=== PATIENT | female | born 1940 | race Caucasian/White ===

== ENCOUNTER 2019-04-19 08:30 | Inpatient (IN) | payer MEDICARE, SELFPAY ==
[2019-04-19] VITALS (21 sets, daily range): BP systolic 89–167; BP diastolic 48–92; PULSE 97–132; RESP 15–23; TEMP 36.2–37.8; O2SAT 91–95; BMI 31.6
--- NOTE | ~2019-04-19 | XR_ITS ---
XR chest 1V portable 04/22/2019 21:54 Indication: Fever and shortness of breath Procedure: 2 view chest Comparison: 04/20/2019 Findings: Developing patchy bilateral airspace disease, compatible with pneumonia. Heart size normal. No pleural effusion, edema or pneumothorax. No acute osseous abnormality. Impression: 1: Developing patchy bilateral airspace disease, compatible with pneumonia. Reviewed, dictated and finalized at location A. RAL RESOURCES PROFESSOR Impression: 1: Developing patchy bilateral airspace disease, compatible with pneumonia.
--- NOTE | ~2019-04-19 | US_ITS ---
EXAMINATION: US venous doppler [facility] DATE: 04/19/2019 12:34 INDICATION: Pulmonary embolism with shortness of breath TECHNIQUE: Grayscale ultrasound images without and with compression and Doppler ultrasound images of the bilateral lower extremity veins were obtained. COMPARISON: None. FINDINGS: The visualized portions of right common femoral vein, profunda (deep) femoral vein, femoral vein, pop liteal vein, posterior tibial veins, peroneal veins, gastrocnemius vein and greater saphenous vein ou tflow are patent. The visualized portions of left common femoral vein, profunda femoral vein, femoral vein, popliteal v ein, posterior tibial veins, peroneal veins, gastrocnemius vein and greater saphenous vein outflow ar e patent. IMPRESSION: 1. No deep venous thrombosis in either lower limb. Reviewed, dictated and finalized at location A. T BLANKER
--- NOTE | ~2019-04-19 | CT_ITS ---
EXAMINATION: CTA chest PE protocol DATE: 04/19/2019 11:06 INDICATION: Shortness of breath TECHNIQUE: Computed tomography (CT) pulmonary angiogram of the chest was performed with 100 mL Omnipa que-350 intravenous contrast. Additional 3D reconstructions utilizing coronal maximum intensity proje ction (MIP) were performed. Automated exposure control and iterative reconstruction technique were em ployed. The dose-length product was 290.19 mGy-cm. COMPARISON: None FINDINGS: Good contrast opacification of the pulmonary arteries. There is mild streak artifact from dense contr ast in the superior vena cava and right atrium. Mild scattered respiratory motion artifact which does not significantly limit evaluation. There are multiple bilateral pulmonary arterial filling defects including at the right upper lobar and segmental pulmonary arteries, the lateral segmental pulmonary artery of the right middle lobe, right lower lobar pulmonary artery extending into the superior segme ntal, posterior, lateral and anterior basilar segments, anteroapical segmental pulmonary artery of th e left upper lobe, the lingular and superior and inferior segmental pulmonary arteries as well as at the left lower lobar and segmental pulmonary arteries. No airspace opacities to suggest pulmonary inf arct or pneumonia. No pulmonary edema or pleural effusion. Heart size is normal. No leftward bowing o f the ventricular septum to suggest right heart strain. No pericardial effusion. No pathologically en larged thoracic lymphadenopathy. Large sliding-type hiatal hernia. Multiple parapelvic cysts at the m id to lower left kidney. Mild to moderate thoracic spondylosis. IMPRESSION: 1. Extensive bilateral pulmonary emboli with high clot burden but without evident right heart strain. Dr. Monreal discussed these findings with GREY Hankins at 11:30 AM. 2. Moderate to large hiatal hernia. Reviewed, dictated and finalized at location A. TY JAILER IMPRESSION: 1. Extensive bilateral pulmonary emboli with high clot burden but without evide nt right heart strain. Dr. Monreal discussed these findings with GREY hunt at 11:30 AM. 2. Moderate to large hiatal hernia.
--- NOTE | ~2019-04-19 | CT_ITS ---
EXAMINATION: CT abdomen pelvis wo con DATE: 04/20/2019 14:18 INDICATION: Dropping hemoglobin TECHNIQUE: Computed tomography (CT) of the abdomen and pelvis was performed without intravenous contr ast. The dose-length product (DLP) was 802.15 mGy-cm. Automated exposure control and iterative recons truction technique were employed. COMPARISON: None FINDINGS: Minimal dependent atelectasis is present in the lung bases. The heart size is normal. There is a large sliding hiatal hernia. The gallbladder is surgically absent. The liver, spleen, pancreas, and adrenal glands are normal. There are peripelvic cysts of the left kidney. The right kidney is un remarkable. There is calcified atherosclerosis of the aorta and many of the other arteries. There is mild lumbar spondylosis. No pathologically enlarged abdominal or pelvic lymph nodes are identified. T here is no free intraperitoneal gas or evidence of bowel obstruction. IMPRESSION: 1. No CT correlate for the patient's symptoms. Reviewed, dictated and finalized at location A. ATION RESEARCH ANALYST
--- NOTE | ~2019-04-19 | XR_ITS ---
EXAMINATION: XR chest 2V DATE: 04/20/2019 14:07 INDICATION: Cough, pulmonary embolism TECHNIQUE: Frontal and lateral views of the chest are obtained COMPARISON: CT, 04/19/2019 FINDINGS: The lungs are free of acute opacities. There are small pleural effusions. The cardiomediast inal silhouette is normal. There is moderate thoracic spondylosis. A cardiac loop recorder is implant ed in the anterior soft tissues of the left chest wall. IMPRESSION: 1. Small pleural effusions. Reviewed, dictated and finalized at location A. OR ATTORNEY IMPRESSION: 1. Small pleural effusions.
[2019-04-19 09:13] LABS: Basophils Percent Auto 0.2 % (0.2-1.2); Eosinophils Absolute Auto 0.2 K/mm3 (0-0.3); Eosinophils Percent Auto 2.1 % (0-4.4); Hematocrit 36.1 % (37.0-47.0); Hemoglobin 11.7 g/dL (12.0-15.0); Immature Granulocyte Absolute 0.03 K/mm3 (0.00-0.031); Immature Granulocyte Percent A 0.3 % (0-0.5); Lymphocytes Percent Auto 6.7 % (18.3-44.2); Mean Corpuscular HGB Conc 32.4 g/dl (32-36); Mean Corpuscular Hemoglobin 29.8 pg (26-34); Mean Corpuscular Volume 92.1 fl (80-100); Mean Platelet Volume 10.9 fl (7.4-10.4); Monocytes Absolute Auto 0.8 K/mm3 (0.1-0.6); Monocytes Percent Auto 9.2 % (2.6-8.5); Neutrophils Absolute Auto 7.3 K/mm3 (1.3-6.7); Neutrophils Percent Auto 81.5 % (45.5-73.1); Platelet Count Result 275 k/mm3 (150-375); Red Blood Count 3.92 M/mm3 (4.2-5.4); Red Cell Distribution Width 13.5 % (11.5-14.5)
--- NOTE | 2019-04-19 09:18 | ECG_ITS ---
Measurements Intervals [place] Rate: 100 P: 14 MS: 136 QRS: 18 QRSD: 92 T: 76 QT: 361 QTc: 466 Interpretive Statements SINUS TACHYCARDIA VENTRICULAR TRIGEMINY CONISDER INFERIOR INFARCT, AGE INDETERMINATE NONSPECIFIC ST & T-WAVE ABNORMALITY- ANTEROLAT/LAT LEADS ABNORMAL ECG Electronically Signed On 04-19-2019 11:18:59 OFFSET PRESS ASSISTANT by Jackson Chen D.O.
[2019-04-19 09:26] LABS: Alanine Aminotransferase 17 U/L (4-35); Albumin Level 3.9 g/dL (3.5-5.1); Alkaline Phosphatase 100 U/L (38-126); Aspartate Amino Transferase 28 U/L (14-36); Bilirubin,Total 0.6 mg/dL (0.2-1.3); Blood Urea Nitrogen 23 mg/dL (7-17); Calcium 9.4 mg/dL (8.4-10.2); Carbon Dioxide 23 mmol/L (22-30); Chloride 102 mmol/L (98-107); Estimated CRCL calculation 47 ml/min; Estimated Glomerular Filt Rate > 60; Glucose 149 mg/dL (65-105); Lipase 177 U/L (23-300); Sodium 138 mmol/L (137-145)
[2019-04-19 10:05] LABS: Lactic Acid Reflex 1.3 mmol/L (0.7-2.1)
--- NOTE | 2019-04-19 10:07 | ED.GENADULT ---
HPI - General Adult General Chief complaint: Unspecified <Dion Hankins PA-C - Last Filed: 04/19/19 12:14> Stated complaint: diff breathing x1 wk <MARY Roberts Last Filed: 04/19/19 12:14> Time Seen by Provider: 04/19/19 08:58 <MARY Roberts Last Filed: 04/19/19 12:14> Source: patient <MARY Roberts Last Filed: 04/19/19 12:14> Mode of arrival: ambulatory <MARY Roberts Last Filed: 04/19/19 12:14> Limitations: no limitations <MARY Roberts Last Filed: 04/19/19 12:14> History of Present Illness HPI narrative: Patient is a 78-year-old female who presents to emergency department for evaluation of fatigue myalgias arthralgias congestion rhinorrhea and cough that began last night. Patient notes that her daughter had been ill as well and believes she may have contacted whenever her daughter has. Patient denies any current pain. Patient notes that the discomfort she experiences in the knees is worse with ambulation and activity and improves with rest. Patient notes for the last month she has had dyspnea on exertion. Patient denies any fever chills nausea vomiting diarrhea on arrival patient in the room in no distress <Dion Hankins PA-C - Last Filed: 04/19/19 12:14> Related Data Home medications: Home Medications Medication Instructions Recorded Confirmed alprazolam 0.5 mg PO BID PRN 04/19/19 04/19/19 aspirin 81 mg PO DAILY 04/19/19 04/19/19 atorvastatin 20 mg PO HS 04/19/19 04/19/19 cyanocobalamin (vitamin B-12) 500 mcg PO DAILY 04/19/19 04/19/19 [Vitamin B-12] folic acid 400 mcg PO DAILY 04/19/19 04/19/19 lisinopril-hydrochlorothiazide 1 tablet PO DAILY 04/19/19 04/19/19 qjrfrrhvprka-loa-thli-FA-vit K 1 tablet PO DAILY 04/19/19 04/19/19 [Adults Multivitamin] sertraline 100 mg PO DAILY 04/19/19 04/19/19 <MARY Roberts Filed: 04/19/19 12:14> Allergies/adverse reactions: Allergies Allergy/AdvReac Type Severity Reaction Status Date / Time latex Allergy Unknown RASH Verified 01/29/18 14:55 ONIONS AdvReac Unknown NAUSEA, Uncoded 10/18/17 09:51 SLEEPINESS <Dion Hankins PA-C - Last Filed: 04/19/19 12:14> Review of Systems Review of Systems: All systems reviewed & are unremarkable except as noted in HPI and below <Dion Hankins PA-C - Last Filed: 04/19/19 12:14> [facility] Past Medical History Medical History: Medical History (Updated 04/19/19 @ 15:47 by Anneliese Florentino NP) Anxiety 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ipidemia Hypertension Iron deficiency anemia Normal colonoscopy Panic attack Peptic ulcer disease 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 <Dion Hankins PA-C - Last Filed: 04/19/19 12:14> Surgical History Surgical History: Surgical History (Updated 04/19/19 @ 15:47 by Anneliese Florentino NP) H/O blepharoplasty H/O cataract extraction Bilateral H/O endoscopy H/O total hysterectomy History of appendectomy History of loop recorder Left chest Hx of cholecystectomy S/P tonsillectomy <Dion Hankins PA-C - Last Filed: 04/19/19 12:14> Family History Family History: Family History (Updated 04/19/19 @ 16:16 by Anneliese Florentino NP) Father Hypertension Acute myocardial infarction Sibling Cancer Kidney disease Sibling Lung cancer <Dion Hankins PA-C - Last Filed: 04/19/19 12:14> Social History Social History: Social History (Updated 04/19/19 @ 16:20 by Anneliese Florentino NP) Social History: The patient is and lives with her daughter and son-in-law. She has 2 children a son and a daughter. Petra Glez. She is a full code. No alcohol or illicit drugs. Lifelong nonsmoker
[2019-04-19] MEDS: LACTATED RINGERS 1,000 ML 999 ML IV CONT (10:16)
[2019-04-19 10:24] LABS: D Dimer 6.02 ug/mL (<0.48)
[2019-04-19 10:29] LABS: Add Urine Microscopic? NO; Appearance Urine Clear (Clear); Bilirubin Urine Negative (Negative); Blood Urine Negative (Negative); Color Urine Yellow (Yellow); Glucose Urine UA Negative (Negative); Ketones Urine Negative (Negative); Leukocyte Esterase Ur Negative LEU/UL (Negative); Nitrate Urine Negative (Negative); Protein Urine Negative (Negative); Specific Grav Ur 1.019 (1.001-1.035); Urobilinogen Urine Negative mg/dL (<2.0)
[2019-04-19 10:49] LABS: Alveolar/Arterial O2 Gradient 45.6 mmHg; Fractional Inspired Oxygen 21 %; HCO3 ABG 22.9 mEq/l (22.0-26.0); Oxygen Content ABG 14.7 %vol (16.0-22.0); Oxygen Saturation ABG 94.5 % (95.0-100.0); Oxyhemoglobin 92.5 % THb (90.0-100.0); PCO2 ABG 31.7 mmHg (35.0-45.0); PO2 ABG 66.2 mmHg (80.0-100.0); PO2 FiO2 Ratio Arterial Blood 3.15 %; Total Hemoglobin 11.3 g/dL (12.0-18.0); pH ABG 7.477 (7.350-7.450)
[2019-04-19 10:50] LABS: Site Drawn LEFT BRACHIAL
[2019-04-19 10:51] LABS: Device ROOM AIR
[2019-04-19] MEDS: SODIUM CHLORIDE 0.9% IV 1,000 ML 999 ML IV CONT (11:08)
[2019-04-19] MEDS: ONDANSETRON INJ 4 MG/2 ML VIAL IV PUSH (11:08)
[2019-04-19 12:06] LABS: Partial Thromboplastin Time 25.4 SECONDS (22.3-36.8); Prothrombin Time 12.4 Seconds (11.1-14.7)
[2019-04-19] MEDS: HEPARIN SOD/D5W 100 UNITS/ML 25,000 UNITS/250 ML BAG 15 UNITS (12:07)
[2019-04-19] MEDS: HEPARIN SODIUM 5,000 UNITS/ML VIAL 5500 UNITS IV PUSH (12:08)
--- NOTE | 2019-04-19 12:26 | PM.CNCAR ---
Assessment and Plan Assessment and plan (1) Pulmonary emboli: Code(s): I26.99 - Other pulmonary embolism without acute cor pulmonale Status: Acute Assessment and Plan: She had multiple small pulmonary clots, but no enlargement of the pulmonary trunk or enlargement of the right ventricle, indicative of mild PE, and no evidence of massive or submassive PE at this time. With that she can benefit from heparin and then switching to Eliquis. No need for any catheter based intervention in view of low likelihood of major complications and low likelihood of hemodynamic instability based on the size of the clots thus far (2) CVA (cerebral vascular accident): Code(s): I63.9 - Cerebral infarction, unspecified Status: Acute Assessment and Plan: She has loop recorder for possible underlying atrial fibrillation Thank you for allowing me to participate in this patient's care, I will be following up with you. Please do not hesitate to call me for any other inquiry History of Present Illness History of Present Illness Consult date/time: 04/19/19 12:26 Consultation for management and treatment of PE 78 years old lady with history of stroke, history of hypertension, came to the hospital because of progressive worsening shortness breath with chest tightness started few days ago. Her daughter stated that she moved from [place] and she drove from the ER few days ago, after that she has been having worsening shortness of breath and no leg pain alone leg swelling. She had history of stroke in the past for which she have LINQ loop recorder inserted, but so far no significant arrhythmia. She gets occasional tightness in the chest but she attributed to heartburn, no history of syncope per se. CT of the chest was done showed multiple small thrombus noted in the right lower and left lower lobe pulmonary artery, there is no right ventricular enlargement noted. And no dilatation of the pulmonary artery. And no evidence of pulmonary infarction. She has mild leg swelling but no history of leg pain or recent DVT. Reason For Visit: diff breathing x1 wk Review of Systems Constitutional: Constitutional: Reports body ache(s), Reports fatigue and Reports lethargy Cardiovascular: Cardiovascular: Reports as per HPI Respiratory: Respiratory: Reports dyspnea on exertion [facility] Past Medical History Medical History CVA (cerebral vascular accident) Hypertension Family History Family History Father Hypertension Social History Social History Smoking status: Never smoker Second hand tobacco smoke exposure: No Alcohol intake: current Gender identity (if verbalized by the patient): Female Meds Home Medications and Allergies Home Medications Medication Instructions Recorded Confirmed Type trazodone 50 mg tablet 50 mg PO DAILY #180 tablet 02/06/19 Rx Allergies Allergy/AdvReac Type Severity Reaction Status Date / Time latex Allergy Unknown RASH Verified 01/29/18 14:55 ONIONS AdvReac Unknown NAUSEA, Uncoded 10/18/17 09:51 SLEEPINESS Vital Signs Vital Signs - 24 hr 04/19/19 08:34 04/19/19 08:42 04/19/19 08:45 Temperature 36.5 C Pulse Rate 105 H 108 H Respiratory Rate 19 23 H Blood Pressure 167/92 H 165/48 H Pulse Oximetry 93 94 04/19/19 08:46 04/19/19 08:47 04/19/19 08:58 Temperature 36.2 C L Pulse Rate 120 H 132 H 103 H Respiratory Rate 15 Blood Pressure 121/63 89/61 L 146/55 H Pulse Oximetry 94 04/19/19 10:17 04/19/19 11:13 Temperature 36.4 C L 36.5 C Pulse Rate 104 H 106 H Respiratory Rate 21 H 16 Blood Pressure 133/66 165/90 H Pulse Oximetry 95 93 Exam Narrative: Exam Narrative: Awake alert oriented x3 not in acute distress Neck is supple no obvious JVD, no carotid bruit Chest: Good air entry bilatera
--- NOTE | 2019-04-19 13:39 | PC.NURSE ---
Patient to floor at this time.
--- NOTE | 2019-04-19 13:42 | PC.NURSE ---
This patient, Lisa James, was admitted to 2 Medical Room 241-01. Patient/family oriented to hospital policies and general routines including ID bracelet, bed and alarms, visiting hours, pain management, procedures, bathroom and other care routines, personal items, smoking policy, room service/diet, and visiting hours. Valuables list has been completed. Information on how to activate the Rapid Response Team has been discussed. Patient/Family are encouraged to report perceived risks to care and to ask questions if they do not understand what they are told or what they should do.
[2019-04-19] MEDS: HEPARIN SOD/D5W 100 UNITS/ML 25,000 UNITS/250 ML BAG 12 UNITS IV CONT ×2 (13:53→13:55)
[2019-04-19] MEDS: ACETAMINOPHEN 500 MG TABLET 1000 MG PO (14:47)
[2019-04-19] MEDS: ALBUTEROL SULFATE NEB 2.5 MG/0.5 ML INH 5 MG INHALATION ×2 (15:22→21:53)
--- NOTE | 2019-04-19 15:35 | PM.IMHP ---
H&P: HPI History of Present Illness Chief complaint: pulmonary embolism Narrative: Lisa James is a 78 year old female in [place] and recently made a trip back here to [place] with her daughter. It took them [address] here but the daughter stated that they were in the car pretty much of the time. Patient has not had any previous PEs or DVTs. However the patient was on Xarelto at 1 time because of her stroke and TIAs she stated. However she has been taken off of Xarelto because she had peptic ulcer disease and anemia with her hemoglobin getting down to 5 at 1 time in requiring blood transfusions. She currently sees a dry cleaning manager Dr. ford who occasionally gets her iron transfusions. The patient stated she has been feeling ill for about 2 weeks. She does not really feel achy but just her knees. She is very weak and having some nasal congestion and cough that started last night. The patient stated that she has been short of breath with exertion for about 2 weeks. Patient stated she just thought she had upper respiratory infection. Had a CTA chest PE protocol and was found to have extensive bilateral pulmonary emboli with high clot burden but without evidence of right heart strain. Moderate to large hiatal hernia. Dr. Liz was notified and instructed the ED provider to start the patient on heparin drip. I believe that he saw her in the emergency room as well. Venous Dopplers were negative. The patient was started on heparin drip in the emergency room. Patient stated she is feeling somewhat better however she was a little unsteady on her feet today. Date of service 04/19/2019 Review of Systems Review of Systems: Narrative: Patient feels very weak and fatigued. She has a history of anemia although her last hemoglobin was normal her last visit to the dry cleaning manager. She has been short of breath on exertion since she had her travel to [place]. She has a dry cough as well. She had low-grade fever as well. All systems reviewed & are unremarkable except as noted in HPI and below Constitutional: Constitutional: Reports as per HPI, Reports no additional constitutional complaints, Reports body ache(s) (Just her knees), Reports fatigue, Reports fever(s) and Reports weakness Eyes: Eyes: Reports as per HPI and Reports no additional eye complaints ENT: Reports system reviewed and no additional complaints, except as documented, Reports Normal hearing present, Reports nasal congestion, Reports nasal discharge, Reports disequilibrium and Reports sinus pressure Cardiovascular: Cardiovascular: Reports no additional cardiovascular complaints Respiratory: Respiratory: Reports no additional respiratory complaints, Reports no additional respiratory complaints and Reports dyspnea on exertion Gastrointestinal: Gastrointestinal: Reports as per HPI and Reports no additional gastrointestinal complaints Musculoskeletal: Musculoskeletal: Reports no additional musculoskeletal complaints Integumentary/Breasts: Skin/Breast: Reports system reviewed and no additional complaints, except as docu and Reports as per HPI Neurologic: Reports system reviewed and no additional complaints, except as documented, Reports as per HPI and Reports Normal hearing present Psychiatric: Psychiatric: Reports no additional psychiatric complaints and Reports as per HPI Endocrine: Endocrine: Reports no additional endocrine complaints Hematologic/Lymphatic: Hematologic/Lymphatic: Reports no additional hematologic/lymphatic complaints Allergic/Immunologic: Allergic/Immunologic: Reports no additional allergic/immunologic complaints [facility] Past Medical History Medical History (Updated 04/19/19 @ 15:47 by Anneliese Florentino NP) Anxiety 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
[2019-04-19] MEDS: APIXABAN 5 MG TABLET 10 MG PO (18:07)
[2019-04-19] MEDS: ASPIRIN 81 MG CHEWABLE TABLET PO (18:08)
[2019-04-19] MEDS: ALPRAZOLAM 0.5 MG TABLET PO (18:14)
[2019-04-19] MEDS: LACTATED RINGERS 1,000 ML 75 ML IV CONT (18:38)
--- NOTE | 2019-04-19 18:39 | PC.NURSE ---
Heparin drip discontinued per orders.
[2019-04-19] MEDS: ATORVASTATIN 20 MG TABLET PO (20:18)
[2019-04-19] MEDS: TRAZODONE HCL 50 MG TABLET 100 MG PO (20:18)
[2019-04-19 20:24] LABS: Partial Thromboplastin Time 174.3 SECONDS (22.3-36.8)
[2019-04-20] VITALS (18 sets, daily range): BP systolic 100–139; BP diastolic 45–61; PULSE 88–105; RESP 16–20; TEMP 36.6–37.2; O2SAT 91–97
[2019-04-20] MEDS: ALBUTEROL SULFATE NEB 2.5 MG/0.5 ML INH 5 MG INHALATION ×4 (03:08→20:24)
[2019-04-20] MEDS: APIXABAN 5 MG TABLET 10 MG PO (05:33)
[2019-04-20 06:00] LABS: Hematocrit 26.7 % (37.0-47.0); Hemoglobin 8.6 g/dL (12.0-15.0); Mean Corpuscular HGB Conc 32.2 g/dl (32-36); Mean Platelet Volume 10.8 fl (7.4-10.4); Platelet Count Result 175 k/mm3 (150-375); Red Blood Count 2.87 M/mm3 (4.2-5.4); Red Cell Distribution Width 14.1 % (11.5-14.5); White Blood Count 3.6 K/mm3 (4.5-10.0)
[2019-04-20 06:16] LABS: Alanine Aminotransferase 15 U/L (4-35); Albumin Level 2.9 g/dL (3.5-5.1); Alkaline Phosphatase 47 U/L (38-126); Aspartate Amino Transferase 27 U/L (14-36); Bilirubin,Total 0.3 mg/dL (0.2-1.3); Blood Urea Nitrogen 21 mg/dL (7-17); Calcium 7.9 mg/dL (8.4-10.2); Carbon Dioxide 26 mmol/L (22-30); Chloride 104 mmol/L (98-107); Estimated CRCL calculation 38 ml/min; Estimated Glomerular Filt Rate 48; Glucose 113 mg/dL (65-105); Magnesium 1.5 mg/dL (1.6-2.3); Potassium 3.8 mmol/L (3.4-5.0); Sodium 138 mmol/L (137-145)
[2019-04-20 07:05] LABS: Thyroid Stimulating Hormone Reflex 0.584 uIU/mL (0.465-4.68)
[2019-04-20] MEDS: LACTATED RINGERS 1,000 ML 75 ML IV CONT ×2 (07:28→22:33)
[2019-04-20 08:00] LABS: Band Neutrophils Percent 1 % (0-6); Monocytes Absolute Manual 0.21 K/mm3 (0.1-0.90); Monocytes Percent Manual 6 % (3-9); Neutrophils Absolute Manual 2.88 K/mm3 (1.7-7.2); Neutrophils Percent Manual 79 % (46-73); Total Cells Counted 100
[2019-04-20 08:01] LABS: Hypochromasia 1+ (NORMAL); Platelet Estimate Adequate (Adequate)
[2019-04-20] MEDS: MULTIVITAMINS /C LUTEIN (CENTRUM SILVER) TABLET *BKC 1 TAB PO (10:15)
[2019-04-20] MEDS: CYANOCOBALAMIN 500 MCG TABLET PO (10:15)
[2019-04-20] MEDS: FOLIC ACID 0.4 MG TABLET PO (10:16)
[2019-04-20] MEDS: SERTRALINE HCL 50 MG TABLET 100 MG PO (10:16)
[2019-04-20 13:33] LABS: Basophils Percent Auto 0.6 % (0.2-1.2); Hematocrit 26.6 % (37.0-47.0); Hemoglobin 8.4 g/dL (12.0-15.0); Lymphocytes Absolute Auto 0.63 K/mm3 (0.9-3.2); Lymphocytes Percent Auto 18.9 % (18.3-44.2); Mean Corpuscular HGB Conc 31.6 g/dl (32-36); Mean Platelet Volume 9.9 fl (7.4-10.4); Monocytes Absolute Auto 0.5 K/mm3 (0.1-0.6); Monocytes Percent Auto 15.3 % (2.6-8.5); Neutrophils Absolute Auto 2.2 K/mm3 (1.3-6.7); Neutrophils Percent Auto 65.2 % (45.5-73.1); Platelet Count Result 154 k/mm3 (150-375); Red Cell Distribution Width 14.3 % (11.5-14.5); White Blood Count 3.3 K/mm3 (4.5-10.0)
[2019-04-20 13:57] LABS: Lactic Acid Reflex 1.5 mmol/L (0.7-2.1)
--- NOTE | 2019-04-20 14:14 | PM.PNCARD ---
Progress Note: A&P Assessment and Plan (1) Pulmonary emboli: Code(s): I26.99 - Other pulmonary embolism without acute cor pulmonale Status: Acute Assessment and Plan: She had multiple small pulmonary clots, but no enlargement of the pulmonary trunk or enlargement of the right ventricle, indicative of mild PE, and no evidence of massive or submassive PE at this time. With that she can benefit from Eliquis. No need for any catheter based intervention in view of low likelihood of major complications and low likelihood of hemodynamic instability based on the size of the clots thus far. Her hemoglobin dropped, she is going for CT, will stop aspirin, consider dropping to 5 twice a day instead in view of significant anemia. In the event that she continue to have drop in her hemoglobin further on lower dose Eliquis then will consider filter (2) CVA (cerebral vascular accident): Code(s): I63.9 - Cerebral infarction, unspecified Status: Chronic Assessment and Plan: She has loop recorder for possible underlying atrial fibrillation Thank you for allowing me to participate in this patient's care, I will be following up with you. Please do not hesitate to call me for any other inquiry Subjective Date/time seen: 04/20/19 14:14 She feels okay today, shortness breath is better, no leg pain or leg swelling. Noted to have some drop in her hemoglobin. She is going for abdominal CT Review of Systems Constitutional: Constitutional: Reports body ache(s), Reports fatigue and Reports lethargy Cardiovascular: Cardiovascular: Reports as per HPI and Reports dyspnea on exertion Respiratory: Respiratory: Reports dyspnea on exertion Endocrine: Endocrine: Reports fatigue Objective Data Vital Signs Vital Signs: Vital Signs - 24 hr 04/19/19 14:47 04/19/19 15:27 04/19/19 15:32 Temperature 37.8 C H Pulse Rate 100 109 H Respiratory Rate 16 16 Blood Pressure Pulse Oximetry 04/19/19 15:47 04/19/19 16:00 04/19/19 20:00 Temperature 37.7 C H Pulse Rate 117 H 104 H Respiratory Rate Blood Pressure Pulse Oximetry 04/19/19 21:55 04/19/19 22:00 04/20/19 00:00 Temperature 36.5 C Pulse Rate 97 105 H 98 Respiratory Rate 18 20 Blood Pressure 100/51 L Pulse Oximetry 94 04/20/19 03:14 04/20/19 03:19 04/20/19 04:00 Temperature Pulse Rate 96 101 H 105 H Respiratory Rate 18 18 Blood Pressure Pulse Oximetry 04/20/19 06:00 04/20/19 08:00 04/20/19 10:00 Temperature 37.2 C 36.9 C Pulse Rate 103 H 103 H 90 Respiratory Rate 20 16 Blood Pressure 100/45 L 111/54 L Pulse Oximetry 95 97 04/20/19 11:12 04/20/19 11:19 04/20/19 12:00 Temperature Pulse Rate 89 88 104 H Respiratory Rate 18 18 Blood Pressure Pulse Oximetry Intake/Output Intake/Output: Intake & Output 04/17/19 04/18/19 04/19/19 04/20/19 23:59 23:59 23:59 23:59 Intake Total 2256 1650.0 Output Total 555 600 Balance 1701 1050.0 Meds/Results Medications: Active Medications Generic Name Dose Route Start Last Admin Trade Name Freq PRN Reason Stop Dose Admin Acetaminophen 1,000 mg 04/19/19 14:20 04/19/19 14:47 Tylenol Tablet PO 1,000 mg Q6H PRN Administration Mild Pain (1-3) or Fever Albuterol 5 mg 04/19/19 14:00 04/20/19 11:11 Albuterol Sulf Neb 2.5mg/0.5ml INHALATION 5 mg Q6HRT SAMARIA Administration Alprazolam 0.5 mg 04/19/19 16:31 04/19/19 18:14 Xanax PO 0.5 mg BID PRN Administration Anxiety Apixaban 10 mg 04/19/19 18:00 04/20/19 05:33 Eliquis PO 10 mg Q12H SAMARIA Administration Aspirin 81 mg 04/19/19 18:00 04/19/19 18:08 Aspirin Chewable PO 81 mg QPM SAMARIA Administration Atorvastatin Calcium 20 mg 04/19/19 21:00 04/19/19 20:18 Lipitor PO 20 mg HS SAMARIA Administration Cyanocobalamin 500 mcg 04/20/19 09:00 04/20/19 10:15 Vitamin B-12 Tab PO 500 mcg DAILY SAMARIA Administration Folic Acid
--- NOTE | 2019-04-20 14:44 | PM.IMPN ---
Progress Note: A&P Assessment and Plan (1) Pulmonary emboli: Code(s): I26.99 - Other pulmonary embolism without acute cor pulmonale Status: Acute Assessment and Plan: The pt was diagnosed with extensive bilateral PE with high clot burden and no right heart strain. Dr. Amaral was also consulted and is on board. Appreciate recommendations. The pt was transitioned from heparin gtt to eliquis. She had a decrease in hemoglobin from 11.7 to 8.4 which has been stable today. Will monitor H & H Q6HR. We may need to decrease eliquis to 5mg PO BID. She has a prior hx of PUD with anemia following xarelto use which had to be discontinued. -Consider decreasing eliquis to 5mg BID if H&H continues to decrease (2) Depression: Code(s): F32.9 - Major depressive disorder, single episode, unspecified Status: Chronic Assessment and Plan: The pt's mood is stable. -Continue zoloft (3) Iron deficiency anemia: Code(s): D50.9 - Iron deficiency anemia, unspecified Status: Chronic Assessment and Plan: The pt has a hx of YESSICA. She is established with Dr. Charles and reports that she requires intermittent iron infusions. Hb today decreased from 11.7 to 8.5. I suspect possible acute blood loss anemia due to anticoagulation required for PE. Per Dr. Amaral, aspirin will be discontinued. -Discontinue aspirin -STAT CT abd/pelvis to r/o retroperitoneal bleed was negative for evidence of acute bleed -UA to r/o hematuria -Stool occult blood -H & H Q6HR -Will monitor H & H. Eliquis may have to be reduced to 5mg BID if Hb continues to decrease. 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 She is established with Dr. Malik. The pt has not been taking her omeprazole. She had an EGD approximately 1.5 years ago and believes she is due for a follow-up appointment. -Continue follow-up with Dr. Malik -Pt will need PPI at discharge (5) Hyperlipidemia: Code(s): E78.5 - Hyperlipidemia, unspecified Status: Chronic Assessment and Plan: LFTs reviewed and WNL. -Continue atorvastatin (6) HTN (hypertension) with goal to be determined: Code(s): I10 - Essential (primary) hypertension Status: Chronic Assessment and Plan: BP was low today. Lisinopril is being held. I confirmed the appropriate dosing for her lisinopril-HCTZ which is lisinopril 10mg-hydrochlorothiazide 12.5mg. -Will hold lisinopril-HCTZ for now and resume when appropriate (7) Anxiety: Code(s): F41.9 - Anxiety disorder, unspecified Status: Chronic Assessment and Plan: The pt does not feel anxious at this time. Her mood is stable. 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 She has no focal deficits, change in vision, or change in speech. Additional Plan DVT Prophylaxis: Pt is on eliquis for treatment of PE. Time Spent With Patient Time with patient: 15 - 25 minutes Subjective Date/time seen: 04/20/19 14:44 Interval history: The pt was seen and examined at bedside with her daughter. She endorses minimally productive cough with clear sputum and sinus drainage. Her daughter was recently diagnosed with a viral illness and the pt reports similar sx for approximately 1 week. She reports a fever and chills yesterday. She is on 2L O2. She denies SOB and chest pain. Hb dropped from 11.7 to 8.7 overnight. She has a hx of PUD and anemia requiring cessation of xarelto in the past. She reports that she was previously on xarelto due to
[2019-04-20 15:23] LABS: Hematocrit 26.5 % (37.0-47.0); Hemoglobin 8.5 g/dL (12.0-15.0)
[2019-04-20] MEDS: ALPRAZOLAM 0.5 MG TABLET PO (16:19)
[2019-04-20 16:58] LABS: Add Urine Microscopic? YES; Appearance Urine Clear (Clear); Bilirubin Urine Negative (Negative); Blood Urine 1+ (Negative); Color Urine Straw (Yellow); Glucose Urine UA Negative (Negative); Ketones Urine Negative (Negative); Leukocyte Esterase Ur Negative LEU/UL (NEGATIVE); Mucus Urine Rare /lpf; Nitrate Urine Negative (Negative); Protein Urine Negative (Negative); Specific Grav Ur 1.009 (1.001-1.035); Squamous Epithelial Cell Urine Few /hpf (Few); Urobilinogen Urine Negative mg/dL (<2.0); WBC Urine 0-3 /hpf (0-3)
[2019-04-20] MEDS: APIXABAN 5 MG TABLET PO (17:54)
[2019-04-20] MEDS: MAGNESIUM SULF 2 GM/WATER 50ML 2 GM/50 ML BAG IVPB (19:57)
[2019-04-20] MEDS: PANTOPRAZOLE SODIUM IV 40 MG VIAL IV PUSH (21:12)
[2019-04-20] MEDS: TRAZODONE HCL 50 MG TABLET 100 MG PO (21:12)
[2019-04-20] MEDS: ATORVASTATIN 20 MG TABLET PO (21:13)
[2019-04-20] MEDS: SODIUM CHLORIDE 0.9% (21:20)
[2019-04-20 21:24] LABS: Hematocrit 26.4 % (37.0-47.0); Hemoglobin 8.3 g/dL (12.0-15.0)
[2019-04-21] VITALS (18 sets, daily range): BP systolic 110–136; BP diastolic 52–63; PULSE 79–99; RESP 16–22; TEMP 36.2–36.8; O2SAT 90–94
--- NOTE | 2019-04-21 | ECHO_ITS ---
Patient Info Name: Lisa James Age: 78 years : 1940 Gender: Female Ht: 63 in Wt: 179 lbs BSA: 1.93 m2 HR: 87 bpm BP: 128 / 52 mmHg Heart Rhythm: Sinus Arrhythmia Technical Quality: Good Exam Date: 04/21/2019 10:55 AM Exam Location: [facility] Card Pulmonary Patient Status: Inpatient Admit Date: 04/19/2019 Staff Ordering Physician: Anneliese Florentino NP Rivet Sorter: Chris Vera RDCS Attending Provider: Sumit Rose MD Referring Physician: Mishel FAULKNER; Exam Type: CA echo doppler color flow Study Info Indications I26.99 - Other pulmonary embolism without acute cor pulmonale Complete two-dimensional, color flow and Doppler transthoracic echocardiogram is performed. Strain analysis performed. History/Risk Factors Pulmonary embolism; HTN, SOB chest tightness. Summary 1. Left ventricular systolic function is normal, estimated at 65-70%. 2. There is mildly increased left ventricular wall thickness. 3. Left ventricular septal wall motion is normal. 4. There is trace mitral valve regurgitation. Left Ventricle Left ventricular chamber dimension is normal. Left ventricular systolic function is normal, estimated at 65-70%. There is mildly increased left ventricular wall thickness. Left ventricular septal wall motion is normal. The left ventricular diastolic function is normal. Right Ventricle Right ventricular chamber dimension is normal. Right ventricular systolic function is normal. Left Atria Left atrial chamber dimension is normal. Right Atria Right atrial chamber dimension is normal. Aortic Valve The aortic valve is trileaflet. There is no aortic valve sclerosis. There is no aortic valve stenosis. There is no aortic valve regurgitation. Pulmonic Valve The pulmonic valve is normal. There is no pulmonic valve stenosis. There is no pulmonic regurgitation. Mitral Valve The mitral valve has normal leaflets. There is no mitral valve stenosis. There is trace mitral valve regurgitation. Tricuspid Valve The tricuspid valve leaflets are normal. There is no significant tricuspid valve stenosis. There is no tricuspid valve regurgitation. No pulmonary hypertension, estimated pulmonary arterial systolic pressure is 48 mmHg. Pericardium/Pleural The pericardium appears normal. There is no pericardial effusion. Inferior Vena Cava Normal inferior vena cava with >50% collapse upon inspiration consistent with normal right atrial pressure, 15 mmHg. Aorta The aortic root size at the sinus of Valsalva is normal. The prox ascending aorta size is normal. Left Ventricular Outflow Tract Name Value Normal LVOT 2D LVOT Diameter 1.8 cm LVOT Doppler LVOT Peak Gradient 7 mmHg LVOT Mean Gradient 4 mmHg LVOT VTI 24 cm LVOT VTI/AV VTI Ratio 0.9 LVOT Stroke Volume 64 ml LVOT CO 5.3 l/min LVOT CI 2.8 l/min/m2 Mitral Valve --------
[2019-04-21] MEDS: ALBUTEROL SULFATE NEB 2.5 MG/0.5 ML INH 5 MG INHALATION ×4 (02:31→21:25)
[2019-04-21 05:31] LABS: Blood Urea Nitrogen 15 mg/dL (7-17); Calcium 8.1 mg/dL (8.4-10.2); Carbon Dioxide 27 mmol/L (22-30); Chloride 101 mmol/L (98-107); Estimated CRCL calculation 30 ml/min; Estimated Glomerular Filt Rate 36; Glucose 129 mg/dL (65-105); Magnesium 2.3 mg/dL (1.6-2.3); Potassium 3.5 mmol/L (3.4-5.0); Sodium 138 mmol/L (137-145)
[2019-04-21 05:32] LABS: Hematocrit 25.2 % (37.0-47.0); Hemoglobin 8.1 g/dL (12.0-15.0); Immature Granulocyte Absolute 0.01 K/mm3 (0.00-0.031); Immature Granulocyte Percent A 0.3 % (0-0.5); Lymphocytes Absolute Auto 0.74 K/mm3 (0.9-3.2); Lymphocytes Percent Auto 21.8 % (18.3-44.2); Mean Corpuscular HGB Conc 32.1 g/dl (32-36); Mean Corpuscular Hemoglobin 30.5 pg (26-34); Mean Corpuscular Volume 94.7 fl (80-100); Mean Platelet Volume 10.6 fl (7.4-10.4); Monocytes Absolute Auto 0.5 K/mm3 (0.1-0.6); Monocytes Percent Auto 15.6 % (2.6-8.5); Neutrophils Absolute Auto 2.1 K/mm3 (1.3-6.7); Neutrophils Percent Auto 62.3 % (45.5-73.1); Platelet Count Result 141 k/mm3 (150-375); Red Blood Count 2.66 M/mm3 (4.2-5.4); Red Cell Distribution Width 14.6 % (11.5-14.5); White Blood Count 3.4 K/mm3 (4.5-10.0)
[2019-04-21] MEDS: APIXABAN 5 MG TABLET PO (06:32)
--- NOTE | 2019-04-21 08:27 | PM.IMPN ---
Progress Note: A&P Assessment and Plan (1) Pulmonary emboli: Code(s): I26.99 - Other pulmonary embolism without acute cor pulmonale Status: Acute Assessment and Plan: The pt was diagnosed with extensive bilateral PE with high clot burden and no right heart strain. Dr. Amaral was also consulted and is on board. Appreciate recommendations. The pt was transitioned from heparin gtt to eliquis. She had a decrease in hemoglobin from 11.7 to 8.6. Eliquis was decreased to 5mg BID yesterday. Hb is slowly decreasing and is 8.[address] abd/pelvis wo contrast was performed and negative for retroperitoneal bleed. She had an episode of melena this AM. I suspect upper GI bleed. Pt reports no dyspnea or chest pain although she is requiring 2 L oxygen. Suspect this is multifactorial due to PE with anemia contributing to increased oxygen requirements as pt did not require oxygen at presentation. -Stool occult blood sample obtained -Spoke with Dr. Amaral. Will decrease eliquis to 2.5mg BID. ASA was also discontinued yesterday. -Will consult GI -Trend H & H -Pt is on IV protonix 40mg BID (2) Depression: Code(s): F32.9 - Major depressive disorder, single episode, unspecified Status: Chronic Assessment and Plan: The pt's mood is stable. -Continue zoloft (3) Iron deficiency anemia: Code(s): D50.9 - Iron deficiency anemia, unspecified Status: Chronic Assessment and Plan: The pt has a hx of YESSICA. She is established with Dr. Charles and reports that she requires intermittent iron infusions. Hb today decreased from 11.7 to 8.5. I suspect possible acute blood loss anemia due to anticoagulation required for PE. ASA was discontinue yesterday. -H & H Q6HR -Decrease eliquis to 2.5mg BID -Continue IV protonix -Await further recommendations from Dr. 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 She is established with Dr. Malik. The pt has not been taking her omeprazole. She had an EGD approximately 1.5 years ago and believes she is due for a follow-up appointment. -Continue follow-up with Dr. Malik -Pt will need PPI at discharge (5) Hyperlipidemia: Code(s): E78.5 - Hyperlipidemia, unspecified Status: Chronic Assessment and Plan: LFTs reviewed and WNL. -Continue atorvastatin (6) HTN (hypertension) with goal to be determined: Code(s): I10 - Essential (primary) hypertension Status: Chronic Assessment and Plan: BP was low today. Lisinopril is being held. I confirmed the appropriate dosing for her lisinopril-HCTZ which is lisinopril 10mg-hydrochlorothiazide 12.5mg. -Will hold lisinopril-HCTZ for now and resume when appropriate (7) Anxiety: Code(s): F41.9 - Anxiety disorder, unspecified Status: Chronic Assessment and Plan: The pt does not feel anxious at this time. Her mood is stable. 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 She has no focal deficits, change in vision, or change in speech. (9) Acute kidney injury: Code(s): N17.9 - Acute kidney failure, unspecified Status: Acute Assessment and Plan: Cr increased to 1.4 from 0.9 04/19. I supect this may be contrast-induced. -Will trend Cr -Avoid all nephrotoxic agents Additional Plan DVT Prophylaxis: Pt is on eliquis for treatment of PE. Subjective Date/time seen: 04/21/19 08:27 Interval history: The pt feels better overall today. She denies lightheadedness. She endorses mild headache. She reports a bowel movement this morning with black tarry stool. Oc
[2019-04-21] MEDS: FOLIC ACID 0.4 MG TABLET PO (08:52)
[2019-04-21] MEDS: CYANOCOBALAMIN 500 MCG TABLET PO (08:52)
[2019-04-21] MEDS: MULTIVITAMINS /C LUTEIN (CENTRUM SILVER) TABLET *BKC 1 TAB PO (08:52)
[2019-04-21] MEDS: SERTRALINE HCL 50 MG TABLET 100 MG PO (08:52)
[2019-04-21] MEDS: PANTOPRAZOLE SODIUM IV 40 MG VIAL IV PUSH ×2 (08:54→20:31)
[2019-04-21] MEDS: LACTATED RINGERS 1,000 ML 75 ML IV CONT (12:06)
--- NOTE | 2019-04-21 13:53 | PM.PNCARD ---
Progress Note: A&P Assessment and Plan (1) Pulmonary emboli: Code(s): I26.99 - Other pulmonary embolism without acute cor pulmonale Status: Acute Assessment and Plan: She had multiple small pulmonary clots, but no enlargement of the pulmonary trunk or enlargement of the right ventricle, indicative of mild PE, and no evidence of massive or submassive PE at this time. Now she is on Eliquis 2.5 b.i.d., she had significant drop of her hemoglobin, she is getting GI workup. Will continue to monitor H&H, and follow-up closely (2) CVA (cerebral vascular accident): Code(s): I63.9 - Cerebral infarction, unspecified Status: Chronic Assessment and Plan: She has loop recorder for possible underlying atrial fibrillation Thank you for allowing me to participate in this patient's care, I will be following up with you. Please do not hesitate to call me for any other inquiry Subjective Date/time seen: 04/21/19 13:53 She feels slightly better today, she is now requiring oxygen but no chest pain, noted to have further drop of her hemoglobin, we decreased her Eliquis to 2.5 b.i.d. Exam Narrative: Exam Narrative: Awake alert oriented x3 not in acute distress Neck is supple no obvious JVD, no carotid bruit Chest: Good air entry bilaterally, lungs are clear to auscultation and percussion bilaterally Cardiovascular: Regular rate and rhythm, 2/6 systolic murmur noted left sternal border Abdomen: Soft nontender bowel sounds positive Extremities: No edema has good pulses distally bilaterally Objective Data Vital Signs Vital Signs: Vital Signs - 24 hr 04/20/19 14:00 04/20/19 15:49 04/20/19 15:55 Temperature 37.1 C Pulse Rate 93 92 94 Respiratory Rate 18 18 18 Blood Pressure 115/48 L Pulse Oximetry 97 04/20/19 16:00 04/20/19 18:00 04/20/19 20:00 Temperature 36.6 C 36.8 C Pulse Rate 101 H 100 95 Respiratory Rate 16 20 Blood Pressure 124/52 L 139/61 Pulse Oximetry 97 91 04/20/19 20:25 04/20/19 20:36 04/21/19 00:00 Temperature 36.8 C Pulse Rate 96 95 96 Respiratory Rate 18 18 22 H Blood Pressure 136/54 L Pulse Oximetry 91 90 04/21/19 02:33 04/21/19 02:47 04/21/19 04:00 Temperature 36.6 C Pulse Rate 82 83 95 Respiratory Rate 18 18 22 H Blood Pressure 128/52 L Pulse Oximetry 90 04/21/19 08:00 04/21/19 09:47 04/21/19 09:58 Temperature Pulse Rate 89 82 85 Respiratory Rate 18 18 Blood Pressure Pulse Oximetry 93 Intake/Output Intake/Output: Intake & Output 04/18/19 04/19/19 04/20/19 04/21/19 23:59 23:59 23:59 23:59 Intake Total 2256 3700.0 1600 Output Total 555 2100 800 Balance 1701 1600.0 800 Meds/Results Medications: Active Medications Generic Name Dose Route Start Last Admin Trade Name Freq PRN Reason Stop Dose Admin Acetaminophen 1,000 mg 04/19/19 14:20 04/19/19 14:47 Tylenol Tablet PO 1,000 mg Q6H PRN Administration Mild Pain (1-3) or Fever Albuterol 5 mg 04/19/19 14:00 04/21/19 09:47 Albuterol Sulf Neb 2.5mg/0.5ml INHALATION 5 mg Q6HRT SAMARIA Administration Alprazolam 0.5 mg 04/19/19 16:31 04/20/19 16:19 Xanax PO 0.5 mg BID PRN Administration Anxiety Apixaban 2.5 mg 04/21/19 09:00 04/21/19 08:59 Eliquis PO Not Given Q12HR SAMARIA Atorvastatin Calcium 20 mg 04/19/19 21:00 04/20/19 21:13 Lipitor PO 20 mg HS SAMARIA Administration Cyanocobalamin 500 mcg 04/20/19 09:00 04/21/19 08:52 Vitamin B-12 Tab PO 500 mcg DAILY SAMARIA Administration Folic Acid 0.4 mg 04/20/19 09:00 04/21/19 08:52 Folic Acid PO 0.4 mg DAILY SAMARIA Administration Lactated Ringer's 1,000 mls @ 75 mls/hr 04/19/19 12:15 04/21/19 12:06 Lr - Lactated Ringers Iv IV CONT 75 mls/hr .[id number] SAMARIA Administration Levalbuterol HCl 1.25 mg 04/19/19 16:28 Xopenex 1.25 Mg/0.5 Ml INHALATION Q4HRT PRN Shortness Of Breath Lisinopril 10 mg 04/20/19 09:00 04/20/19 09:49
[2019-04-21 13:56] LABS: Hematocrit 27.1 % (37.0-47.0); Hemoglobin 8.7 g/dL (12.0-15.0)
[2019-04-21 13:57] LABS: Immature Reticulocyte Fraction 10.6 % (3.0-15.9); Reticulocyte Hemoglobin Conten 31.6 pg (28.2-35.7); Reticulocyte Percent 1.36 % (0.7-4.3); Reticulocytes Absolute 0.04 B/L (32.2-175.7)
[2019-04-21] MEDS: ALPRAZOLAM 0.5 MG TABLET PO (14:05)
[2019-04-21 14:08] LABS: Lactate Dehydrogenase 699 U/L (313-618)
[2019-04-21 14:18] LABS: Iron < 10 ug/dL (37-170)
[2019-04-21 15:15] LABS: IFOB Positive Control Positive; Immunochemical Fecal Occult Bl Negative (N)
--- NOTE | 2019-04-21 15:15 | WPDGICN ---
Assessment and Plan Assessment and plan (1) Melena: Code(s): K92.1 - Melena Status: Acute Assessment and Plan: new onset, similar episode 2 years ago while she was on anticoagulation and EGD showed gastric ulcer. This time patient was anticoagulated because PE, noted that cardiology lower her dose of eliquis in setting of melena and drop of hemoglobin. Will do EGD tomorrow, continue with high dose ppi and continue to monitor. (2) Pulmonary emboli: Qualifiers: Acute cor pulmonale presence: without acute cor pulmonale Chronicity: acute Pulmonary embolism type: unspecified Qualified Code(s): I26.99 - Other pulmonary embolism without acute cor pulmonale Code(s): I26.99 - Other pulmonary embolism without acute cor pulmonale Status: Acute Assessment and Plan: on anticoagulation, unfortunately had bleeding again. (3) Iron deficiency anemia: Qualifiers: Iron deficiency anemia type: unspecified iron deficiency Qualified Code(s): D50.9 - Iron deficiency anemia, unspecified Code(s): D50.9 - Iron deficiency anemia, unspecified Status: Chronic (4) Peptic disease: Code(s): K31.9 - Disease of stomach and duodenum, unspecified Status: Acute Assessment and Plan: found during her last EGD (5) CVA (cerebral vascular accident): Code(s): I63.9 - Cerebral infarction, unspecified Status: Chronic Assessment and Plan: previously with full recovery GI Consult Note Consult date/time: 04/21/19 15:16 reason for consult: melena HPI: Lisa James is a 78 year old female with previous history of GIB in setting of xarelto with gastric ulcer 2018 (had 2cm linear ulcer in stomach without visible vessel) that required blood transfusion, colonoscopy with diverticulosis 2016. She has not been on blood thinners after previous episode of GIB, also h/o CVA, chronic anemia. She was admitted with almost 2 weeks or shortness of breath with exertion, also noted recent car drive from [place]. ER evaluation with CTA chest PE protocol showed extensive bilateral pulmonary emboli with high clot burden but without evidence of right heart strain and moderate to large hiatal hernia, started on heparin drip and most recently switched over eliquis but today patient had dark stools consistent with melena, hb on admission was 11 and slowly down to mid 8's. CT a/p did not show active findings. She says that has not been using her PPI as instructed. Review of Systems Constitutional: Constitutional: Denies chills and Reports weakness Eyes: Eyes: Denies blurry vision ENT: Reports Normal hearing present, Denies headache(s) and Denies neck pain Cardiovascular: Cardiovascular: Denies chest pain and Denies dyspnea Respiratory: Respiratory: Reports dyspnea on exertion Gastrointestinal: Gastrointestinal: Reports no additional gastrointestinal complaints Genitourinary: Genitourinary: Denies dysuria Musculoskeletal: Musculoskeletal: Denies neck pain Integumentary/Breasts: Skin/Breast: Denies dry skin Neurologic: Reports Normal hearing present and Denies headache(s) Psychiatric: Psychiatric: Denies anxiety Endocrine: Endocrine: Denies change in body appearance Hematologic/Lymphatic: Hematologic/Lymphatic: Denies lymphadenopathy Allergic/Immunologic: Allergic/Immunologic: Denies urticaria PMF Past Medical History Medical History (Updated 04/21/19 @ 15:23 by Naren Mcwilliams MD) Anxiety 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ipidemia Hypertension Iron deficiency anemia Melena Normal colonoscopy Panic attack Peptic disease Peptic ulcer disease 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
[2019-04-21 16:42] LABS: Folic Acid > 20.0 ng/mL (2.76->20)
[2019-04-21] MEDS: ATORVASTATIN 20 MG TABLET PO (20:31)
[2019-04-21] MEDS: TRAZODONE HCL 50 MG TABLET 100 MG PO (20:31)
[2019-04-22] VITALS (24 sets, daily range): BP systolic 101–145; BP diastolic 40–83; PULSE 79–98; RESP 16–22; TEMP 36.2–38.3; O2SAT 89–98
--- NOTE | 2019-04-22 02:13 | CONS_ITS ---
DATE OF CONSULTATION: 04/21/2019 REASON FOR CONSULTATION: Anemia. HISTORY OF PRESENTING ILLNESS: This is a 78-year-old female who has a history of iron-deficiency anemia diagnosed in August 2017 when EGD showed gastric ulcer. The patient received iron infusion and the last one was in December 2017. The patient now came into the hospital for this feeling tired and weak for last 2 weeks duration. She has some nasal congestion and cough. She also has some shortness of breath for 2 weeks duration. CTA chest was performed that showed extensive bilateral pulmonary embolism with high clot burden. The patient was initially started on heparin drip and subsequently started on Eliquis. Hemoglobin was 11.7, which dropped down to 8.5. She is being having melena since the start of anticoagulation therapy. The patient also has a history of stroke previously. Eliquis dose now has been decreased to 2.5 mg twice a day. She remains quite tired and fatigued. REVIEW OF SYSTEMS: 12-point review of system was reviewed and as per HPI, otherwise negative. PAST MEDICAL HISTORY: History of iron-deficiency anemia with gastric ulcer, anxiety, 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, stroke, depression, eczema, hypertension, peptic ulcer disease. PAST SURGICAL HISTORY: Cataract extraction, total hysterectomy, appendectomy, cholecystectomy, tonsillectomy. FAMILY HISTORY: Noncontributory other than sibling had lung cancer. SOCIAL HISTORY: The patient is and lives with her daughter and son-in-law. She is lifelong nonsmoker. HOME MEDICATIONS: Reviewed. ALLERGIES: REVIEWED. PHYSICAL EXAMINATION: GENERAL: This patient is a tired-looking female, no apparent distress. Alert and oriented. VITAL SIGNS: Per nursing note. HEENT: Normocephalic, atraumatic. Clear oropharynx. LUNGS: Clear to auscultation bilaterally. CARDIOVASCULAR: Regular rate and rhythm. No murmurs. ABDOMEN: Soft, nontender, nondistended. Bowel sounds are positive in all 4 quadrants. No hepatosplenomegaly. EXTREMITIES: No edema. NEURO: Grossly intact. LABORATORY DATA: WBC 3.3, hemoglobin 8.5, MCV 95, platelets 154,000, neutrophils 65%. INR 1.0. D-dimer 6.0. Creatinine 1.1, total bilirubin 0.3. ASSESSMENT AND PLAN: 1. Iron-deficiency anemia. The patient was started on anticoagulation therapy with Eliquis at full dose of 5 mg b.i.d. for recent diagnosis of bilateral pulmonary embolism. The patient started having rectal bleeding afterwards. Iron studies have been ordered and that showed significant iron deficiency with iron level of less than 10 and iron saturation of 3%. Vitamin B12 level was normal. LDH was slightly elevated at 699. I will proceed with IV iron infusion with Venofer 300 mg daily for 3 days. GI consultation noted and plan for EGD noted. 2. Extensive bilateral pulmonary embolism. Doppler study showed no evidence of deep vein thrombosis. The patient is on Eliquis with low dose of 2.5 mg twice a day due to recent gastrointestinal bleed. At this time, I agree with continuation of low dose of Eliquis unless she has significant anemia, then we will have to stop the anticoagulation therapy. We will make further recommendation based on the endoscopy findings and Dr. Pacheco's recommendations. SEBASTIAN MARTINEZ M.D. COMMUNITY EDUCATION SPECIALIST COMMUNITY EDUCATION SPECIALIST D I MT: [place]
[2019-04-22] MEDS: ALBUTEROL SULFATE NEB 2.5 MG/0.5 ML INH 5 MG INHALATION ×3 (02:49→19:51)
[2019-04-22] MEDS: LACTATED RINGERS 1,000 ML 75 ML IV CONT ×3 (04:34→22:29)
[2019-04-22] MEDS: ALPRAZOLAM 0.5 MG TABLET PO ×2 (05:31→11:38)
[2019-04-22 05:48] LABS: Blood Urea Nitrogen 14 mg/dL (7-17); Calcium 8.1 mg/dL (8.4-10.2); Carbon Dioxide 27 mmol/L (22-30); Chloride 105 mmol/L (98-107); Estimated CRCL calculation 38 ml/min; Estimated Glomerular Filt Rate 48; Glucose 100 mg/dL (65-105); Potassium 3.6 mmol/L (3.4-5.0); Sodium 138 mmol/L (137-145)
[2019-04-22 05:53] LABS: Basophils Percent Auto 0.3 % (0.2-1.2); Eosinophils Percent Auto 0.7 % (0-4.4); Hematocrit 25.8 % (37.0-47.0); Hemoglobin 8.4 g/dL (12.0-15.0); Immature Granulocyte Absolute 0.01 K/mm3 (0.00-0.031); Immature Granulocyte Percent A 0.3 % (0-0.5); Lymphocytes Absolute Auto 0.78 K/mm3 (0.9-3.2); Lymphocytes Percent Auto 27.1 % (18.3-44.2); Mean Corpuscular HGB Conc 32.6 g/dl (32-36); Mean Corpuscular Hemoglobin 30.4 pg (26-34); Mean Corpuscular Volume 93.5 fl (80-100); Mean Platelet Volume 10.7 fl (7.4-10.4); Monocytes Absolute Auto 0.4 K/mm3 (0.1-0.6); Monocytes Percent Auto 12.5 % (2.6-8.5); Neutrophils Absolute Auto 1.7 K/mm3 (1.3-6.7); Neutrophils Percent Auto 59.1 % (45.5-73.1); Platelet Count Result 129 k/mm3 (150-375); Red Blood Count 2.76 M/mm3 (4.2-5.4); Red Cell Distribution Width 14.6 % (11.5-14.5); White Blood Count 2.9 K/mm3 (4.5-10.0)
--- NOTE | 2019-04-22 09:47 | WPDANESEPPF ---
Anes - Initial Pre Proc Eval Procedure: Operation Date: 04/22/19 12:00 Proposed Procedures p Esophagogastroduodenoscopy - Naren Mcwilliams MD Date/Time: 04/22/19 09:47 Surgeon: Sumit Rose MD Pre Op Diagnosis: pulmonary embolism Patient Data Age: 78 Gender: F Height: 5 ft 3 in Weight: 81 kg Last Vital Signs Temp 98.4 F 04/22/19 09:39 Pulse 79 04/22/19 09:39 Resp 20 04/22/19 09:39 BP 139/67 04/22/19 09:39 Pulse Ox 96 04/22/19 09:39 Allergies Allergy/AdvReac Type Severity Reaction Status Date / Time latex Allergy Unknown RASH Verified 01/29/18 14:55 ONIONS AdvReac Unknown NAUSEA, Uncoded 10/18/17 09:51 SLEEPINESS Home Medications Medication Instructions Recorded Confirmed Type trazodone 50 mg tablet 50 mg PO DAILY #180 tablet 02/06/19 04/19/19 Rx alprazolam 0.5 mg PO BID PRN 04/19/19 04/19/19 History aspirin 81 mg PO DAILY 04/19/19 04/19/19 History atorvastatin 20 mg PO HS 04/19/19 04/19/19 History cyanocobalamin (vitamin B-12) 500 mcg PO DAILY 04/19/19 04/19/19 History [Vitamin B-12] folic acid 400 mcg PO DAILY 04/19/19 04/19/19 History lisinopril-hydrochlorothiazide 1 tablet PO DAILY 04/19/19 04/19/19 History pqjebbnjxjwh-ztb-hzqq-FA-vit K 1 tablet PO DAILY 04/19/19 04/19/19 History [Adults Multivitamin] sertraline 100 mg PO DAILY 04/19/19 04/19/19 History Laboratory Tests 04/21/19 04/21/19 04/21/19 08:05 13:27 13:28 WBC RBC Hgb 8.7 g/dL L g/dL (12.0-15.0) Hct 27.1 % L % (37.0-47.0) MCV MCH MCHC RDW Plt Count MPV Immature Gran % (Auto) Neut % (Auto) Lymph % (Auto) [place] % (Auto) Eos % (Auto) Baso % (Auto) Lymph # (Auto) [place] # (Auto) Eos # (Auto) Baso # (Auto) Abs Immat Gran (auto) Absolute Neuts (auto) Absolute Nucleated RBC Nucleated RBC % Absolute Retic Percent Retic Immature Retic Fraction Retic Hgb Content Sodium Potassium Chloride Carbon Dioxide BUN Creatinine Estim Creat Clear Calc Estimated GFR Glucose Calcium Iron TIBC % Saturation Ferritin Lactate Dehydrogenase 699 U/L H U/L (313-618) Vitamin B12 865.0 pg/mL pg/mL (239-931) Folate > 20.0 ng/mL H ng/mL (2.76->20) Stl Occult Blood (IFOB) Negative (N) 04/21/19 04/21/19 04/22/19 13:28 13:28 04:51 WBC 2.9 K/mm3 L K/mm3 (4.5-10.0) RBC 2.76 M/mm3 L M/mm3 (4.2-5.4) Hgb 8.4 g/dL L g/dL (12.0-15.0) Hct 25.8 % L % (37.0-47.0) MCV 93.5 fl fl (80-100) MCH 30.4 pg pg (26-34) MCHC 32.6 g/dl g/dl (32-36) RDW 14.6 % H % (11.5-14.5) Plt Count 129 k/mm3 L k/mm3 (150-375) MPV 10.7 fl H fl (7.4-10.4) Immature Gran % (Auto) 0.3 % % (0-0.5) Neut % (Auto) 59.1 % % (45.5-73.1) Lymph % (Auto) 27.1 % % (18.3-44.2) [place] % (Auto) 12.5 % H % (2.6-8.5) Eos % (Auto) 0.7 % % (0-4.4) Baso % (Auto) 0.3 % % (0.2-1.2) Lymph # (Auto) 0.78 K/mm3 L K/mm3 (0.9-3.2) [place] # (Auto) 0.4 K/mm3 K/mm3 (0.1-0.6) Eos # (Auto) 0.0 K/mm3 K/mm3 (0-0.3) Baso # (Auto) 0.0 K/mm3 K/mm3 (0.0-0.1) Abs Immat Gran (auto) 0.01 K/mm3 K/mm3 (0.00-0.031) Absolute Neuts (auto) 1.7 K/mm3 K/mm3 (1.3-6.7) Absolute Nucleated RBC 0.0 K/mm3 K/mm3 (0.0-0.012) Nucleated RBC % 0.0 % % (0.0-0.2) Absolute Retic
[2019-04-22] MEDS: LACTATED RINGERS 1,000 ML 150 ML IV CONT (10:02)
[2019-04-22] MEDS: FOLIC ACID 0.4 MG TABLET PO (11:41)
[2019-04-22] MEDS: CYANOCOBALAMIN 500 MCG TABLET PO (11:41)
[2019-04-22] MEDS: SERTRALINE HCL 50 MG TABLET 100 MG PO (11:41)
[2019-04-22] MEDS: PANTOPRAZOLE SODIUM IV 40 MG VIAL IV PUSH ×2 (11:42→22:21)
[2019-04-22] MEDS: MULTIVITAMINS /C LUTEIN (CENTRUM SILVER) TABLET *BKC 1 TAB PO (11:42)
[2019-04-22 11:49] LABS: Percent Iron Saturation < 3 % (20-50)
[2019-04-22 13:37] LABS: Hemoglobin 8.3 g/dL (12.0-15.0)
--- NOTE | 2019-04-22 14:15 | PM.IMPN ---
Progress Note: A&P Assessment and Plan (1) Pulmonary emboli: Qualifiers: Acute cor pulmonale presence: without acute cor pulmonale Chronicity: acute Pulmonary embolism type: unspecified Qualified Code(s): I26.99 - Other pulmonary embolism without acute cor pulmonale Code(s): I26.99 - Other pulmonary embolism without acute cor pulmonale Status: Acute Assessment and Plan: The pt was diagnosed with extensive bilateral PE with high clot burden and no right heart strain. Dr. Amaral was also consulted and is on board. Appreciate recommendations. The pt was transitioned from heparin gtt to eliquis. She had a decrease in hemoglobin from 11.[address] abd/pelvis wo contrast was performed and negative for retroperitoneal bleed. She had an episode of melena yesterday morning suggesting UGIB. She underwent EGD today which revealed Jb ulcer without active bleeding. Dr. Pacheco recommended resuming eliquis at 2.5 BID with close monitoring of hemoglobin and hematocrit. -Resume eliquis 2.5mg BID -Monitor hemoglobin and hematocrit -Monitor for ongoing bleeding (2) Depression: Code(s): F32.9 - Major depressive disorder, single episode, unspecified Status: Chronic Assessment and Plan: Tthe pt has a hx of depression. -Continue zoloft (3) Iron deficiency anemia: Qualifiers: Iron deficiency anemia type: unspecified iron deficiency Qualified Code(s): D50.9 - Iron deficiency anemia, unspecified Code(s): D50.9 - Iron deficiency anemia, unspecified Status: Chronic Assessment and Plan: The pt has a hx of YESSICA. She is established with Dr. Charles and reports that she requires intermittent iron infusions. Hb with acute drop due to presumed UGIB. I suspect possible acute blood loss anemia due to anticoagulation required for PE. ASA was discontinue yesterday. -H & H Q6HR -Continue IV protonix. May need to try oral protonix if diarrhea persists. -Pt received iron infusion per Dr. 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 She is established with Dr. Malik. The pt has not been taking her omeprazole. She had an EGD approximately 1.5 years ago and believes she is due for a follow-up appointment. -Continue follow-up with Dr. Malik -Pt will need high dose PPI at discharge (5) Hyperlipidemia: Code(s): E78.5 - Hyperlipidemia, unspecified Status: Chronic Assessment and Plan: LFTs reviewed and WNL. -Continue atorvastatin (6) HTN (hypertension) with goal to be determined: Code(s): I10 - Essential (primary) hypertension Status: Chronic Assessment and Plan: BP was low today. Lisinopril is being held. I confirmed the appropriate dosing for her lisinopril-HCTZ which is lisinopril 10mg-hydrochlorothiazide 12.5mg. -Will hold lisinopril-HCTZ for now and resume when appropriate (7) Anxiety: Code(s): F41.9 - Anxiety disorder, unspecified Status: Chronic Assessment and Plan: The pt does have a hx of anxiety which is controlled on her current regimen. She does express anxiety about the PE. 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 She has no focal deficits, change in vision, or change in speech. (9) Acute kidney injury: Code(s): N17.9 - Acute kidney failure, unspecified Status: Acute Assessment and Plan: Cr is trending down. I suspect the elevation may have been contrast-induced. -Will trend Cr -Avoid all nephrotoxic agents (10) Diarrhea: Code(s): R1
[2019-04-22] MEDS: SUCRALFATE SUSP 100 MG/ML 10 ML UDC 1000 MG PO ×3 (14:38→22:21)
--- NOTE | 2019-04-22 15:18 | PM.PNCARD ---
Progress Note: A&P Assessment and Plan (1) Pulmonary emboli: Qualifiers: Acute cor pulmonale presence: without acute cor pulmonale Chronicity: acute Pulmonary embolism type: unspecified Qualified Code(s): I26.99 - Other pulmonary embolism without acute cor pulmonale Code(s): I26.99 - Other pulmonary embolism without acute cor pulmonale Status: Acute Assessment and Plan: She had multiple small pulmonary clots, but no enlargement of the pulmonary trunk or enlargement of the right ventricle, indicative of mild PE, and no evidence of massive or submassive PE at this time. She drove from [facility] with family in late March, PE is probably provoked by that. Now she is on Eliquis. Dose was decreased to 2.5 b.i.d due to GI bleed. Had EGD this am with non bleeding ulcer noted in the hiatal hernia. Hg stable. WOuld continue with current dose of Eliquis. She has some chest pain, possibly due to the PEs. Will check EKG. Consider outpatient stress testing once more stable from respiratory standpoint. She is stable for discharge from cardiac standpoint. (2) CVA (cerebral vascular accident): Code(s): I63.9 - Cerebral infarction, unspecified Status: Chronic Assessment and Plan: She has loop recorder for possible underlying atrial fibrillation Thank you for allowing me to participate in this patient's care, I will be following up with you. Please do not hesitate to call me for any other inquiry Subjective Date/time seen: 04/22/19 15:18 She is breathing better. He main issue currently is diarrhea. No more dark stools or blood in stools. She reports chest pain at her lower rib cage. Review of Systems Constitutional: Constitutional: Reports body ache(s), Reports fatigue and Reports lethargy Cardiovascular: Cardiovascular: Reports as per HPI and Reports dyspnea on exertion Respiratory: Respiratory: Reports dyspnea on exertion Endocrine: Endocrine: Reports fatigue Exam Narrative: Exam Narrative: Awake alert oriented x3 not in acute distress Neck is supple no obvious JVD, no carotid bruit Chest: Good air entry bilaterally, lungs are clear to auscultation and percussion bilaterally Cardiovascular: Regular rate and rhythm, 2/6 systolic murmur noted left sternal border Abdomen: Soft nontender bowel sounds positive Extremities: No edema has good pulses distally bilaterally Objective Data Vital Signs Vital Signs: Vital Signs - 24 hr 04/21/19 15:20 04/21/19 15:29 04/21/19 16:00 Temperature Pulse Rate 79 89 91 Respiratory Rate 18 18 Blood Pressure Pulse Oximetry 04/21/19 20:00 04/21/19 21:27 04/21/19 21:28 Temperature 36.6 C Pulse Rate 90 83 Respiratory Rate 20 16 Blood Pressure 130/63 Pulse Oximetry 91 94 04/21/19 21:38 04/21/19 22:10 04/22/19 00:00 Temperature 36.2 C L Pulse Rate 80 83 Respiratory Rate 16 22 H Blood Pressure 117/58 L Pulse Oximetry 94 91 04/22/19 01:30 04/22/19 02:50 04/22/19 02:56 Temperature 37.3 C Pulse Rate 84 86 88 Respiratory Rate 18 16 16 Blood Pressure 109/60 Pulse Oximetry 98 04/22/19 04:00 04/22/19 09:39 04/22/19 10:56 Temperature 36.6 C 36.9 C Pulse Rate 91 79 86 Respiratory Rate 22 H 20 20 Blood Pressure 113/51 L 139/67 107/83 Pulse Oximetry 92 96 89 L 04/22/19 11:06 04/22/19 11:15 04/22/19 11:38 Temperature 37.4 C Pulse Rate 82 83 83 Respiratory Rate 20 20 18 Blood Pressure 115/81 101/40 L 108/61 Pulse Oximetry 95 94 90 04/22/19 11:53 04/22/19 13:00 Temperature 37.1 C 37.2 C Pulse Rate 86 88 Respiratory Rate 19 19 Blood Pressure 145/68 H 134/73 Pulse Oximetry 96 95 Intake/Output Intake/Output: Intake & Output 04/19/19 04/20/19 04/21/19 04/22/19 23:59 23:59 23:59 23:59 Intake Total 2256 3700.0 2820 2715 Output Total 555 2100 1400 400 Balance 1701 1600.0 1420 2315 Meds/Results Medications: Active Medications Generic Name Dose Route Start Last Admin
--- NOTE | 2019-04-22 15:23 | ECG_ITS ---
Measurements Intervals Nunez Rate: 89 P: 26 MD: 143 QRS: 24 QRSD: 84 T: 93 QT: 338 QTc: 412 Interpretive Statements SINUS RHYTHM MINIMAL Q WAVES- INFERIOR LEADS NONSPECIFIC ST & T-WAVE ABNORMALITY- LATERAL LEADS BORDERLINE ECG Electronically Signed On 04-22-2019 17:58:20 TEACHER ASSOCIATE by Jackson Chen D.O.
[2019-04-22] MEDS: LOPERAMIDE HCL 2 MG CAPSULE PO (18:36)
[2019-04-22] MEDS: ACETAMINOPHEN 500 MG TABLET 1000 MG PO (18:36)
[2019-04-22] MEDS: TRAZODONE HCL 50 MG TABLET 100 MG PO (22:21)
[2019-04-22] MEDS: ATORVASTATIN 20 MG TABLET PO (22:22)
[2019-04-22] MEDS: APIXABAN 2.5 MG TABLET PO (22:25)
[2019-04-23] VITALS (21 sets, daily range): BP systolic 108–144; BP diastolic 46–72; PULSE 71–98; RESP 16–22; TEMP 36.5–37; O2SAT 90–95
[2019-04-23] MEDS: ALBUTEROL SULFATE NEB 2.5 MG/0.5 ML INH 5 MG INHALATION ×4 (01:45→22:06)
[2019-04-23 05:53] LABS: Blood Urea Nitrogen 14 mg/dL (7-17); Calcium 7.7 mg/dL (8.4-10.2); Carbon Dioxide 25 mmol/L (22-30); Chloride 107 mmol/L (98-107); Estimated CRCL calculation 42 ml/min; Estimated Glomerular Filt Rate 54; Glucose 90 mg/dL (65-105); Magnesium 1.9 mg/dL (1.6-2.3); Potassium 3.5 mmol/L (3.4-5.0); Sodium 137 mmol/L (137-145)
[2019-04-23 06:06] LABS: Basophils Percent Auto 0.4 % (0.2-1.2); Eosinophils Absolute Auto 0.1 K/mm3 (0-0.3); Eosinophils Percent Auto 1.2 % (0-4.4); Hematocrit 25.8 % (37.0-47.0); Hemoglobin 8.1 g/dL (12.0-15.0); Immature Granulocyte Absolute 0.02 K/mm3 (0.00-0.031); Immature Granulocyte Percent A 0.4 % (0-0.5); Lymphocytes Absolute Auto 0.94 K/mm3 (0.9-3.2); Lymphocytes Percent Auto 18.5 % (18.3-44.2); Mean Corpuscular HGB Conc 31.4 g/dl (32-36); Mean Corpuscular Hemoglobin 30.1 pg (26-34); Mean Corpuscular Volume 95.9 fl (80-100); Mean Platelet Volume 11.1 fl (7.4-10.4); Monocytes Absolute Auto 0.5 K/mm3 (0.1-0.6); Monocytes Percent Auto 8.9 % (2.6-8.5); Neutrophils Absolute Auto 3.6 K/mm3 (1.3-6.7); Neutrophils Percent Auto 70.6 % (45.5-73.1); Platelet Count Result 112 k/mm3 (150-375); Red Blood Count 2.69 M/mm3 (4.2-5.4); Red Cell Distribution Width 14.7 % (11.5-14.5); White Blood Count 5.1 K/mm3 (4.5-10.0)
[2019-04-23] MEDS: SUCRALFATE SUSP 100 MG/ML 10 ML UDC 1000 MG PO ×4 (06:49→21:01)
[2019-04-23] MEDS: SERTRALINE HCL 50 MG TABLET 100 MG PO (08:28)
[2019-04-23] MEDS: FOLIC ACID 0.4 MG TABLET PO (08:28)
[2019-04-23] MEDS: lisinopriL 10 MG TABLET PO (08:28)
[2019-04-23] MEDS: MULTIVITAMINS /C LUTEIN (CENTRUM SILVER) TABLET *BKC 1 TAB PO (08:28)
[2019-04-23] MEDS: PANTOPRAZOLE SODIUM IV 40 MG VIAL IV PUSH ×2 (08:28→21:01)
[2019-04-23] MEDS: CYANOCOBALAMIN 500 MCG TABLET PO (08:29)
[2019-04-23] MEDS: APIXABAN 2.5 MG TABLET PO ×2 (08:29→21:01)
--- NOTE | 2019-04-23 10:08 | ECG_ITS ---
Measurements Intervals [place] Rate: 84 P: 20 NV: 148 QRS: 14 QRSD: 77 T: 69 QT: 378 QTc: 449 Interpretive Statements SINUS RHYTHM VENTRICULAR PREMATURE COMPLEX NONSPECIFIC T-WAVE ABNORMALITY- LATERAL LEADS BASELINE ARTIFACT- I, III, V5 BORDERLINE ECG Electronically Signed On 04-23-2019 11:41:28 [employer] MA[employer] SHEETS SUPERVISOR by Jackson Chen D.O.
--- NOTE | 2019-04-23 10:25 | PM.IMPN ---
Progress Note: A&P Assessment and Plan (1) Pulmonary emboli: Qualifiers: Acute cor pulmonale presence: without acute cor pulmonale Chronicity: acute Pulmonary embolism type: unspecified Qualified Code(s): I26.99 - Other pulmonary embolism without acute cor pulmonale Code(s): I26.99 - Other pulmonary embolism without acute cor pulmonale Status: Acute Assessment and Plan: The pt was diagnosed with extensive bilateral PE with high clot burden and no right heart strain. The PE was provoked by a drive home from [place]. Dr. Amaral was also consulted and is on board. Appreciate recommendations. The pt was transitioned from heparin gtt to eliquis. She had a decrease in hemoglobin from 11.7 to 8.6 after starting eliquis 10mg. CT abd/pelvis wo contrast was performed and negative for retroperitoneal bleed. Eliquis was decreased to 5mg BID. The pt has a hx of Toledo's esophagitis and PUD disease with prior hx of GI bleed due to xarelto which was started due to CVA. The pt then had two episodes of dark, tarry black stool consistent with melena. Dr. Pacheco, GI, was consulted and she underwent EGD which revealed Jb ulcer without active bleeding. Dr. Pacheco recommended resuming eliquis at 2.5 BID with close monitoring of hemoglobin and hematocrit. Hb appears to be stable today at 8.7 g/dL. She denies any further episodes of bleeding. I discussed the case with Dr. Amaral and the plan is to ensure that her hemoglobin remains stable. He may consider increasing her dose to 5mg BID in 2 weeks if Hb and Hct are stable with no evidence of further GI bleeding. -Continue eliquis 2.5mg BID. I discussed that she will have a slower recovery process because this dose is subtherapeutic. -Monitor hemoglobin and hematocrit -Monitor for ongoing bleeding (2) Pneumonia: Qualifiers: Laterality: unspecified laterality Lung location: unspecified part of lung Pneumonia type: due to unspecified organism Qualified Code(s): J18.9 - Pneumonia, unspecified organism Code(s): J18.9 - Pneumonia, unspecified organism Status: Acute Assessment and Plan: The pt reported a change in sputum quality from clear to yellow and spiked a fever last night. Sputum cultures were obtained. CXR was repeated and revealed diffuse patchy airspace disease. Clinical presentation suggests possible PNA. The pt did have cough prior to admission, thought to be related to viral illness with diarrhea as well, but will cover for HAP since sputum quality changed and pt has been admitted >48 hr. The pt is feeling much better today. -Will treat empirically with vanc and zosyn (3) Jb ulcer: Qualifiers: Gastric ulcer chronicity: acute Qualified Code(s): K25.3 - Acute gastric ulcer without hemorrhage or perforation Code(s): K25.9 - Gastric ulcer, unspecified as acute or chronic, without hemorrhage or perforation Status: Acute Assessment and Plan: The pt was found to have a jb ulcer on EGD. In addition, EGD showed hiatal hernia and duodenitits. -Will continue IV PPI as pt is at high risk for re-bleeding in absence of PPI. (4) Depression: Code(s): F32.9 - Major depressive disorder, single episode, unspecified Status: Chronic Assessment and Plan: The pt has a hx of depression which is well-controlled on her current regimen. Mood is stable. -Continue zoloft (5) Iron deficiency anemia: Qualifiers: Iron deficiency anemia type: unspecified iron deficiency Qualified Code(s): D50.9 - Iron deficiency anemia, unspecified Code(s): D50.9 - Iron deficiency anemia, unspecified Status: Chronic Assessment and Plan: The pt has a hx of YESSICA. She is established with Dr. Charles and reports that she requires intermittent iron infusions. Hb with acute drop is presumed to be due to UGIB. I suspect possible acute blood loss anemia due to anticoagu
[2019-04-23 10:35] LABS: Hematocrit 28.1 % (37.0-47.0); Hemoglobin 8.7 g/dL (12.0-15.0)
[2019-04-23 10:42] LABS: Alveolar/Arterial O2 Gradient 71.1 mmHg; Base Excess ABG 0.5 mEq/l (+/-2.0); Carboxyhemoglobin 0.2 % THb (0-2.0); Device NASAL CANNULA; Fractional Inspired Oxygen 24 %; HCO3 ABG 24.6 mEq/l (22.0-26.0); Methemoglobin ABG 0.4 %THb (0-1.5); Oxygen Content ABG 11.6 %vol (16.0-22.0); Oxygen Saturation ABG 90.3 % (95.0-100.0); Oxyhemoglobin 87.3 % THb (90.0-100.0); PCO2 ABG 37.1 mmHg (35.0-45.0); PO2 ABG 55.9 mmHg (80.0-100.0); PO2 FiO2 Ratio Arterial Blood 2.33 %; Reduced Hemoglobin 12.1 %THb (0-5.0); Site Drawn LEFT BRACHIAL; Total Hemoglobin 9.4 g/dL (12.0-18.0); pH ABG 7.439 (7.350-7.450)
[2019-04-23] MEDS: NITROGLYCERIN SL 0.4 MG TABLET SUBLINGUAL (11:37)
--- NOTE | 2019-04-23 11:43 | WPDGIPROGNO ---
Progress Note: A&P Assessment and Plan (1) Jb ulcer: Qualifiers: Gastric ulcer chronicity: acute Qualified Code(s): K25.3 - Acute gastric ulcer without hemorrhage or perforation Code(s): K25.9 - Gastric ulcer, unspecified as acute or chronic, without hemorrhage or perforation Status: Acute Assessment and Plan: non bleeding ulcer yesterday (without high risk), she is back on low dose of blood thinner, continue to monitor for signs of rebleeding. (2) Melena: Code(s): K92.1 - Melena Status: Acute Assessment and Plan: monitor, no melena getting iv iron (3) Pulmonary emboli: Qualifiers: Acute cor pulmonale presence: without acute cor pulmonale Chronicity: acute Pulmonary embolism type: unspecified Qualified Code(s): I26.99 - Other pulmonary embolism without acute cor pulmonale Code(s): I26.99 - Other pulmonary embolism without acute cor pulmonale Status: Acute Assessment and Plan: on blood thinners (4) Hiatal hernia: Code(s): K44.9 - Diaphragmatic hernia without obstruction or gangrene Status: Acute (5) Pneumonia: Qualifiers: Pneumonia type: due to unspecified organism Laterality: unspecified laterality Lung location: unspecified part of lung Qualified Code(s): J18.9 - Pneumonia, unspecified organism Code(s): J18.9 - Pneumonia, unspecified organism Status: Acute Assessment and Plan: new pneumonia, on abx by primary team (6) Diarrhea: Qualifiers: Diarrhea type: unspecified type Qualified Code(s): R19.7 - Diarrhea, unspecified Code(s): R19.7 - Diarrhea, unspecified Status: Acute Assessment and Plan: complaining of loose stools, monitor (7) Acute on chronic blood loss anemia: Code(s): D62 - Acute posthemorrhagic anemia Status: Acute Subjective Date/time seen: 04/23/19 11:43 Interval history: patient had fever and chest discomfort, CXR showed possible pneumonia, also getting ABG and EKG now. No more melena but she had diarrhea (brown color), hb mid 8 (stable), she is back on her blood thinner Review of Systems Review of Systems: All systems reviewed & are unremarkable except as noted in HPI and below Exam Const: General: comfortable Other: more cough HENMT: General nose exam: Normal nares present Eyes: General: appearance normal, both eyes and all related structures Neck: Neck: no JVD Resp: Auscultation: rhonchi and diminished lung sounds Cardio: Rate: regular rate Rhythm: regular rhythm GI: Inspection: non-distended GI Palp: Yes Soft to palpation and No Tenderness to palpation present (GI) Auscultation: normal bowel sounds Skin: General skin exam: normal color Neuro: General: gait normal Speech: normal speech Extrem: General: normal to inspection Psych: Mental Status: mental status grossly normal Objective Data Vital Signs Vital Signs: Vital Signs - 24 hr 04/22/19 11:53 04/22/19 12:00 04/22/19 13:00 Temperature 98.7 F 98.9 F Pulse Rate 86 97 88 Respiratory Rate 19 19 Blood Pressure 145/68 H 134/73 Pulse Oximetry 96 95 04/22/19 14:15 04/22/19 14:25 04/22/19 16:00 Temperature Pulse Rate 85 88 94 Respiratory Rate 20 20 Blood Pressure Pulse Oximetry 04/22/19 18:25 04/22/19 18:36 04/22/19 19:51 Temperature 101.0 F H 101.0 F H Pulse Rate 98 86 Respiratory Rate 19 20 Blood Pressure 143/64 H Pulse Oximetry 90 04/22/19 19:54 04/22/19 20:00 04/22/19 20:01 Temperature Pulse Rate 85 88 Respiratory Rate 20 Blood Pressure Pulse Oximetry 92 04/22/19 21:02 04/22/19 22:00 04/23/19 00:00 Temperature 98.7 F 98.1 F Pulse Rate 90 83 Respiratory Rate 16 Blood Pressure 108/50 L Pulse Oximetry 94 04/23/19 01:46 04/23/19 01:51 04/23/19 04:00 Temperature Pulse Rate 72 71 76 Respiratory Rate 18 18 Blood Pressure Pulse Oximetry 04/23/19 0
[2019-04-23] MEDS: ASPIRIN 81 MG CHEWABLE TABLET 324 MG PO (11:45)
[2019-04-23] MEDS: CHOLESTYRAMINE LIGHT 4 GM POWD.PACK PO (12:50)
[2019-04-23] MEDS: ALPRAZOLAM 0.5 MG TABLET PO (12:58)
--- NOTE | 2019-04-23 13:31 | PC.NURSE ---
Patient transferred to IMU room 211 per bed. Family at bedside. Report to Marielle Irwin RN.
[2019-04-23 13:38] LABS: Influenza Control Positive
[2019-04-23 14:19] LABS: Troponin I 0.033 ng/mL (0.000-0.034)
--- NOTE | 2019-04-23 15:21 | PM.PNCARD ---
Progress Note: A&P Assessment and Plan (1) Pulmonary emboli: Qualifiers: Acute cor pulmonale presence: without acute cor pulmonale Chronicity: acute Pulmonary embolism type: unspecified Qualified Code(s): I26.99 - Other pulmonary embolism without acute cor pulmonale Code(s): I26.99 - Other pulmonary embolism without acute cor pulmonale Status: Acute Assessment and Plan: She had multiple small pulmonary clots, but no enlargement of the pulmonary trunk or enlargement of the right ventricle, indicative of mild PE, and no evidence of massive or submassive PE at this time. She drove from [facility] with family in late March, PE is probably provoked by that. Now she is on Eliquis. Dose was decreased to 2.5 b.i.d due to GI bleed. Had EGD with non bleeding ulcer noted in the hiatal hernia. Hg stable. WOuld continue with current dose of Eliquis. She has some chest pain, possibly due to the PEs. Will check EKG. Consider outpatient stress testing once more stable from respiratory standpoint. She is stable for discharge from cardiac standpoint. (2) CVA (cerebral vascular accident): Code(s): I63.9 - Cerebral infarction, unspecified Status: Chronic Assessment and Plan: She has loop recorder for possible underlying atrial fibrillation Thank you for allowing me to participate in this patient's care, I will be following up with you. Please do not hesitate to call me for any other inquiry Subjective Date/time seen: 04/23/19 15:21 She seems to be feeling okay today, now complains of diarrhea but no more chest pain and no significant shortness of breath. She had chest pain earlier after she had EGD Exam Narrative: Exam Narrative: Awake alert oriented x3 not in acute distress Neck is supple no obvious JVD, no carotid bruit Chest: Good air entry bilaterally, lungs are clear to auscultation and percussion bilaterally Cardiovascular: Regular rate and rhythm, 2/6 systolic murmur noted left sternal border Abdomen: Soft nontender bowel sounds positive Extremities: No edema has good pulses distally bilaterally Objective Data Vital Signs Vital Signs: Vital Signs - 24 hr 04/22/19 16:00 04/22/19 18:25 04/22/19 18:36 Temperature 38.3 C H 38.3 C H Pulse Rate 94 98 Respiratory Rate 19 Blood Pressure 143/64 H Pulse Oximetry 90 04/22/19 19:51 04/22/19 19:54 04/22/19 20:00 Temperature Pulse Rate 86 85 Respiratory Rate 20 Blood Pressure Pulse Oximetry 92 04/22/19 20:01 04/22/19 21:02 04/22/19 22:00 Temperature 37.1 C 36.7 C Pulse Rate 88 90 Respiratory Rate 20 16 Blood Pressure 108/50 L Pulse Oximetry 94 04/23/19 00:00 04/23/19 01:46 04/23/19 01:51 Temperature Pulse Rate 83 72 71 Respiratory Rate 18 18 Blood Pressure Pulse Oximetry 04/23/19 04:00 04/23/19 07:40 04/23/19 08:30 Temperature 36.6 C Pulse Rate 76 80 89 Respiratory Rate 16 Blood Pressure 108/46 L Pulse Oximetry 94 04/23/19 09:22 04/23/19 09:25 04/23/19 09:29 Temperature Pulse Rate 74 75 Respiratory Rate 18 18 Blood Pressure Pulse Oximetry 95 04/23/19 09:37 04/23/19 10:00 04/23/19 12:00 Temperature 37.0 C Pulse Rate 93 96 Respiratory Rate 16 Blood Pressure 113/54 L Pulse Oximetry 92 92 04/23/19 14:56 04/23/19 14:59 Temperature Pulse Rate 96 98 Respiratory Rate 20 20 Blood Pressure Pulse Oximetry Intake/Output Intake/Output: Intake & Output 04/20/19 04/21/19 04/22/19 04/23/19 23:59 23:59 23:59 23:59 Intake Total 3700.0 2820 3915 1515 Output Total 2100 1400 400 900 Balance 1600.0 1420 3515 615 Meds/Results Medications: Active Medications Generic Name Dose Route Start Last Admin Trade Name Freq PRN Reason Stop Dose Admin Acetaminophen 1,000 mg 04/19/19 14:20 04/22/19 18:36 Tylenol Tablet PO 1,000 mg Q6H PRN Administration Mild Pain (1-3) or Fever Albuterol 5 mg 04/19/19 14:0
[2019-04-23 16:59] LABS: Troponin I 0.032 ng/mL (0.000-0.034)
--- NOTE | 2019-04-23 18:06 | WPDONCPN ---
Progress Note: A/P - Additional Plan Iron deficiency anemia with. Patient had history of gastric ulcer. EGD was done that showed chronic gastric ulcer with duodenitis and hiatal hernia. Hemoglobin has improved after IV iron infusion. She will continue IV iron infusion. No more obvious signs of bleeding. Improvement in hemoglobin noted. Bilateral pulmonary embolism. Patient will continue Eliquis 2.5 mg b.i.d. If patient 8 remains asymptomatic and hemoglobin continues to improve then we will increase Eliquis does with close monitoring as an outpatient. Diarrhea. C diff antigen is pending. Stool studies remains pending. Patient is on Imodium. - Time Spent With Patient Total time spent is greater than 50% in coordination of care (as documented) at patient's floor/unit and/or counseling patient: 15 - 25 minutes Subjective Interval history: Iron deficiency anemia GI bleed with gastric ulcer Bilateral pulmonary embolism Review of Systems - Review of Systems Patient remains tired and weak. She denies any bleeding but does have black colored specks in the stool. She complained of diarrhea. Denies any nausea vomiting. Abdominal pain has improved. - Neurologic Reports system reviewed and no additional complaints, except as documented, Reports hearing normal, Reports disequilibrium, Reports weakness, Denies headache(s) Exam Vital signs: Temp Pulse Resp BP Pulse Ox 36.5 C 86 20 114/51 L 90 04/23/19 17:19 04/23/19 17:19 04/23/19 17:19 04/23/19 17:19 04/23/19 17:19 Narrative: Lungs clear to auscultation bilaterally Cardiovascular regular rate rhythm no murmurs Abdomen soft nontender nondistended Extremities no edema PN: Objective Data - Labs CBC & Chem 7: 04/23/19 10:29 04/23/19 04:43 Labs: Laboratory Results - last 24 hr 04/23/19 04/23/19 04/23/19 04:42 04:43 10:29 WBC 5.1 RBC 2.69 L Hgb 8.1 L 8.7 L Hct 25.8 L 28.1 L MCV 95.9 MCH 30.1 MCHC 31.4 L RDW 14.7 H Plt Count 112 L MPV 11.1 H Immature Gran % (Auto) 0.4 Neut % (Auto) 70.6 Lymph % (Auto) 18.5 Otero % (Auto) 8.9 H Eos % (Auto) 1.2 Baso % (Auto) 0.4 Lymph # (Auto) 0.94 Otero # (Auto) 0.5 Eos # (Auto) 0.1 Baso # (Auto) 0.0 Abs Immat Gran (auto) 0.02 Absolute Neuts (auto) 3.6 Absolute Nucleated RBC 0.0 Nucleated RBC % 0.0 Puncture Site ABG pH ABG pCO2 ABG pO2 ABG PO2/FiO2 Ratio ABG HCO3 ABG O2 Saturation ABG O2 Content ABG Base Excess A-a Gradient Oxyhemoglobin Carboxyhemoglobin Methemoglobin Reduced Hemoglobin Total Hemoglobin O2 Delivery Device O2 Liters/Min FiO2 Sodium 137 Potassium 3.5 Chloride 107 Carbon Dioxide 25 BUN 14 Creatinine 1.00 Estim Creat Clear Calc 42 Estimated GFR 54 L Glucose 90 Calcium 7.7 L Magnesium 1.9 Troponin I Influenza Types A,B Ag 04/23/19 04/23/19 04/23/19 10:29 10:37 12:35 WBC RBC Hgb Hct MCV MCH MCHC RDW Plt Count MPV Immature Gran % (Auto) Neut % (Auto) Lymph % (Auto) Otero % (Auto) Eos % (Auto) Baso % (Auto) Lymph # (Auto) Otero # (Auto) Eos # (Auto) Baso # (Auto) Abs Immat Gran (auto) Absolute Neuts (auto) Absolute Nucleated RBC Nucleated RBC % Puncture Site Left brachial ABG pH 7.439 ABG pCO2 37.1 ABG pO2 55.9 L ABG PO2/FiO2 Ratio 2.33 ABG HCO3 24.6 ABG O2 Saturation 90.3 L ABG O2 Content 11.6 L ABG Base Excess 0.5 A-a Gradient 71.1 Oxyhemoglobin 87.3 L Carboxyhemoglobin 0.2 Methemoglobin 0.4 Reduced Hemoglobin 12.1 H Total Hemoglobin 9.4 L O2 Delivery Device Nasal cannula O2 Liters/Min 1.0 FiO2 24 Sodium Potassium Chloride Carbon Dioxide BUN Creatinine Estim Creat Clear Calc Estimated GFR Glucose Calcium Magn
[2019-04-23] MEDS: TRAZODONE HCL 50 MG TABLET 100 MG PO (21:01)
[2019-04-23] MEDS: ATORVASTATIN 20 MG TABLET PO (21:01)
[2019-04-23] MEDS: LACTATED RINGERS 1,000 ML 75 ML IV CONT (21:02)
[2019-04-24] VITALS (22 sets, daily range): BP systolic 104–138; BP diastolic 49–94; PULSE 80–98; RESP 16–22; TEMP 36.6–37.4; O2SAT 93–95
[2019-04-24] MEDS: ALBUTEROL SULFATE NEB 2.5 MG/0.5 ML INH 5 MG INHALATION ×4 (03:26→21:53)
[2019-04-24 05:10] LABS: Basophils Percent Auto 0.2 % (0.2-1.2); Eosinophils Absolute Auto 0.1 K/mm3 (0-0.3); Eosinophils Percent Auto 2.2 % (0-4.4); Hematocrit 26.1 % (37.0-47.0); Hemoglobin 8.3 g/dL (12.0-15.0); Immature Granulocyte Absolute 0.02 K/mm3 (0.00-0.031); Immature Granulocyte Percent A 0.5 % (0-0.5); Immature Platelet Fraction Pct 4.6 % (0.9-11.2); Lymphocytes Percent Auto 14.7 % (18.3-44.2); Mean Corpuscular HGB Conc 31.8 g/dl (32-36); Mean Corpuscular Hemoglobin 29.7 pg (26-34); Mean Corpuscular Volume 93.5 fl (80-100); Mean Platelet Volume 11.3 fl (7.4-10.4); Monocytes Absolute Auto 0.4 K/mm3 (0.1-0.6); Monocytes Percent Auto 9.6 % (2.6-8.5); Neutrophils Percent Auto 72.8 % (45.5-73.1); Platelet Count Result 120 k/mm3 (150-375); Red Blood Count 2.79 M/mm3 (4.2-5.4); Red Cell Distribution Width 14.4 % (11.5-14.5); White Blood Count 4.1 K/mm3 (4.5-10.0)
[2019-04-24 05:20] LABS: IFOB Positive Control Positive; Immunochemical Fecal Occult Bl Negative (N)
[2019-04-24 05:20] LABS: Alanine Aminotransferase 30 U/L (4-35); Albumin Level 2.8 g/dL (3.5-5.1); Alkaline Phosphatase 53 U/L (38-126); Aspartate Amino Transferase 45 U/L (14-36); Bilirubin,Total 0.6 mg/dL (0.2-1.3); Blood Urea Nitrogen 11 mg/dL (7-17); Calcium 8.2 mg/dL (8.4-10.2); Carbon Dioxide 23 mmol/L (22-30); Chloride 107 mmol/L (98-107); Estimated CRCL calculation 38 ml/min; Estimated Glomerular Filt Rate 48; Glucose 95 mg/dL (65-105); Potassium 3.7 mmol/L (3.4-5.0); Sodium 138 mmol/L (137-145)
[2019-04-24] MEDS: SUCRALFATE SUSP 100 MG/ML 10 ML UDC 1000 MG PO ×3 (06:02→21:37)
[2019-04-24] MEDS: lisinopriL 10 MG TABLET PO (08:36)
[2019-04-24] MEDS: ASPIRIN 81 MG ENTERIC TABLET PO (08:36)
[2019-04-24] MEDS: APIXABAN 2.5 MG TABLET PO ×2 (08:36→21:38)
[2019-04-24] MEDS: SERTRALINE HCL 50 MG TABLET 100 MG PO (08:37)
[2019-04-24] MEDS: MULTIVITAMINS /C LUTEIN (CENTRUM SILVER) TABLET *BKC 1 TAB PO (08:37)
[2019-04-24] MEDS: CYANOCOBALAMIN 500 MCG TABLET PO (08:37)
[2019-04-24] MEDS: PANTOPRAZOLE SODIUM IV 40 MG VIAL IV PUSH ×2 (08:37→21:37)
[2019-04-24] MEDS: FOLIC ACID 0.4 MG TABLET PO (08:37)
[2019-04-24] MEDS: LOPERAMIDE HCL 2 MG CAPSULE PO ×2 (09:19→12:01)
[2019-04-24] MEDS: ALPRAZOLAM 0.5 MG TABLET PO (09:40)
[2019-04-24 11:13] LABS: Hematocrit 28.3 % (37.0-47.0); Hemoglobin 9.1 g/dL (12.0-15.0)
[2019-04-24] MEDS: LACTATED RINGERS 1,000 ML 75 ML IV CONT (12:06)
--- NOTE | 2019-04-24 16:35 | PM.PNCARD ---
Progress Note: A&P Assessment and Plan (1) Pulmonary emboli: Qualifiers: Acute cor pulmonale presence: without acute cor pulmonale Chronicity: acute Pulmonary embolism type: unspecified Qualified Code(s): I26.99 - Other pulmonary embolism without acute cor pulmonale Code(s): I26.99 - Other pulmonary embolism without acute cor pulmonale Status: Acute Assessment and Plan: She had multiple small pulmonary clots, but no enlargement of the pulmonary trunk or enlargement of the right ventricle, indicative of mild PE, and no evidence of massive or submassive PE at this time. She drove from [facility] with family in late March, PE is probably provoked by that. Now she is on Eliquis. Dose was decreased to 2.5 b.i.d due to GI bleed. Had EGD with non bleeding ulcer noted in the hiatal hernia. Hg stable. WOuld continue with current dose of Eliquis. She has some chest pain, possibly due to the PEs. Will check EKG. Consider outpatient stress testing once more stable from respiratory standpoint. (2) CVA (cerebral vascular accident): Code(s): I63.9 - Cerebral infarction, unspecified Status: Chronic Assessment and Plan: She has loop recorder for possible underlying atrial fibrillation Thank you for allowing me to participate in this patient's care, I will be following up with you. Please do not hesitate to call me for any other inquiry Subjective Date/time seen: 04/24/19 16:35 She has some cough and shortness of breath, no fever, no more chest pain Exam Narrative: Exam Narrative: Awake alert oriented x3 not in acute distress Neck is supple no obvious JVD, no carotid bruit Chest: Good air entry bilaterally, lungs are clear to auscultation and percussion bilaterally Cardiovascular: Regular rate and rhythm, 2/6 systolic murmur noted left sternal border Abdomen: Soft nontender bowel sounds positive Extremities: No edema has good pulses distally bilaterally Objective Data Vital Signs Vital Signs: Vital Signs - 24 hr 04/23/19 17:19 04/23/19 20:00 04/23/19 22:00 Temperature 36.5 C 36.9 C Pulse Rate 86 88 88 Respiratory Rate 20 22 H Blood Pressure 114/51 L 144/72 H Pulse Oximetry 90 95 04/23/19 22:06 04/23/19 22:10 04/23/19 22:14 Temperature Pulse Rate 88 84 Respiratory Rate 20 20 Blood Pressure Pulse Oximetry 92 04/24/19 00:00 04/24/19 02:00 04/24/19 03:27 Temperature 36.6 C Pulse Rate 87 83 87 Respiratory Rate 20 20 Blood Pressure 116/60 Pulse Oximetry 94 04/24/19 03:32 04/24/19 04:00 04/24/19 05:53 Temperature 37.4 C Pulse Rate 89 94 85 Respiratory Rate 20 18 Blood Pressure 126/62 Pulse Oximetry 94 04/24/19 08:00 04/24/19 10:00 04/24/19 12:00 Temperature 36.6 C 37.2 C Pulse Rate 86 91 91 Respiratory Rate 22 H 20 Blood Pressure 130/65 138/94 H Pulse Oximetry 94 94 04/24/19 14:00 Temperature Pulse Rate 90 Respiratory Rate Blood Pressure Pulse Oximetry Intake/Output Intake/Output: Intake & Output 04/21/19 04/22/19 04/23/19 04/24/19 23:59 23:59 23:59 23:59 Intake Total 2820 3915 3105 1750 Output Total 6025 235 8343 700 Balance 1420 3515 1605 1050 Meds/Results Medications: Active Medications Generic Name Dose Route Start Last Admin Trade Name Freq PRN Reason Stop Dose Admin Acetaminophen 1,000 mg 04/19/19 14:20 04/22/19 18:36 Tylenol Tablet PO 1,000 mg Q6H PRN Administration Mild Pain (1-3) or Fever Albuterol 5 mg 04/19/19 14:00 04/24/19 14:10 Albuterol Sulf Neb 2.5mg/0.5ml INHALATION 5 mg Q6HRT SAMARIA Administration Alprazolam 0.5 mg 04/19/19 16:31 04/24/19 09:40 Xanax PO 0.5 mg BID PRN Administration Anxiety Apixaban 2.5 mg 04/21/19 09:00 04/24/19 08:36 Eliquis PO 2.5 mg Q12HR SAMARIA Administration Aspirin 81 mg 04/24/19 09:00 04/24/19 08:36 Aspirin Ec PO 81 mg QAM SAMARIA Administration Atorvastatin Calcium 20 mg 04/19/19 2
--- NOTE | 2019-04-24 17:35 | PM.IMPN ---
Progress Note: A&P Assessment and Plan (1) Pulmonary emboli: Qualifiers: Acute cor pulmonale presence: without acute cor pulmonale Chronicity: acute Pulmonary embolism type: unspecified Qualified Code(s): I26.99 - Other pulmonary embolism without acute cor pulmonale Code(s): I26.99 - Other pulmonary embolism without acute cor pulmonale Status: Acute Assessment and Plan: -Continue eliquis 2.5mg BID. I discussed that she will have a slower recovery process because this dose is subtherapeutic. -Monitor hemoglobin and hematocrit -Monitor for ongoing bleeding (2) Pneumonia: Qualifiers: Laterality: unspecified laterality Lung location: unspecified part of lung Pneumonia type: due to unspecified organism Qualified Code(s): J18.9 - Pneumonia, unspecified organism Code(s): J18.9 - Pneumonia, unspecified organism Status: Acute Assessment and Plan: - vanc and zosyn (3) Jb ulcer: Qualifiers: Gastric ulcer chronicity: acute Qualified Code(s): K25.3 - Acute gastric ulcer without hemorrhage or perforation Code(s): K25.9 - Gastric ulcer, unspecified as acute or chronic, without hemorrhage or perforation Status: Acute Assessment and Plan: The pt was found to have a jb ulcer on EGD. In addition, EGD showed hiatal hernia and duodenitits. - Continue PPI as pt is at high risk for re-bleeding in absence of PPI. (4) Depression: Code(s): F32.9 - Major depressive disorder, single episode, unspecified Status: Chronic Assessment and Plan: -Continue zoloft (5) Iron deficiency anemia: Qualifiers: Iron deficiency anemia type: unspecified iron deficiency Qualified Code(s): D50.9 - Iron deficiency anemia, unspecified Code(s): D50.9 - Iron deficiency anemia, unspecified Status: Chronic Assessment and Plan: -H & H -Continue protonix. 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 Malik -will need high dose PPI at discharge (7) Hyperlipidemia: Code(s): E78.5 - Hyperlipidemia, unspecified Status: Chronic Assessment and Plan: -Continue atorvastatin (8) HTN (hypertension) with goal to be determined: Code(s): I10 - Essential (primary) hypertension Status: Chronic Assessment and Plan: - hold lisinopril-HCTZ (9) Anxiety: Code(s): F41.9 - Anxiety disorder, unspecified Status: Chronic Assessment and Plan: -Continue zoloft -Continue alprazolam PRN (10) CVA (cerebral vascular accident): Code(s): I63.9 - Cerebral infarction, unspecified Status: Chronic Assessment and Plan: -Spoke with Dr. Connor and will resume ASA EC 81mg (11) Acute kidney injury: Code(s): N17.9 - Acute kidney failure, unspecified Status: Resolved Assessment and Plan: Cr is 1.0 today. I suspect the elevation may have been contrast-induced. -Avoid all nephrotoxic agents (12) Diarrhea: Qualifiers: Diarrhea type: unspecified type Qualified Code(s): R19.7 - Diarrhea, unspecified Code(s): R19.7 - Diarrhea, unspecified Status: Acute Assessment and Plan: - cholestyramine PRN - stool cultures (13) Chest pain: Code(s): R07.9 - Chest pain, unspecified Status: Acute Assessment and Plan: -Continue to monitor for recurrent chest pain - stress test outpatient once stable from a respiratory standpoint Subjective Date/time seen: 04/24/19 17:35 Interval history: Tired. Denied pain. Tolerated diet. Denied bleeding. YING persists. Diarrhea that began 04/21 is abating today. Review of Systems Review of
--- NOTE | 2019-04-24 17:42 | WPDGIPROGNO ---
Progress Note: A&P Assessment and Plan (1) Jb ulcer: Qualifiers: Gastric ulcer chronicity: acute Qualified Code(s): K25.3 - Acute gastric ulcer without hemorrhage or perforation Code(s): K25.9 - Gastric ulcer, unspecified as acute or chronic, without hemorrhage or perforation Status: Acute Assessment and Plan: non bleeding ulcer yesterday (without high risk), she is back on low dose of blood thinner, continue to monitor for signs of rebleeding. hb is stable. (2) Melena: Code(s): K92.1 - Melena Status: Acute Assessment and Plan: monitor, no melena getting iv iron (3) Pulmonary emboli: Qualifiers: Acute cor pulmonale presence: without acute cor pulmonale Chronicity: acute Pulmonary embolism type: unspecified Qualified Code(s): I26.99 - Other pulmonary embolism without acute cor pulmonale Code(s): I26.99 - Other pulmonary embolism without acute cor pulmonale Status: Acute Assessment and Plan: on blood thinners (4) Hiatal hernia: Code(s): K44.9 - Diaphragmatic hernia without obstruction or gangrene Status: Acute (5) Pneumonia: Qualifiers: Pneumonia type: due to unspecified organism Laterality: unspecified laterality Lung location: unspecified part of lung Qualified Code(s): J18.9 - Pneumonia, unspecified organism Code(s): J18.9 - Pneumonia, unspecified organism Status: Acute Assessment and Plan: new pneumonia, on abx by primary team (6) Diarrhea: Qualifiers: Diarrhea type: unspecified type Qualified Code(s): R19.7 - Diarrhea, unspecified Code(s): R19.7 - Diarrhea, unspecified Status: Acute Assessment and Plan: probably from iv antibiotics, monitor. (7) Acute on chronic blood loss anemia: Code(s): D62 - Acute posthemorrhagic anemia Status: Acute Subjective Date/time seen: 04/24/19 17:42 Interval history: no more bleeding but still with diarrhea Exam Const: General: comfortable Other: more cough HENMT: General nose exam: Normal nares present Eyes: General: appearance normal, both eyes and all related structures Neck: Neck: no JVD Resp: Auscultation: rhonchi and diminished lung sounds Cardio: Rate: regular rate Rhythm: regular rhythm GI: Inspection: non-distended GI Palp: Yes Soft to palpation and No Tenderness to palpation present (GI) Auscultation: normal bowel sounds Skin: General skin exam: normal color Neuro: General: gait normal Speech: normal speech Extrem: General: normal to inspection Psych: Mental Status: mental status grossly normal Objective Data Vital Signs Vital Signs: Vital Signs - 24 hr 04/23/19 20:00 04/23/19 22:00 04/23/19 22:06 Temperature 98.4 F Pulse Rate 88 88 88 Respiratory Rate 22 H 20 Blood Pressure 144/72 H Pulse Oximetry 95 04/23/19 22:10 04/23/19 22:14 04/24/19 00:00 Temperature 97.9 F Pulse Rate 84 87 Respiratory Rate 20 20 Blood Pressure 116/60 Pulse Oximetry 92 94 04/24/19 02:00 04/24/19 03:27 04/24/19 03:32 Temperature Pulse Rate 83 87 89 Respiratory Rate 20 20 Blood Pressure Pulse Oximetry 04/24/19 04:00 04/24/19 05:53 04/24/19 08:00 Temperature 99.3 F 97.9 F Pulse Rate 94 85 86 Respiratory Rate 18 22 H Blood Pressure 126/62 130/65 Pulse Oximetry 94 94 04/24/19 10:00 04/24/19 12:00 04/24/19 14:00 Temperature 98.9 F Pulse Rate 91 91 90 Respiratory Rate 20 Blood Pressure 138/94 H Pulse Oximetry 94 Intake/Output Intake/Output: Intake & Output 04/21/19 04/22/19 04/23/19 04/24/19 23:59 23:59 23:59 23:59 Intake Total 2820 3915 3105 1750 Output Total 6917 938 5672 700 Balance 1420 3515 1605 1050 Meds/Results Medications: Active Medications Generic Name Dose Route Start Last Admin Trade Name Freq PRN Reason Stop Dose Admin Acetaminophen 1,000 mg 04/19/19 14:20 04/22/19 18:36 Tylenol Ta
[2019-04-24] MEDS: TRAZODONE HCL 50 MG TABLET 100 MG PO (21:38)
[2019-04-24] MEDS: ATORVASTATIN 20 MG TABLET PO (21:38)
[2019-04-25] VITALS (16 sets, daily range): BP systolic 116–131; BP diastolic 50–72; PULSE 78–96; RESP 16–20; TEMP 36.6–36.9; O2SAT 91–98
[2019-04-25] MEDS: ALBUTEROL SULFATE NEB 2.5 MG/0.5 ML INH 5 MG INHALATION ×3 (02:45→20:16)
--- NOTE | 2019-04-25 04:15 | PCRCNOTE ---
[facility]
[2019-04-25] MEDS: LACTATED RINGERS 1,000 ML 75 ML IV CONT (05:21)
--- NOTE | 2019-04-25 08:52 | PM.IMPN ---
Progress Note: A&P Assessment and Plan (1) Pulmonary emboli: Qualifiers: Acute cor pulmonale presence: without acute cor pulmonale Chronicity: acute Pulmonary embolism type: unspecified Qualified Code(s): I26.99 - Other pulmonary embolism without acute cor pulmonale Code(s): I26.99 - Other pulmonary embolism without acute cor pulmonale Status: Acute Assessment and Plan: -Continue eliquis 2.5mg BID. I discussed that she will have a slower recovery process because this dose is subtherapeutic. -Monitor hemoglobin and hematocrit -Monitor for bleeding (2) Pneumonia: Qualifiers: Pneumonia type: due to unspecified organism Laterality: unspecified laterality Lung location: unspecified part of lung Qualified Code(s): J18.9 - Pneumonia, unspecified organism Code(s): J18.9 - Pneumonia, unspecified organism Status: Acute Assessment and Plan: - vanc and zosyn day 3 (3) Jb ulcer: Qualifiers: Gastric ulcer chronicity: acute Qualified Code(s): K25.3 - Acute gastric ulcer without hemorrhage or perforation Code(s): K25.9 - Gastric ulcer, unspecified as acute or chronic, without hemorrhage or perforation Status: Acute Assessment and Plan: The pt was found to have a jb ulcer on EGD. In addition, EGD showed hiatal hernia and duodenitits. - Continue PPI as pt is at high risk for re-bleeding in absence of PPI. (4) Depression: Code(s): F32.9 - Major depressive disorder, single episode, unspecified Status: Chronic Assessment and Plan: -Continue zoloft (5) Iron deficiency anemia: Qualifiers: Iron deficiency anemia type: unspecified iron deficiency Qualified Code(s): D50.9 - Iron deficiency anemia, unspecified Code(s): D50.9 - Iron deficiency anemia, unspecified Status: Chronic Assessment and Plan: -H & H -Continue protonix. 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 Malik -will need high dose PPI at discharge (7) Hyperlipidemia: Code(s): E78.5 - Hyperlipidemia, unspecified Status: Chronic Assessment and Plan: -Continue atorvastatin (8) HTN (hypertension) with goal to be determined: Code(s): I10 - Essential (primary) hypertension Status: Chronic Assessment and Plan: - hold lisinopril-HCTZ (9) Anxiety: Code(s): F41.9 - Anxiety disorder, unspecified Status: Chronic Assessment and Plan: -Continue zoloft -Continue alprazolam PRN (10) CVA (cerebral vascular accident): Code(s): I63.9 - Cerebral infarction, unspecified Status: Chronic Assessment and Plan: -Spoke with Dr. Connor and will resume ASA EC 81mg (11) Acute kidney injury: Code(s): N17.9 - Acute kidney failure, unspecified Status: Resolved Assessment and Plan: Cr is 1.0 today. I suspect the elevation may have been contrast-induced. -Avoid all nephrotoxic agents (12) Diarrhea: Qualifiers: Diarrhea type: unspecified type Qualified Code(s): R19.7 - Diarrhea, unspecified Code(s): R19.7 - Diarrhea, unspecified Status: Acute Assessment and Plan: - cholestyramine PRN - stool cultures (13) Chest pain: Code(s): R07.9 - Chest pain, unspecified Status: Acute Assessment and Plan: -Continue to monitor for recurrent chest pain - stress test outpatient once stable from a respiratory standpoint Subjective Date/time seen: 04/25/19 08:52 Interval history: Only 1 episode of diarrhea so far today. Incontinent with coughing this morning. Poor appetite. Denied pain. Denied bleeding. Still short
[2019-04-25 09:20] LABS: Hematocrit 25.8 % (37.0-47.0); Mean Corpuscular Hemoglobin 29.9 pg (26-34); Mean Corpuscular Volume 96.3 fl (80-100); Platelet Count Result 145 k/mm3 (150-375); Red Blood Count 2.68 M/mm3 (4.2-5.4); Red Cell Distribution Width 14.5 % (11.5-14.5); White Blood Count 4.1 K/mm3 (4.5-10.0)
[2019-04-25 09:32] LABS: Blood Urea Nitrogen 8 mg/dL (7-17); Calcium 8.2 mg/dL (8.4-10.2); Carbon Dioxide 25 mmol/L (22-30); Chloride 107 mmol/L (98-107); Estimated CRCL calculation 37 ml/min; Estimated Glomerular Filt Rate 44; Glucose 103 mg/dL (65-105); Potassium 3.5 mmol/L (3.4-5.0); Sodium 139 mmol/L (137-145)
[2019-04-25] MEDS: APIXABAN 2.5 MG TABLET PO ×2 (09:58→20:54)
--- NOTE | 2019-04-25 09:58 | PCRCNOTE ---
Window of time for administration has passed. See next scheduled administration.
[2019-04-25] MEDS: MULTIVITAMINS /C LUTEIN (CENTRUM SILVER) TABLET *BKC 1 TAB PO (09:59)
[2019-04-25] MEDS: CYANOCOBALAMIN 500 MCG TABLET PO (09:59)
[2019-04-25] MEDS: lisinopriL 10 MG TABLET PO (09:59)
[2019-04-25] MEDS: SERTRALINE HCL 50 MG TABLET 100 MG PO (09:59)
[2019-04-25] MEDS: PANTOPRAZOLE 40 MG TABLET PO ×2 (10:00→20:54)
[2019-04-25] MEDS: LOPERAMIDE HCL 2 MG CAPSULE PO (10:01)
[2019-04-25] MEDS: FOLIC ACID 0.4 MG TABLET PO (10:27)
[2019-04-25] MEDS: ALPRAZOLAM 0.5 MG TABLET PO (10:27)
[2019-04-25] MEDS: LACTATED RINGERS 1,000 ML 50 ML IV CONT (12:02)
--- NOTE | 2019-04-25 15:36 | PM.PNCARD ---
Progress Note: A&P Assessment and Plan (1) Pulmonary emboli: Qualifiers: Acute cor pulmonale presence: without acute cor pulmonale Chronicity: acute Pulmonary embolism type: unspecified Qualified Code(s): I26.99 - Other pulmonary embolism without acute cor pulmonale Code(s): I26.99 - Other pulmonary embolism without acute cor pulmonale Status: Acute Assessment and Plan: She had multiple small pulmonary clots, but no enlargement of the pulmonary trunk or enlargement of the right ventricle, indicative of mild PE, and no evidence of massive or submassive PE at this time. She drove from [facility] with family in late March, PE is probably provoked by that. Now she is on Eliquis. Dose was decreased to 2.5 b.i.d due to GI bleed. Had EGD with non bleeding ulcer noted in the hiatal hernia. Hg stable. WOuld continue with current dose of Eliquis. She has some chest pain, possibly due to the PEs. Will check EKG. Consider outpatient stress testing once more stable from respiratory standpoint. (2) CVA (cerebral vascular accident): Code(s): I63.9 - Cerebral infarction, unspecified Status: Chronic Assessment and Plan: She has loop recorder for possible underlying atrial fibrillation Thank you for allowing me to participate in this patient's care, I will be following up with you. Please do not hesitate to call me for any other inquiry Subjective Date/time seen: 04/25/19 15:36 She seems to be slightly better today, still with cough and mild shortness of breath no chest pain no leg pain no nausea no vomiting, she still has mild diarrhea Exam Narrative: Exam Narrative: Awake alert oriented x3 not in acute distress Neck is supple no obvious JVD, no carotid bruit Chest: Good air entry bilaterally, lungs are clear to auscultation and percussion bilaterally Cardiovascular: Regular rate and rhythm, 2/6 systolic murmur noted left sternal border Abdomen: Soft nontender bowel sounds positive Extremities: No edema has good pulses distally bilaterally Objective Data Vital Signs Vital Signs: Vital Signs - 24 hr 04/24/19 16:00 04/24/19 18:00 04/24/19 20:00 Temperature 36.8 C 36.8 C Pulse Rate 98 82 80 Respiratory Rate 20 20 Blood Pressure 132/61 104/49 L Pulse Oximetry 93 93 04/24/19 21:53 04/24/19 21:57 04/24/19 22:00 Temperature Pulse Rate 87 80 Respiratory Rate 20 Blood Pressure Pulse Oximetry 93 04/24/19 22:01 04/24/19 23:27 04/25/19 00:00 Temperature 36.9 C Pulse Rate 85 80 80 Respiratory Rate 20 20 20 Blood Pressure 116/50 L Pulse Oximetry 93 96 04/25/19 02:00 04/25/19 02:45 04/25/19 02:55 Temperature Pulse Rate 90 80 80 Respiratory Rate 20 20 Blood Pressure Pulse Oximetry 04/25/19 04:00 04/25/19 06:00 04/25/19 07:54 Temperature 36.9 C 36.7 C Pulse Rate 85 86 84 Respiratory Rate 20 18 Blood Pressure 117/52 L 131/64 Pulse Oximetry 94 95 04/25/19 09:40 04/25/19 13:59 04/25/19 14:12 Temperature 36.7 C Pulse Rate 78 89 88 Respiratory Rate 16 20 20 Blood Pressure 117/62 Pulse Oximetry 97 91 Intake/Output Intake/Output: Intake & Output 04/22/19 04/23/19 04/24/19 04/25/19 23:59 23:59 23:59 23:59 Intake Total 3915 3105 3025 2200 Output Total 400 1500 1150 1200 Balance 3515 1605 1875 1000 Meds/Results Medications: Active Medications Generic Name Dose Route Start Last Admin Trade Name Freq PRN Reason Stop Dose Admin Acetaminophen 1,000 mg 04/19/19 14:20 04/22/19 18:36 Tylenol Tablet PO 1,000 mg Q6H PRN Administration Mild Pain (1-3) or Fever Albuterol 5 mg 04/19/19 14:00 04/25/19 13:58 Albuterol Sulf Neb 2.5mg/0.5ml INHALATION 5 mg Q6HRT SAMARIA Administration Alprazolam 0.5 mg 04/19/19 16:31 04/25/19 10:27 Xanax PO 0.5 mg BID PRN Administration Anxiety Apixaban 2.5 mg 04/21/19 09:00 04/25/19 09:58 Eliquis PO 2.5 mg Q12HR SAMARIA Administration
--- NOTE | 2019-04-25 17:09 | P.PNONC_ITS ---
Progress Note: A/P - Additional Plan Iron deficiency anemia. EGD showed nonbleeding gastric ulcer. Patient is on IV iron infusion. Hemoglobin is slightly lower which could be dilutional due to IV fluids. Hemoccult stool is negative. I will follow with the patient upon discharge my office. Bilateral pulmonary embolism. Patient will continue Eliquis 2.5 mg b.i.d.. Further dose adjustment can be done as an outpatient upon hemoglobin recovery. Diarrhea. C diff antigen is pending. Patient is on Imodium. Lomotil can be a dded if C diff comes back negative. - Time Spent With Patient Total time spent is greater than 50% in coordination of care (as documented) at patient's floor/unit and/or counseling patient: 15 - 25 minutes Subjective Interval history: Iron deficiency anemia GI bleed with gastric ulcer Bilateral pulmonary embolism Review of Systems - Review of Systems Patient remains tired and weak. She denies any bleeding but had not had diarrhea. Denies any chest pain and shortness of breath. No fevers and chills. - Neurologic Reports system reviewed and no additional complaints, except as documented, Reports hearing normal, Reports disequilibrium, Reports weakness, Denies headache(s) Exam Vital signs: Lucy Anna. Assessment of coma and impaired consciousness. A practical scale. Lancet 1974; 2:81-4. Narrative: Lungs are clear to auscultation bilaterally no wheezes Cardiovascular regular rate rhythm no murmurs Abdomen soft nontender nondistended bowel sounds are positive Extremities no edema PN: Objective Data - Labs CBC & Chem 7: 04/25/19 09:05 04/25/19 09:05 Labs: Laboratory Results - last 24 hr 04/24/19 04/25/19 04/25/19 04:19 09:05 09:05 WBC 4.1 L RBC 2.68 L Hgb 8.0 L Hct 25.8 L MCV 96.3 MCH 29.9 MCHC 31.0 L RDW 14.5 Plt Count 145 L MPV 11.0 H Sodium 139 Potassium 3.5 Chloride 107 Carbon Dioxide 25 BUN 8 Creatinine 1.20 H Estim Creat Clear Calc 37 Estimated GFR 44 L Glucose 103 Calcium 8.2 L Ova & Parasites Cancelled
--- NOTE | 2019-04-25 19:00 | WPDGIPROGNO ---
Progress Note: A&P Assessment and Plan (1) Jb ulcer: Qualifiers: Gastric ulcer chronicity: acute Qualified Code(s): K25.3 - Acute gastric ulcer without hemorrhage or perforation Code(s): K25.9 - Gastric ulcer, unspecified as acute or chronic, without hemorrhage or perforation Status: Acute Assessment and Plan: stable hb, on ppi bid ok to discontinue carafate because nausea. (2) Melena: Code(s): K92.1 - Melena Status: Acute Assessment and Plan: monitor, no melena getting iv iron (3) Pulmonary emboli: Qualifiers: Acute cor pulmonale presence: without acute cor pulmonale Chronicity: acute Pulmonary embolism type: unspecified Qualified Code(s): I26.99 - Other pulmonary embolism without acute cor pulmonale Code(s): I26.99 - Other pulmonary embolism without acute cor pulmonale Status: Acute Assessment and Plan: on blood thinners- low dose given recent gib (4) Hiatal hernia: Code(s): K44.9 - Diaphragmatic hernia without obstruction or gangrene Status: Acute (5) Pneumonia: Qualifiers: Pneumonia type: due to unspecified organism Laterality: unspecified laterality Lung location: unspecified part of lung Qualified Code(s): J18.9 - Pneumonia, unspecified organism Code(s): J18.9 - Pneumonia, unspecified organism Status: Acute Assessment and Plan: slowly getting better, on iv antibiotics (6) Diarrhea: Qualifiers: Diarrhea type: unspecified type Qualified Code(s): R19.7 - Diarrhea, unspecified Code(s): R19.7 - Diarrhea, unspecified Status: Acute Assessment and Plan: probably from iv antibiotics, better after imodium c diff was negative. (7) Acute on chronic blood loss anemia: Code(s): D62 - Acute posthemorrhagic anemia Status: Acute Subjective Date/time seen: 04/25/19 19:00 Interval history: diarrhea better after imodium, no signs of bleeding. She is sick after using carafate. Review of Systems Review of Systems: All systems reviewed & are unremarkable except as noted in HPI and below Exam Const: General: comfortable Other: more cough HENMT: General nose exam: Normal nares present Eyes: General: appearance normal, both eyes and all related structures Neck: Neck: no JVD Resp: Auscultation: rhonchi Cardio: Rate: regular rate Rhythm: regular rhythm GI: Inspection: non-distended GI Palp: Yes Soft to palpation and No Tenderness to palpation present (GI) Auscultation: normal bowel sounds Skin: General skin exam: normal color Neuro: General: gait normal Speech: normal speech Extrem: General: normal to inspection Psych: Mental Status: mental status grossly normal Objective Data Vital Signs Vital Signs: Vital Signs - 24 hr 04/24/19 20:00 04/24/19 21:53 04/24/19 21:57 Temperature 98.3 F Pulse Rate 80 87 Respiratory Rate 20 20 Blood Pressure 104/49 L Pulse Oximetry 93 93 04/24/19 22:00 04/24/19 22:01 04/24/19 23:27 Temperature Pulse Rate 80 85 80 Respiratory Rate 20 20 Blood Pressure Pulse Oximetry 93 04/25/19 00:00 04/25/19 02:00 04/25/19 02:45 Temperature 98.5 F Pulse Rate 80 90 80 Respiratory Rate 20 20 Blood Pressure 116/50 L Pulse Oximetry 96 04/25/19 02:55 04/25/19 04:00 04/25/19 06:00 Temperature 98.5 F Pulse Rate 80 85 86 Respiratory Rate 20 20 Blood Pressure 117/52 L Pulse Oximetry 94 04/25/19 07:54 04/25/19 09:40 04/25/19 13:59 Temperature 98.1 F 98.0 F Pulse Rate 84 78 89 Respiratory Rate 18 16 20 Blood Pressure 131/64 117/62 Pulse Oximetry 95 97 91 04/25/19 14:00 04/25/19 14:12 Temperature 98.1 F Pulse Rate 86 88 Respiratory Rate 16 20 Blood Pressure 126/63 Pulse Oximetry 97 Intake/Output Intake/Output: Intake & Output 04/22/19 04/23/19 04/24/19 04/25/19 23:59 23:59 23:59 23:59 Intake Total 3915 3105 302 2300 Output Tot
[2019-04-25] MEDS: ATORVASTATIN 20 MG TABLET PO (20:54)
[2019-04-25] MEDS: TRAZODONE HCL 50 MG TABLET 100 MG PO (20:55)
[2019-04-26] VITALS (11 sets, daily range): BP systolic 117–130; BP diastolic 55–65; PULSE 76–91; RESP 16–20; TEMP 36.6–36.9; O2SAT 93–97
[2019-04-26] MEDS: ALBUTEROL SULFATE NEB 2.5 MG/0.5 ML INH 5 MG INHALATION ×3 (02:08→14:05)
[2019-04-26] MEDS: LACTATED RINGERS 1,000 ML 50 ML IV CONT (02:50)
[2019-04-26] MEDS: ALPRAZOLAM 0.5 MG TABLET PO ×2 (02:51→13:01)
--- NOTE | 2019-04-26 09:14 | WPDGIPROGNO ---
Progress Note: A&P Assessment and Plan (1) Jb ulcer: Qualifiers: Gastric ulcer chronicity: acute Qualified Code(s): K25.3 - Acute gastric ulcer without hemorrhage or perforation Code(s): K25.9 - Gastric ulcer, unspecified as acute or chronic, without hemorrhage or perforation Status: Acute Assessment and Plan: stable hb 8-9, on ppi bid, no more melena carafate was discontinued because nausea. follow up office in 2-3 weeks (2) Melena: Code(s): K92.1 - Melena Status: Acute Assessment and Plan: monitor, no melena getting iv iron (3) Pulmonary emboli: Qualifiers: Acute cor pulmonale presence: without acute cor pulmonale Chronicity: acute Pulmonary embolism type: unspecified Qualified Code(s): I26.99 - Other pulmonary embolism without acute cor pulmonale Code(s): I26.99 - Other pulmonary embolism without acute cor pulmonale Status: Acute Assessment and Plan: on blood thinners- low dose given recent gib (4) Hiatal hernia: Code(s): K44.9 - Diaphragmatic hernia without obstruction or gangrene Status: Acute (5) Pneumonia: Qualifiers: Pneumonia type: due to unspecified organism Laterality: unspecified laterality Lung location: unspecified part of lung Qualified Code(s): J18.9 - Pneumonia, unspecified organism Code(s): J18.9 - Pneumonia, unspecified organism Status: Acute Assessment and Plan: slowly getting better, on iv antibiotics (6) Diarrhea: Qualifiers: Diarrhea type: unspecified type Qualified Code(s): R19.7 - Diarrhea, unspecified Code(s): R19.7 - Diarrhea, unspecified Status: Acute Assessment and Plan: probably from iv antibiotics, ok to use imodium prn c diff was negative. (7) Acute on chronic blood loss anemia: Code(s): D62 - Acute posthemorrhagic anemia Status: Acute Subjective Date/time seen: 04/26/19 09:14 Interval history: slowly doing better, bowel movement getting softer, no melena and fobt was negative. Review of Systems Review of Systems: All systems reviewed & are unremarkable except as noted in HPI and below Exam Const: General: comfortable Other: more cough HENMT: General nose exam: Normal nares present Eyes: General: appearance normal, both eyes and all related structures Neck: Neck: no JVD Resp: Auscultation: rhonchi Cardio: Rate: regular rate Rhythm: regular rhythm GI: Inspection: non-distended GI Palp: Yes Soft to palpation and No Tenderness to palpation present (GI) Auscultation: normal bowel sounds Skin: General skin exam: normal color Neuro: General: gait normal Speech: normal speech Extrem: General: normal to inspection Psych: Mental Status: mental status grossly normal Objective Data Vital Signs Vital Signs: Vital Signs - 24 hr 04/25/19 09:40 04/25/19 13:59 04/25/19 14:00 Temperature 98.0 F 98.1 F Pulse Rate 78 89 86 Respiratory Rate 16 20 16 Blood Pressure 117/62 126/63 Pulse Oximetry 97 91 97 04/25/19 14:12 04/25/19 18:00 04/25/19 20:17 Temperature 98.1 F Pulse Rate 88 96 78 Respiratory Rate 20 16 18 Blood Pressure 127/72 Pulse Oximetry 98 04/25/19 20:20 04/25/19 20:22 04/25/19 22:07 Temperature 97.8 F Pulse Rate 80 94 Respiratory Rate 18 18 Blood Pressure 119/58 L Pulse Oximetry 92 94 04/26/19 02:09 04/26/19 02:14 04/26/19 06:46 Temperature 97.9 F 98.0 F Pulse Rate 82 78 76 Respiratory Rate 16 18 18 Blood Pressure 123/62 117/65 Pulse Oximetry 93 94 04/26/19 07:52 04/26/19 07:53 04/26/19 08:04 Temperature Pulse Rate 78 87 Respiratory Rate 18 18 Blood Pressure Pulse Oximetry 97 Intake/Output Intake/Output: Intake & Output 04/23/19 04/24/19 04/25/19 04/26/19 23:59 23:59 23:59 23:59 Intake Total 3105 3025 3665 1650 Output Total 1500 1150 1200 1000 Balance 1605 1875 2465 650 Meds/Results Medications:
[2019-04-26] MEDS: MULTIVITAMINS /C LUTEIN (CENTRUM SILVER) TABLET *BKC 1 TAB PO (09:23)
[2019-04-26] MEDS: FOLIC ACID 0.4 MG TABLET PO (09:23)
[2019-04-26] MEDS: lisinopriL 10 MG TABLET PO (09:23)
[2019-04-26] MEDS: APIXABAN 2.5 MG TABLET PO ×2 (09:23→18:47)
[2019-04-26] MEDS: SERTRALINE HCL 50 MG TABLET 100 MG PO (09:23)
[2019-04-26] MEDS: CYANOCOBALAMIN 500 MCG TABLET PO (09:23)
[2019-04-26] MEDS: LOPERAMIDE HCL 2 MG CAPSULE PO ×3 (09:24→17:13)
[2019-04-26 11:13] LABS: Blood Urea Nitrogen 8 mg/dL (7-17); Calcium 8.5 mg/dL (8.4-10.2); Carbon Dioxide 24 mmol/L (22-30); Chloride 106 mmol/L (98-107); Estimated CRCL calculation 32 ml/min; Estimated Glomerular Filt Rate 36; Glucose 119 mg/dL (65-105); Potassium 3.4 mmol/L (3.4-5.0); Sodium 142 mmol/L (137-145)
[2019-04-26 11:14] LABS: Hematocrit 28.6 % (37.0-47.0); Hemoglobin 8.9 g/dL (12.0-15.0); Mean Corpuscular HGB Conc 31.1 g/dl (32-36); Mean Corpuscular Hemoglobin 29.9 pg (26-34); Mean Platelet Volume 10.8 fl (7.4-10.4); Platelet Count Result 200 k/mm3 (150-375); Red Blood Count 2.98 M/mm3 (4.2-5.4); Red Cell Distribution Width 14.6 % (11.5-14.5)
[2019-04-26 11:43] LABS: Vancomycin Trough 13.7 ug/mL (10.0-20.0)
--- NOTE | 2019-04-26 12:37 | PM.PNCARD ---
Progress Note: A&P Assessment and Plan (1) Pulmonary emboli: Qualifiers: Acute cor pulmonale presence: without acute cor pulmonale Chronicity: acute Pulmonary embolism type: unspecified Qualified Code(s): I26.99 - Other pulmonary embolism without acute cor pulmonale Code(s): I26.99 - Other pulmonary embolism without acute cor pulmonale Status: Acute Assessment and Plan: She had multiple small pulmonary clots, but no enlargement of the pulmonary trunk or enlargement of the right ventricle, indicative of mild PE, and no evidence of massive or submassive PE at this time. She drove from [facility] with family in late March, PE is probably provoked by that. Now she is on Eliquis. Dose was decreased to 2.5 b.i.d due to GI bleed. Had EGD with non bleeding ulcer noted in the hiatal hernia. Hg stable. WOuld continue with current dose of Eliquis. She has some chest pain, possibly due to the PEs. Will check EKG. Consider outpatient stress testing once more stable from respiratory standpoint. (2) CVA (cerebral vascular accident): Code(s): I63.9 - Cerebral infarction, unspecified Status: Chronic Assessment and Plan: She has loop recorder for possible underlying atrial fibrillation Thank you for allowing me to participate in this patient's care, I will be following up with you. Please do not hesitate to call me for any other inquiry Subjective Date/time seen: 04/26/19 12:37 Interval history: slowly doing better, bowel movement getting softer, no melena and fobt was negative. Exam Narrative: Exam Narrative: Awake alert oriented x3 not in acute distress Neck is supple no obvious JVD, no carotid bruit Chest: Good air entry bilaterally, lungs are clear to auscultation and percussion bilaterally Cardiovascular: Regular rate and rhythm, 2/6 systolic murmur noted left sternal border Abdomen: Soft nontender bowel sounds positive Extremities: No edema has good pulses distally bilaterally Objective Data Vital Signs Vital Signs: Vital Signs - 24 hr 04/25/19 13:59 04/25/19 14:00 04/25/19 14:12 Temperature 36.7 C Pulse Rate 89 86 88 Respiratory Rate 20 16 20 Blood Pressure 126/63 Pulse Oximetry 91 97 04/25/19 18:00 04/25/19 20:17 04/25/19 20:20 Temperature 36.7 C Pulse Rate 96 78 Respiratory Rate 16 18 Blood Pressure 127/72 Pulse Oximetry 98 92 04/25/19 20:22 04/25/19 22:07 04/26/19 02:09 Temperature 36.6 C 36.6 C Pulse Rate 80 94 82 Respiratory Rate 18 18 16 Blood Pressure 119/58 L 123/62 Pulse Oximetry 94 93 04/26/19 02:14 04/26/19 06:46 04/26/19 07:52 Temperature 36.7 C Pulse Rate 78 76 78 Respiratory Rate 18 18 18 Blood Pressure 117/65 Pulse Oximetry 94 04/26/19 07:53 04/26/19 08:04 Temperature Pulse Rate 87 Respiratory Rate 18 Blood Pressure Pulse Oximetry 97 Intake/Output Intake/Output: Intake & Output 04/23/19 04/24/19 04/25/19 04/26/19 23:59 23:59 23:59 23:59 Intake Total 3105 3025 3665 1890 Output Total 1500 1150 1200 1000 Balance 1605 1875 2465 890 Meds/Results Medications: Active Medications Generic Name Dose Route Start Last Admin Trade Name Freq PRN Reason Stop Dose Admin Acetaminophen 1,000 mg 04/19/19 14:20 04/22/19 18:36 Tylenol Tablet PO 1,000 mg Q6H PRN Administration Mild Pain (1-3) or Fever Albuterol 5 mg 04/19/19 14:00 04/26/19 07:50 Albuterol Sulf Neb 2.5mg/0.5ml INHALATION 5 mg Q6HRT SAMARIA Administration Alprazolam 0.5 mg 04/19/19 16:31 04/26/19 02:51 Xanax PO 0.5 mg BID PRN Administration Anxiety Apixaban 2.5 mg 04/21/19 09:00 04/26/19 09:23 Eliquis PO 2.5 mg Q12HR SAMARIA Administration Atorvastatin Calcium 20 mg 04/19/19 21:00 04/25/19 20:54 Lipitor PO 20 mg HS SAMARIA Administration Cyanocobalamin 500 mcg 04/20/19 09:00 04/26/19 09:23 Vitamin B-12 Tab PO 500 mcg DAILY SAMARIA Administration Folic Acid 0.4 m
[2019-04-26] MEDS: PANTOPRAZOLE 40 MG TABLET PO (13:01)
--- NOTE | 2019-04-26 16:49 | PCOTNOTE ---
The patient treatment was not able to be completed on [04/26/19] due to [short of staff]. Will plan to continue treatment per plan of care.
--- NOTE | 2019-04-26 17:38 | PM.DS ---
DS: Diagnosis Admitting Diagnosis Admitting Diagnosis: Other pulmonary embolism without acute cor pulmonale Discharge Diagnosis (1) Pulmonary emboli: Qualifiers: Acute cor pulmonale presence: without acute cor pulmonale Chronicity: acute Pulmonary embolism type: unspecified Qualified Code(s): I26.99 - Other pulmonary embolism without acute cor pulmonale Code(s): I26.99 - Other pulmonary embolism without acute cor pulmonale Status: Acute Assessment and Plan: -Continue eliquis 2.5mg BID. I discussed that she will have a slower recovery process because this dose is subtherapeutic. -Monitor hemoglobin and hematocrit -Monitor for bleeding (2) Pneumonia: Qualifiers: Pneumonia type: due to unspecified organism Laterality: unspecified laterality Lung location: unspecified part of lung Qualified Code(s): J18.9 - Pneumonia, unspecified organism Code(s): J18.9 - Pneumonia, unspecified organism Status: Acute Assessment and Plan: - vanc and zosyn day 3 (3) Jb ulcer: Qualifiers: Gastric ulcer chronicity: acute Qualified Code(s): K25.3 - Acute gastric ulcer without hemorrhage or perforation Code(s): K25.9 - Gastric ulcer, unspecified as acute or chronic, without hemorrhage or perforation Status: Acute Assessment and Plan: The pt was found to have a jb ulcer on EGD. In addition, EGD showed hiatal hernia and duodenitits. - Continue PPI as pt is at high risk for re-bleeding in absence of PPI. (4) Depression: Code(s): F32.9 - Major depressive disorder, single episode, unspecified Status: Chronic Assessment and Plan: -Continue zoloft (5) Iron deficiency anemia: Qualifiers: Iron deficiency anemia type: unspecified iron deficiency Qualified Code(s): D50.9 - Iron deficiency anemia, unspecified Code(s): D50.9 - Iron deficiency anemia, unspecified Status: Chronic Assessment and Plan: -H & H -Continue protonix. 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 Malik -will need high dose PPI at discharge (7) Hyperlipidemia: Code(s): E78.5 - Hyperlipidemia, unspecified Status: Chronic Assessment and Plan: -Continue atorvastatin (8) HTN (hypertension) with goal to be determined: Code(s): I10 - Essential (primary) hypertension Status: Chronic Assessment and Plan: - hold lisinopril-HCTZ (9) Anxiety: Code(s): F41.9 - Anxiety disorder, unspecified Status: Chronic Assessment and Plan: -Continue zoloft -Continue alprazolam PRN (10) CVA (cerebral vascular accident): Code(s): I63.9 - Cerebral infarction, unspecified Status: Chronic Assessment and Plan: -Spoke with Dr. Connor and will resume ASA EC 81mg (11) Acute kidney injury: Code(s): N17.9 - Acute kidney failure, unspecified Status: Resolved Assessment and Plan: Cr is 1.0 today. I suspect the elevation may have been contrast-induced. -Avoid all nephrotoxic agents (12) Diarrhea: Qualifiers: Diarrhea type: unspecified type Qualified Code(s): R19.7 - Diarrhea, unspecified Code(s): R19.7 - Diarrhea, unspecified Status: Acute Assessment and Plan: - cholestyramine PRN - stool cultures (13) Chest pain: Code(s): R07.9 - Chest pain, unspecified Status: Acute Assessment and Plan: -Continue to monitor for recurrent chest pain - stress test outpatient once stable from a respiratory standpoint DS: Summary Hospital Course Reason for hospitalization: Dyspnea Hospital Course: Presented April 19 with 2 we
== END 2019-04-26 18:50 | disposition home or self-care (01) | DRG 175 ==
LOC: ANHED 12:20 → ANH2MED 12:40 → ANHIMU 04-30 07:38
PROVIDERS: Emergency Medicine Emergency Medical Services; Internal Medicine; Internal Medicine Gastroenterology; Internal Medicine Hematology & Oncology; Nurse Practitioner; Physician Assistant; Admitting Provider Internal Medicine; Emergency Provider Emergency Medicine; PCP Family Medicine; Visit Provider Internal Medicine
PROC: 0DJ08ZZ Inspection of Upper Intestinal Tract, Via Natural or Artificial Opening Endoscopic (ICD-10-PCS; CPT 43235; principal; 2019-04-22 12:00)
DX: I26.99 Other pulmonary embolism without acute cor pulmonale (principal); J18.9 Pneumonia, unspecified organism; K25.4 Chronic or unspecified gastric ulcer with hemorrhage; D62 Acute posthemorrhagic anemia; N17.9 Acute kidney failure, unspecified; K52.1 Toxic gastroenteritis and colitis; T36.8X5A Adverse effect of other systemic antibiotics, initial encounter; T45.515A Adverse effect of anticoagulants, initial encounter; D50.0 Iron deficiency anemia secondary to blood loss (chronic); K22.70 Barrett's esophagus without dysplasia; F41.8 Other specified anxiety disorders; I10 Essential (primary) hypertension; E78.5 Hyperlipidemia, unspecified; K44.9 Diaphragmatic hernia without obstruction or gangrene; K29.80 Duodenitis without bleeding; E66.9 Obesity, unspecified; Z68.34 Body mass index [BMI] 34.0-34.9, adult; Z86.73 Personal history of transient ischemic attack (TIA), and cerebral infarction without residual deficits; Z87.11 Personal history of peptic ulcer disease; Z98.42 Cataract extraction status, left eye; Z98.41 Cataract extraction status, right eye; Z90.710 Acquired absence of both cervix and uterus; Z90.49 Acquired absence of other specified parts of digestive tract
CPT/HCPCS: 36415; 36600; 71045; 71046; 71275; 74176; 80048; 80053; 80202; 81001; 81003; 82274; 82375; 82607; 82728; 82746; 82805; 83050; 83540; 83550; 83605; 83615; 83690; 83735; 84443; 84484; 85014; 85018; 85025; 85027; 85046; 85055; 85380; 85610; 85730; 86850; 86900; 86901; 87015; 87040; 87045; 87046; 87070; 87177; 87205; 87209; 87269; 87272; 87324; 87427; 87804; 89055; 93005; 93306; 93970; 94640; 94667; 94668; 96361; 96374; 96375; 97161; 97165; 99291; A9270; C9113; J0456; J0696; J1644; J1756; J2405; J2543; J2704; J3370; J3475; J7030; J7120; Q9967

== ENCOUNTER 2019-06-23 14:22 | Outpatient (CLI) | payer MEDICARE, SELFPAY ==
[2019-06-23 14:36] LABS: Basophils Percent Auto 0.6 % (0.2-1.2); Eosinophils Absolute Auto 0.1 K/mm3 (0-0.3); Eosinophils Percent Auto 1.9 % (0-4.4); Hematocrit 38.8 % (37.0-47.0); Hemoglobin 12.5 g/dL (12.0-15.0); Immature Granulocyte Absolute 0.01 K/mm3 (0.00-0.031); Immature Granulocyte Percent A 0.1 % (0-0.5); Lymphocytes Absolute Auto 1.46 K/mm3 (0.9-3.2); Lymphocytes Percent Auto 21.1 % (18.3-44.2); Mean Corpuscular HGB Conc 32.2 g/dl (32-36); Mean Corpuscular Hemoglobin 30.6 pg (26-34); Mean Corpuscular Volume 95.1 fl (80-100); Mean Platelet Volume 10.7 fl (7.4-10.4); Monocytes Absolute Auto 0.7 K/mm3 (0.1-0.6); Monocytes Percent Auto 10.4 % (2.6-8.5); Neutrophils Absolute Auto 4.6 K/mm3 (1.3-6.7); Neutrophils Percent Auto 65.9 % (45.5-73.1); Platelet Count Result 263 k/mm3 (150-375); Red Blood Count 4.08 M/mm3 (4.2-5.4); Red Cell Distribution Width 14.6 % (11.5-14.5); White Blood Count 6.9 K/mm3 (4.5-10.0)
[2019-06-23 16:26] LABS: Iron 91 ug/dL (37-170)
[2019-06-23 16:36] LABS: Percent Iron Saturation 37 % (20-50)
== END 2019-06-23 14:23 | disposition home or self-care (01) ==
LOC: ANHLAB 14:24
PROVIDERS: PCP Family Medicine; Visit Provider Internal Medicine Hematology & Oncology
DX: D50.9 Iron deficiency anemia, unspecified (principal)
CPT/HCPCS: 36415; 82728; 83540; 83550; 85025

== ENCOUNTER 2019-07-23 14:33 | Outpatient (CLI) | payer MEDICARE, SELFPAY ==
--- NOTE | ~2019-07-23 | CT_ITS ---
EXAMINATION: CTA chest PE protocol DATE: 07/23/2019 15:31 INDICATION: Acute cor pulmonale TECHNIQUE: Computed tomography angiography (CTA) of the chest was performed with 100 mL Omnipaque-350 intravenous contrast timed to evaluate the pulmonary arteries. Coronal maximum intensity projection 3D-reconstructions were created by the technologist. Automated exposure control and iterative reconst ruction technique were employed. Exam dose: 253.26 mGy-cm total exam DLP. COMPARISON: 04/19/2019 CT pulmonary scan FINDINGS: There is diagnostic contrast enhancement of the pulmonary arteries. There is no thoracic aortic aneurysm. There is cardiomegaly. No pericardial or pleural effusion. Calcified left lower lobe pulmonary granuloma. No pulmonary infiltrate or consolidation. Left anterior chest monitoring and evaluation advisor device. There is a large hiatal hernia. Status post cholecystectomy. Diffuse idiopathic skeletal hyperostosis of the thoracic spine. IMPRESSION: No evidence of pulmonary embolism Cardiomegaly Large hiatal hernia Reviewed, dictated and finalized at [facility] Reviewed, dictated and finalized at [facility].
[2019-07-23 15:20] LABS: Estimated Glomerular Filt Rate 54
== END 2019-07-23 14:34 | disposition home or self-care (01) ==
PROVIDERS: PCP Family Medicine; Visit Provider Internal Medicine Hematology & Oncology
DX: I26.99 Other pulmonary embolism without acute cor pulmonale (principal); I51.7 Cardiomegaly; K44.9 Diaphragmatic hernia without obstruction or gangrene
CPT/HCPCS: 36415; 71275; Q9967

== ENCOUNTER 2019-08-26 00:18 | Outpatient (CLI) | payer MEDICARE, SELFPAY ==
[2019-08-26 18:56] LABS: SARS-CoV-2 RNA PCR Negative
== END 2019-08-26 00:19 | disposition home or self-care (01) ==
LOC: ANHCOVIDDT 00:18
PROVIDERS: PCP Family Medicine; Visit Provider Internal Medicine Cardiovascular Disease
DX: Z01.818 Encounter for other preprocedural examination (principal); Z11.59 Encounter for screening for other viral diseases
CPT/HCPCS: 87635; C9803; U0003

== ENCOUNTER 2019-08-28 05:46 | Day surgery (SDC) | payer MEDICARE, SELFPAY ==
[2019-08-27 15:23] VITALS: BMI 29.2
--- NOTE | 2019-08-28 11:04 | PM.IMHP ---
H&P: HPI History of Present Illness Chief complaint: JESUS Narrative: Lisa James is a 78 year old female with a history of stroke status post loop recorder implant 2 and half years ago. She is here for loop recorder explant. She has also been on Xarelto 15 mg daily for history of pulmonary emboli, last dose on Sunday night. She is feeling well today with no shortness of breath or chest pain. Review of Systems Constitutional: Constitutional: Reports no additional constitutional complaints Eyes: Eyes: Reports no additional eye complaints Cardiovascular: Cardiovascular: Denies chest pain, Denies pedal edema, Denies lightheadedness and Denies palpitations Respiratory: Respiratory: Denies chest congestion and Denies dyspnea on exertion Gastrointestinal: Gastrointestinal: Denies abdominal pain Genitourinary: Genitourinary: Denies hematuria Musculoskeletal: Musculoskeletal: Reports no additional musculoskeletal complaints Integumentary/Breasts: Skin/Breast: Denies rash Neurologic: Reports system reviewed and no additional complaints, except as documented Psychiatric: Psychiatric: Reports no additional psychiatric complaints [facility] Past Medical History Medical History Acute on chronic blood loss anemia Anxiety 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 Jb ulcer CVA (cerebral vascular accident) Initially affected her left side but then the symptoms resolved March 2017 Depression Eczema As a teenager Hiatal hernia History of TIAs X2 HTN (hypertension) with goal to be determined Hyperlipidemia Hypertension Iron deficiency anemia Melena Normal colonoscopy Panic attack Peptic disease Peptic ulcer disease Pneumonia 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 History H/O blepharoplasty H/O cataract extraction Bilateral H/O endoscopy H/O total hysterectomy History of appendectomy History of loop recorder Left chest Hx of cholecystectomy S/P tonsillectomy Social History Social History Social History: The patient is and lives with her daughter and son-in-law. She has 2 children a son and a daughter. Petra Glez. She is a full code. No alcohol or illicit drugs. Lifelong nonsmoker. 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 Smoking status: Never smoker Second hand tobacco smoke exposure: Yes Alcohol intake: current Drinks per week: 1 Substance use: never Gender identity (if verbalized by the patient): Female Spiritual care concerns: No Agree to blood products: Yes Meds Home Medications and Allergies Home Medications Medication Instructions Recorded Confirmed Type Adults Multivitamin 1 tablet PO DAILY 04/19/19 08/27/19 History alprazolam 0.5 mg PO BID PRN 04/19/19 08/27/19 History cyanocobalamin (vitamin B-12) 500 mcg PO DAILY 04/19/19 08/27/19 History [Vitamin B-12] folic acid 400 mcg PO DAILY 04/19/19 08/27/19 History sertraline 100 mg PO DAILY 04/19/19 08/27/19 History apixaban [Eliquis] 2.5 mg PO Q12HR #60 tablet 04/26/19 08/27/19 Rx buspirone 5 mg tablet 5 mg PO TID 05/06/19 08/27/19 History trazodone 50 mg tablet 100 mg PO HS tablet 05/06/19 08/27/19 History lisinopril 10 mg tablet 10 mg PO DAILY #90 tablet 07/04/19 08/27/19 Rx atorvastatin 20 mg tablet See Rx Instructions .ROUTE 08/14/19 08/27/19 Rx .COMPLEX #90 tablet pantoprazole 40 mg tablet,delayed 40 mg PO QAM #90 tablet 08/18/19 08/27/19 Rx release Allergies Allergy/AdvReac Type Severity Reaction Status Date / Time latex Allergy Unknown RASH Verified 05/06/19 11:19 ONIONS AdvReac Unknown NAUSEA, Uncoded 05/06/19 11:19 SLEEPINESS Exam Narrative: Exam Narrative: Very pleasant older lady, no distress Const: General: comfortable and no acute distress HENMT: Mouth: Yes moist mucous membran
--- NOTE | 2019-08-28 11:09 | WPDMODSED ---
Moderate Sedation Note-Pt Data Patient Data Diagnosis: Status post loop recorder, history of stroke Present Complaint: Patient desires to loop recorder explant since no atrial fibrillation has been noted Procedure to be performed/Plan: Explant of loop recorder possible conscious sedation Allergies Allergy/AdvReac Type Severity Reaction Status Date / Time latex Allergy Unknown RASH Verified 05/06/19 11:19 ONIONS AdvReac Unknown NAUSEA, Uncoded 05/06/19 11:19 SLEEPINESS Home Medications Medication Instructions Recorded Confirmed Type Adults Multivitamin 1 tablet PO DAILY 04/19/19 08/27/19 History alprazolam 0.5 mg PO BID PRN 04/19/19 08/27/19 History cyanocobalamin (vitamin B-12) 500 mcg PO DAILY 04/19/19 08/27/19 History [Vitamin B-12] folic acid 400 mcg PO DAILY 04/19/19 08/27/19 History sertraline 100 mg PO DAILY 04/19/19 08/27/19 History apixaban [Eliquis] 2.5 mg PO Q12HR #60 tablet 04/26/19 08/27/19 Rx buspirone 5 mg tablet 5 mg PO TID 05/06/19 08/27/19 History trazodone 50 mg tablet 100 mg PO HS tablet 05/06/19 08/27/19 History lisinopril 10 mg tablet 10 mg PO DAILY #90 tablet 07/04/19 08/27/19 Rx atorvastatin 20 mg tablet See Rx Instructions .ROUTE 08/14/19 08/27/19 Rx .COMPLEX #90 tablet pantoprazole 40 mg tablet,delayed 40 mg PO QAM #90 tablet 08/18/19 08/27/19 Rx release Sedation/Anesthesia: No previous sedation/anesthesia problems (including family history). [facility] Past Medical History Medical History Acute on chronic blood loss anemia Anxiety 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 Jb ulcer CVA (cerebral vascular accident) Initially affected her left side but then the symptoms resolved March 2017 Depression Eczema As a teenager Hiatal hernia History of TIAs X2 HTN (hypertension) with goal to be determined Hyperlipidemia Hypertension Iron deficiency anemia Melena Normal colonoscopy Panic attack Peptic disease Peptic ulcer disease Pneumonia 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 History H/O blepharoplasty H/O cataract extraction Bilateral H/O endoscopy H/O total hysterectomy History of appendectomy History of loop recorder Left chest Hx of cholecystectomy S/P tonsillectomy Social History Social History Social History: The patient is and lives with her daughter and son-in-law. She has 2 children a son and a daughter. Petra Glez. She is a full code. No alcohol or illicit drugs. Lifelong nonsmoker. 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 Smoking status: Never smoker Second hand tobacco smoke exposure: Yes Alcohol intake: current Drinks per week: 1 Substance use: never Gender identity (if verbalized by the patient): Female Spiritual care concerns: No Agree to blood products: Yes Mod Sed Physical Exam Physical Exam Pre Procedural Exam: Normal: Appearance, Eyes, Ears, Nose, Neck, Throat, Airway, Lungs, Heart Size, Heart Rate, Heart Rhythm, Neuro Exam, Abdomen, Extremities and Skin (Loop recorder can be palpated a few cm from insertion site, skin healed.) Hours since solid foods: 12 Hours since liquid intake: 12 ASA Classification/Sedation ASA Classification/Sedation ASA Class: II Risks: Risks, benefits and alternatives explained and patient/family accepted plan for sedation. Patient re-evaluated immediately prior to sedation.
--- NOTE | 2019-08-28 13:17 | PM.PROC ---
Procedure Note - Detailed Date of procedure: 08/28/19 Pre-op diagnosis: JESUS Status post LINQ loop recorder for history of stroke Patient requests explant Post-op diagnosis: same Procedure performed: explant of loop recorder Description of procedure: After informed consent the patient was taken to the pharmaceutical laboratory technician in the left prepectoral area was prepped and draped in usual fashion. She received 1 g of Ancef, local anesthesia and a skin incision was made. A tunnel was made to the device with blunt dissection which was grasped with a hemostats. The capsule was excised and the device was removed. Hemostasis was obtained with local pressure. Skin adhesive and a sterile dressing were applied. The patient tolerated the procedure well with no complications. Anesthesia: local Surgeon: Belia Bosch MD Estimated blood loss (mL): 2 Drains: No Packing: No Pathology: none sent Complications: None Condition: stable Disposition: observation Findings: Unremarkable loop recorder explant.
[2019-08-28 13:41] VITALS: BP 143/77; PULSE 71; RESP 12; TEMP 36.6; O2SAT 100
[2019-08-28 14:00] VITALS: BP 141/77; PULSE 68; RESP 14; O2SAT 99
== END 2019-08-28 14:07 | disposition home or self-care (01) ==
PROVIDERS: PCP Family Medicine; Visit Provider Internal Medicine Cardiovascular Disease
PROC: (CPT 33286; principal; 2019-08-28 12:00)
DX: Z45.09 Encounter for adjustment and management of other cardiac device (principal); Z86.73 Personal history of transient ischemic attack (TIA), and cerebral infarction without residual deficits; I10 Essential (primary) hypertension; E78.5 Hyperlipidemia, unspecified; Z79.899 Other long term (current) drug therapy; Z79.01 Long term (current) use of anticoagulants; Z91.040 Latex allergy status
CPT/HCPCS: 33286; J0690; J7040

== ENCOUNTER 2019-09-16 14:01 | Outpatient (CLI) | payer MEDICARE, SELFPAY ==
[2019-09-16 14:19] LABS: Basophils Percent Auto 0.6 % (0.2-1.2); Eosinophils Absolute Auto 0.1 K/mm3 (0-0.3); Eosinophils Percent Auto 2.2 % (0-4.4); Hematocrit 37.9 % (37.0-47.0); Hemoglobin 12.4 g/dL (12.0-15.0); Immature Granulocyte Absolute 0.01 K/mm3 (0.00-0.031); Immature Granulocyte Percent A 0.2 % (0-0.5); Lymphocytes Absolute Auto 1.48 K/mm3 (0.9-3.2); Lymphocytes Percent Auto 27.3 % (18.3-44.2); Mean Corpuscular HGB Conc 32.7 g/dl (32-36); Mean Corpuscular Volume 94.8 fl (80-100); Mean Platelet Volume 10.9 fl (7.4-10.4); Monocytes Absolute Auto 0.6 K/mm3 (0.1-0.6); Monocytes Percent Auto 11.3 % (2.6-8.5); Neutrophils Absolute Auto 3.2 K/mm3 (1.3-6.7); Neutrophils Percent Auto 58.4 % (45.5-73.1); Platelet Count Result 227 k/mm3 (150-375); Red Cell Distribution Width 14.3 % (11.5-14.5); White Blood Count 5.4 K/mm3 (4.5-10.0)
[2019-09-16 16:34] LABS: Iron 91 ug/dL (37-170)
[2019-09-16 16:35] LABS: Blood Urea Nitrogen 24 mg/dL (7-17); Calcium 9.5 mg/dL (8.4-10.2); Carbon Dioxide 26 mmol/L (22-30); Chloride 105 mmol/L (98-107); Estimated Glomerular Filt Rate > 60; Glucose 115 mg/dL (65-105); Sodium 138 mmol/L (137-145)
[2019-09-16 16:44] LABS: Percent Iron Saturation 37 % (20-50)
== END 2019-09-16 14:02 | disposition home or self-care (01) ==
PROVIDERS: PCP Family Medicine; Visit Provider Internal Medicine Hematology & Oncology
DX: D50.9 Iron deficiency anemia, unspecified (principal)
CPT/HCPCS: 36415; 80048; 82728; 83540; 83550; 85025

== ENCOUNTER 2020-06-22 10:07 | Outpatient (CLI) | payer MEDICARE, SELFPAY ==
[2020-06-22 10:23] LABS: Basophils Percent Auto 0.3 % (0.2-1.2); Eosinophils Absolute Auto 0.1 K/mm3 (0-0.3); Hematocrit 41.4 % (37.0-47.0); Hemoglobin 13.3 g/dL (12.0-15.0); Immature Granulocyte Absolute 0.02 K/mm3 (0.00-0.031); Immature Granulocyte Percent A 0.3 % (0-0.5); Lymphocytes Absolute Auto 1.43 K/mm3 (0.9-3.2); Lymphocytes Percent Auto 20.6 % (18.3-44.2); Mean Corpuscular HGB Conc 32.1 g/dl (32-36); Mean Corpuscular Hemoglobin 30.4 pg (26-34); Mean Corpuscular Volume 94.5 fl (80-100); Monocytes Absolute Auto 0.8 K/mm3 (0.1-0.6); Monocytes Percent Auto 11.1 % (2.6-8.5); Neutrophils Absolute Auto 4.6 K/mm3 (1.3-6.7); Neutrophils Percent Auto 66.7 % (45.5-73.1); Platelet Count Result 235 k/mm3 (150-375); Red Blood Count 4.38 M/mm3 (4.2-5.4); Red Cell Distribution Width 13.2 % (11.5-14.5); White Blood Count 6.9 K/mm3 (4.5-10.0)
[2020-06-22 10:27] LABS: Blood Urea Nitrogen 27 mg/dL (8-26); Carbon Dioxide 24 mmol/L (22-30); Chloride 109 mmol/L (98-109); Estimated Glomerular Filt Rate 54; Glucose 100 mg/dL (70-105); Potassium 3.7 mmol/L (3.5-4.9); Sodium 142 mmol/L (138-146)
[2020-06-22 12:20] LABS: Iron 78 ug/dL (37-170)
[2020-06-22 12:22] LABS: Alanine Aminotransferase 17 U/L (4-35); Albumin Level 4.2 g/dL (3.5-5.1); Alkaline Phosphatase 86 U/L (38-126); Anion Gap 9 mmol/L (8-16); Aspartate Amino Transferase 25 U/L (14-36); Bilirubin,Total 0.6 mg/dL (0.2-1.3); Blood Urea Nitrogen 28 mg/dL (7-17); Calcium 9.8 mg/dL (8.4-10.2); Carbon Dioxide 22 mmol/L (22-30); Chloride 110 mmol/L (98-107); Estimated Glomerular Filt Rate 54; Glucose 106 mg/dL (65-105); Potassium 3.9 mmol/L (3.4-5.0); Sodium 141 mmol/L (137-145)
[2020-06-22 12:29] LABS: Percent Iron Saturation 25 % (20-50)
== END 2020-06-22 10:08 | disposition home or self-care (01) ==
LOC: ANHLAB 10:09
PROVIDERS: PCP Family Medicine; Visit Provider Internal Medicine Hematology & Oncology
DX: D50.9 Iron deficiency anemia, unspecified (principal)
CPT/HCPCS: 36415; 80048; 80053; 82728; 83540; 83550; 85025

== ENCOUNTER 2020-07-01 15:30 | Outpatient (RCR) | payer MEDICARE, SELFPAY ==
--- NOTE | 2020-06-18 15:30 | PTOPEVAL ---
PHYSICAL THERAPY EVALUATION AND PLAN OF CARE 06-18-20 Thank you for referring Lisa James to [facility] for the diagnosis of R shoulder DJD, deconditioning.? She is scheduled to be seen for therapy? 2 x/week for 3 weeks. Please review, sign, date and return this plan of care SAKINA. I agree with and certify that the following plan of care is medically necessary. Referring Physician Date Attending Provider: William Temple MD Referring Provider: REBECCA Hooks *PT Outpatient Evaluation Document 06/18/20 14:30 YADIEL (Rec: 06/18/20 15:24 YADIEL [id number]) Outpatient Past Medical History Past Medical History Source of Past Medical History Recalled from Previous Visit, Confirmed with Patient/Family Neurological History Hx Cerebrovascular Accident (CVA) Yes: 2018, numbness in left foot Hx Transient Ischemic Attacks (TIA) Yes Cardiovascular History Hx Chest Pain Yes Hx Hypercholesterolemia Yes: meds Hx Hypertension Yes: meds Hx Other Cardiac Disorders Yes: loop recorder in place Respiratory History Hx Pulmonary Embolism Yes: Apr 2019 Gastrointestinal History Hx Appendectomy Yes Hx Cholecystectomy Yes Hx Hernia Yes: HIATAL HERNIA Hx Ulcer Yes Hx Other Gastrointestinal Disorders Yes: Barrets Esophagus Genitourinary History Hx Genitourinary Disorders No Significant History Musculoskeletal History Hx Arthritis Yes: R knee pain; R shoulder pain Hematological History Hx Anemia Yes Hx Blood Transfusions Yes Endocrine History Hx Endocrine Disorders No Significant History HEENT History Hx Cataracts Yes: BILATERAL REMOVED Hx Tonsillectomy Yes Hx Other HEENT Disorders Yes: benign GROWTH ON LEFT RETINA REMOVED Integumentary History Hx Eczema Yes Reproductive History Hx Hysterectomy Yes Psychosocial History Hx Anxiety Yes Hx Depression Yes: on meds, controlled Pain History History of Any Previous or Ongoing No Significant History Instance of Pain Anesthesia History Hx Anesthesia Reactions No Significant History Other History Hx Implanted Device Yes: previous had LOOP recorder- removed Evaluation Information Problem Diagnosis R shoulder DJD/deconditioning Onset 05-17-20 Subjective Information had injection in shoulder Text:As Reported By Patient/ 22, pain has decreased since Family injection and have more
--- NOTE | 2020-07-08 09:26 | PCPTNOTE ---
PHYSICAL THERAPY DISCHARGE 07-08-20 Attending Provider: William Temple MD Patient:Lisa James Date of :1940 Lisa called and canceled her PT appointments, left a message that she was doing well and did not need anymore therapy, therefore she will be discharged at this time. She has received 5 PT treatments for the diagnosis of R shoulder DJD. Education has been provided for a home exercise program. The goals were not addressed due to pt stopped attending therapy. Thank you for referring Mrs. James to [facility]. Please review, sign, date and return this discharge summary SAKINA. I have been updated about the patient's current status and I agree with discharge from the above service at this time. Referring Physician Date
== END 2020-07-09 10:43 | disposition home or self-care (01) ==
LOC: ANHPT 15:30
PROVIDERS: PCP Family Medicine; Visit Provider Orthopaedic Surgery
DX: M19.011 Primary osteoarthritis, right shoulder (principal)
CPT/HCPCS: 97110; 97161

== ENCOUNTER 2020-12-21 12:01 | Outpatient (RCR) | payer MEDICARE, SELFPAY ==
[2020-12-21 13:39] LABS: INR 2.1; Prothrombin Time 23.2 Seconds (11.1-14.7)
== END 2021-03-21 23:59 | disposition home or self-care (01) ==
LOC: ANHLAB 12:01
PROVIDERS: PCP Family Medicine; Visit Provider Internal Medicine Hematology & Oncology
DX: Z51.81 Encounter for therapeutic drug level monitoring (principal); Z79.01 Long term (current) use of anticoagulants
CPT/HCPCS: 36415; 85610

== ENCOUNTER 2020-12-28 14:01 | Outpatient (CLI) | payer MEDICARE, SELFPAY ==
[2020-12-28 14:15] LABS: Basophils Percent Auto 0.6 % (0.2-1.2); Eosinophils Absolute Auto 0.1 K/mm3 (0-0.3); Eosinophils Percent Auto 1.9 % (0-4.4); Hematocrit 39.3 % (37.0-47.0); Hemoglobin 12.5 g/dL (12.0-15.0); Immature Granulocyte Absolute 0.02 K/mm3 (0.00-0.031); Immature Granulocyte Percent A 0.4 % (0-0.5); Lymphocytes Absolute Auto 1.45 K/mm3 (0.9-3.2); Lymphocytes Percent Auto 26.9 % (18.3-44.2); Mean Corpuscular HGB Conc 31.8 g/dl (32-36); Mean Corpuscular Hemoglobin 30.3 pg (26-34); Mean Corpuscular Volume 95.2 fl (80-100); Mean Platelet Volume 11.2 fl (7.4-10.4); Monocytes Absolute Auto 0.6 K/mm3 (0.1-0.6); Monocytes Percent Auto 11.1 % (2.6-8.5); Neutrophils Absolute Auto 3.2 K/mm3 (1.3-6.7); Neutrophils Percent Auto 59.1 % (45.5-73.1); Platelet Count Result 221 k/mm3 (150-375); Red Blood Count 4.13 M/mm3 (4.2-5.4); Red Cell Distribution Width 13.3 % (11.5-14.5); White Blood Count 5.4 K/mm3 (4.5-10.0)
[2020-12-28 14:18] LABS: Blood Urea Nitrogen 17 mg/dL (8-26); Carbon Dioxide 26 mmol/L (22-30); Chloride 102 mmol/L (98-109); Estimated Glomerular Filt Rate 53; Glucose 103 mg/dL (70-105); Potassium 3.2 mmol/L (3.5-4.9); Sodium 143 mmol/L (138-146)
[2020-12-28 16:23] LABS: Iron 52 ug/dL (37-170)
[2020-12-28 16:35] LABS: Percent Iron Saturation 15 % (20-50)
== END 2020-12-28 14:02 | disposition home or self-care (01) ==
LOC: ANHLAB 14:03
PROVIDERS: PCP Family Medicine; Visit Provider Internal Medicine Hematology & Oncology
DX: D50.9 Iron deficiency anemia, unspecified (principal)
CPT/HCPCS: 36415; 80048; 82728; 83540; 83550; 85025

== ENCOUNTER 2021-06-20 15:27 | Outpatient (CLI) | payer MEDICARE, SELFPAY ==
[2021-06-20 15:50] LABS: Basophils Percent Auto 0.7 % (0.2-1.2); Eosinophils Absolute Auto 0.1 K/mm3 (0-0.3); Eosinophils Percent Auto 1.3 % (0-4.4); Hematocrit 39.1 % (37.0-47.0); Hemoglobin 12.1 g/dL (12.0-15.0); Immature Granulocyte Absolute 0.01 K/mm3 (0.00-0.031); Immature Granulocyte Percent A 0.2 % (0-0.5); Lymphocytes Absolute Auto 1.18 K/mm3 (0.9-3.2); Lymphocytes Percent Auto 21.2 % (18.3-44.2); Mean Corpuscular HGB Conc 30.9 g/dl (32-36); Mean Corpuscular Hemoglobin 30.6 pg (26-34); Mean Platelet Volume 11.3 fl (7.4-10.4); Monocytes Absolute Auto 0.6 K/mm3 (0.1-0.6); Neutrophils Absolute Auto 3.7 K/mm3 (1.3-6.7); Neutrophils Percent Auto 65.6 % (45.5-73.1); Platelet Count Result 220 k/mm3 (150-375); Red Blood Count 3.95 M/mm3 (4.2-5.4); Red Cell Distribution Width 14.6 % (11.5-14.5); White Blood Count 5.6 K/mm3 (4.5-10.0)
[2021-06-20 16:15] LABS: Prothrombin Time 21.6 Seconds (11.1-14.7)
[2021-06-20 17:57] LABS: Anion Gap 10 mmol/L (8-16); Blood Urea Nitrogen 21 mg/dL (7-17); Calcium 9.1 mg/dL (8.4-10.2); Carbon Dioxide 24 mmol/L (22-30); Chloride 107 mmol/L (98-107); Estimated Glomerular Filt Rate 53; Glucose 100 mg/dL (65-110); Potassium 3.8 mmol/L (3.4-5.0); Sodium 141 mmol/L (137-145)
== END 2021-06-20 15:28 | disposition home or self-care (01) ==
LOC: ANHLAB 15:29
PROVIDERS: PCP Family Medicine; Visit Provider Internal Medicine Hematology & Oncology
DX: D50.9 Iron deficiency anemia, unspecified (principal); Z51.81 Encounter for therapeutic drug level monitoring; Z79.899 Other long term (current) drug therapy
CPT/HCPCS: 36415; 80048; 85025; 85610

== ENCOUNTER → 2021-09-23 12:53 | Outpatient (CLI) | payer MEDICARE, SELFPAY ==
--- NOTE | ~2021-09-23 | MR_ITS ---
EXAMINATION: MR lumbar spine wo con DATE: 09/23/2021 13:25 INDICATION: Low back pain. TECHNIQUE: Magnetic resonance imaging (MRI) of the lumbar spine was performed without intravenous con trast. Sequences included sagittal T2-weighted FSE, sagittal T2-weighted FS FSE, sagittal T1-weighted FSE, and axial T2-weighted FSE. COMPARISON: Lumbar spine MRI 07/03/2017 FINDINGS: There is 8 degrees levocurvature of lumbar spine. Vertebral body heights are normal. There is mildly decreased disc height at L3-L4 and L4-L5 and moderately decreased disc height at L5-S1. The distal spinal cord signal intensity is normal. The conus medullaris is at L1-L2. The following disc levels are specifically discussed: L1-L2: The disc is bulging. There is mild bilateral facet joint osteoarthritis. There is no neural fo raminal stenosis. There is mild central canal stenosis. L2-L3: The disc is bulging. There is mild bilateral facet joint osteoarthritis. There is no neural fo raminal stenosis. There is mild central canal stenosis. L3-L4: The disc is bulging. There is mild bilateral facet joint osteoarthritis. There is mild bilater al neural foraminal stenosis. There is mild central canal stenosis. L4-L5: The disc is bulging. There is mild bilateral facet joint osteoarthritis. There is mild bilater al neural foraminal stenosis. There is mild central canal stenosis. L5-S1: The disc is bulging and has an annular fissure. There is severe bilateral facet joint osteoart hritis. There is mild bilateral neural foraminal stenosis. There is mild central canal stenosis. IMPRESSION: 1. Moderate lumbar spondylosis, stable from 07/03/2017. Reviewed, dictated and finalized at location A.
== END ==
PROVIDERS: PCP Family Medicine; Visit Provider Nurse Practitioner Family
DX: M47.896 Other spondylosis, lumbar region (principal)
CPT/HCPCS: 72148

== ENCOUNTER 2021-11-29 11:41 | Outpatient (CLI) | payer MEDICARE, SELFPAY ==
[2021-11-29 20:07] LABS: Alanine Aminotransferase 18 U/L (6-35); Albumin Level 4.2 g/dL (3.5-5.1); Alkaline Phosphatase 91 U/L (38-126); Anion Gap 10 mmol/L (8-16); Aspartate Amino Transferase 50 U/L (14-36); Bilirubin,Total 0.8 mg/dL (0.2-1.3); Blood Urea Nitrogen 24 mg/dL (7-17); Calcium 9.5 mg/dL (8.4-10.2); Carbon Dioxide 24 mmol/L (22-30); Chloride 106 mmol/L (98-107); Estimated Glomerular Filt Rate 53; Glucose 104 mg/dL (65-110); Potassium 4.6 mmol/L (3.4-5.0); Sodium 140 mmol/L (137-145)
[2021-11-29 20:21] LABS: Vitamin D 25 Hydroxy 41.2 ng/mL
== END 2021-11-29 11:42 | disposition home or self-care (01) ==
PROVIDERS: PCP Family Medicine; Visit Provider Family Medicine
DX: E55.9 Vitamin D deficiency, unspecified (principal); E78.5 Hyperlipidemia, unspecified; I10 Essential (primary) hypertension
CPT/HCPCS: 36415; 80053; 82306

== ENCOUNTER 2022-03-20 18:35 | Emergency (ER) | payer MEDICARE, SELFPAY ==
[2022-03-20 18:46] VITALS: BP 157/71; PULSE 75; RESP 16; TEMP 36.6; O2SAT 98
[2022-03-20 18:49] VITALS: BP 157/71; PULSE 75; RESP 16; TEMP 36.6; O2SAT 98
--- NOTE | 2022-03-20 19:04 | ED.GENADULT ---
HPI - General Adult General Chief complaint: Ear Stated complaint: rt ear bleeding Source: patient Mode of arrival: ambulatory Limitations: no limitations History of Present Illness HPI narrative: Patient presents for evaluation of bleeding from the right ear. Symptom onset a few hours ago. She woke from sleep this morning with sinus congestion and a cough. She also had some ear discomfort. Approximately 2 hours ago she placed a Q-tip in the right ear and noted some blood on the cotton swab. She was concerned so came in for further evaluation. She is currently anticoagulated with Xarelto for recurrent pulmonary emboli. She denies any fever, chills, nausea, vomiting. She has some chronic hearing deficits but states her current hearing status is unchanged from her baseline. She has noted an intermittent dull pain in the right temporal region of her head over the last few hours that occurs every couple of minutes, as described as dull and mild in severity and lasts seconds. She has a hx of CVA and TIA's but states she has not had any TIA's in several years. In fact, she states she was cleared by neurology and was informed she no longer needed to return for follow up. She states primary symptoms she experienced during those episodes were left sided weakness. She denies any lateralizing deficits at present time. Related Data Home Medications Medication Instructions Recorded Confirmed cyanocobalamin (vitamin B-12) 500 500 mcg PO DAILY 04/19/19 03/20/22 mcg tablet (Vitamin B-12) folic acid 400 mcg tablet 400 mcg PO DAILY 04/19/19 03/20/22 sertraline 100 mg tablet 100 mg PO DAILY 04/19/19 03/20/22 buspirone 5 mg tablet 5 mg PO TID 05/06/19 03/20/22 trazodone 50 mg tablet 100 mg PO HS 05/06/19 03/20/22 alprazolam 0.5 mg tablet 0.5 mg PO QHS PRN Anxiety 04/15/21 03/20/22 Allergies Allergy/AdvReac Type Severity Reaction Status Date / Time latex Allergy Unknown RASH Verified 03/20/22 18:46 ONIONS AdvReac Unknown NAUSEA, Uncoded 03/20/22 18:46 SLEEPINESS Review of Systems Review of Systems: CONSTITUTIONAL: Denies fever, chills, or sweats. EYES: Denies visual changes, redness, or discharge. ENT: Reports sinus congestion and right sided ear discomfort. Reports bloody drainage from right ear. CARDIOVASCULAR: Denies chest pain, palpitations, or edema. RESPIRATORY: Denies cough or dyspnea. GASTROINTESTINAL: Denies abdominal pain, nausea, vomiting, or diarrhea. GENITOURINARY: Denies dysuria or hematuria. SKIN: Denies rash or itching. MUSCULOSKELETAL: Denies back pain, joint pain, or myalgia. NEUROLOGIC: Reports intermittent mild right temporal headache. Denies numbness, dizziness, or weakness. PSYCHIATRIC: Denies anxiety or depression. 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 Dyslipidemia Eczema As a teenager Essential (primary) hypertension GERD (gastroesophageal reflux disease) Hearing loss Heart murmur Hiatal hernia with GERD History of stroke History of TIAs X2 IBS (irritable bowel syndrome) Insomnia Iron deficiency anemia Left hip pain Lumbar back pain Lumbar back pain with radiculopathy affecting left lower extremity Melena Normal colonoscopy Panic attack Peptic ulcer disease Pulmonary emboli 04/2019 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 Right shoulder pain Rotator cuff tendinitis Urinary frequency Vision changes Wears glasses Weight gain Surgical History Surgical History H/O blepharoplasty (~2007) H/O cataract extraction (~
== END 2022-03-20 19:26 | disposition home or self-care (01) ==
PROVIDERS: Emergency Provider Nurse Practitioner; PCP Family Medicine
DX: J06.9 Acute upper respiratory infection, unspecified (principal); S00.411A Abrasion of right ear, initial encounter; X58.XXXA Exposure to other specified factors, initial encounter; Z20.822 Contact with and (suspected) exposure to COVID-19; Z79.01 Long term (current) use of anticoagulants; Z86.711 Personal history of pulmonary embolism; Z86.73 Personal history of transient ischemic attack (TIA), and cerebral infarction without residual deficits; F41.9 Anxiety disorder, unspecified; F32.A Depression, unspecified; K22.70 Barrett's esophagus without dysplasia; I12.9 Hypertensive chronic kidney disease with stage 1 through stage 4 chronic kidney disease, or unspecified chronic kidney disease; N18.30 Chronic kidney disease, stage 3 unspecified; E78.5 Hyperlipidemia, unspecified; R01.1 Cardiac murmur, unspecified; K21.9 Gastro-esophageal reflux disease without esophagitis; F41.0 Panic disorder [episodic paroxysmal anxiety]
CPT/HCPCS: 87426; 87804; 99213; C9803; G0463

== ENCOUNTER 2022-04-03 11:25 | Outpatient (CLI) | payer MEDICARE, SELFPAY ==
[2022-04-03 18:49] LABS: Basophils Percent Auto 0.6 % (0.2-1.2); Eosinophils Absolute Auto 0.4 K/mm3 (0-0.3); Hematocrit 36.9 % (37.0-47.0); Hemoglobin 11.5 g/dL (12.0-15.0); Immature Granulocyte Absolute 0.02 K/mm3 (0.00-0.031); Immature Granulocyte Percent A 0.3 % (0-0.5); Lymphocytes Absolute Auto 0.77 K/mm3 (0.9-3.2); Lymphocytes Percent Auto 12.4 % (18.3-44.2); Mean Corpuscular HGB Conc 31.2 g/dl (32-36); Mean Corpuscular Hemoglobin 28.7 pg (26-34); Mean Platelet Volume 11.3 fl (7.4-10.4); Monocytes Absolute Auto 0.8 K/mm3 (0.1-0.6); Monocytes Percent Auto 12.8 % (2.6-8.5); Neutrophils Absolute Auto 4.2 K/mm3 (1.3-6.7); Neutrophils Percent Auto 67.9 % (45.5-73.1); Platelet Count Result 269 k/mm3 (150-375); Red Blood Count 4.01 M/mm3 (4.2-5.4); Red Cell Distribution Width 15.6 % (11.5-14.5); White Blood Count 6.2 K/mm3 (4.5-10.0)
[2022-04-03 18:51] LABS: Alanine Aminotransferase 18 U/L (6-35); Albumin Level 3.6 g/dL (3.5-5.1); Alkaline Phosphatase 99 U/L (38-126); Anion Gap 5 mmol/L (8-16); Aspartate Amino Transferase 25 U/L (14-36); Bilirubin,Total 0.6 mg/dL (0.2-1.3); Blood Urea Nitrogen 15 mg/dL (7-17); Calcium 9.1 mg/dL (8.4-10.2); Carbon Dioxide 27 mmol/L (22-30); Chloride 108 mmol/L (98-107); Estimated Glomerular Filt Rate 60; Glucose 112 mg/dL (65-110); Potassium 3.8 mmol/L (3.4-5.0); Sodium 140 mmol/L (137-145)
[2022-04-03 20:40] LABS: Free T4 Free Thyroxine 0.93 ng/mL (0.78-2.19)
== END 2022-04-03 11:26 | disposition home or self-care (01) ==
LOC: ANHGOSHLAB 11:27
PROVIDERS: PCP Family Medicine; Visit Provider Nurse Practitioner Family
DX: E03.9 Hypothyroidism, unspecified (principal); I10 Essential (primary) hypertension; Z86.2 Personal history of diseases of the blood and blood-forming organs and certain disorders involving the immune mechanism
CPT/HCPCS: 36415; 80053; 82607; 84439; 84443; 85025

== ENCOUNTER 2022-06-23 10:13 | Outpatient (CLI) | payer MEDICARE, SELFPAY ==
[2022-06-23 13:49] LABS: Basophils Percent Auto 0.8 % (0.2-1.2); Eosinophils Absolute Auto 0.2 K/mm3 (0-0.3); Eosinophils Percent Auto 3.8 % (0-4.4); Hematocrit 33.4 % (37.0-47.0); Hemoglobin 10.2 g/dL (12.0-15.0); Immature Granulocyte Absolute 0.01 K/mm3 (0.00-0.031); Immature Granulocyte Percent A 0.3 % (0-0.5); Lymphocytes Absolute Auto 1.12 K/mm3 (0.9-3.2); Lymphocytes Percent Auto 28.7 % (18.3-44.2); Mean Corpuscular HGB Conc 30.5 g/dl (32-36); Mean Corpuscular Hemoglobin 27.6 pg (26-34); Mean Corpuscular Volume 90.3 fl (80-100); Mean Platelet Volume 11.8 fl (7.4-10.4); Monocytes Absolute Auto 0.5 K/mm3 (0.1-0.6); Monocytes Percent Auto 12.1 % (2.6-8.5); Neutrophils Absolute Auto 2.1 K/mm3 (1.3-6.7); Neutrophils Percent Auto 54.3 % (45.5-73.1); Platelet Count Result 277 k/mm3 (150-375); Red Cell Distribution Width 15.9 % (11.5-14.5); White Blood Count 3.9 K/mm3 (4.5-10.0)
[2022-06-23 14:00] LABS: Alanine Aminotransferase 18 U/L (6-35); Albumin Level 3.8 g/dL (3.5-5.1); Alkaline Phosphatase 80 U/L (38-126); Anion Gap 5 mmol/L (8-16); Aspartate Amino Transferase 37 U/L (14-36); Bilirubin,Total 0.6 mg/dL (0.2-1.3); Blood Urea Nitrogen 18 mg/dL (7-17); Calcium 9.1 mg/dL (8.4-10.2); Carbon Dioxide 29 mmol/L (22-30); Chloride 109 mmol/L (98-107); Cholesterol 178 mg/dL (0-200); Estimated Glomerular Filt Rate 60; Glucose 115 mg/dL (65-110); HDL Direct 72 mg/dL; Sodium 143 mmol/L (137-145); Triglycerides 87 mg/dL (<150)
[2022-06-23 14:10] LABS: LDL Cholesterol Direct 72 mg/dL
== END 2022-06-23 10:14 | disposition home or self-care (01) ==
LOC: ANHGOSHLAB 10:15
PROVIDERS: PCP Family Medicine; Visit Provider Family Medicine
DX: E78.5 Hyperlipidemia, unspecified (principal); D50.9 Iron deficiency anemia, unspecified; I10 Essential (primary) hypertension
CPT/HCPCS: 36415; 80053; 80061; 85025

== ENCOUNTER 2022-06-26 11:28 | Outpatient (CLI) | payer MEDICARE, SELFPAY ==
[2022-06-26 11:46] LABS: Hematocrit 34.1 % (37.0-47.0); Hemoglobin 10.6 g/dL (12.0-15.0); Mean Corpuscular HGB Conc 31.1 g/dl (32-36); Mean Corpuscular Hemoglobin 27.8 pg (26-34); Mean Corpuscular Volume 89.5 fl (80-100); Mean Platelet Volume 10.8 fl (7.4-10.4); Platelet Count Result 276 k/mm3 (150-375); Red Blood Count 3.81 M/mm3 (4.2-5.4); Red Cell Distribution Width 15.7 % (11.5-14.5); White Blood Count 4.3 K/mm3 (4.5-10.0)
[2022-06-26 14:55] LABS: Anion Gap 4 mmol/L (8-16); Blood Urea Nitrogen 22 mg/dL (7-17); Calcium 9.6 mg/dL (8.4-10.2); Carbon Dioxide 31 mmol/L (22-30); Chloride 107 mmol/L (98-107); Estimated Glomerular Filt Rate 48; Glucose 107 mg/dL (65-110); Sodium 142 mmol/L (137-145)
[2022-06-26 17:02] LABS: Iron 31 ug/dL (37-170)
[2022-06-26 17:18] LABS: Percent Iron Saturation 8 % (20-50)
[2022-06-26 17:39] LABS: Ferritin 5.84 ng/mL (11.1-264)
== END 2022-06-26 11:29 | disposition home or self-care (01) ==
LOC: ANHLAB 11:31
PROVIDERS: PCP Family Medicine; Visit Provider Internal Medicine Hematology & Oncology
DX: D50.9 Iron deficiency anemia, unspecified (principal)
CPT/HCPCS: 36415; 80048; 82728; 83540; 83550; 85027

== ENCOUNTER 2022-08-18 02:49 | Day surgery (SDC) | payer MEDICARE, SELFPAY ==
[2022-08-09 14:50] VITALS: BMI 26.6
--- NOTE | 2022-08-18 08:08 | WPDANESEPPF ---
Anes - Initial Pre Proc Eval Procedure: Operation Date: 08/18/22 11:15 Proposed Procedures p Esophagogastroduodenoscopy & Colonoscopy - Naren Mcwilliams MD Date/Time: 08/18/22 08:08 Surgeon: Naren Mcwilliams MD Pre Op Diagnosis: YESSICA Patient Data Age: 81 Gender: F Height: 1.6 m Weight: 68.2 kg Allergies Allergy/AdvReac Type Severity Reaction Status Date / Time latex Allergy Intermediate RASH Verified 08/18/22 09:53 shrimp Allergy Intermediate Nausea Uncoded 08/18/22 09:53 ONIONS AdvReac Mild NAUSEA, Uncoded 08/18/22 09:53 SLEEPINESS Home Medications Medication Instructions Recorded Confirmed Type cyanocobalamin (vitamin B-12) 500 500 mcg PO DAILY 04/19/19 08/09/22 History mcg tablet (Vitamin B-12) folic acid 400 mcg tablet 400 mcg PO DAILY 04/19/19 08/09/22 History sertraline 100 mg tablet 100 mg PO DAILY 04/19/19 08/09/22 History buspirone 5 mg tablet 5 mg PO TID 05/06/19 08/09/22 History trazodone 50 mg tablet 100 mg PO HS 05/06/19 08/09/22 History cholecalciferol (vitamin D3) 50 50 mcg PO DAILY #90 tabs 09/13/21 08/09/22 Rx mcg (2,000 unit) tablet rivaroxaban 10 mg tablet (Xarelto) 10 mg PO DAILY #1 tablet 04/03/22 08/09/22 Rx lisinopril 20 mg tablet 20 mg PO DAILY #90 tabs 04/18/22 08/09/22 Rx atorvastatin 20 mg tablet 20 mg PO QHS #90 tabs 05/30/22 08/09/22 Rx alprazolam 0.5 mg tablet 0.5 mg PO QHS Anxiety 06/15/22 08/09/22 History amlodipine 5 mg tablet 5 mg PO DAILY #90 tabs 07/24/22 08/09/22 Rx pantoprazole 40 mg tablet,delayed 40 mg PO DAILY 08/09/22 08/09/22 History release Patient hx anesthesia problems: none Family hx anesthesia problems: none Results Review: All pre-operative results and documents have been reviewed as part of the pre-operative evaluation. 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 Dyslipidemia Eczema As a teenager Essential (primary) hypertension GERD (gastroesophageal reflux disease) Hearing loss Heart murmur Hiatal hernia with GERD History of stroke (~2017) History of TIAs X2 IBS (irritable bowel syndrome) Insomnia Iron deficiency anemia Left hip pain Lumbar back pain Peptic ulcer disease Pulmonary emboli (~04/2019) 04/2019 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 Right shoulder pain Rotator cuff tendinitis Wears glasses Surgical History Surgical History H/O blepharoplasty (~2007) H/O cataract extraction (~2007) Bilateral H/O endoscopy H/O total hysterectomy (~1989) History of appendectomy (~1989) History of loop recorder (~03/2017) Left chest, removed in 2009 History of loop recorder Hx of cholecystectomy (~1989) S/P tonsillectomy (~1956) Family History Family History Father Hypertension Acute myocardial infarction Heart disease Sibling Cancer Kidney disease Abdominal malignancy Sibling High cholesterol Lung cancer Grandparent Uterine cancer Social History Social History Social History: The patient is and lives with her daughter and son-in-law. She has 2 children a son and a daughter. Petra Glez. She is a full code. No alcohol or illicit drugs. Lifelong nonsmoker. 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 Smoking status: Never smoker Second hand tobacco smoke exposure: Yes Alcohol intake: current Drinks per week: 1 Alcohol use details: 1 beer/week Substance use: never Substance use type: does not use Lack
--- NOTE | 2022-08-18 09:52 | PM.HPGS ---
History of Present Illness History of Present Illness Consent: Risks, benefits, and alternatives have been discussed and questions answered. Patient agrees to proceed with procedure. Chief complaint: YESSICA Narrative: Lisa James is a 81 year old female here with mild anemia, using xarelto, denies overt gib. Admitted to hospital in 2019 for anemia and melena, had non-bleeding jb ulcer, she had colonoscopy 2015. Still taking protonix. Review of Systems Constitutional: Constitutional: Denies headache(s) and Denies weakness Eyes: Eyes: Denies blurry vision ENT: Reports Normal hearing present, Denies headache(s) and Denies neck pain Cardiovascular: Cardiovascular: Denies chest pain and Denies dyspnea Respiratory: Respiratory: Denies dyspnea Gastrointestinal: Gastrointestinal: Reports no additional gastrointestinal complaints Genitourinary: Genitourinary: Denies dysuria Musculoskeletal: Musculoskeletal: Denies neck pain Integumentary/Breasts: Skin/Breast: Denies dry skin Neurologic: Reports Normal hearing present, Denies headache(s) and Denies weakness Psychiatric: Psychiatric: Denies anxiety Endocrine: Endocrine: Denies change in body appearance Hematologic/Lymphatic: Hematologic/Lymphatic: Denies easy bleeding Allergic/Immunologic: Allergic/Immunologic: Denies urticaria PMFSH Past Medical History Medical History (Updated 08/18/22 @ 09:54 by Naren Mcwilliams MD) Acute on chronic blood loss anemia 04/2019 Anxiety 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 Jb ulcer 04/2019 CKD (chronic kidney disease) stage 3, GFR 30-59 ml/min CVA (cerebral vascular accident) Initially affected her left side but then the symptoms resolved March 2017 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 Dyslipidemia Eczema As a teenager Essential (primary) hypertension GERD (gastroesophageal reflux disease) Hearing loss Heart murmur Hiatal hernia with GERD History of stroke (~2017) History of TIAs X2 IBS (irritable bowel syndrome) Insomnia Iron deficiency anemia Left hip pain Lumbar back pain Peptic ulcer disease Pulmonary emboli (~04/2019) 04/2019 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 Right shoulder pain Rotator cuff tendinitis Wears glasses Surgical History Surgical History H/O blepharoplasty (~2007) H/O cataract extraction (~2007) Bilateral H/O endoscopy H/O total hysterectomy (~1989) History of appendectomy (~1989) History of loop recorder (~03/2017) Left chest, removed in 2009 History of loop recorder Hx of cholecystectomy (~1989) S/P tonsillectomy (~1956) Family History Family History Father Hypertension Acute myocardial infarction Heart disease Sibling Cancer Kidney disease Abdominal malignancy Sibling High cholesterol Lung cancer Grandparent Uterine cancer Social History Social History Social History: The patient is and lives with her daughter and son-in-law. She has 2 children a son and a daughter. Petra Glez. She is a full code. No alcohol or illicit drugs. Lifelong nonsmoker. 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 Smoking status: Never smoker Second hand tobacco smoke exposure: Yes Alcohol intake: current Drinks per week: 1 Alcohol use details: 1 beer/week Substance use: never Substance use type: does not use Lack of Transportation: No Lack of Food: Never True Current Housing: I Have Housing Concerned About Future Housing: No Difficulty Paying Gas/Electric Bills: No Difficulty Paying for Meds: No Currently Unemployed: No Education: Associate Degree Difficulty w/ Childcare or Family Care: No Living arrangements: with family Occupation/Education: retired Gender identity (if verbalized by the patient): Female Spiritual c
[2022-08-18 09:56] VITALS: BP 140/67; PULSE 77; RESP 17; TEMP 36.4; O2SAT 99; BMI 22.9
[2022-08-18] MEDS: LACTATED RINGERS 1,000 ML 150 ML IV CONT (10:08)
[2022-08-18 10:34] VITALS: BP 139/68; PULSE 72; RESP 32; O2SAT 100
--- NOTE | 2022-08-18 10:34 | SUR.OPER ---
EGD START: 1015; END: 1018. COLONOSCOPY START: 1022; END: 1032.
[2022-08-18 10:44] VITALS: BP 134/69; PULSE 79; RESP 21; O2SAT 100
[2022-08-18 10:54] VITALS: BP 139/66; PULSE 78; RESP 15; O2SAT 100
== END 2022-08-18 11:08 | disposition home or self-care (01) ==
PROVIDERS: PCP Family Medicine; Visit Provider Internal Medicine Gastroenterology
PROC: 0DJ08ZZ Inspection of Upper Intestinal Tract, Via Natural or Artificial Opening Endoscopic (ICD-10-PCS; CPT 43235; principal; 2022-08-18 11:15)
DX: D50.9 Iron deficiency anemia, unspecified (principal); K57.30 Diverticulosis of large intestine without perforation or abscess without bleeding; K64.8 Other hemorrhoids; K44.9 Diaphragmatic hernia without obstruction or gangrene; K29.70 Gastritis, unspecified, without bleeding; Z87.11 Personal history of peptic ulcer disease; I12.9 Hypertensive chronic kidney disease with stage 1 through stage 4 chronic kidney disease, or unspecified chronic kidney disease; N18.30 Chronic kidney disease, stage 3 unspecified; F41.9 Anxiety disorder, unspecified; E78.5 Hyperlipidemia, unspecified; K21.9 Gastro-esophageal reflux disease without esophagitis; Z86.711 Personal history of pulmonary embolism; Z86.73 Personal history of transient ischemic attack (TIA), and cerebral infarction without residual deficits; Z79.01 Long term (current) use of anticoagulants
CPT/HCPCS: 45378; 43239; 88305; J2704; J7120

== ENCOUNTER 2022-08-29 14:46 | Outpatient (CLI) | payer MEDICARE, SELFPAY ==
--- NOTE | ~2022-08-29 | MM_ITS ---
EXAMINATION: MM screening elle BI w isabell HISTORY: Screening mammogram TECHNIQUE: Craniocaudal and mediolateral oblique 3-D tomosynthesis images were obtained and synthetic 2-D images were generated. CAD analysis was submitted and interpreted. COMPARISON: No prior mammogram is available for comparison at this institution. BREAST PARENCHYMAL COMPOSITION: There are scattered areas of fibroglandular density. The true and cassandra gerous description the risks options is placement of 100 degrees of the FINDINGS: There is no evidence of suspicious mass, calcification, or architectural distortion to sugg est malignancy in either breast. There has been no suspicious interval change. IMPRESSION: 1. No mammographic evidence of malignancy. 2. Recommend routine clot represents a 3 cm and because screening mammography in one year. BI-RADS Category 1: Negative Reviewed, dictated and finalized at location A. IMPRESSION: 1. No mammographic evidence of malignancy. 2. Recommend routine clot represents a 3 cm and because screening mammography i n one year. BI-RADS Category 1: Negative
== END 2022-08-29 14:47 | disposition home or self-care (01) ==
PROVIDERS: PCP Family Medicine; Visit Provider Family Medicine
DX: Z12.31 Encounter for screening mammogram for malignant neoplasm of breast (principal)
CPT/HCPCS: 77063; 77067

== ENCOUNTER 2022-12-20 14:28 | Outpatient (CLI) | payer MEDICARE, SELFPAY ==
[2022-12-20 19:57] LABS: Alanine Aminotransferase 44 U/L (6-35); Alkaline Phosphatase 79 U/L (38-126); Anion Gap 5 mmol/L (8-16); Aspartate Amino Transferase 34 U/L (14-36); Bilirubin,Total 0.8 mg/dL (0.2-1.3); Blood Urea Nitrogen 19 mg/dL (7-17); Calcium 9.3 mg/dL (8.4-10.2); Carbon Dioxide 30 mmol/L (22-30); Chloride 104 mmol/L (98-107); Estimated Glomerular Filt Rate 53; Glucose 94 mg/dL (65-110); Potassium 4.2 mmol/L (3.4-5.0); Sodium 139 mmol/L (137-145)
[2022-12-20 20:28] LABS: Hemoglobin A1C 5.9 % (<5.7)
== END 2022-12-20 14:29 | disposition home or self-care (01) ==
PROVIDERS: PCP Family Medicine; Visit Provider Family Medicine
DX: R73.9 Hyperglycemia, unspecified (principal); I10 Essential (primary) hypertension
CPT/HCPCS: 36415; 80053; 83036

== ENCOUNTER 2023-03-20 11:10 | Outpatient (CLI) | payer MEDICARE, SELFPAY ==
[2023-03-20 11:29] LABS: Basophils Percent Auto 0.7 % (0.2-1.2); Eosinophils Absolute Auto 0.1 K/mm3 (0-0.3); Eosinophils Percent Auto 2.3 % (0-4.4); Hematocrit 40.1 % (37.0-47.0); Hemoglobin 13.2 g/dL (12.0-15.0); Immature Granulocyte Absolute 0.01 K/mm3 (0.00-0.031); Immature Granulocyte Percent A 0.2 % (0-0.5); Lymphocytes Absolute Auto 1.04 K/mm3 (0.9-3.2); Lymphocytes Percent Auto 23.4 % (18.3-44.2); Mean Corpuscular HGB Conc 32.9 g/dl (32-36); Mean Corpuscular Hemoglobin 31.6 pg (26-34); Mean Corpuscular Volume 95.9 fl (80-100); Mean Platelet Volume 10.4 fl (7.4-10.4); Monocytes Absolute Auto 0.5 K/mm3 (0.1-0.6); Monocytes Percent Auto 11.9 % (2.6-8.5); Neutrophils Absolute Auto 2.7 K/mm3 (1.3-6.7); Neutrophils Percent Auto 61.5 % (45.5-73.1); Platelet Count Result 240 k/mm3 (150-375); Red Blood Count 4.18 M/mm3 (4.2-5.4); Red Cell Distribution Width 13.6 % (11.5-14.5); White Blood Count 4.4 K/mm3 (4.5-10.0)
[2023-03-20 13:45] LABS: Iron 128 ug/dL (37-170)
[2023-03-20 13:49] LABS: Anion Gap 8 mmol/L (8-16); Blood Urea Nitrogen 18 mg/dL (7-17); Calcium 9.6 mg/dL (8.4-10.2); Carbon Dioxide 25 mmol/L (22-30); Chloride 106 mmol/L (98-107); Estimated Glomerular Filt Rate 53; Glucose 97 mg/dL (65-110); Potassium 3.8 mmol/L (3.4-5.0); Sodium 139 mmol/L (137-145)
[2023-03-20 13:57] LABS: Percent Iron Saturation 49 % (20-50)
[2023-03-20 14:56] LABS: Folic Acid > 20.0 ng/mL (2.76->20); Vitamin B12 > 1000.0 pg/mL (239-931)
== END 2023-03-20 11:11 | disposition home or self-care (01) ==
LOC: ANHLAB 11:13
PROVIDERS: PCP Family Medicine; Visit Provider Internal Medicine Hematology & Oncology
DX: D64.9 Anemia, unspecified (principal)
CPT/HCPCS: 36415; 80048; 82607; 82728; 82746; 83540; 83550; 85025

== ENCOUNTER 2023-08-02 09:25 | Outpatient (CLI) | payer MEDICARE, SELFPAY ==
[2023-08-02 13:29] LABS: Basophils Percent Auto 0.7 % (0.2-1.2); Eosinophils Absolute Auto 0.1 K/mm3 (0-0.3); Eosinophils Percent Auto 2.6 % (0-4.4); Hematocrit 41.2 % (37.0-47.0); Hemoglobin 13.4 g/dL (12.0-15.0); Lymphocytes Absolute Auto 1.39 K/mm3 (0.9-3.2); Lymphocytes Percent Auto 30.2 % (18.3-44.2); Mean Corpuscular HGB Conc 32.5 g/dl (32-36); Mean Corpuscular Hemoglobin 31.2 pg (26-34); Mean Platelet Volume 11.8 fl (7.4-10.4); Monocytes Absolute Auto 0.5 K/mm3 (0.1-0.6); Monocytes Percent Auto 11.1 % (2.6-8.5); Neutrophils Absolute Auto 2.6 K/mm3 (1.3-6.7); Neutrophils Percent Auto 55.4 % (45.5-73.1); Platelet Count Result 217 k/mm3 (150-375); Red Blood Count 4.29 M/mm3 (4.2-5.4); Red Cell Distribution Width 13.3 % (11.5-14.5); White Blood Count 4.6 K/mm3 (4.5-10.0)
[2023-08-02 13:38] LABS: Vitamin D 25 Hydroxy 34.8 ng/mL
[2023-08-02 13:40] LABS: Cholesterol 176 mg/dL (0-200); HDL Direct 70 mg/dL; Triglycerides 64 mg/dL (<150)
[2023-08-02 13:53] LABS: LDL Cholesterol Direct 82 mg/dL
[2023-08-02 21:59] LABS: Hemoglobin A1C 6.2 % (<5.7)
== END 2023-08-02 09:26 | disposition home or self-care (01) ==
PROVIDERS: PCP Family Medicine; Visit Provider Family Medicine
DX: E78.5 Hyperlipidemia, unspecified (principal); D50.9 Iron deficiency anemia, unspecified; E53.8 Deficiency of other specified B group vitamins; R73.03 Prediabetes; E55.9 Vitamin D deficiency, unspecified; F32.9 Major depressive disorder, single episode, unspecified; I10 Essential (primary) hypertension
CPT/HCPCS: 36415; 80061; 82306; 82607; 83036; 84443; 85025

== ENCOUNTER 2023-09-24 09:34 | Outpatient (CLI) | payer MEDICARE, SELFPAY ==
[2023-09-24 10:36] LABS: Basophils Percent Auto 0.8 % (0.2-1.2); Eosinophils Absolute Auto 0.2 K/mm3 (0-0.3); Eosinophils Percent Auto 3.3 % (0-4.4); Hematocrit 38.8 % (37.0-47.0); Hemoglobin 12.6 g/dL (12.0-15.0); Immature Granulocyte Absolute 0.01 K/mm3 (0.00-0.031); Immature Granulocyte Percent A 0.2 % (0-0.5); Lymphocytes Absolute Auto 1.09 K/mm3 (0.9-3.2); Lymphocytes Percent Auto 22.3 % (18.3-44.2); Mean Corpuscular HGB Conc 32.5 g/dl (32-36); Mean Corpuscular Hemoglobin 31.2 pg (26-34); Mean Platelet Volume 11.3 fl (7.4-10.4); Monocytes Absolute Auto 0.5 K/mm3 (0.1-0.6); Monocytes Percent Auto 10.9 % (2.6-8.5); Neutrophils Absolute Auto 3.1 K/mm3 (1.3-6.7); Neutrophils Percent Auto 62.5 % (45.5-73.1); Platelet Count Result 239 k/mm3 (150-375); Red Blood Count 4.04 M/mm3 (4.2-5.4); Red Cell Distribution Width 13.7 % (11.5-14.5); White Blood Count 4.9 K/mm3 (4.5-10.0)
[2023-09-24 12:34] LABS: Iron 91 ug/dL (37-170)
[2023-09-24 12:48] LABS: Anion Gap 8 mmol/L (4-12); Blood Urea Nitrogen 27 mg/dL (7-17); Calcium 9.6 mg/dL (8.4-10.2); Carbon Dioxide 26 mmol/L (22-30); Chloride 105 mmol/L (98-107); Estimated Glomerular Filt Rate 53; Glucose 135 mg/dL (65-110); Potassium 4.3 mmol/L (3.4-5.0); Sodium 139 mmol/L (137-145)
[2023-09-24 13:00] LABS: Percent Iron Saturation 35 % (20-50)
[2023-09-24 13:59] LABS: Folic Acid 8.5 ng/mL (2.76->20)
== END 2023-09-24 09:35 | disposition home or self-care (01) ==
PROVIDERS: PCP Family Medicine; Visit Provider Internal Medicine Hematology & Oncology
DX: D64.9 Anemia, unspecified (principal)
CPT/HCPCS: 36415; 80048; 82607; 82728; 82746; 83540; 83550; 85025

== ENCOUNTER 2023-10-29 09:18 | Outpatient (CLI) | payer MEDICARE, SELFPAY ==
[2023-10-29 09:49] LABS: Basophils Percent Auto 0.7 % (0.2-1.2); Eosinophils Absolute Auto 0.1 K/mm3 (0-0.3); Eosinophils Percent Auto 3.1 % (0-4.4); Hematocrit 39.1 % (37.0-47.0); Hemoglobin 12.7 g/dL (12.0-15.0); Immature Granulocyte Absolute 0.01 K/mm3 (0.00-0.031); Immature Granulocyte Percent A 0.2 % (0-0.5); Lymphocytes Absolute Auto 1.12 K/mm3 (0.9-3.2); Lymphocytes Percent Auto 24.7 % (18.3-44.2); Mean Corpuscular HGB Conc 32.5 g/dl (32-36); Mean Corpuscular Hemoglobin 31.4 pg (26-34); Mean Corpuscular Volume 96.5 fl (80-100); Mean Platelet Volume 10.3 fl (7.4-10.4); Monocytes Absolute Auto 0.5 K/mm3 (0.1-0.6); Monocytes Percent Auto 11.7 % (2.6-8.5); Neutrophils Absolute Auto 2.7 K/mm3 (1.3-6.7); Neutrophils Percent Auto 59.6 % (45.5-73.1); Platelet Count Result 239 k/mm3 (150-375); Red Blood Count 4.05 M/mm3 (4.2-5.4); Red Cell Distribution Width 14.3 % (11.5-14.5); White Blood Count 4.5 K/mm3 (4.5-10.0)
[2023-10-29 11:34] LABS: Iron 109 ug/dL (37-170)
[2023-10-29 11:39] LABS: Anion Gap 8 mmol/L (4-12); Blood Urea Nitrogen 21 mg/dL (7-17); Calcium 9.3 mg/dL (8.4-10.2); Carbon Dioxide 28 mmol/L (22-30); Chloride 104 mmol/L (98-107); Estimated Glomerular Filt Rate 60; Glucose 108 mg/dL (65-110); Potassium 4.1 mmol/L (3.4-5.0); Sodium 140 mmol/L (137-145)
[2023-10-29 11:45] LABS: Percent Iron Saturation 41 % (20-50)
[2023-10-29 12:43] LABS: Folic Acid 8.5 ng/mL (2.76->20)
== END 2023-10-29 09:19 | disposition home or self-care (01) ==
LOC: ANHLAB 09:22
PROVIDERS: PCP Family Medicine; Visit Provider Internal Medicine Hematology & Oncology
DX: D64.9 Anemia, unspecified (principal)
CPT/HCPCS: 36415; 80048; 82607; 82728; 82746; 83540; 83550; 85025

== ENCOUNTER 2023-10-30 14:48 | Outpatient (CLI) | payer MEDICARE, SELFPAY ==
--- NOTE | ~2023-10-30 | XR_ITS ---
EXAMINATION: XR hip RT 2V w AP pelvis DATE: 10/30/2023 15:10 INDICATION: Fall. TECHNIQUE: An anteroposterior view of the pelvis and 2 views of right hip were obtained. COMPARISON: Pelvis radiograph 09/15/2021 FINDINGS: Alignment is normal. No fracture. There is moderate osteoarthritis of the hips. There is mi ld lumbar spondylosis. IMPRESSION: 1. Moderate osteoarthritis of the hips. Reviewed, dictated and finalized at location A.
--- NOTE | ~2023-10-30 | XR_ITS ---
EXAMINATION: XR shoulder RT min 2V DATE: 10/30/2023 15:10 INDICATION: Right shoulder pain. TECHNIQUE: 4 views of right shoulder were obtained. COMPARISON: Right shoulder radiographs 06/08/20 FINDINGS: Bone alignment is normal. No fracture. There is mild osteoarthritis of glenohumeral joint a nd severe osteoarthritis of acromioclavicular joint. There is a large hiatal hernia. IMPRESSION: 1. Polyarticular osteoarthritis. 2. Large hiatal hernia. Reviewed, dictated and finalized at location A.
== END 2023-10-30 14:49 | disposition home or self-care (01) ==
LOC: ANHIMG 14:54
PROVIDERS: PCP Family Medicine; Visit Provider Family Medicine
DX: M19.011 Primary osteoarthritis, right shoulder (principal); K44.9 Diaphragmatic hernia without obstruction or gangrene; M16.0 Bilateral primary osteoarthritis of hip; Z91.81 History of falling
CPT/HCPCS: 73030; 73502

== ENCOUNTER 2024-01-15 14:25 | Outpatient (CLI) | payer MEDICARE, SELFPAY ==
--- NOTE | ~2024-01-15 | US_ITS ---
EXAMINATION: US soft tissue head and neck DATE: 01/15/2024 14:34 INDICATION: Right parotid mass. TECHNIQUE: Multiple grayscale and Doppler ultrasound images of the head and neck were obtained. COMPARISON: Neck CT 12/11/2018 FINDINGS: In the right parotid gland, there is a 1.8 x 1.1 x 1.3 cm hypoechoic mass. IMPRESSION: 1. 1.8 cm right parotid mass, new from 12/11/2018. The differential diagnosis includes benign mixed tu mor, Warthin tumor, and less likely marlin metastatic disease or primary malignancy. Ultrasound-guided fine needle aspiration is recommended. Reviewed, dictated and finalized at location A. NCED QUALITY ENGINEER IMPRESSION: 1. 1.8 cm right parotid mass, new from 12/11/2018. The differential diagnosis in cludes benign mixed tumor, Warthin tumor, and less likely marlin metastatic dise ase or primary malignancy. Ultrasound-guided fine needle aspiration is recommen ded.
== END 2024-01-15 14:26 | disposition home or self-care (01) ==
LOC: GOSHIMG 14:26
PROVIDERS: PCP Family Medicine; Visit Provider Family Medicine
DX: R22.1 Localized swelling, mass and lump, neck (principal); K11.8 Other diseases of salivary glands
CPT/HCPCS: 76536

== ENCOUNTER 2024-02-12 08:21 | Outpatient (CLI) | payer MEDICARE, SELFPAY ==
--- NOTE | ~2024-02-12 | MR_ITS ---
MRI of the left hip Clinical history: Pain Technique: Coronal T1-weighted, T2-weighted, and proton-density fat-sat images, and axial T1-weighted and proton-density fat-sat images were acquired through the pelvis. Coronal T2-weighted images and c oronal, axial, and sagittal proton-density fat-sat images were acquired through the left hip. Findings: There is no fracture or avascular necrosis of either hip. Bone marrow signals in the proxim al femora and visualized pelvic bones are unremarkable. Bilateral hip joint spaces are preserved with minimal chondromalacia. No joint effusion seen. No left acetabular evident. There is an area of mild amorphous edema in the left gluteus medius muscle belly, suggestive of low- grade muscle strain versus focal myositis. Remaining musculature is unremarkable. Tendons are intact. No evidence of bursitis. No soft tissue mass or fluid collection. IMPRESSION: Focal area of mild amorphous edema in the left gluteus medius muscle belly could reflect focal muscle strain or focal nonspecific myositis. Reviewed, dictated and finalized at [facility]. UCTION TECHNICIAN IMPRESSION: Focal area of mild amorphous edema in the left gluteus medius muscle belly coul d reflect focal muscle strain or focal nonspecific myositis.
== END 2024-02-12 08:22 | disposition home or self-care (01) ==
LOC: GOSHIMG 08:21
PROVIDERS: PCP Orthopaedic Surgery; Visit Provider Orthopaedic Surgery
DX: M25.552 Pain in left hip (principal)
CPT/HCPCS: 73721

== ENCOUNTER 2024-02-12 10:00 | Outpatient (CLI) | payer MEDICARE, SELFPAY ==
[2024-02-12 16:15] LABS: Alanine Aminotransferase 22 U/L (6-35); Albumin Level 4.1 g/dL (3.5-5.1); Alkaline Phosphatase 82 U/L (38-126); Anion Gap 3 mmol/L (4-12); Aspartate Amino Transferase 87 U/L (14-36); Blood Urea Nitrogen 15 mg/dL (7-17); Calcium 9.7 mg/dL (8.4-10.2); Carbon Dioxide 29 mmol/L (22-30); Chloride 106 mmol/L (98-107); Estimated Glomerular Filt Rate 60; Glucose 89 mg/dL (65-110); Sodium 138 mmol/L (137-145)
[2024-02-12 20:29] LABS: Hemoglobin A1C 6.4 % (<5.7)
== END 2024-02-12 10:01 | disposition home or self-care (01) ==
PROVIDERS: PCP Orthopaedic Surgery; Visit Provider Family Medicine
DX: R73.03 Prediabetes (principal); R74.01 Elevation of levels of liver transaminase levels; N18.30 Chronic kidney disease, stage 3 unspecified; E78.5 Hyperlipidemia, unspecified
CPT/HCPCS: 36415; 80053; 83036

== ENCOUNTER 2024-03-06 09:30 | Outpatient (CLI) | payer MEDICARE, SELFPAY ==
--- NOTE | ~2024-03-06 | US_ITS ---
EXAMINATION: US biopsy st neck thorax DATE: 03/06/2024 10:45 INDICATION: Other diseases of salivary glands. TECHNIQUE: The procedure and its benefits and risks were discussed with the patient. Risks specifically discusse d included bleeding. The patient verbalized understanding of the risks and agreed to proceed. The rig ht face was prepped and draped in the usual sterile manner. 1% lidocaine was used for local anesthes ia. 6 passes were made with a 25G needle into the lesion under ultrasound guidance. There were no i mmediate complications. FINDINGS: Grayscale ultrasound images demonstrate needles advanced into a 1.8 cm mass in right parotid gland fo r biopsy. IMPRESSION: 1. Ultrasound-guided fine needle aspiration of a 1.8 m mass in right parotid gland. Reviewed, dictated and finalized at location A. AND BEVERAGE COORDINATOR IMPRESSION: 1. Ultrasound-guided fine needle aspiration of a 1.8 m mass in right parotid g land.
== END 2024-03-06 09:31 | disposition home or self-care (01) ==
LOC: ANHIMG 09:35
PROVIDERS: PCP Family Medicine; Visit Provider Family Medicine
DX: K11.8 Other diseases of salivary glands (principal)
CPT/HCPCS: 20206; 76942; 88108; 88305

== ENCOUNTER 2024-05-01 09:56 | Outpatient (CLI) | payer MEDICARE, SELFPAY ==
[2024-05-01 10:16] LABS: Basophils Percent Auto 0.6 % (0.2-1.2); Eosinophils Absolute Auto 0.1 K/mm3 (0-0.3); Eosinophils Percent Auto 1.8 % (0-4.4); Hemoglobin 13.2 g/dL (12.0-15.0); Immature Granulocyte Absolute 0.02 K/mm3 (0.00-0.031); Immature Granulocyte Percent A 0.4 % (0-0.5); Lymphocytes Percent Auto 23.3 % (18.3-44.2); Mean Corpuscular Hemoglobin 31.2 pg (26-34); Mean Corpuscular Volume 94.6 fl (80-100); Mean Platelet Volume 10.4 fl (7.4-10.4); Monocytes Absolute Auto 0.6 K/mm3 (0.1-0.6); Monocytes Percent Auto 11.5 % (2.6-8.5); Neutrophils Absolute Auto 3.2 K/mm3 (1.3-6.7); Neutrophils Percent Auto 62.4 % (45.5-73.1); Platelet Count Result 260 k/mm3 (150-375); Red Blood Count 4.23 M/mm3 (4.2-5.4); Red Cell Distribution Width 13.2 % (11.5-14.5); White Blood Count 5.1 K/mm3 (4.5-10.0)
[2024-05-01 10:48] LABS: Iron 80 ug/dL (37-170)
[2024-05-01 10:50] LABS: Anion Gap 10 mmol/L (4-12); Blood Urea Nitrogen 19 mg/dL (7-17); Calcium 9.8 mg/dL (8.4-10.2); Carbon Dioxide 26 mmol/L (22-30); Chloride 102 mmol/L (98-107); Estimated Glomerular Filt Rate 58; Glucose 116 mg/dL (65-110); Potassium 4.2 mmol/L (3.4-5.0); Sodium 138 mmol/L (137-145)
[2024-05-01 16:05] LABS: Percent Iron Saturation 28 % (20-50)
[2024-05-02 00:18] LABS: Folic Acid 10.4 ng/mL (2.76->20)
== END 2024-05-01 09:57 | disposition home or self-care (01) ==
LOC: ANHLAB 09:57
PROVIDERS: PCP Family Medicine; Visit Provider Internal Medicine Hematology & Oncology
DX: D64.9 Anemia, unspecified (principal)
CPT/HCPCS: 36415; 80048; 82607; 82728; 82746; 83540; 83550; 85025

== ENCOUNTER 2024-09-10 09:52 | Outpatient (CLI) | payer MEDICARE, SELFPAY ==
--- OUTSIDE RECORDS SUMMARY | 2024-09-10 10:00 | XMS_ITS | Continuity of Care Document ---
Author Organization [facility] Address [address] [place] [address] Phone Care Team Providers Care Line Crew Supervisor Name Role Phone Sow OD, Terrance Unavailable Unavailable Procedures Procedure Date Eye Exam & Treatment Refraction Eye Exam, New Patient Optic Nerve Head Eval Visual Field Examination(s) Advance Directives Directive Yes / No Effective Date File Name No Information Encounters Encounter Description Practice Location Reason(s) For Visit Diagnoses Date Provider Providers Copied on Encounter [facility], [address], [place], [place], [id number], [place] tel:[phone] [facility] No Information 2-200 8 Sow OD Terrance. [address] , [address], [place], [place], [place], [place]. tel:[phone] [facility], [address] [place] [address] [address], [place], [place], [id number], [place] tel:[phone] [facility] No Information 0 4-200 8 Humera Benton. [address] [place], [address], [place]. tel:[phone] Referring Provider: Chetan Hernández, [address] [place], [place], [place]. tel:[phone] Family History Family Member Type Diagnosis Age At Onset No Information Payers Payer name Insurance type Covered libertarian ID Authoriza tion(s) [place] [id number] [facility] Out Of State [place] [id number] Social History Type Description Quantity Date Captured Comments Sex Female Smoking Status No Information Chief Complaint And Reason For Visit No Information Reason For Referral Reason For Referral No Information History Of Present Illness Encounter Date Complaint History Of Prese nt Illness No Information Functional Status Date Functional Assessmen t No Information Instructions Date Instruction Additional Infor mation No Information Assessments Type Assessment Date No Information Patient Care Teams Name Effective Dates (start - stop) Status Members No Information
--- OUTSIDE RECORDS SUMMARY | 2024-09-10 10:00 | XMS_ITS | Data Portability ---
Author Organization [place] - [facility] OFFICE Address [address] [place] [address] Care Team Providers Care Paste Mixer Liquid Name Role Phone GORDY BOWERS Primary Care Provider GORDY BOWERS Referring Provider Assessment No assessment recorded. Plan of Treatment Reminders Order Date Submit Date Provider Last Modified By Organization Details Last Modified Time Details Appointments None recorded. Lab None recorded. Referral None recorded. Procedures None recorded. Surgeries None recorded. Imaging None recorded. Medication Orders Xarelto 15 mg tablet 2019 020 [id number] [address], [place], [id number], 0 12:17:54 Patient TargetsNo targets recorded. Patient Instructions Encounter Date Encounter Id Patient Instructions Last Modified By Organization Details Last Modified Time 05/02/2019 [id number] Exercise advised. Low cholesterol diet advised. Low sodium diet advised. [email or web address] Not available 05/02/2019 12:02:42 Scribed by Christa [email or web address] Not available 05/02/2019 12:02:31 05/30/2019 [id number] Exercise advised Low cholesterol diet advised Low sodium diet advised. [email or web address] Not available 05/30/2019 12:51:52 This document was scribed by MARY Larson Not available 05/30/2019 12:51:55 Reason for Referral None Reported. Results Created Date Observation Date Name Description Value Unit Range Abnormal Flag Note LastModifiedBy Organization Detail LastModifiedTime 05/12/19 20 04/19/2019 CT, angio gram, chest , w/ contr ast No observ ation record ed. [email or web address] Not Available 2019 16:43:53 05/21/19 20 05/09/2019 US, duple x, venou s, lower extre mity No observ ation record ed. [email or web address] Not Available 06/04 13:01:46 Result Notes None recorded. Problems Name Problem SNOMED Code Status Onset Date Resolution Date Notes Provider Name and Address Organization Details Recorded Time Pulmonary embolism 63538389 Active 2019 Lozoya Mesto null, [place] - [facility] 0 11:31:31 Pneumonia 514099310 Active 2019 Loz[place] [facility] 0 11:31:42 Gastric ulcer 500053544 Active 2019 Loz[place] [facility] 0 11:32:37 Depressive disorder 46907773 Active 2019 Loz[place] [facility] 0 11:32:51 Iron deficiency anemia 67166846 Active 2019 Loz[place] [facility] 0 11:33:23 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 542808212 Active 2019 Loz[place] [facility] 0 11:33:48 Hyperlipide betina 72594243 Active 2019 Loz[place] [facility] 0 11:34:04 Essential hypertensio n 56665634 Active 2019 Loz[place] [facility] 0 11:34:11 Anxiety 01525325 Active 2019 Loz[place] [facility] 0 11:34:18 Cerebrovasc ular accident 220532384 Active 2019 Loz[place] [facility] 0 11:34:24 Acute injury of kidney 8485656728949 4108 Active 2019 Lozoya [place], [place] - [facility] 0 11:34:36 Diarrhea 25900719 [facility] 52762620 [facility] 11:[facility] Problem Notes None recorded. Procedures Surgical History Date Name Laterality Status Provider Name and Address Organization Details Recorded Time blepharoplasty completed [facility] 05/28/2019 16:42:15 extraction of cataract completed [facility] 05/28/2019 16:42:34 Total hysterectomy completed [facility] 05/28/2019 16:42:43 appendectomy completed [facility] 05/28/2019 16:42:53 Cholecystectomy completed [facility] 05/28/2019 16:43:20 tonsillectomy completed [facility] 05/28/2019 16:43:30 Imaging Results None recorded. Procedure Notes None recorded. Medical Equipment None Reported. Allergies No known drug allergies Medications Name Sig Start Date Stop Date Status Note LastModified by Organization Details LastModified Time buspirone 5 mg tablet active Not Available Not Available No t Available atorvastatin 20 mg tablet Take 1 tablet every day by oral route. active Not Available Not Available No t Available trazodone 50 mg tablet Take 1 tablet every day by oral route. active Not Available Not Available No t Available sertraline 100 mg tablet Take 1 tablet every day by oral route. active Not Available Not Available No t Available folic acid 400 mcg tablet Take 1 tablet every day by oral route. active Not Available Not Available No t Available amoxicillin 500 mg tablet 05/02 completed Not Available Not Available Not Available alprazolam 0.5 mg tablet Take 1 tablet twice a day by oral route as needed. active Not Available Not Available No t Available pantoprazole 40 mg tablet,delaye d release active Not Available Not Available No t Available lisinopril 10 mg tablet active Not Available Not Available No t Available omeprazole 20 mg capsule,delay ed release 05/29 completed Not Available Not Available Not Available furosemide 20 mg tablet Take 1 tablet every day by oral route as directe d. active Not Available Not Available No t Available lisinopril 10 mg-hydrochlor othiazide 12.5 mg tablet Take 1 tablet every day by oral route. 05/29 completed Not Available Not Available Not Available doxycycline hyclate 100 mg tablet 05/02 completed Not Available Not Available Not Available amoxicillin 500 mg-potassium clavulanate 125 mg tablet 05/02 completed Not Available Not Available Not Available neomycin 3.5 mg/g-polymyxi n B 10,000 unit/g-dexame th 0.1 % eye oint active Not Available Not Available Not Available Xarelto 15 mg tablet Take 1 tablet every day by oral route. active Not Available Not Available No t Available potassium chloride ER 20 mEq tablet,extend ed release 06/10 completed Not Available Not Available Not Available Adult Aspirin Regimen 81 mg tablet,delaye d release Take 1 tablet every day by oral route. active Not Available Not Available No t Available Adult Multivitamin with Iron 18 mg-25 mcg tablet Take by oral route. active Not Available Not Available No t Available cyanocobalami n (vit B-12) 500 mcg chewable tablet Take every day by oral route. active Not Available Not Available No t Available Vitals Date Recorded Body weight Body mass index (BMI) Body height Heart rate Oxygen saturation Oxygen saturation in Arterial blood by Pulse oximetry Systolic And Diastolic Provider Name and Address Organization Details Last Updated DateTime 0 50644.4 g 32.4 kg/m2 160.02 cm 84 /min 94 % 94 % 142/78 mm[Hg] MARY ALICE SHIN [facility] 0 11:40:48 Date Recorded Body height Body mass index (BMI) Body weight Heart rate Systolic And Diastolic Provider Name and Address Organization Details Last Updated DateTime 05/30/2019 160.02 cm 29.6 kg/m2 70294.93 g 73 /min 126/71 mm[Hg] MARY ALICE SHIN [facility] 05/30/2019 12:29:45 Social History Question Answer Notes LastModified by Organizat ion Details LastModified Time Tobacco Smoking Status Never Smoker Devora vernon [facility] 05/28/2019 16:44:44 Which Illicit Or Recreational Drugs Have You Used? None Information not available 05/28/2019 Live Alone Or With Others? With Others With Family Information not available 05/28/2019 What Was The Date Of Your Most Recent Tobacco Screening? 05/02/2019 Information not available 05/28/2019 How Much Tobacco Do You Smoke? No Information not available 05/28/2019 How Many Years Have You Smoked Tobacco? 0 Information not available 05/28/2019 Sex: Unknown Functional Status Question Answer Note LastModified by Organizat ion Details LastModified Time What is your level of alcohol consumption? Occasional Information not available 05/28/2019 Do you or have you ever used smokeless tobacco? Never used smokeless tobacco Information not available 05/28/2019 Do you or have you ever used e-cigarettes or vape? Never used electronic cigarettes Information not available 05/28/2019 Mental Status None recorded. Family History Relationship Description Onset Age of this Age Resolved Age Notes LastModified by Organization Details LastModified Time Father Hypertensive disorder [email or web address] Not available 2019 16:43:48 Father Myocardial infarction [email or web address] Not available 05/27 16:43:57 Notes:Sibling : Lung Cancer , Kidney disease Medical History Condition Response Gastrointestinal Disease Y Hyperlipidemia Y Anemia Y Stroke Y Depression Y Gynecological HistoryNo gynecological history recorded. Obstetrics History GPAL:G 0 P 0 0 0 0 Past Encounters Encounter ID Performer Location Encounter Start Date Encounter Closed Date Diagnosis/Indication Diagnosis SNOMED-CT Code Diagnosis ICD10 Code Diagnosis Note [id number] Hank Amaral MD [facility] OFF[facility] [place] [address] 05/02/2019 11:03:04 05/02/2019 13:29:05 Essential hypertension 67662371 I10 Well-contr olled. Continue current regimen. Edema of l ower extremity 827234054 R60.0 BLE swelling noted per her daughter who is her POA. reports Shortness of breath at rest. advised to elevate BLE.contin ue lasix 20 mgWill increase to 20 BID for 3 days then decrease back to 20 daily Pulmonary embolism 66445 003 I26.99 on eliquis 2.5 mgDaughter states that insurance will cover Xarelto Hyperlipidemia 68714382 E78.5 Needs to keep LDL less than 70, and HDL more than 40 Will get lipid profile results from PCP Generalized edema 034895 008 R60.1 Daughter states that she continues to have some swelling but has loss 10 pounds of water. [id number] Hank Amaral MD [facility] OFF[facility] [address] [place] [address] 05/30/2019 11:42:57 05/30/2019 13:30:51 Essential hypertension 05783932 I10 Well-contr olled. Continue current regimen. Edema of l ower extremity 635467559 R60.0 Improved. WIll d/c Lasix. Has hypokalemi a. Will order home health visits to monitor labs. Pulmonary embolism 10426 003 I26.99 Continue Xarelto Hyperlipidemia 64214907 E78.5 Needs to keep LDL less than 70, and HDL more than 40 Will get lipid profile results from PCP Dyspnea 009837066 R06.00 Due to pulmonary emboli.Sym ptoms improved. Health Concerns Section Related Observation LastModified by Organization Detai ls LastModified Time None Recorded Concern Status LastModified by Organization Details LastModified Time None Recorded Advance Directives Directive None Recorded Payers Insurance Date Sequence Insurance Name Policy Number Policy Maynard Covered Member ID Maynard Member ID Guarantor Name 05/06/2019 1 [place] Lisa Worleypf [id number] Lisa Worleypf 05/27/2019 2 [employer] (MEDICARE SUPPLEMENT) Lisa Worleypf [id number] Lisa Worleypf Notes Date Note Type Note Provider Name and Address Organization Details Recorded Time 05/02/2019 text/html 05/02/19 CC: Hospital follow up 78 year old female new to this practice. Patient has PMH of hypertension, hyperlipidemia, CVA She in the [facility] 04/19/19 for pulmonary emboli. She is doing well today with no complaints. Patient is not completely happy with all the care the that she received. Occasionally she continues to have some SOB, but states that there is some improvement. Its worst with laying down. Daughter states that she continues to have some swelling but has loss 10 pounds of water. No chest pain. some shortness of breath at rest. No dyspnea on exertion. No orthopnea. No PND's. No dizziness. No palpitation. No syncope or near syncope. No leg swelling. No nausea and vomiting. No side effects from medications. Results from this visit, or from the past: Hank Amaral MD [address] [place], [address], [facility] 05/23/2019 19:38:41 05/30/2019 text/html 05/30/19 Due to the CDC nicole virus mandated precautions for at risk patients, this visit is being conducted virtually via smart phone face time mode. Patient has agreed for the physician to perform the visit in this manner. CC: dyspnea 78 year old female PMH of hypertension, hyperlipidemia, CVA, who presents for follow up. She in the [facility] 04/19/19 for pulmonary emboli and pna. She is doing well today with no complaints. She was last seen in clinic 1 month ago. Down 6 lbs. Reports improved dyspnea since hospital discharge. She is active, feels like she is gaining her strength back. Reports improved leg swelling. Reports having abnormal lab work, with low K+. Would like to d/c Lasix. Taking Xarelto daily; no major bleeding events reported. No chest pain. No dyspnea on exertion. No orthopnea. No PND's. No dizziness. No palpitation. No syncope or near syncope. No leg swelling. No nausea and vomiting. No side effects from medications. Results from this visit, or from the past: 04/19/19: PT 12.4, INR 1.0, PTT 25.4 CMP: NA 143, K 2.9, CL 102, CO2 31, GLU 104, BUN 9, CR 1.13, AST 21, ALT 18 05/06/19 CBC: WBC 5.4, HGB 10.4, HCT 31.8, PLT 363 Hank Amaral MD [address] [place], [address], [facility] 05/30/2019 13:30:49 OBGyn Episode No OBEpisode recorded.
--- OUTSIDE RECORDS SUMMARY | 2024-09-10 10:00 | XMS_ITS | Data Portability ---
Author Organization [place] - [facility] Address [address] [place] [id number] Care Team Providers Care Lens Polisher Name Role Phone SIMONA NEWMAN Referring Provider [phone] INGRID LINARES Neurologist Assessment No assessment recorded. Plan of Treatment Reminders Order Date Submit Date Provider Last Modified By Organization Details Last Modified Time Details Appointments None record ed. Lab None record ed. Referral None record ed. Procedures None record ed. Surgeries None record ed. Imaging None record ed. Medication Orders None record ed. Patient TargetsNo targets recorded. Patient Instructions Encounter Date Encounter Id Patient Instructions Last Modified By Organization Details Last Modified Time 02/22/2015 [id number] Patient understands instructions and will seek medical attention if symptoms worsen as directed. [email or web address] Not available 02/22/2015 11:25:23 03/19/2017 [id number] Spoke with the patient and she stated that she was doing fair. Returned to the ER earlier today for same symptoms of left leg being very weak--they did a CT scan and sent her home. Symptoms resolved on their own. She was admitted on 03/15/17 for the same, left sided weakness, leg more than arm. Symptoms did resolve on their own. Had a loop recorder implanted. She denied and c/p, shortness of breath, headache, blurred vision. Voiding and bowels are moving. Independent with her ADLs . Insurance would not cover Eliquis so was changed to Xarelto. Has her meds prescribed at discharge. Has a f/u with Dr. Linares 03/28/17. Needs to call and schedule f/u with Dr. Carney. Asked to bring her medications and discharge instructions to her TCM f/u. Asked to show up to appt at least 1/2 hr. prior to update her ins. and information. Steven AUTOMATION TENDER [email or web address] Not available 03/19/2017 15:40:35 Reason for Referral None Reported. Results Created Date Observation Date Name Description Value Unit Range Abnormal Flag Note LastModifiedBy Organization Detail LastModifiedTime 02/16/20 15 02/20/2015 cultu re, aerob ic culture, aerobic and anaerobic w/gram stain SEE NOTE CULTU RE, AEROB IC BACTE LAYTON MICRO NUMBE R: [id number] TEST STATU S: FINAL SPECI MEN SOURC E: LEG, RIGHT SPECI MEN QUALI TY: ADEQU ATE RESUL T: Scant growt h of Mold isola lennox. Pleas e conta ct the labor atory withi n three days if ident ifica tion is seb ed. Not Available [facility] [address], [place], [address], 02/20/2015 13:28:56 03/15/19 18 03/15/2017 activ ated parti al throm bopla stin time, coagu latio n assay , blood therapeutic PTT 38.7 sec 50-79 low Not Available [address], [address], 03/15/2017 17:07:43 03/15/19 18 03/15/2017 activ ated parti al throm bopla stin time, coagu latio n assay , blood performing lab: [facility] [id number] [place] [address] Not Available [address], [address], 03/15/2017 17:07:43 03/15/19 18 03/15/2017 activ ated parti al throm bopla stin time, coagu latio n assay , blood therapeutic PTT > 150 sec 50-79 critical high This resul t has been confi rmed by forrest [place] TO: FPGAJ Manju AT 1115 ON 01/11 /18 BY: FLB:C ML READB ACK: YES Not Available [address], [address], 03/15/2017 11:19:12 03/15/19 18 03/15/2017 activ ated parti al throm bopla stin time, coagu latio n assay , blood performing lab: [facility] [id number] [place] [address] Not Available [address], [address], 03/15/2017 11:19:12 03/15/19 18 03/15/2017 CBC w/ auto diff WBC 8.8 K/mm3 4.0-10 .0 Not Available [address], [address], 03/15/2017 10:30:49 03/15/19 18 03/15/2017 CBC w/ auto diff RBC 4.19 M/mm3 3.50-5 .00 Not Available [address], [address], 03/15/2017 10:30:49 03/15/19 18 03/15/2017 CBC w/ auto diff HGB 11.9 gm/dL 11.0-1 5.0 Not Available [address], [address], 03/15/2017 10:30:49 03/15/19 18 03/15/2017 CBC w/ auto diff hematocrit 37.3 % 33.0-4 5.0 Not Available [address], [address], 03/15/2017 10:30:49 03/15/19 18 03/15/2017 CBC w/ auto diff mean corpuscular volume 89 fL 82-99 Not Available [address], [address], 03/15/2017 10:30:49 03/15/19 18 03/15/2017 CBC w/ auto diff mean corpuscular hemoglobin 28.4 pg 28-32 Not Available [address], [address], 03/15/2017 10:30:49 03/15/19 18 03/15/2017 CBC w/ auto diff mean corpuscular HGB conc 31.9 % 32.0-3 6.0 low Not Available [address], [address], 03/15/2017 10:30:49 03/15/19 18 03/15/2017 CBC w/ auto diff RDW 18.7 % 11.5-1 4.5 high Not Available [address], [address], 03/15/2017 10:30:49 03/15/19 18 03/15/2017 CBC w/ auto diff platelet count 298 K/mm3 150-45 0 Not Available [address], [address], 03/15/2017 10:30:49 03/15/19 18 03/15/2017 CBC w/ auto diff mean platelet volume 10.9 fL 7.4-10 .4 high Not Available [address], [address], 03/15/2017 10:30:49 03/15/19 18 03/15/2017 CBC w/ auto diff neut% 72.3 % 49.0-9 0.0 Not Available [address], [address], 03/15/2017 10:30:49 03/15/19 18 03/15/2017 CBC w/ auto diff lymph% 16.2 % 22.0-4 0.0 low Not Available [address], [address], 03/15/2017 10:30:49 03/15/19 18 03/15/2017 CBC w/ auto diff mono% 10.1 % 0.0-13 .0 Not Available [address], [address], 03/15/2017 10:30:49 03/15/19 18 03/15/2017 CBC w/ auto diff eo% 1.1 % 0.0-7. 0 Not Available [address], [address], 03/15/2017 10:30:49 03/15/19 18 03/15/2017 CBC w/ auto diff baso% 0.2 % 0.0-3. 0 Not Available [address], [address], 03/15/2017 10:30:49 03/15/19 18 03/15/2017 CBC w/ auto diff immature grans % 0.1 % 0.00-3 .00 Not Available [address], [address], 03/15/2017 10:30:49 03/15/19 18 03/15/2017 CBC w/ auto diff neut# 6.36 K/mm3 2.2-9. 9 Not Available [address], [address], 03/15/2017 10:30:49 03/15/19 18 03/15/2017 CBC w/ auto diff lymph# 1.43 K/mm3 0.9-4. 0 Not Available [address], [address], 03/15/2017 10:30:49 03/15/19 18 03/15/2017 CBC w/ auto diff mono# 0.89 K/mm3 0.0-1. 4 Not Available [address], [address], 03/15/2017 10:30:49 03/15/19 18 03/15/2017 CBC w/ auto diff eo# 0.10 K/mm3 0.0-0. 8 Not Available [address], [address], 03/15/2017 10:30:49 03/15/19 18 03/15/2017 CBC w/ auto diff baso# 0.02 K/mm3 0.0-0. 3 Not Available [address], [address], 03/15/2017 10:30:49 03/15/19 18 03/15/2017 CBC w/ auto diff immature grans # 0.01 K/mm3 0.00-0 .30 Not Available [address], [address], 03/15/2017 10:30:49 03/15/19 18 03/15/2017 CBC w/ auto diff performing lab: [facility] [address] [place] [address] Not Available [address], [address], 03/15/2017 10:30:49 01/11/03/15/2017 urina lysis , dipst ick color YELLOW yellow Not Available [address], [address], 03/15/2017 04:33:44 03/15/19 18 03/15/2017 urina lysis , dipst ick clarity urine SLIGHT LY-YONATHAN UDY clear abnormal Not Available [address], [address], 03/15/2017 04:33:44 03/15/19 18 03/15/2017 urina lysis , dipst ick specific gravity,urin e 1.015 1.001- 1.030 Not Available [address], [address], 03/15/2017 04:33:44 03/15/19 18 03/15/2017 urina lysis , dipst ick pH, urine 5.0 5.0-8. 0 Not Available [address], [address], 03/15/2017 04:33:44 03/15/19 18 03/15/2017 urina lysis , dipst ick U protein semi-qnt NEGATI VE mg/dL negati ve Not Available [address], [address], 03/15/2017 04:33:44 03/15/19 18 03/15/2017 urina lysis , dipst ick glucose semi-qnt NEGATI VE mg/dL negati ve Not Available [address], [address], 03/15/2017 04:33:44 03/15/19 18 03/15/2017 urina lysis , dipst ick ketone NEGATI VE mg/dL negati ve Not Available [address] [facility], [place], [address], 03/15/2017 04:33:44 03/15/19 18 03/15/2017 urina lysis , dipst ick bile NEGATI VE negati ve Not Available [address], [place], [address], 03/15/2017 04:33:44 03/15/19 18 03/15/2017 urina lysis , dipst ick blood NEGATI VE negati ve Not Available [address], [place], [address], 03/15/2017 04:33:44 03/15/19 18 03/15/2017 urina lysis , dipst ick urobilinogen urine 0.2 mg/dL negati ve Not Available [address], [address], 03/15/2017 04:33:44 03/15/19 18 03/15/2017 urina lysis , dipst ick nitrites NEGATI VE negati ve Not Available [address], [address], 03/15/2017 04:33:44 03/15/19 18 03/15/2017 urina lysis , dipst ick leukocyte esterase NEGATI VE negati ve Not Available [address], [address], 03/15/2017 04:33:44 03/15/19 18 03/15/2017 urina lysis , dipst ick performing lab: [facility] [id number] [place] [address] Not Available [address], [address], 03/15/2017 04:33:44 03/16/19 18 03/16/2017 activ ated parti al throm bopla stin time, coagu latio n assay , blood therapeutic PTT 65.6 sec 50-79 Not Available [address], [address], 03/16/2017 09:24:22 03/16/19 18 03/16/2017 activ ated parti al throm bopla stin time, coagu latio n assay , blood performing lab: [facility] [address] [place] [address] Not Available [address], [address], 03/16/2017 09:24:22 03/16/19 18 03/16/2017 activ ated parti al throm bopla stin time, coagu latio n assay , blood therapeutic PTT 46.1 sec 50-79 low Not Available [address], [address], 03/16/2017 01:40:00 03/16/19 18 03/16/2017 activ ated parti al throm bopla stin time, coagu latio n assay , blood performing lab: [facility] [address] [place], [place] [id number] Not Available [address], [address], 03/16/2017 01:40:00 03/19/19 18 03/19/2017 tropo palomo I, serum or plasm a poct troponin I 0.01 NG/mL 0.00-0 .08 A seria l sampl ing afsaneh col is recom tanisha d to facil itate the ident ifica tion of tempo ral dutta es in tropo palomo level s mishel cteri stic of [place]. The same metho dolog y/ins trume nt shoul d be used for lalit rison . Not Available [facility] [address] [place], [address], 03/19/2017 09:05:33 03/19/19 18 03/19/2017 tropo palomo I, serum or plasm a performing lab: [facility] [address] [facility] [address] Not Available [address], [address], 03/19/2017 09:05:33 03/19/19 18 03/19/2017 PT/IN R therapeutic protime 14.5 sec 15.0-3 0.0 low Not Available [facility] [id number] [place] [address], [address], 03/19/2017 09:33:43 03/19/19 18 03/19/2017 PT/IN R internationa l normalized ratio 1.36 0.64-3 .50 INR PERTA INS ONLY TO PATIE NT ON ANTIC OAGUL ANT THERA PY. INR IS NOT RELEV ANT FOR PATIE NTS NOT ON ANTIC OAGUL ANT THERA PY, NOR IS THE STATE D THERA PEUTI C RANGE APPLI CABLE . INR Thera peuti c Range s: Group A: 2.0 - 3.0 Patie nts with these indic ation s: Proph ylaxi s and treat ment of venou s throm bosis Treat ment of pulmo nary embol ism Preve ntion of syste yaya embol ism Tissu e heart valve s Acute myoca rdial infar ction Valvu lar heart disea se Atria l fibri llati on Group B: 2.5-3 .5 Patie nts with these indic ation s: Recur rent syste yaya embol ism Mecha nical prost hetic valve s Not Available [facility] [address] [place], [address], 03/19/2017 09:33:43 03/19/19 18 03/19/2017 PT/IN R performing lab: [facility] [id number] [place] [address] Not Available [address], [address], 03/19/2017 09:33:43 03/19/19 18 03/19/2017 tropo palomo I, serum or plasm a troponin I 0.030 NG/mL 0.000- 0.045 normal A singl e Tropo palomo I (cTnI ) value shoul d not be used alone to estab jonah a diagn osis of acute coron travis syndr ome (ACS) , acute myoca rdial injur y or acute myoca rdial infar ction (AMI) Seria l cTnI value s shoul d be corre lated with ECG dutta es and clini sveta histo ry to estab jonah the diagn osis of AMI/A CS as recom tanisha d by the 2006 NAC FCC Commi ttee. Not Available [address], [address], 03/19/2017 09:24:40 03/19/19 18 03/19/2017 tropo palomo I, serum or plasm a performing lab: [facility] [id number] [place] [address] Not Available [address], [address], 03/19/2017 09:24:40 03/19/19 18 03/19/2017 CK (crea jacques kinas e), total , serum creatine phosphokinas e 89.0 units /L 26.0-1 92 normal Not Available [address], [address], 03/19/2017 09:24:40 03/19/19 18 03/19/2017 CK (lg pineda), total , serum performing lab: [facility] [id number] [place] [address] Not Available [address], [address], 03/19/2017 09:24:40 03/19/19 18 03/19/2017 CMP, serum or plasm a glucose 99 mg/dL 74-106 Not Available [address], [address], 03/19/2017 09:24:39 03/19/19 18 03/19/2017 CMP, serum or plasm a urea nitrogen 14 mg/dL 7-18 Not Available [address], [address], 03/19/2017 09:24:39 03/19/19 18 03/19/2017 CMP, serum or plasm a creatinine 1.1 mg/dL 0.55-1 .02 high Not Available [address], [address], 03/19/2017 09:24:39 03/19/19 18 03/19/2017 CMP, serum or plasm a est glomerular filtration rate 48.42 mL/mi n >60 low Note: Persi stent reduc tion for 3 month s or more in an eGFR less than 60 mL/mi n/1.7 3 m2 defin es CKD. Patie nts with eGFR value s great er than or equal to 60 mL/mi n/1.7 3 m2 may also have CKD if evide nce of persi stent prote inuri a is prese nt. Not Available [address], [address], 03/19/2017 09:24:39 03/19/19 18 03/19/2017 CMP, serum or plasm a sodium 140 mmol/ L 136-14 5 Not Available [address], [address], 03/19/2017 09:24:39 03/19/19 18 03/19/2017 CMP, serum or plasm a potassium 3.7 mmol/ L 3.0-4. 8 Not Available [address], [address], 03/19/2017 09:24:39 03/19/19 18 03/19/2017 CMP, serum or plasm a chloride 105 mmol/ L 98-107 Not Available [address], [address], 03/19/2017 09:24:39 03/19/19 18 03/19/2017 CMP, serum or plasm a carbon dioxide 27 mmol/ L 21-32 Not Available [address], [address], 03/19/2017 09:24:39 03/19/19 18 03/19/2017 CMP, serum or plasm a anion gap 12 mmol/ L 10-20 Not Available [address], [address], 03/19/2017 09:24:39 03/19/19 18 03/19/2017 CMP, serum or plasm a BUN/creatini ne ratio 13 9.0-25 .0 Not Available [address], [address], 03/19/2017 09:24:39 03/19/19 18 03/19/2017 CMP, serum or plasm a calcium 8.9 mg/dL 8.5-10 .1 Not Available [address], [address], 03/19/2017 09:24:39 03/19/19 18 03/19/2017 CMP, serum or plasm a albumin/glob ulin ratio 0.7 0.8-2. 0 low Not Available [address], [address], 03/19/2017 09:24:39 03/19/19 18 03/19/2017 CMP, serum or plasm a total protein 7.5 g/dL 6.4-8. 2 Not Available [address], [address], 03/19/2017 09:24:39 03/19/19 18 03/19/2017 CMP, serum or plasm a albumin 3.0 g/dL 3.4-5. 0 low Not Available [address], [address], 03/19/2017 09:24:39 03/19/19 18 03/19/2017 CMP, serum or plasm a globulin 4.5 g/dL 2.7-4. 1 high Not Available [address], [address], 03/19/2017 09:24:39 03/19/19 18 03/19/2017 CMP, serum or plasm a aspartate aminotransfe rase 24 units /L 15-37 Not Available [address], [address], 03/19/2017 09:24:39 03/19/19 18 03/19/2017 CMP, serum or plasm a alanine aminotransfe rase 27.0 units /L 12-78 Not Available [address], [address], 03/19/2017 09:24:39 03/19/19 18 03/19/2017 CMP, serum or plasm a alkaline phosphatase 74 units /L 45-117 Not Available [address] [place], [address], 03/19/2017 09:24:39 03/19/19 18 03/19/2017 CMP, serum or plasm a total bilirubin 0.41 mg/dL 0.2-1. 0 Not Available [address], [address], 03/19/2017 09:24:39 03/19/19 18 03/19/2017 CMP, serum or plasm a direct bilirubin 0.10 mg/dL 0.00-0 .20 Not Available [address], [address], 03/19/2017 09:24:39 03/19/19 18 03/19/2017 CMP, serum or plasm a performing lab: [facility] [address] [place] [address] Not Available [address], [address], 03/19/2017 09:24:39 03/19/19 18 03/19/2017 CK (crea jacques kinas e), total , serum creatine phosphokinas e 89.0 units /L 26.0-1 92 normal Not Available [address], [address], 03/19/2017 09:22:39 03/19/19 18 03/19/2017 CK (crea jacques kinas e), total , serum performing lab: [facility] [id number] [place] [address] Not Available [address], [address], 03/19/2017 09:22:39 03/19/19 18 03/19/2017 CMP, serum or plasm a glucose 99 mg/dL 74-106 Not Available [address], [address], 03/19/2017 09:22:38 03/19/19 18 03/19/2017 CMP, serum or plasm a urea nitrogen 14 mg/dL 7-18 Not Available [address], [address], 03/19/2017 09:22:38 03/19/19 18 03/19/2017 CMP, serum or plasm a creatinine 1.1 mg/dL 0.55-1 .02 high Not Available [address], [address], 03/19/2017 09:22:38 03/19/19 18 03/19/2017 CMP, serum or plasm a est glomerular filtration rate 48.42 mL/mi n >60 low Note: Persi stent reduc tion for 3 month s or more in an eGFR less than 60 mL/mi n/1.7 3 m2 defin es CKD. Patie nts with eGFR value s great er than or equal to 60 mL/mi n/1.7 3 m2 may also have CKD if evide nce of persi stent prote inuri a is prese nt. Not Available [address], [address], 03/19/2017 09:22:38 03/19/19 18 03/19/2017 CMP, serum or plasm a sodium 140 mmol/ L 136-14 5 Not Available [address], [address], 03/19/2017 09:22:38 03/19/19 18 03/19/2017 CMP, serum or plasm a potassium 3.7 mmol/ L 3.0-4. 8 Not Available [address], [address], 03/19/2017 09:22:38 03/19/19 18 03/19/2017 CMP, serum or plasm a chloride 105 mmol/ L 98-107 Not Available [address], [address], 03/19/2017 09:22:38 03/19/19 18 03/19/2017 CMP, serum or plasm a carbon dioxide 27 mmol/ L 21-32 Not Available [address], [address], 03/19/2017 09:22:38 03/19/19 18 03/19/2017 CMP, serum or plasm a anion gap 12 mmol/ L 10-20 Not Available [address], [address], 03/19/2017 09:22:38 03/19/19 18 03/19/2017 CMP, serum or plasm a BUN/creatini ne ratio 13 9.0-25 .0 Not Available [address], [address], 03/19/2017 09:22:38 03/19/19 18 03/19/2017 CMP, serum or plasm a calcium 8.9 mg/dL 8.5-10 .1 Not Available [address], [address], 03/19/2017 09:22:38 03/19/19 18 03/19/2017 CMP, serum or plasm a albumin/glob ulin ratio 0.7 0.8-2. 0 low Not Available [address], [address], 03/19/2017 09:22:38 03/19/19 18 03/19/2017 CMP, serum or plasm a total protein 7.5 g/dL 6.4-8. 2 Not Available [address] [place], [address], 03/19/2017 09:22:38 03/19/19 18 03/19/2017 CMP, serum or plasm a albumin 3.0 g/dL 3.4-5. 0 low Not Available [address] [place], [address], 03/19/2017 09:22:38 03/19/19 18 03/19/2017 CMP, serum or plasm a globulin 4.5 g/dL 2.7-4. 1 high Not Available [address] [place], [address], 03/19/2017 09:22:38 03/19/19 18 03/19/2017 CMP, serum or plasm a aspartate aminotransfe rase 24 units /L 15-37 Not Available [address] [place], [address], 03/19/2017 09:22:38 03/19/19 18 03/19/2017 CMP, serum or plasm a alanine aminotransfe rase 27.0 units /L 12-78 Not Available [address], [address], 03/19/2017 09:22:38 03/19/19 18 03/19/2017 CMP, serum or plasm a alkaline phosphatase 74 units /L 45-117 Not Available [address], [address], 03/19/2017 09:22:38 03/19/19 18 03/19/2017 CMP, serum or plasm a total bilirubin 0.41 mg/dL 0.2-1. 0 Not Available [address], [address], 03/19/2017 09:22:38 03/19/19 18 03/19/2017 CMP, serum or plasm a direct bilirubin 0.10 mg/dL 0.00-0 .20 Not Available [address], [address], 03/19/2017 09:22:38 03/19/19 18 03/19/2017 CMP, serum or plasm a performing lab: [facility] [address] [place] [address] Not Available [address], [address], 03/19/2017 09:22:38 03/19/19 18 03/19/2017 CBC WBC 5.9 K/mm3 4.0-10 .0 Not Available [address], [address], 03/19/2017 09:08:33 03/19/19 18 03/19/2017 CBC RBC 4.19 M/mm3 3.50-5 .00 Not Available [address], [address], 03/19/2017 09:08:33 03/19/19 18 03/19/2017 CBC HGB 12.1 gm/dL 11.0-1 5.0 Not Available [address], [address], 03/19/2017 09:08:33 03/19/19 18 03/19/2017 CBC hematocrit 38.0 % 33.0-4 5.0 Not Available [place] [id number], [place], [address], 03/19/2017 09:08:33 03/19/19 18 03/19/2017 CBC mean corpuscular volume 91 fL 82-99 Not Available [place] [id number], [place], [address], 03/19/2017 09:08:33 03/19/19 18 03/19/2017 CBC mean corpuscular hemoglobin 28.9 pg 28-32 Not Available [place] [address], [place], [address], 03/19/2017 09:08:33 03/19/19 18 03/19/2017 CBC mean corpuscular HGB conc 31.8 % 32.0-3 6.0 low Not Available [place] [address], [place], [address], 03/19/2017 09:08:33 03/19/19 18 03/19/2017 CBC RDW 18.3 % 11.5-1 4.5 high Not Available [place] [address], [place], [address], 03/19/2017 09:08:33 03/19/19 18 03/19/2017 CBC platelet count 290 K/mm3 150-45 0 Not Available [place] [address], [place], [address], 03/19/2017 09:08:33 03/19/19 18 03/19/2017 CBC mean platelet volume 10.7 fL 7.4-10 .4 high Not Available [place] [address], [place], [address], 03/19/2017 09:08:33 03/19/19 18 03/19/2017 CBC performing lab: [facility] [id number] [place] [address] Not Available [address], [address], 03/19/2017 09:08:33 03/19/19 18 03/19/2017 tropo palomo I, serum or plasm a troponin I NG/mL 0.000- 0.045 Not Available [address], [place], [address], 03/19/2017 09:22:39 03/19/19 18 03/19/2017 tropo palomo I, serum or plasm a performing lab: [facility] [id number] [place] [address] Not Available [address], [address], 03/19/2017 09:22:39 03/15/19 18 03/15/2017 MRI, brain , w/o contr ast [facility] Name: SUSAN KATHLEEN [address] [place] [address]. Phys: [place] [address] : 1940 Age: 76 Sex: F Acct: [id number] Loc: [id number]- [id number] 1 PHONE #: Exam Date: 2017 Status : ADM IN FAX #: Radiol ogy No: Unit No: [id number] EXAMS: REASON FOR EXAM:: [id number] MRI BRAIN W/O CONTRA ST TIA left-s ided weakne ss EXAM DESCRI PTION: - MRI BRAIN W/O CONTRA ST COMPLE [place] DATE: 018 8:19 CLINIC AL INDICA TIONS: TIA left-s ided weakne ss; NUMBNE SS TO LEFT LEG, S/P FALL COMPAR ASHLEY: None TECHNI QUE: Multis equenc e multip lanar unenha nced MRI of the brain using 1.5 lester magnet . FINDIN GS: The roman-w alma delia matter differ entiat ion is well mainta ined and there is diffus e cortic al atroph y which is upper for patien t's age. There are few scatte red areas of T2 and FLAIR perive ntricu lar and bihemi spheri c white matter hyperi ntensi ty second travis to a small vessel diseas e. There are few small 3-4 mm ill-de fined areas of restri cted diffus ion within the right anteri or pariet al and sql developer dba ior pariet al lobes near the cortic al region with low ADC signal compat ible with a small acute ischem ic infarc tions. There is no eviden ce of intra or extra- axial hemorr hages or fluid collec tions. No intrac ranial masses are visual ized. The ventri cles are in the midlin e withou t shift or mass effect , ventri cular enlarg ement or intrav entric ular hemorr hector. The pituit travis gland, optic chiasm and supras ellar struct ures are within normal limits . The pineal gland and surinder gemina l plates are within the normal limits . The ventri cles are in the midlin e withou t shift or mass effect , ventri cular enlarg ement or intrav entric ular hemorr hector. The sql developer dba ior fossa struct ures are intact and the basila r cister ns 4th ventri alberta are patent . There is normal symmet asael appear ance of both CP angles . There are normal flow voids within the visual ized intrac ranial vascul ar struct ures. PAGE 1 Signed Report (SULMA NUED) [facility] Name: KELSY HOLLIDAYLouisStephSUSAN [address] [address] [facility]. Phys: Fadumo gill,[place] [address] : 1940 Age: 76 Sex: F Acct: [id number] Loc: F.440- H 1 PHONE #: Exam Date: 2017 Status : ADM IN FAX #: Radiol ogy No: Unit No: [id number] EXAMS: REASON FOR EXAM:: [id number] MRI BRAIN W/O CONTRA ST TIA left-s ided weakne ss IMPRES BRUCE: 1. Few small 3-4 mm ill-de fined areas of acute ischem ic infarc tions the right anteri or sql developer dba ior pariet al region s, likely emboli c.dr Forte was paged 09:00 Electr onical ly Signed by Karli GUERRERO on 2017 at 0858 Report ed and signed by: SHUBHAM GUERRERO M.D. CC: Dictat ed Date/T bob: 2017 (0849) Techno logist : Zohaib Palacios s, RT(R,M ,CT,MR ); ... Transc ribed Date/T bob: 2017 (0849) Transc riptio nist: [email or web address] Orig Print D/T: S: 2017 (0901) BATCH NO: N/A PAGE 2 Signed Report INTERFACE [address], [address], 03/15/2017 09:03:11 03/15/19 18 03/15/2017 - carot id/ce rebro rudolphcu lar eval [facility] Name: SUSAN KATHLEEN [address] [place] [address]. Phys: [place] [address] : 1940 Age: 76 Sex: F Acct: [id number] Loc: F.440- H 1 PHONE #: Exam Date: 2017 Status : ADM IN FAX #: [phone] Radiol ogy No: Unit No: [id number] EXAMS: REASON FOR EXAM:: [id number] CAROTI D/CERE BROVAS CULAR E TIA EXAM DESCRI PTION: - CAROTI D/CERE BROVAS CULAR EVAL COMPLE LENNOX DATE: 018 9:14 CLINIC AL INDICA TIONS: TIA; NUMBNE SS TO LEFT LEG, S/P FALL COMPAR ASHLEY: None FINDIN GS: Longit udinal and transv erse roman scale, color, and Dopple r sonogr aphic images of the bilate ral extrac erebra l vascul ature were obtain ed. Right caroti d system : Proxim al, mid, and distal it intern al caroti d artery peak systol ic veloci ty is 57, 89, 85 cm/sec . Modera te calcif ied plaque seen in the caroti d bulb. Peak systol ic veloci ties and ICA CCA ratios within normal limits . Left caroti d system : Proxim al, mid, distal it intern al caroti d artery peak systol ic veloci ties 44, 73, and 79 centim eters/ second respec tively . Minima l calcif ied plaque of the caroti d bulb. Peak systol ic veloci ties and ICA CCA ratios are within normal limits . Antegr angelica flow in the verteb ral arteri es. IMPRES BRUCE: Less than 50% stenos is within the bilate ral it intern al caroti d arteri es. Dopple r US Criter ia for Diagno sis of ICA Stenos is Degree of ICA PSV Plaque Est ICA/CC A PSV ICA EDV Stenos is(%) (cm/se c) (%)* Ratio (cm/se c) Normal <125 None <2.0 <40 <50 <125 <50 <2.0 <40 50-69 125-23 0 >50 2.0-4. 0 40-100 PAGE 1 Signed Report (SULMA NUED) [facility] Name: KELSY SUSAN KELLER [address] Phys: Fadumo gill,[place] [address] : 1940 Age: 76 Sex: F Acct: [id number] Loc: F.440- H 1 PHONE #: [phone] Exam Date: 2017 Status : ADM IN FAX #: Radiol ogy No: Unit No: [id number] EXAMS: REASON FOR EXAM:: [id number] CAROTI D/CERE BROVAS CULAR E TIA >70 >230 >50 >4.0 >100 Near Occ. High/l ow visabl e varies varies Total occ. Undete cted visabl e NA NA * Plaque estima te (diame ter reduct ion) with roman-s marin and color dopple r US. Dopple r US Criter ia for Diagno sis of ICA Stenos is Electr onical ly Signed by Karli QUIJANO on 2017 at 0946 Report ed and signed by: PASCUAL QUIJANO M.D. CC: Dictat ed Date/T bob: 2017 (0945) Techno logist : GISELA Evans Transc ribed Date/T bob: 2017 (0945) Transc riptio nist: [email or web address] Orig Print D/T: S: 2017 (0949) BATCH NO: N/A PAGE 2 Signed Report INTERFACE [address], [address], 03/15/2017 10:11:41 03/19/19 18 03/19/2017 CT, brain , w/o contr ast [facility] Name: SUSAN KATHLEEN [address] [facility]. Phys: [place] [address] : 1940 Age: 76 Sex: F Acct: [id number] Loc: F.ECC PHONE #: Exam Date: 2017 Status : REG ER FAX #: Radiol ogy No: Unit No: [id number] EXAMS: REASON FOR EXAM:: [id number] CT BRAIN NON-CO NTRAST left leg weakne ss EXAM DESCRI PTION: - CT BRAIN NON-CO NTRAST COMPLE LENNOX DATE: 018 8:07 CLINIC AL INDICA TIONS: left leg weakne ss; STROKE SYMPTO MS COMPAR ASHLEY: None CT scan and MRI scans on Mar 15 FINDIN GS: Unenha nced CT of the brain reveal s no eviden ce of shift of the midlin e struct ures. The ventri cular system appear s normal . No mass lesion is seen. No abnorm al fluid collec tion is seen. CT bone window s of the calvar ium reveal no eviden ce of bony abnorm ality includ ing fractu re. IMPRES BRUCE: Normal unenha nced CT Scan of the head withou t intrac ranial neopla sm, infarc t or hemato ma The small acute ischem ic infarc ts seen on the MRI study of Mar 15 are visibl e as ill define d areas of dimini shed attenu ation in the right pariet al area on the curren t CT scan. No intrac ranial bleed is seen Bone window s show no abnorm ality. All CT scans are perfor med using dose optimi zation techni ques as approp riate to a perfor med exam includ ing the follow ing: automa lennox exposu re contro l; adjust ment of the mA and/or kV accord ing to patien t size (this includ es techni ques or standa rdized protoc ols for target ed exams where dose is matche d to indica tion / reason for exam; i.e. extrem ities or head); use of iterat guero recons tructi on techni que. Electr onical ly Signed by Karli Corona on 2017 at 0834 Report ed and signed by: John Corona M.D. PAGE 1 Signed Report (SULMA NUED) [facility] Name: KELSY SUSAN KELLER [address] [address]. Phys: Naim[place] [address] : 1940 Age: 76 Sex: F Acct: [id number] Loc: [place] PHONE #: Exam Date: 2017 Status : REG ER FAX #: [phone] Radiol ogy No: Unit No: [id number] EXAMS: REASON FOR EXAM:: [id number] CT BRAIN NON-CO NTRAST left leg weakne ss CC: Dictat ed Date/T bob: 2017 (831) Techno logist : Triny Garcia , RT(R)( CT) Transc ribed Date/T bob: 2017 (831) Transc riptio nist: [email or web address] Orig Print D/T: S: 2017 (0837) BATCH NO: N/A PAGE 2 Signed Report INTERFACE [address], [place], [address], 03/19/2017 08:38:22 Result Notes Documentation Provider Name and Address Organization Details Recorded Time Mri, Brain, W/o Contrast : [facility] Name: SUSAN GAR [address] [facility]. Phys: [place]án [place] [address] : 1940 Age: 76 Sex: F Acct: [id number] Loc: F.440-H 1 PHONE #: [phone] Exam Date: 03/15/2017 Status: ADM IN FAX #: [phone] Radiology No: Unit No: [id number] EXAMS: REASON FOR EXAM:: [id number] MRI BRAIN W/O CONTRAST TIA left-sided weakness EXAM DESCRIPTION: - MRI BRAIN W/O CONTRAST COMPLETED DATE: 03/15/2017 8:19 CLINICAL INDICATIONS: TIA left-sided weakness; NUMBNESS TO LEFT LEG, S/P FALL COMPARISON: None TECHNIQUE: Multisequence multiplanar unenhanced MRI of the brain using 1.5 lester magnet. FINDINGS: The roman-white matter differentiation is well maintained and there is diffuse cortical atrophy which is upper for patient's age. There are few scattered areas of T2 and FLAIR periventricular and bihemispheric white matter hyperintensity secondary to a small vessel disease. There are few small 3-4 mm ill-defined areas of restricted diffusion within the right anterior parietal and posterior parietal lobes near the cortical region with low ADC signal compatible with a small acute ischemic infarctions. There is no evidence of intra or extra-axial hemorrhages or fluid collections. No intracranial masses are visualized. The ventricles are in the midline without shift or mass effect, ventricular enlargement or intraventricular hemorrhage. The pituitary gland, optic chiasm and suprasellar structures are within normal limits. The pineal gland and quadrigeminal plates are within the normal limits. The ventricles are in the midline without shift or mass effect, ventricular enlargement or intraventricular hemorrhage. The posterior fossa structures are intact and the basilar cisterns 4th ventricle are patent. There is normal symmetric appearance of both CP angles. There are normal flow voids within the visualized intracranial vascular structures. PAGE 1 Signed Report (CONTINUED) [facility] Name: SUSAN GAR [address] [facility]. Phys: [place]án [place] [address] : 1940 Age: 76 Sex: F Acct: [id number] Loc: F.440-H 1 PHONE #: [phone] Exam Date: 03/15/2017 Status: ADM IN FAX #: [phone] Radiology No: Unit No: [id number] EXAMS: REASON FOR EXAM:: [id number] MRI BRAIN W/O CONTRAST TIA left-sided weakness IMPRESSION: 1. 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 CC: Dictated Date/Time: 03/15/2017 (0849) Technologist: Shobha Harvey RT(R,M,CT,MR); ... Transcribed Date/Time: 03/15/2017 (0849) Applications Coordinator: CULLEN Henley Print D/T: S: 03/15/2017 (0901) BATCH NO: N/A PAGE 2 Signed Report Not Available [facility] 03/15/2017 09:03:11 Ct, Brain, W/o Contrast : [facility] Name: SUSAN GAR [address] Phys: [place] [address] : 1940 Age: 76 Sex: F Acct: [id number] Loc: [place]ORALES PHONE #: [phone] Exam Date: 03/19/2017 Status: REG ER FAX #: [phone] Radiology No: Unit No: [id number] EXAMS: REASON FOR EXAM:: [id number] CT BRAIN NON-CONTRAST left leg weakness EXAM DESCRIPTION: - CT BRAIN NON-CONTRAST COMPLETED DATE: 03/19/2017 8:07 CLINICAL INDICATIONS: left leg weakness; STROKE SYMPTOMS COMPARISON: None CT scan and MRI scans on Mar 15 FINDINGS: Unenhanced CT of the brain reveals no evidence of shift of the midline structures. The ventricular system appears normal. No mass lesion is seen. No abnormal fluid collection is seen. CT bone windows of the calvarium reveal no evidence of bony abnormality including fracture. IMPRESSION: Normal unenhanced CT Scan of the head without intracranial neoplasm, infarct or hematoma The small acute ischemic infarcts seen on the MRI study of Mar 15 are visible as ill defined areas of diminished attenuation in the right parietal area on the current CT scan. No intracranial bleed is seen Bone windows show no abnormality. All CT scans are performed using dose optimization techniques as appropriate to a performed exam including the following: automated exposure control; adjustment of the mA and/or kV according to patient size (this includes techniques or standardized protocols for targeted exams where dose is matched to indication / reason for exam; i.e. extremities or head); use of iterative reconstruction technique. at 0834 Reported and signed by: Monica Corona M.D. PAGE 1 Signed Report (CONTINUED) [facility] Name: SUSAN GAR [address] [address] [facility]. Phys: [place] [address] : 1940 Age: 76 Sex: F Acct: [id number] Loc: [place]ORALES PHONE #: [phone] Exam Date: 03/19/2017 Status: REG ER FAX #: [phone] Radiology No: Unit No: [id number] EXAMS: REASON FOR EXAM:: [id number] CT BRAIN NON-CONTRAST left leg weakness CC: Dictated Date/Time: 03/19/2017 (0832) Technologist: Triny Garcia, RT(R)(CT) Transcribed Date/Time: 03/19/2017 (831) Applications Coordinator: CULLEN Orig Print D/T: S: 03/19/2017 (0837) BATCH NO: N/A PAGE 2 Signed Report Not Available [facility] 03/19/2017 08:38:22 Problems Name Problem SNOMED Code Status Onset Date Resolution Date Notes Provider Name and Address Organization Details Recorded Time [facility] tremor Active 2007 Not Available [facility] 19:07:25 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 Physician [facility], [facility] 5 11:18:31 Administ ration of pneumoco ccal vaccine Completed 200612/29/2011 Ami vernon, [facility] Physician [facility], [facility] 5 11:18:31 Diarrhea 34369990 Completed 200712/29/2011 Ami vernon, [facility] Physician [facility], [facility] 5 11:18:31 Benign essentia l hyperten bruce 1848892 Active 2010 Not Available [facility] 19:07:25 Diaphrag matic hernia 71666171 Active 2010 Not Available [facility] 19:07:25 Administ ration of viral vaccine Completed 200712/29/[address] [facility] Physician [facility], [facility] 5 11:18:31 Speciali zed medical examinat ion Completed 200712/29/[address] [facility] Physician [facility], [facility] 5 11:18:31 Elevated blood-pr essure reading without diagnosi s of hyperten bruce 828736975 Completed 201012/29/2011 [facility], [facility] 5 11:18:31 Hyperlip idemia 67836540 Active 2009 Not Available [facility] 1 19:07:25 Malaise and fatigue 053334276 Completed 201112/29/[address] [facility] Physician [facility], [facility] 5 11:18:31 Disorder of soft tissue 72104900 Completed 200812/29/2011 [facility], [facility] 5 11:18:31 Adult health examinat ion Completed 201112/29/2011 [facility], [facility] 5 11:18:31 Cough 87385000 Completed 200812/29/[address] [facility] Physician [facility], [facility] 5 11:18:31 Senile hyperker atosis 838230638 Completed 200712/29/[address] [facility] Physician [facility], [facility] 5 11:18:31 Sprain of costal cartilag e Completed 200912/29/[address] [facility] Physician [facility], [facility] 5 11:18:31 Right upper quadrant pain 376434762 Completed 200912/29/[address] [facility] Physician [facility], [facility] 5 11:18:31 Gastro-e sophagea l reflux disease with esophagi tis 062666337 Active 2007 Not Available [facility] 1 19:07:25 Screenin g mammogra phy Completed 201012/29/[address] [facility] Physician [facility], [facility] 5 11:18:31 Insomnia 214640636 Completed 200712/29/2011 Ami vernon, [facility] Physician [facility], [facility] 5 11:18:31 Vitamin D deficien cy 95481472 Active 2009 Not Available [facility] 19:07:25 Depressi ve disorder 91997305 Active 2007 Not Available [facility] 19:07:25 Screenin g for malignan t neoplasm of rectum Active 2007 Not Available [facility] 19:07:25 Screenin g procedur e Completed 200712/29/[address] [facility] Physician [facility], [facility] 5 11:18:31 Chest pain 40689384 Completed 200912/29/2011 [facility] 5 11:18:31 Disorder of coccyx 76494469 Completed 200812/29/[address] [facility], [facility] 5 11:18:31 Inflamed seborrhe ic keratosi s 091439778 Completed 200712/29/[address] [facility], [facility] 5 11:18:31 Epigastr ic pain 80119344 Completed 201012/29/2011 [facility] 5 11:18:31 Menopaus al symptom 70943380 Active 2008 Not Available [facility] 19:07:25 Blood chemistr y outside referenc e range 743170412 Completed 200812/29/[address] [facility], [facility] 5 11:18:31 Nocturia 544781139 Completed 200812/29/2011 [facility] 5 11:18:31 Restless legs 21102117 Active 2007 Not Available [facility] 19:07:25 Disorder of bone and articula r cartilag e 714563300 Active 2010 Not Available [facility] 19:07:25 Influenz a vaccine needed 04896285885 06 Completed 200912/29/2011 [facility] 5 11:18:31 Vaginiti s and vulvovag initis Completed 201112/29/2011 Ami vernon [facility], [facility] 5 11:18:31 Problem Notes Documentation Provider Name and Address Organization Details Recorded Time [facility] ([facility]) Neurology Consultation Note REPORT#:[id number] REPORT STATUS: Signed DATE:03/15/17 TIME: 1803 PATIENT: SUSAN GAR UNIT #: [id number] ROOM/BED: [place] [address] : [birth year] AGE: 76 SEX: F ATTEND: Shraddha Forte MD ADM AUTHOR: Leni Rueda MD REP SRV REP SRV TM: 1804 * ALL edits or amendments must be made on the electronic/computer document * History of Present Illness HPI Hand dominance: right Requesting clinician: Dr. Forte HPI: Patient came yesterday to emergency room after she presented acute onset of left -sided weakness. She describes that she felt that the whole left side melted, there was some initial improvement but then there was recurrence of the symptoms and she decided to come to emergency room. When she came here symptoms have subsided but this morning she had again left leg weakness and after MRI showing multiple embolic strokes on the right hemisphere she was started on heparin. Still she reports that in the afternoon she had a period of time when she was not able to move the left leg as much but is better now. History - Adult longitudinal Medications: Home Medications: Medication Dose/Rte/Freq Days Qty Entered Last Max Daily Dose Reviewed LISINOPRIL/HCTZ 1 TAB PO DAILY 03/15/17 03/15/17 (ZESTORETIC 10/12.5 MG) 121 012 Strength: 1 TAB TAB SERTRALINE (ZOLOFT) 50 MG PO DAILY 03/15/17 03/15/17 Strength: 50 MG TAB 012 012 Current Hospital Medications: Blood Formation,Coagulation Sig/Mainor Start time Last Medication Dose Route Stop Time Status Admin Heparin Sodium 2,200 UNITS ASDIR PRN 03/15 0830 AC (Porcine) IV (HEPARIN 5000UNITS/ ML VIAL) Heparin Sodium/ 500 ML ASDIR 03/15 0830 CKD 03/15 Sodium Chloride IV 0943 (Heparin-1/2NS 25,000 Units/500) Heparin Sodium 5,000 UNITS BOLUS STA 03/15 0818 DC 03/15 (Porcine) IV 03/15 0819 0933 (HEPARIN 5000UNITS/ ML VIAL) Cardiovascular Drugs Sig/Mainor Start time Last Medication Dose Route Stop Time Status Admin Lisinopril 10 MG DAILY 03/15 0845 AC 03/15 (ZESTRIL 10MG TABLET) PO 0935 Central Nervous System Agents Sig/Mainor Start time Last Medication Dose Route Stop Time Status Admin Sertraline HCl 50 MG DAILY 03/15 1117 AC 03/15 (ZOLOFT 50MG TABLET) PO 1239 Aspirin 81 MG DAILY 03/15 0845 AC 03/15 (ASPIRIN CHILD 81 MG PO 0934 TAB CHEW) Aspirin 324 MG 1XED STA 03/15 0123 DC 03/15 (ASPIRIN CHILD 81 MG CHEW 03/15 0124 0142 TAB CHEW) Electrolytic, Caloric, And [place] Sig/Mainor Start time Last Medication Dose Route Stop Time Status Admin Sodium Chloride See Dose Q12HR 03/15 0600 DC 03/15 (SODIUM CHLORIDE Insts (1) IV 03/15 1324 0947 0.9% SYRINGE) Gastrointestinal Drugs Sig/Mainor Start time Last Medication Dose Route Stop Time Status Admin Ondansetron HCl 4 MG Q6H PRN PRN 03/15 2100 AC (ZOFRAN 2MG/ML SDV IV VIAL) Dose Instructions: (1)Sodium Chloride (SODIUM CHLORIDE 0.9% SYRINGE): SALINE IV FLUSH Allergies: Coded Allergies: Shrimp (Severe, EMESIS 03/15/17) latex (Severe, SKIN RAW 03/15/17) onion (Severe, NAUSEA, SLEEPY 03/15/17) Uncoded Allergies: LATEX (SKIN RAW 11/01/08) No Known Contrast Allergies (11/01/08) No Known Drug Allergies (11/01/08) ONION (NAUSEA, PUT ASLEEP 11/01/08) SHRIMP (EMESIS 11/01/08) Additional medical history: Hypertension, UTI, had a hernia Additional surgical history: Hysterectomy, appendectomy, tonsillectomy, cholecystectomy, colonoscopy Additional family history: Non contributory Alcohol use: Alcohol use (Once a month) Smoking status for patients 13 years old or older: Never Smoker Other social history: Local resident Ambulatory status: Independent Review of Systems Constitutional: Denies: generalized weakness. Skin: Denies: contusion. Allergy/Immun: Denies: hives. Eyes: Denies: diplopia. ENT: Denies: mouth pain. Respiratory: Denies: SOB. Cardiovascular: Denies: palpitations. GI: Denies: diarrhea. : Denies: hematuria. Musculoskeletal: Denies: joint pain. Heme: Denies: bleeding. Endocrine: Denies: polyphagia. Neuro: Denies: confusion, dizziness, focal weakness. Objective Physical Exam VS: Last Documented: Result Date Time Pulse Ox 95 03/15 1712 B/P 151/86 03/15 1712 B/P Mean 108.1 03/15 1712 O2 Delivery Room air 03/15 1712 Temp 96.8 03/15 1712 Pulse 89 03/15 1712 Resp 19 03/15 1712 Medications: Current Home Medications LISINOPRIL/HCTZ (ZESTORETIC 10/12.5 MG) 1 TAB PO DAILY SERTRALINE (ZOLOFT) 50 MG PO DAILY Active Meds + DC'd Last 24 Hrs Sertraline HCl 50 MG DAILY PO Aspirin 81 MG DAILY PO Lisinopril 10 MG DAILY PO Heparin Sodium (Porcine) 2,200 UNITS ASDIR PRN IV Heparin Sodium/Sodium Chloride 500 ML ASDIR IV (CKD) Heparin Sodium (Porcine) 5,000 UNITS BOLUS STA IV (DC) Sodium Chloride SALINE IV FLUSH Q12HR IV (DC) Aspirin 324 MG 1XED STA CHEW (DC) General appearance: alert, awake Results Findings/Data: Laboratory Tests 03/15 03/15 03/15 03/15 03/15 0919 0058 0058 0058 0050 Chemistry Sodium (136 - 145 MMOL/L) 139 Potassium (3.0 - 4.8 MMOL/L) 3.7 Chloride (98 - 107 MMOL/L) 104 Carbon Dioxide (21 - 32 MMOL/L) 26 Anion Gap (10 - 20 MMOL/L) 13 BUN (7 - 18 MG/DL) 21 H Creatinine (0.55 - 1.02 MG/DL) 1.2 H Estimated GFR (>60 mL/min) 43.79 L BUN/Creatinine Ratio (9.0 - 25.0) 18 Glucose (74 - 106 MG/DL) 199 H POC Glucose (70 - 110 MG/DL) 115 H Hemoglobin A1c (4.2 - 6.3 %) 6.5 H Calcium (8.5 - 10.1 MG/DL) 9.2 Magnesium (1.6 - 2.6 MG/DL) 2.0 Total Bilirubin (0.2 - 1.0 MG/DL) 0.28 Direct Bilirubin (0.00 - 0.20 MG/DL) 0.07 AST (15 - 37 UNITS/L) 17 ALT (12 - 78 UNITS/L) 22.0 Alkaline Phosphatase (45 - 117 78 UNITS/L) POC Troponin I (0.00 - 0.08 NG/ML) 0.01 Total Protein (6.4 - 8.2 G/DL) 7.6 Albumin (3.4 - 5.0 G/DL) 3.3 L Globulin (2.7 - 4.1 G/DL) 4.3 H Albumin/Globulin Ratio (0.8 - 2.0) 0.8 Triglycerides (<150 MG/DL) 229 H Cholesterol (<200 MG/DL) 267 H LDL Cholesterol (<100 MG/DL) 149 H HDL Cholesterol (40 - 60 MG/DL) 72 H TSH (0.358 - 3.740 uIU/mL) 3.480 Laboratory Tests 03/15 03/15 1633 1004 Coagulation APTT (50 - 79 SEC) 38.7 L > 150 PH Laboratory Tests 03/15 03/15 1004 0050 Hematology WBC (4.0 - 10.0 K/MM3) 8.8 9.3 RBC (3.50 - 5.00 M/MM3) 4.19 4.28 Hgb (11.0 - 15.0 GM/DL) 11.9 12.2 Hct (33.0 - 45.0 %) 37.3 38.3 MCV (82 - 99 FL) 89 90 MCH (28 - 32 PG) 28.4 28.5 MCHC (32.0 - 36.0 %) 31.9 L 31.9 L RDW (11.5 - 14.5 %) 18.7 H 18.5 H Plt Count (150 - 450 K/MM3) 298 312 MPV (7.4 - 10.4 FL) 10.9 H 10.3 Immature Gran % (0.00 - 3.00 %) 0.1 Neutrophils % (49.0 - 90.0 %) 72.3 Lymphocytes % (22.0 - 40.0 %) 16.2 L Monocytes % (0.0 - 13.0 %) 10.1 Eosinophils % (0.0 - 7.0 %) 1.1 Basophils % (0.0 - 3.0 %) 0.2 Immature Gran # (0.00 - 0.30 K/MM3) 0.01 Neutrophils # (2.2 - 9.9 K/MM3) 6.36 Lymphocytes # (0.9 - 4.0 K/MM3) 1.43 Monocytes # (0.0 - 1.4 K/MM3) 0.89 Eosinophils # (0.0 - 0.8 K/MM3) 0.10 Basophils # (0.0 - 0.3 K/MM3) 0.02 Laboratory Tests 03/155 Urines Urine Color (YELLOW) YELLOW Urine Clarity (CLEAR) SLIGHTLY-CLOUDY @ Urine pH (5.0 - 8.0) 5.0 Ur Specific [place] (1.001 - 1.030) 1.015 Urine Protein (NEGATIVE MG/DL) NEGATIVE Urine Ketones (NEGATIVE MG/DL) NEGATIVE Urine Blood (NEGATIVE) NEGATIVE Urine Nitrite (NEGATIVE) NEGATIVE Urine Bilirubin (NEGATIVE) NEGATIVE Urine Urobilinogen (NEGATIVE MG/DL) 0.2 Ur Leukocyte Esterase (NEGATIVE) NEGATIVE Urine Glucose (NEGATIVE MG/DL) NEGATIVE Radiology Data: Recent Impressions: CAT SCAN - CT STROKE ALERT 03/15 0054 Report Impression - Status: SIGNED Entered: 03/15/2017 0113 IMPRESSION: 1. There are no acute intracranial abnormalities. There is no evidence for hemorrhage, acute or recent stroke. Findings were discussed with Dr. Rabago [place] [address] scans at this facility include dose modulation, iterative reconstruction and/or weight based dosing when appropriate to reduce radiation to as low as reasonably achievable Reported By: MELISSA PATTON MD at 03/15/2017 1:12:20 AM Impression By: MARGY PATTON M.D. RADIOLOGY - CHEST, PORTABLE 03/15 0114 Report Impression - Status: SIGNED Entered: 03/15/2017 0201 IMPRESSION: 1. No acute cardiopulmonary process. Reported By: FRANKLIN JEROME MD at 03/15/2017 2:01:28 AM Impression By: STEPHY JEROME MD [facility] - MRI BRAIN W/O CONTRAST 03/15 0819 Report Impression - Status: SIGNED Entered: 03/15/2017 0901 IMPRESSION: 1. Few small 3-4 mm ill-defined areas of acute ischemic infarctions the right anterior posterior parietal regions, likely embolic.dr Forte was paged 09:00 Impression By: OMAYRA GUERRERO M.D. VASCULAR LAB - CAROTID/CEREBROVASCULAR EVAL 03/15 0847 Report Impression - Status: SIGNED Entered: 03/15/2017 0949 IMPRESSION: Less than 50% stenosis within the bilateral internal carotid arteries. Doppler US Criteria for Diagnosis of ICA Stenosis Degree of ICA PSV Plaque Est ICA/CCA PSV ICA EDV Stenosis(%) (cm/sec) (%)* Ratio (cm/sec) Normal <125 None <2.0 <40 <50 <125 <50 <2.0 <40 50-69 125-230 >50 2.0-4.0 40-100 >70 >230 >50 >4.0 >100 Near Occ. High/low visable varies varies Total occ. Undetected visable NA NA * Plaque estimate (diameter reduction) with roman-scale and color doppler US. Doppler US Criteria for Diagnosis of ICA Stenosis Impression By: BETH PATE M.D. Free Text Obj Notes Free Text Obj Notes: General exam: Head and Neck and Examination: Normocephalic and atraumatic. Neck is supple without bruits. Heart: Rate is regular in rhythm. Lungs: Lungs are clear to auscultation Extremities: Extremities are without clubbing, cyanosis or edema Neurological Exam: Mental Status Exam: The patient is awake, alert and oriented x 3. Naming, repetition, comprehension are all well within normal limits. No deficits of higher cortical functions are noted. Cranial Nerve Examination: Pupils are round and reactive to light. Funduscopic examination reveals no papilledema. Visual daniels are full to confrontational testing. Eye motility is intact in all directions of gaze without nystagmus. Fifth cranial nerve motor and sensory functions are preserved. Face appears symmetrical. Palate, tongue and uvula are all in midline. Shoulder shrug is symmetrical. Motor Examination: Normal muscle tone, bulk and power are noted throughout. No atrophy, fasciculations or pronator drift is seen. No tremor or dystonia is present. Sensory Examination: There are no deficits to light touch, vibration or temperature. Reflexes: Symmetrically intact throughout. Plantar with flexor response bilaterally. No pathological reflexes were elicited. Coordination: No dysmetria, decreased rapid alternative movements on the left upper extremity Station and Gait: Testing deferred Diagnosis, Assessment Plan Problem List/A P: 1. Stroke due to embolism Free Text A P: Diagnosis: Right hemispheric watershed distribution ischemic stroke tPA: Not indicated Imaging: MRI positive Carotid Ultrasound: No evidence of significant stenosis Echocardiogram: Pending report LDL: 149 Statins: Will be started Prophylaxis: Heparin Rehab Assessment: No current deficits Cardiology has been consulted for the possibility of long-term monitor at 1912 RPT#:[id number] END OF REPORT Not Available [facility] 03/15/2017 19:16:59 [facility] [address] [place], [place] [address] Patient Name: SUSAN GAR : 42 Admit Date: 03/15/17 Age: 76 Attending Physician: Shraddha Forte MD Room# F.439-1 Report: CONSULT DATE OF CONSULTATION: 03/16/2017 ADDITIONAL REQUESTING PHYSICIAN: Dr. Rueda. INDICATION: Cryptogenic stroke. HISTORY OF PRESENT ILLNESS: A very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
--- OUTSIDE RECORDS SUMMARY | 2024-09-10 10:00 | XMS_ITS | Referral Summary ---
Author Organization [facility] Address [address] [place] [address] Care Team Providers Care Fur Coat Sewer Name Role Phone Richie Grey MD Primary Care Provider Encounters Date Type Department Care Team Description 07/25/2024 Orders Only [facility] Otolaryngology [address] [place] [address] Advanced Medicine [address]th [place] [address] [place] [address] Dunia Moran, Au.D. 07/25/2024 Telephone [facility] Otolaryngology [address] [place] [address] Medicine 11th [place] [address] [place] [address] Dunia Moran, Au.D. 07/23/2024 Telephone [facility] Otolaryngology [address] [place] [address] Paola Mayers MS from Last 3 Months Allergies No known active allergies Medications atorvastatin (LIPITOR) 20 mg tablet Take 20 mg by mouth daily. 04/08/2017 Active lisinopril-hydr oCHLOROthiazide (PRINZIDE,ZESTO RETIC) 10-12.5 mg per tabletIndicatio ns:hypertension Take 1 tablet by mouth daily. 04/06/2017 Active traZODone (DESYREL) 50 mg tablet Take 50 mg by mouth daily. 03/28/2017 Active cyanocobalamin (Vitamin B-12) 500 mcg tabletIndicatio ns:Prevention of Vitamin B12 Deficiency Take 500 mcg by mouth daily. Active folic acid (FOLVITE) 1 mg tablet Take 1 mg by mouth daily. Active sertraline (ZOLOFT) 100 mg tablet Take 100 mg by mouth daily. Active multivitamin capsule Take 1 capsule by mouth daily. Active ALPRAZolam (XANAX) 0.5 mg tablet Take 0.5 mg by mouth nightly as needed for anxiety. Active busPIRone (BUSPAR) 5 mg tabletIndicatio ns:Generalized Anxiety Disorder Take 5 mg by mouth 3 (three) times a day Active pantoprazole DR (PROTONIX) 40 mg EC tablet Take 40 mg by mouth daily Active rivaroxaban (XARELTO) 15 mg tablet Take 1 tablet (15 mg total) by mouth daily 90 tablet 3 10/29/2019 Active Active Problems Problem Noted Date Diagnosed Date Visit for wound check 09/04/2019 Status post placement of implantable loop record er 04/18/2017 Overview (04/25/2017): Thing5 Linq Loop Recorder, Dx: Syncope. DOI 03/16/2017 in [place]. [employer] remote monitoring. 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 Gender Identity Not on file Sexual Orientation Not on file Last Filed Vital Signs Vital Sign Reading Time Taken Comments Blood Pressure 118/84 10/29/2019 11:15 AM CDT Pulse 88 10/29/2019 11:15 AM CDT Temperature 36.3 C (97.3 F) 09/04/2019 9:51 AM CDT Respiratory Rate - - Oxygen Saturation 97% 10/29/2019 11:15 AM CDT Inhaled Oxygen Concentration - - Weight 76.7 kg (169 lb) 10/29/2019 11:15 AM CDT Height 160 cm (5' 3) 10/29/2019 11:15 AM CDT Body Mass Index 29.94 10/29/2019 11:15 AM CDT Plan of Treatment Not on file Medical Devices Implanted Type Area Agricultural Adviser Device Identifier Shelf Expiration Date Model / Serial / Lot Implantable Loop Recorder- [id number] Implanted:03/16 (Quantity not on file) Implantable Loop Recorder Chest Medtronic Syncope, s/p CVA REVEAL LINQ [id number] / [id number] S / Insurance [facility] MEDICARE MEDICARE AARP Care Teams Fur Coat Sewer Relationship Specialty Start Date End Date Richie Grey MD PCP - General Family Practice 04/18/17
--- OUTSIDE RECORDS SUMMARY | 2024-09-10 10:00 | XMS_ITS | Clinical Summary ---
Author Organization [facility] Address [address] [place] [address] Care Team Providers Care Secretary Of State Name Role Phone Richie Grey MD Primary Care Provider Allergies Active Allergy Reactions Criticality Noted Date Comments Latex, Natural Rubber Unknown 06/27/2021 Onion Nausea and Vomiting Low 06/27/2021 Medications ALPRAZolam (XANAX) 0.5 mg tablet Take 0.5 mg by mouth 2 times daily as needed . Active atorvastatin (LIPITOR) 20 mg tablet Take 20 mg by mouth daily at bedtime . 04/08/2017 Active traZODone (DESYREL) 50 mg tablet Take 100 mg by mouth daily at bedtime . 03/28/2017 Active lisinopriL (PRINIVIL) 10 mg tablet Take 10 mg by mouth daily. Active pantoprazole (PROTONIX) 40 mg Tablet, Delayed Release (E.C.) Take 40 mg by mouth daily. Active amLODIPine (NORVASC) 5 mg tablet Take 5 mg by mouth daily. 04/28/2021 Active rivaroxaban (Xarelto) 10 mg TabletIndicatio ns:Other acute pulmonary embolism without acute cor pulmonale (CMS/HCC) Take 1 Tablet (10 mg) by mouth daily with supper. 90 Tablet 3 01/24/2024 Active DULoxetine (CYMBALTA) 30 mg Capsule, Delayed Release(E.C.) Take 1 Capsule by mouth daily. 04/16/2024 Active Active Problems Problem Noted Date Diagnosed Date Iron deficiency anemia 12/05/2017 Encounters Date Type Department Care Team Description 08/20/2024 External Device Data ST[facility] ABSTRACTION Provider, Abstract 08/19/2024 External Device Data ST[place] ABSTRACTION Provider, Abstract 07/24/2024 External Device Data [place] ABSTRACTION Provider, Abstract 07/23/2024 External Device Data [place] ABSTRACTION Provider, Abstract 07/22/2024 External Device Data ST[place] ABSTRACTION Provider, Abstract from Last 3 Months Family History Relation Name Status Comments Father Mother Social History Tobacco Use Types Packs/Day Years Used Date Smoking Tobacco: Never Smokeless Tobacco: Former Tobacco Cessation:Counseling Given: Not Answered Alcohol Use Standard Drinks/Week Comments Yes 0 (1 standard drink = 0.6 oz pur e alcohol) Comments No Sex and Gender Information Value Date Recorded Sex Assigned at Not on file Legal Sex Female 12:22 PM CDT Gender Identity Not on file Sexual Orientation Not on file Last Filed Vital Signs Vital Sign Reading Time Taken Comments Blood Pressure 98/69 05/05/2024 1:18 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 Pulse 82 05/05/2024 1:18 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 Temperature 36.4 C (97.5 F) 05/05/2024 1:18 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 Respiratory Rate 15 05/05/2024 1:18 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 Oxygen Saturation 95% 05/05/2024 1:18 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 Inhaled Oxygen Concentration - - Weight 72 kg (158 lb 12.8 oz) 05/05/2024 1:18 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 Height 160 cm (5' 3) 06/27/2021 2:36 PM CDT Body Mass Index 28.13 06/27/2021 2:36 PM CDT Plan of Treatment Upcoming Encounters Date Type Department Care Team (Late st Contact Info) Description 02/05/2025 1:00 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 Office Visit [facility] - [place] [address] [facility] [address] [place] [address] Adam Charles MD [address] [facility] [address] [place] [address] Health Maintenance Due Date Last Done Comments DTAP/TDAP/TD VACCINES (1 - Tdap) 1959 PNEUMOCOCCAL VACCINE 50+ YEA RS (1 of 1 - PCV) 09/09/1991 01/09/2007 OSTEOPOROSIS SCREENING 2006 ZOSTER VACCINE (2 of 3) 07/23/2007 05/28/2007 RSV VACCINE (60+ or ) (1 - 1-dose 75+ series) 2016 INFLUENZA VACCINE (#1) 2024 COLORECTAL SCREENING Discontinued 08/18/2022, 07/16/2015, 08/06/2006 Colorectal Cancer Screening Discontinued FIT-DNA Q 3 years Discontinued FIT/FOBT Q 1 year Discontinued Flex Sig/CT Colonography Q 5 years Discontinued Insurance MEDICARE PART A AND B [facility] [id number] MEDICARE PART A AND B [facility] [id number] Care Teams Secretary Of State Relationship Specialty Start Date End Date Richie Grey MD [address] [place] [address] PCP - General Family Practice 12/05/17
--- OUTSIDE RECORDS SUMMARY | 2024-09-10 10:00 | XMS_ITS | Clinical Summary ---
Author Organization [facility] Address [address] [place] [address] Care Team Providers Care Irrigator Overhead Name Role Phone Richie Grey MD Primary Care Provider Allergies No known active allergies Medications atorvastatin [...] implantable loop record er 04/18/2017 Overview (04/25/2017): [employer] Reveal Linq Loop Recorder, Dx: Syncope. DOI 03/16/2017 in [place]. [employer] remote monitoring. Encounters Date Type Department Care Team Description 07/25/2024 Orders Only [facility] Otol[facility]ology [address] [facility] Medicine 11th [place] [address] [place] [address] Dunia Moran Au.D. 07/25/2024 Telephone [facility] 11th [place] [address] [place] [address] Dunia Moran Au.D. 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 Gender Identity Not on file Sexual Orientation Not on file Obstetrics History Last Filed Vital Signs Vital Sign Reading [...] 10/29/2019 11:15 AM CDT Plan of Treatment Health Maintenance Due Date Last Done Comments Depression Screening 1941 Fall Risk Assessment 1941 Osteoporosis Screening-Bone Density Scan 1940 Hepatitis B Screening 09/09/1958 Well Visit 65+ 2006 Zoster Vaccine (2 of 3) 07/23/2007 05/28/2007 Pneumococcal vaccine 65+ (2 of 2 - PPSV23) 09/18/2019 09/17/2018, 01/09/2007 DTaP/Tdap/Td Vaccine (2 - Td or Tdap) 09/13/202402/2015 Influenza Vaccine (#1) 2024 Medical Devices Implanted Type Area Carpenter Helper Maintenance Device Identifier Shelf Expiration Date Model / Serial / Lot Implantable Loop Recorder- [id number] Implanted:03/16 (Quantity not on file) Implantable Loop Recorder Chest Medtronic Syncope, s/p CVA REVEAL LINQ [id number] / [id number] S / Insurance [facility] MEDICARE MEDICARE [facility] Care Teams Irrigator Overhead Relationship Specialty Start Date End Date Richie Grey MD PCP - General Family Practice 04/18/17
--- OUTSIDE RECORDS SUMMARY | 2024-09-10 10:00 | XMS_ITS | Continuity of Care Document ---
Author Organization [facility] Address [address] [place] [address] [place] [address] Phone Care Team Providers Care Fire Equipment Inspector Name Role Phone RCM, Rendering Unavailable Unavailable Allergies, Adverse Reactions, Alerts Substance Reaction Status Criticality No Known Drug Allergies Active No I nformation No Known Allergies Active No Inform ation Advance Directives Directive Yes / No Effective Date File Name No Information Encounters Encounter Description Practice Location Reason(s) For Visit Diagnoses Date Provider Providers Copied on Encounter [facility] , [address] [place] [address], [address] [place] [address], tel:[phone] [facility] Location No Information [facility]. [address] [place] [address], [facility], . tel:[phone] [facility] , [address] [place] [address], [id number], tel:[phone] [facility] Location No Information [facility]. [address] [place] [address], [facility], [place]. tel:[phone] [facility] , [address] [place] [address], [id number], [place] tel:[phone] [facility] Location Presence of intraocular lens [facility]. [address] [place] [address], [facility], [place]. tel:[phone] [facility] , [address] [place] [address], [id number], [place] tel:[phone] [facility] Location No Information [facility] Rendering. [address] [place], [address], [place]. tel:[phone] Family History Family Member Type Diagnosis Age At Onset No Information Payers Payer name Insurance type Covered libertarian ID Authoriza tibel(s) No Information Social History Type Description Quantity Date Captured Comments Alcohol Use Details Unknown Caffeine Use Details Unknown Tobacco Use Status Never smoker (Never Smoked) Smoking Status Never smoker (Never Smoked) Non-Smoking Tobacco Use Details : No Details Available : No Details Available Sex Female Chief Complaint And Reason For Visit No Information Reason For Referral Reason For Referral No Information History Of Present Illness Encounter Date Complaint History Of Prese nt Illness No Information Functional Status Date Functional Assessmen t No Information Instructions Date Instruction Additional Infor mation Impression/Plan Related to \nPri ority: 2 Impression/Plan Related to Locat ion 1: OD\nLocation 2: OS Impression/Plan Related to Locat ion 1: OS Impression/Plan Related to Locat ion 1: OD\nPriority: 2 \nSeverity 1: 2 Impression/Plan Related to Locat ion 1: RUL\nLocation 2: TRACI\nPriority: 2 \nSeverity 1: 3 \nSeverity 2: 3 Impression/Plan Related to Locat ion 1: OD\nLocation 2: OS\nPriority: 2 \nSeverity 1: 2 \nSeverity 2: 2 Impression/Plan Related to Locat ion 1: OD\nLocation 2: OS\nPriority: 3 Assessments Type Assessment Date No Information Patient Care Teams Name Effective Dates (start - stop) Status Members No Information
--- OUTSIDE RECORDS SUMMARY | 2024-09-10 10:00 | XMS_ITS | Patient Health Record ---
Author Organization [facility] [employer] [facility] Address [address] [facility] [address] [place] [address] Care Team Providers Care Paper Production Engineer Name Role Phone Richie Grey MD Primary Care Provider Unavailable Janene Nettles Unavailable [phone] Joaquina Figueroa Unavailable [phone] Florecita Jenkins Unavailable [phone] Allergies Allergen (clinical drug ingredient) Drug/Non Drug Allergy documented on EMR Reaction Allergy Type Onset Date Status Shellfish (FN) SHRIMP (uncoded) Unknown Allergy 07/10/19 Active Latex Latex Unknown Allergy 07/10/2023 Active Reason For Referral No Information Medications Medication SIG (Take, Route, Frequency, Duration) Notes Start Date End Date Status ALPRAZolam 0.5 MG 1 tablet daily, make take 1 additional tablet daily as needed (extra qty 5) Oral daily; Duration: 30 days 08/20/2024 Active Atorvastatin Calcium 20 MG Oral 07/10/2023 Active Pantoprazole Sodium 20 MG Oral 07/10/2023 Active DULoxetine HCl 30 MG 1 capsule Oral Once a day; Duration: 30 days Active traZODone HCl 50 MG 2 tablets at bedtime Oral Once a day; Duration: 30 days Active Lisinopril 20 MG Oral 07/10/2023 Ac tive Xarelto 10 MG Oral 07/10/2023 Activ e amLODIPine Besylate 5 MG Oral 07/10/2023 Active traZODone HCl 50 MG 2 tablets at bedtime Orally Once a day; Duration: 30 days 10/03/2023 Active DULoxetine HCl 60 MG 1 capsule Oral Once a day; Duration: 30 days 06/13/2024 Active Immunizations Vaccine Route Administration Date Status Comme nts Dg Covid-19 Vaccine Unknown 05/07/2020 Administere d [employer] Covid-19 Vac cine 2nd dose Unknown 01/01/2021 Administered Pneumococcal conjugate PCV 13 Unknown 09/17/2018 Admini stered Tdap Unknown 09/13/2014 Administered Social History Tobacco Use: Social History Observation Description Date Details (start date - stop date) Never Smoker NA - NA Sex Assigned At : Social History Observation Description Sex Assigned At Female Household Question Answer Notes Marital status: Tobacco Control (Standard) Question Answer Notes Tobacco use: Nonsmoker Section Notes: Denies drug/ETOH issues Denies drug/ETOH issues Social History Substance UseDo you or have you ever smoked tobacco?: Never smokerHow many years have you smoked tobacco?: 0How much tobacco do you smoke?: NoneDo you or have you ever used any other forms of tobacco or nicotine?: NoDo you or have you ever used e-cigarettes or vape?: Never used electronic cigarettesDo you or have you ever used smokeless tobacco?: Never used smokeless tobaccoHow much tobacco do you chew?: noneWhat was the date of your most recent tobacco screening?: 07/10/2023Has tobacco cessation counseling been provided?: NoWhat is your level of alcohol consumption?: OccasionalHow many years have you consumed alcohol?: 60Do you use any illicit or recreational drugs?: NoWhich illicit or recreational drugs have you used?: NoneHave you used IV drugs?: NoWhat is your level of caffeine consumption?: ModerateEducation and OccupationWhat is the highest grade or level of school you have completed or the highest degree you have received?: Associate degree: academic programAre you currently employed?: NoWho is your employer?: [id number] and SexualityWhat is your relationship status?: WidowedAre you sexually active?: NoDo you use protection during sex?: AlwaysHow many children do you have?: 2Home and EnvironmentAre there any smokers in your house?: NoAre there any guns present in your home?: NoAdvance DirectiveDo you have an advance directive?: YesDo you have a medical power of divorce attorney?: Yes Denies drug/ETOH issues Denies drug/ETOH issues Social History Substance UseDo you or have you ever smoked tobacco?: Never smokerHow many years have you smoked tobacco?: 0How much tobacco do you smoke?: NoneDo you or have you ever used any other forms of tobacco or nicotine?: NoDo you or have you ever used e-cigarettes or vape?: Never used electronic cigarettesDo you or have you ever used smokeless tobacco?: Never used smokeless tobaccoHow much tobacco do you chew?: noneWhat was the date of your most recent tobacco screening?: 07/10/2023Has tobacco cessation counseling been provided?: NoWhat is your level of alcohol consumption?: OccasionalHow many years have you consumed alcohol?: 60Do you use any illicit or recreational drugs?: NoWhich illicit or recreational drugs have you used?: NoneHave you used IV drugs?: NoWhat is your level of caffeine consumption?: ModerateEducation and OccupationWhat is the highest grade or level of school you have completed or the highest degree you have received?: Associate degree: academic programAre you currently employed?: NoWho is your employer?: [id number] and SexualityWhat is your relationship status?: WidowedAre you sexually active?: NoDo you use protection during sex?: AlwaysHow many children do you have?: 2Home and EnvironmentAre there any smokers in your house?: NoAre there any guns present in your home?: NoAdvance DirectiveDo you have an advance directive?: YesDo you have a medical power of divorce attorney?: Yes Denies drug/ETOH issues Social History Substance UseDo you or have you ever smoked tobacco?: Never smokerHow many years have you smoked tobacco?: 0How much tobacco do you smoke?: NoneDo you or have you ever used any other forms of tobacco or nicotine?: NoDo you or have you ever used e-cigarettes or vape?: Never used electronic cigarettesDo you or have you ever used smokeless tobacco?: Never used smokeless tobaccoHow much tobacco do you chew?: noneWhat was the date of your most recent tobacco screening?: 07/10/2023Has tobacco cessation counseling been provided?: NoWhat is your level of alcohol consumption?: OccasionalHow many years have you consumed alcohol?: 60Do you use any illicit or recreational drugs?: NoWhich illicit or recreational drugs have you used?: NoneHave you used IV drugs?: NoWhat is your level of caffeine consumption?: ModerateEducation and OccupationWhat is the highest grade or level of school you have completed or the highest degree you have received?: Associate degree: academic programAre you currently employed?: NoWho is your employer?: [id number] and SexualityWhat is your relationship status?: WidowedAre you sexually active?: NoDo you use protection during sex?: AlwaysHow many children do you have?: 2Home and EnvironmentAre there any smokers in your house?: NoAre there any guns present in your home?: NoAdvance DirectiveDo you have an advance directive?: YesDo you have a medical power of divorce attorney?: Yes Denies drug/ETOH issues Social History Substance UseDo you or have you ever smoked tobacco?: Never smokerHow many years have you smoked tobacco?: 0How much tobacco do you smoke?: NoneDo you or have you ever used any other forms of tobacco or nicotine?: NoDo you or have you ever used e-cigarettes or vape?: Never used electronic cigarettesDo you or have you ever used smokeless tobacco?: Never used smokeless tobaccoHow much tobacco do you chew?: noneWhat was the date of your most recent tobacco screening?: 07/10/2023Has tobacco cessation counseling been provided?: NoWhat is your level of alcohol consumption?: OccasionalHow many years have you consumed alcohol?: 60Do you use any illicit or recreational drugs?: NoWhich illicit or recreational drugs have you used?: NoneHave you used IV drugs?: NoWhat is your level of caffeine consumption?: ModerateEducation and OccupationWhat is the highest grade or level of school you have completed or the highest degree you have received?: Associate degree: academic programAre you currently employed?: NoWho is your employer?: [id number] and SexualityWhat is your relationship status?: WidowedAre you sexually active?: NoDo you use protection during sex?: AlwaysHow many children do you have?: 2Home and EnvironmentAre there any smokers in your house?: NoAre there any guns present in your home?: NoAdvance DirectiveDo you have an advance directive?: YesDo you have a medical power of divorce attorney?: Yes Denies drug/ETOH issues Social History Substance UseDo you or have you ever smoked tobacco?: Never smokerHow many years have you smoked tobacco?: 0How much tobacco do you smoke?: NoneDo you or have you ever used any other forms of tobacco or nicotine?: NoDo you or have you ever used e-cigarettes or vape?: Never used electronic cigarettesDo you or have you ever used smokeless tobacco?: Never used smokeless tobaccoHow much tobacco do you chew?: noneWhat was the date of your most recent tobacco screening?: 07/10/2023Has tobacco cessation counseling been provided?: NoWhat is your level of alcohol consumption?: OccasionalHow many years have you consumed alcohol?: 60Do you use any illicit or recreational drugs?: NoWhich illicit or recreational drugs have you used?: NoneHave you used IV drugs?: NoWhat is your level of caffeine consumption?: ModerateEducation and OccupationWhat is the highest grade or level of school you have completed or the highest degree you have received?: Associate degree: academic programAre you currently employed?: NoWho is your employer?: [id number] and SexualityWhat is your relationship status?: WidowedAre you sexually active?: NoDo you use protection during sex?: AlwaysHow many children do you have?: 2Home and EnvironmentAre there any smokers in your house?: NoAre there any guns present in your home?: NoAdvance DirectiveDo you have an advance directive?: YesDo you have a medical power of divorce attorney?: Yes Denies drug/ETOH issues Social History Substance UseDo you or have you ever smoked tobacco?: Never smokerHow many years have you smoked tobacco?: 0How much tobacco do you smoke?: NoneDo you or have you ever used any other forms of tobacco or nicotine?: NoDo you or have you ever used e-cigarettes or vape?: Never used electronic cigarettesDo you or have you ever used smokeless tobacco?: Never used smokeless tobaccoHow much tobacco do you chew?: noneWhat was the date of your most recent tobacco screening?: 07/10/2023Has tobacco cessation counseling been provided?: NoWhat is your level of alcohol consumption?: OccasionalHow many years have you consumed alcohol?: 60Do you use any illicit or recreational drugs?: NoWhich illicit or recreational drugs have you used?: NoneHave you used IV drugs?: NoWhat is your level of caffeine consumption?: ModerateEducation and OccupationWhat is the highest grade or level of school you have completed or the highest degree you have received?: Associate degree: academic programAre you currently employed?: NoWho is your employer?: [id number] and SexualityWhat is your relationship status?: WidowedAre you sexually active?: NoDo you use protection during sex?: AlwaysHow many children do you have?: 2Home and EnvironmentAre there any smokers in your house?: NoAre there any guns present in your home?: NoAdvance DirectiveDo you have an advance directive?: YesDo you have a medical power of divorce attorney?: Yes Denies drug/ETOH issues Social History Substance UseDo you or have you ever smoked tobacco?: Never smokerHow many years have you smoked tobacco?: 0How much tobacco do you smoke?: NoneDo you or have you ever used any other forms of tobacco or nicotine?: NoDo you or have you ever used e-cigarettes or vape?: Never used electronic cigarettesDo you or have you ever used smokeless tobacco?: Never used smokeless tobaccoHow much tobacco do you chew?: noneWhat was the date of your most recent tobacco screening?: 07/10/2023Has tobacco cessation counseling been provided?: NoWhat is your level of alcohol consumption?: OccasionalHow many years have you consumed alcohol?: 60Do you use any illicit or recreational drugs?: NoWhich illicit or recreational drugs have you used?: NoneHave you used IV drugs?: NoWhat is your level of caffeine consumption?: ModerateEducation and OccupationWhat is the highest grade or level of school you have completed or the highest degree you have received?: Associate degree: academic programAre you currently employed?: NoWho is your employer?: [id number] and SexualityWhat is your relationship status?: WidowedAre you sexually active?: NoDo you use protection during sex?: AlwaysHow many children do you have?: 2Home and EnvironmentAre there any smokers in your house?: NoAre there any guns present in your home?: NoAdvance DirectiveDo you have an advance directive?: YesDo you have a medical power of divorce attorney?: Yes Problems Problem Type SNOMED Code ICD Code Onset Dates Problem Status W/U Status Risk Notes Problem Mild recurrent major depression (79378467) Major depressive disorder, recurrent, mild (F33.0) 4 Active confirmed Problem Moderate recurrent major depression (63709375) Major depressive disorder, recurrent, moderate (F33.1) Active confirmed Problem Generalized anxiety disorder (69762342) Generalized anxiety disorder (F41.1) 4 Active confirmed Problem Primary insomnia (1941948) Primary insomnia (F51.01) 4 Active confirmed Problem Minimal cognitive impairment (259085506) Minimal cognitive impairment (G31.84) Active confirmed Problem Essential hypertension (75486332) Benign essential HTN (I10) Active confirmed Vital Signs Heart Rate 90 /min 07/11/2024 Height-cm 160.02 cm 07/11/2024 Blood pressure diastolic 70 mm Hg 07/11/2024 Weight-kg 71.67 kg 07/11/2024 Height 63.00 in 07/11/2024 Blood pressure systolic 121 mm Hg 07/11/2024 Weight 158 lbs 07/11/2024 BMI 27.99 kg/m2 07/11/2024 Encounters Encounter Location Date Provider Diagnosis [facility] [employer] [facility] [address] [facility] [address] [place] [address] 09/18/2023 Joaquina Eisenberg Major depressive disorder, recurrent, mild F33.0 and Generalized anxiety disorder F41.1 [facility] [employer] [facility] [address] [address] [place] [address] 09/24/2023 Florecita Jenkins Major depressive disorder, recurrent, mild F33.0 ; Generalized anxiety disorder F41.1 ; Primary insomnia F51.01 and Minimal cognitive impairment G31.84 [facility] [employer] [facility] [address] [place] [address] [place] [address] 10/16/2023 Joaquina Eisenberg Major depressive disorder, recurrent, mild F33.0 [facility] [employer] [facility] [address] [place] [address] [place] [address] 11/19/2023 Joaquina Eisenberg Major depressive disorder, recurrent, mild F33.0 and Generalized anxiety disorder F41.1 [facility] [employer] [facility] [address] [place] [address] [place] [address] 12/20/2023 Joaquina Eisenberg Major depressive disorder, recurrent, mild F33.0 and Generalized anxiety disorder F41.1 [place] [address] [place] [place] [address] 12/21/2023 Florecita Jenkins Major depressive disorder, recurrent, mild F33.0 ; Generalized anxiety disorder F41.1 ; Primary insomnia F51.01 and Minimal cognitive impairment G31.84 [place] [address] [place] [address] 01/18/2024 Joaquina Eisenberg Major depressive disorder, recurrent, mild F33.0 and Generalized anxiety disorder F41.1 [place] [address] [facility] [address] [place] [address] 03/21/2024 Janene Nettles Major depressive disorder, recurrent, mild F33.0 ; Generalized anxiety disorder F41.1 ; Primary insomnia F51.01 and Minimal cognitive impairment G31.84 [place] [address] [place] [address] [place] [address] 03/21/2024 Joaquina Eisenberg Major depressive disorder, recurrent, mild F33.0 and Generalized anxiety disorder F41.1 [place] [address] [facility] [address] [place] [address] 04/21/2024 Joaquina Eisenberg Major depressive disorder, recurrent, mild F33.0 and Generalized anxiety disorder F41.1 [place] [address] [address] 05/12/2024 Joaquina Eisenberg [place] [address] [address] [place] [address] 06/13/2024 Janene Schaefershelby Major depressive disorder, recurrent, mild F33.0 ; Generalized anxiety disorder F41.1 ; Minimal cognitive impairment G31.84 ; Benign essential HTN I10 ; Encounter for screening for depression Z13.31 and Primary insomnia F51.01 [place] [address] [place] [address] 06/16/2024 Joaquina Eisenberg Major depressive disorder, recurrent, mild F33.0 and Generalized anxiety disorder F41.1 [place] [address] [place] [address] 07/11/2024 Janene Nettles Negative depression screening Z13.31 ; Major depressive disorder, recurrent, mild F33.0 ; Generalized anxiety disorder F41.1 ; Primary insomnia F51.01 ; Minimal cognitive impairment G31.84 and Benign essential HTN I10 [place] [address] [facility] [address] [place] [address] 07/21/2024 Joaquina Eisenberg Major depressive disorder, recurrent, mild F33.0 and Generalized anxiety disorder F41.1 [place] [address] [facility] [address] [place] [address] 08/18/2024 Joaquina Eisenberg Major depressive disorder, recurrent, moderate F33.1 ; Generalized anxiety disorder F41.1 and Encounter for screening for depression Z13.31 [place] [address] [address] 10/03/2023 Florecita Jenkins [place] [address] [address] 04/16/2024 Janene Nettles Major depressive disorder, recurrent, mild F33.0 [place] [address] [address] 05/01/2024 Janene Nettles [facility] [address] [address] 05/09/2024 Janene Nettles [place] [address] [address] 08/11/2024 Janene Nettles Major depressive disorder, recurrent, mild F33.0 [place] [address] [address] 09/09/2024 Janene Nettles Major depressive disorder, recurrent, mild F33.0 Assessments Encounter Date Diagnosis (ICD Code) Assessment Notes Treatment Notes Treatment Clinical Notes Section Notes 09/24/2023 Major depressive disorder, recurrent, mild (ICD-10 - F33.0) cont duloxetine 30mg dailycont therapy having improvement in mood with switch to duloxetine. Discuss option to increase SNRI for anxiety, does not want to increase/add meds. no new orders. education on medications and treatment course. cont therapy f/u 3-4 months, earlier if needed. 09/24/2023 Generalized anxiety disorder (ICD-10 - F41.1) cont alprazolam 0.5mg daily; and 1 tab prn (x 5 total per month) meds as above/therapy 12/20/2023 Major depressive disorder, recurrent, mild (ICD-10 - F33.0) Emotional [place] Technique (EFT) and Anxiety Management - Assessment: The patient learned about the Emotional [place] Technique (EFT) at the conference as a potential treatment for anxiety, fear, and phobias. She described the technique in detail and expressed interest in using it. Stoicism and Personal Growth - Assessment: The patient is currently reading a book about stoicism, focusing on the four virtues: wisdom, courage, justice, and moderation. She expressed concerns about losing her courage and self-control as she ages. 12/20/2023 Generalized anxiety disorder (ICD-10 - F41.1) Emotional [place] Technique (EFT) and Anxiety Management - Assessment: The patient learned about the Emotional [place] Technique (EFT) at the conference as a potential treatment for anxiety, fear, and phobias. She described the technique in detail and expressed interest in using it. Stoicism and Personal Growth - Assessment: The patient is currently reading a book about stoicism, focusing on the four virtues: wisdom, courage, justice, and moderation. She expressed concerns about losing her courage and self-control as she ages. 12/21/2023 Major depressive disorder, recurrent, mild (ICD-10 - F33.0) cont duloxetine 30mg dailycont therapy doing well, cont current meds, education of meds, treatment course cont therapyf/u 3 months, earlier if needed -discussed transition to new provider as I am leaving the practice after this month 01/18/2024 Major depressive disorder, recurrent, mild (ICD-10 - F33.0) General Considerations - Assessment: Lisa's conversation reveals multiple areas of concern, including medical, personal safety, and emotional well-being. - Plan: - Provide ongoing support and monitoring. 01/18/2024 Generalized anxiety disorder (ICD-10 - F41.1) General Considerations - Assessment: Lisa's conversation reveals multiple areas of concern, including medical, personal safety, and emotional well-being. - Plan: - Provide ongoing support and monitoring. 03/21/2024 Major depressive disorder, recurrent, mild (ICD-10 - F33.0) 03/21/2024 Generalized anxiety disorder (ICD-10 - F41.1) 03/21/2024 Major depressive disorder, recurrent, mild (ICD-10 - F33.0) Anxiety - Stable Plan: - Continue duloxetine 30 mg daily - Continue alprazolam as needed for anxiety - Monitor for any changes in anxiety levels or medication side effects - Further discuss increasing duloxetine for anxiety management and tapering down on alprazolam, reluctant to change Insomnia - Reports sleeping well Plan: - Continue trazodone 50 mg 1-2 tablets at bedtime as needed - Assess sleep quality and any changes in sleep patterns mils cognitive impairment - History of stroke - Reports being aware of challenges and limitations - Speaks of acceptance and engaging in activites to try and keep hre mind sharp Plan: - Encourage patient to maintain a healthy lifestyle and follow up with primary care provider for routine care - Monitor for any new neurological symptoms or changes in functional status Follow-up in 3 months, sooner if concerns arise 03/21/2024 Generalized anxiety disorder (ICD-10 - F41.1) Anxiety - Stable Plan: - Continue duloxetine 30 mg daily - Continue alprazolam as needed for anxiety - Monitor for any changes in anxiety levels or medication side effects - Further discuss increasing duloxetine for anxiety management and tapering down on alprazolam, reluctant to change Insomnia - Reports sleeping well Plan: - Continue trazodone 50 mg 1-2 tablets at bedtime as needed - Assess sleep quality and any changes in sleep patterns mils cognitive impairment - History of stroke - Reports being aware of challenges and limitations - Speaks of acceptance and engaging in activites to try and keep hre mind sharp Plan: - Encourage patient to maintain a healthy lifestyle and follow up with primary care provider for routine care - Monitor for any new neurological symptoms or changes in functional status Follow-up in 3 months, sooner if concerns arise 04/16/2024 Major depressive disorder, recurrent, mild (ICD-10 - F33.0) 04/21/2024 Major depressive disorder, recurrent, mild (ICD-10 - F33.0) 04/21/2024 Generalized anxiety disorder (ICD-10 - F41.1) 06/13/2024 Major depressive disorder, recurrent, mild (ICD-10 - F33.0) 10/16/2023 Major depressive disorder, recurrent, mild (ICD-10 - F33.0) Interpersonal Conflict with Son-in-law - Assessment: The patient reports feeling invisible and disrespected by her son-in-law, leading to emotional distress. The son-in-law exhibits behaviors that frustrate the patient, such as controlling the living space arrangement and making decisions without considering others. - Plan: Encouraged the patient to engage in open communication with her daughter and son-in-law to address her concerns and feelings. Living Environment Dissatisfaction - Assessment: The patient expresses dissatisfaction with the current state of her living environment, including the house's condition, lack of social space, and needed repairs (e.g., front porch, windows, carpeting). The patient mentions multiple trees that need to be removed and other maintenance issues. - Plan: Support the patient in exploring options for home improvement, such as hiring a contractor to repair the front porch and addressing other areas of concern. Encourage the patient to discuss these plans with her daughter and son-in-law. Emotional Distress - Assessment: The patient reports feeling invisible and disrespected, leading to emotional distress and frustration. The patient expresses difficulty in dealing with the son-in-law's behavior and decision-making process. - Plan: Provide individual therapy sessions to help the patient develop coping strategies for managing her emotions and improving her self-esteem. Encourage the patient to engage in self-care activities and seek social support from friends and other family members. Potential Relocation Consideration - Assessment: The patient mentions the possibility of moving to an independent living facility but is unsure if it is the right decision. The patient can afford to move but questions whether it's necessary. - Plan: Discussed the pros and cons of relocating to an independent living facility with the patient, considering her emotional well-being, financial situation, and social support network. Encouraged the patient to involve her daughter in the decision-making process. 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 She expresses a heightened state of alertness and a desire for respect, which seems to be impacting her mental well-being. Her narrative suggests a pattern of interpreting interactions negatively, which may be contributing to her anxiety and distress. Lisa acknowledges being aware of her paranoid tendencies, stating I'm paranoid sometimes. - Plan: - Continue supportive therapy sessions to address Lisa's anxiety and interpersonal perceptions. - Utilize cognitive-behavio ral techniques to help her challenge and reframe maladaptive thoughts, aiming to reduce paranoia and improve her interpretation of social cues and interactions. - Explore her self-awareness of paranoid tendencies as a starting point for developing coping strategies. Family Dynamics and Communication - Assessment: Lisa discusses various family relationships and dynamics, expressing both positive and negative sentiments about interactions with family members, including her son and daughter. She highlights concerns about communication styles within her family, which appear to be a source of stress for her. - Plan: - Incorporate family systems approaches into therapy sessions to explore and improve family dynamics and communication. - Encourage Lisa to express her feelings and concerns within the family in a constructive manner, and consider family therapy sessions if appropriate to enhance overall family communication and relationships. Cognitive and Emotional Processing - Assessment: Lisa is engaged in reading and self-help strategies, such as Everyday Stoicism, and reflects on her emotional responses, particularly anger. She values the therapeutic relationship and is open about her feelings and experiences. Lisa demonstrates insight into the use of anger as a means of control, which she learned from previous self-help reading. - Plan: - Support Lisa's use of self-help resources and encourage the application of stoic principles to manage her emotional responses. - Continue to provide a safe space in therapy sessions for her to explore her emotions and thoughts, enhancing her cognitive and emotional processing skills. - Utilize her insights about anger to further explore emotional regulation strategies. Each section addresses a specific area of concern and outlines a corresponding plan for treatment and support. 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 She transferred from [facility] to [facility] Lisa is a 80 year old female who presented for counseling for depression, anxiety, and low self esteem. She resides with her daughter and son-in-law in [place], [place]. Her of 50 years 12 years ago as a result of a medical mistake made by an anesthesiologist during an operation for his broken wrist. Her PHQ9 is a 6 and LATASHA is a 12. Pt states she would like to work on becoming a positive person/thinker. Her son resides in [place] (where is is from). He has struggled with alcoholism which is a source of her anxiety/stress. Pt explained she never had many hobbies and was always a support to her (who she met at age 17). She enjoys reading, lacks energy, and feels she is a a bother. Pt grew up with 6 siblings, they were between 9-20 years older. Two of her 3 brothers were killed in the [place] during WWII. I grew up in a house of mourning. 09/18/2023 Generalized anxiety disorder (ICD-10 - F41.1) Psychotherapy Intervention Transferred from [place] May of 2021. She [facility] from [facility] Lisa is a 80 year old female who presented for counseling for depression, anxiety, and low self esteem. She resides with her daughter and son-in-law in [place], [place]. Her of 50 years 12 years ago as a result of a medical mistake made by an anesthesiologist during an operation for his broken wrist. Her PHQ9 is a 6 and LATASHA is a 12. Pt states she would like to work on becoming a positive person/thinker. Her son resides in [place] (where is is from). He has struggled with alcoholism which is a source of her anxiety/stress. Pt explained she never had many hobbies and was always a support to her (who she met at age 17). She enjoys reading, lacks energy, and feels she is a a bother. Pt grew up with 6 siblings, they were between 9-20 years older. Two of her 3 brothers were killed in the [place] during WWII. I grew up in a house of mourning. 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 She expresses a heightened state of alertness and a desire for respect, which seems to be impacting her mental well-being. Her narrative suggests a pattern of interpreting interactions negatively, which may be contributing to her anxiety and distress. Lisa acknowledges being aware of her paranoid tendencies, stating I'm paranoid sometimes. - Plan: - Continue supportive therapy sessions to address Lisa's anxiety and interpersonal perceptions. - Utilize cognitive-behavio ral techniques to help her challenge and reframe maladaptive thoughts, aiming to reduce paranoia and improve her interpretation of social cues and interactions. - Explore her self-awareness of paranoid tendencies as a starting point for developing coping strategies. Family Dynamics and Communication - Assessment: Lisa discusses various family relationships and dynamics, expressing both positive and negative sentiments about interactions with family members, including her son and daughter. She highlights concerns about communication styles within her family, which appear to be a source of stress for her. - Plan: - Incorporate family systems approaches into therapy sessions to explore and improve family dynamics and communication. - Encourage Lisa to express her feelings and concerns within the family in a constructive manner, and consider family therapy sessions if appropriate to enhance overall family communication and relationships. Cognitive and Emotional Processing - Assessment: Lisa is engaged in reading and self-help strategies, such as Everyday Stoicism, and reflects on her emotional responses, particularly anger. She values the therapeutic relationship and is open about her feelings and experiences. Lisa demonstrates insight into the use of anger as a means of control, which she learned from previous self-help reading. - Plan: - Support Lisa's use of self-help resources and encourage the application of stoic principles to manage her emotional responses. - Continue to provide a safe space in therapy sessions for her to explore her emotions and thoughts, enhancing her cognitive and emotional processing skills. - Utilize her insights about anger to further explore emotional regulation strategies. Each section addresses a specific area of concern and outlines a corresponding plan for treatment and support. 06/13/2024 Generalized anxiety disorder (ICD-10 - F41.1) 03/21/2024 Primary insomnia (ICD-10 - F51.01) Anxiety - Stable Plan: - Continue duloxetine 30 mg daily - Continue alprazolam as needed for anxiety - Monitor for any changes in anxiety levels or medication side effects - Further discuss increasing duloxetine for anxiety management and tapering down on alprazolam, reluctant to change Insomnia - Reports sleeping well Plan: - Continue trazodone 50 mg 1-2 tablets at bedtime as needed - Assess sleep quality and any changes in sleep patterns mils cognitive impairment - History of stroke - Reports being aware of challenges and limitations - Speaks of acceptance and engaging in activites to try and keep hre mind sharp Plan: - Encourage patient to maintain a healthy lifestyle and follow up with primary care provider for routine care - Monitor for any new neurological symptoms or changes in functional status Follow-up in 3 months, sooner if concerns arise 12/21/2023 Generalized anxiety disorder (ICD-10 - F41.1) cont alprazolam 0.5mg daily; and 1 tab prn (x 5 total per month) meds as above/therapy 09/24/2023 Primary insomnia (ICD-10 - F51.01) cont trazodone 100mg qhs (takes two 50mg long-term) practice good sleep hygiene 09/24/2023 Minimal cognitive impairment (ICD-10 - G31.84) stable, no concerns 12/21/2023 Primary insomnia (ICD-10 - F51.01) cont trazodone 100mg qhs (takes two 50mg long-term) practice good sleep hygiene 03/21/2024 Minimal cognitive impairment (ICD-10 - G31.84) Anxiety - Stable Plan: - Continue duloxetine 30 mg daily - Continue alprazolam as needed for anxiety - Monitor for any changes in anxiety levels or medication side effects - Further discuss increasing duloxetine for anxiety management and tapering down on alprazolam, reluctant to change Insomnia - Reports sleeping well Plan: - Continue trazodone 50 mg 1-2 tablets at bedtime as needed - Assess sleep quality and any changes in sleep patterns mils cognitive impairment - History of stroke - Reports being aware of challenges and limitations - Speaks of acceptance and engaging in activites to try and keep hre mind sharp Plan: - Encourage patient to maintain a healthy lifestyle and follow up with primary care provider for routine care - Monitor for any new neurological symptoms or changes in functional status Follow-up in 3 months, sooner if concerns arise 06/13/2024 Minimal cognitive impairment (ICD-10 - G31.84) 07/11/2024 Generalized anxiety disorder (ICD-10 - F41.1) 08/18/2024 Encounter for screening for depression (ICD-10 - Z13.31) 07/11/2024 Primary insomnia (ICD-10 - F51.01) 06/13/2024 Benign essential HTN (ICD-10 - I10) 12/21/2023 Minimal cognitive impairment (ICD-10 - G31.84) stable, no concerns 06/13/2024 Primary insomnia (ICD-10 - F51.01) 06/13/2024 Encounter for screening for depression (ICD-10 - Z13.31) 07/11/2024 Minimal cognitive impairment (ICD-10 - G31.84) 07/11/2024 Benign essential HTN (ICD-10 - I10) 03/21/2024 Other Emotional Well-being and Family Dynamics - Assessment: Patient discusses various family relationships and dynamics, as well as her interest in Stoicism. Patient mentions reading books on Stoicism and finding it helpful. - Plan: - Continue to provide supportive counseling. - Encourage the patient to maintain open communication with her family members. 04/21/2024 Other Family and Social Stressors - Assessment: Lisa discusses various family and social stressors, including her neighbor's impending move, her relationship with her daughter. - Plan: - Encourage Lisa to continue attending therapy sessions to address and cope with these stressors. 06/13/2024 Other Lisa Schaeffer presents with elevated blood pressure, increased frustration, and worsening anxiety, reporting recent onset of afternoon napping and concerns about her memory. Hypertension Assessment: Patient reports elevated blood pressure noted by both Dr. Charles and Dr. Hoover (family doctor). She is currently keeping a blood pressure log as instructed by her physician. The exact onset and severity of the blood pressure elevation are not specified, but it appears to be a recent development requiring monitoring. Plan: - Continue blood pressure log as instructed by primary care physician - Follow up with Dr. Hoover on June 30 for further evaluation of hypertension Major Depressive Disorder with Anxiety Assessment: Patient reports increased frustration, not feeling well, and acknowledges experiencing more anxiety. She has started taking afternoon naps, which is unusual for her, possibly indicating increased fatigue or changes in energy levels associated with depression. Patient denies active suicidal ideation but expresses some passive thoughts without intent or plan. Current treatment with duloxetine 30 mg daily appears to be insufficient for managing symptoms. Plan: - Increase duloxetine from 30 mg to 60 mg PO daily - Informed patient this medication targets both depression and anxiety - Discussed potential benefits of dose increase in managing current symptoms - Continue trazodone as prescribed for sleep (dose not specified) - Continue alprazolam as prescribed (dose not specified) - Refill alprazolam prescription - Follow up in 4 weeks to assess response to medication change Cognitive Concerns Assessment: Patient expresses concern about her memory, although her daughter does not perceive any cognitive issues. The extent and impact of these cognitive concerns are not fully clear from the available information. Plan: - Follow up with Joaquina (assumed to be a mental health professional) on June 16 for further evaluation of cognitive concerns - Continue to monitor cognitive symptoms and their impact on daily functioning 06/16/2024 Other Depression with Anxiety Related to Current Events - Assessment: Lisa exhibits symptoms of depression and anxiety, primarily triggered by concerns about political and economic issues. She expresses fear about potential civil unrest and economic instability, exacerbating her depressive symptoms. Lisa reports watching news frequently, contributing to heightened anxiety. - Plan: - Continue current antidepressant medication with recent dose increase. - Encourage limiting news consumption to reduce anxiety triggers. - Discuss potential benefits of engaging in stress-reduction techniques. - Consider exploring cognitive-behavi oral strategies to address catastrophic thinking patterns. - Follow up to assess response to medication dose increase and overall symptom management. 07/11/2024 Other Lisa Cortez, a female patient with a history of depression and anxiety, presents with ongoing mood concerns and recent initiation of physical therapy for dizziness. Depression and Anxiety Assessment: Patient reports ongoing depressive and anxious symptoms, stating I've been better, but depressed, anxious about things. She attributes many of her experiences to anxiety. The patient acknowledges improvement with recent medication adjustment, reporting good tolerability and perceived benefit. No suicidal ideation reported. Patient is engaging in self-directed study of stoicism, which she finds helpful. Ongoing psychotherapy with Joaquina is reported as beneficial. Plan: - Continue current medication regimen - Encourage continuation of psychotherapy with Joaquina - Support patient's engagement in stoicism study as a coping strategy Dizziness Assessment: Patient reports initiating physical therapy for dizziness the day prior to the appointment. She describes the therapy as involving head movements and expresses a positive initial experience, noting the therapist's clear explanations. Patient has developed a strategy of closing her eyes during movements to manage symptoms. She reports anecdotal evidence of the therapy's effectiveness from her daughter's acquaintance. Plan: - Continue physical therapy for dizziness - Follow up on progress with physical therapy at next appointment Cognitive Concerns Assessment: Patient expresses some concern about her memory, stating, If I would focus on things, I don't think I'd have any problem. She reports that her daughter, who is frequently present, does not observe signs of dementia. The patient expresses uncertainty about this assessment. Plan: - Continue to monitor cognitive function - Reassess cognitive concerns at future appointments 07/21/2024 Other Dizziness and Balance Issues - Assessment: Patient reports ongoing dizziness and difficulty with balance, particularly when turning. Physical therapy exercises have been started. - Plan: - Follow up after MRI results to discuss findings and adjust treatment plan accordingly Anxiety - Assessment: Patient expresses feeling like she is going to at times, which she recognizes as anxiety. She is currently on medication for anxiety management. The recent increase in physical symptoms (dizziness, numbness) may be exacerbating her anxiety. - Plan: - Continue current anxiety medication (specific medication and dosage not mentioned) - Provide patient with anxiety management techniques, such as inviting anxiety in rather than fighting it - Monitor anxiety symptoms in relation to physical health concerns 08/18/2024 Other Gait, Strength, and Balance Training ExercisesThis handout provides simple exercises to improve your gait, strength, and balance. Theseexercises can help prevent falls, improve mobility, and enhance overall function. Perform them in asafe space, use support if needed, and stop if you feel pain or dizziness.1. Gait Training Exercises- Walk in a straight line for 10-20 feet, heel-to-toe.- Step over small objects (cones or rolled towels).- Practice walking sideways and backwards.- Use a treadmill if available, under supervision.2. Balance Exercises- Stand on one foot for 10-30 seconds; switch legs.- Walk heel-to-toe in a straight line.- Use a balance board or cushion to challenge stability.- Practice rising from a chair without using your hands.3. Strength Training Exercises- [id number]: rise from a chair repeatedly.- Wall push-ups: stand at arm's length from a wall and push.- Step-ups on a low step or stairs.- Leg lifts while seated or lying down.Consult your primary care provider (PCP) before starting these exercises, especially if you havemedical conditions or difficulty performing them Persistent Dizziness - Assessment: Patient reports long-standing dizziness, exacerbated by car rides and movement. Recently treated for Benign Paroxysmal Positional Vertigo (BPPV) with repositioning maneuvers. - Plan: - Continue physical therapy for vestibular rehabilitation - Attend scheduled ENT appointment at [facility] for comprehensive evaluation - Monitor response to reduced duloxetine dosage - Encourage use of assistive devices (e.g., wheelchair) as needed to prevent falls and manage symptoms Anxiety and Depression - Assessment: Patient exhibits symptoms of anxiety and depression, including health worries, revisiting old emotional hurts, and experiencing bad dreams. Reports feeling cold frequently and spending extended periods in bed. Tendency to catastrophize about health status. Evidence of low self-esteem and feelings of being a burden to family. - Plan: - Continue monitoring response to reduced duloxetine dosage - Encourage use of cognitive reframing techniques to address catastrophic thinking - Discuss potential benefits of psychotherapy to address anxiety and depressive symptoms - Recommend regular sleep hygiene practices to improve sleep quality and reduce bad dreams - Encourage family involvement in supportive care and validation of the patient's concerns Plan Of Treatment Next Appt Details Provider Name:Janene gibson, 09/22/2024 02:30:00 PM, [address], [place], [address], Provider Name:Joaquina Eisenberg, 09/22/2024 03:00:00 PM, [address], [address], [place], [address], Provider Name:Joaquina Eisenberg, 10/20/2024 03:00:00 PM, [address], [place], [address], Insurance Providers Payer Name Payer Address Payer Phone Subscriber Number Group Number Insured Name Patient Relationship to Insured Coverage Start Date Coverage End Date Medicare-I l Medicare [address] [place] [address] [id number] LISA WILLS Self - patient is the insured [facility] Medicare Supplement [address] [facility] [place] [address] [id number] LISA WILLS Self - patient is the insured Medical (General) History Medical History History ICD Code Problems: Generalized anxiety disorder Iron deficiency anemia Mild recurrent major depression Minimal cognitive impairment Moderate recurrent major depression Obesity Primary insomnia Surgical History Surgery Date(Month/Year) Tonsilectomy/adenoids 03/05/1956 Removal of gallbladder (79112) 0 Appendectomy (90156) 03/05/1989 Hysterectomy (97939) 03/05/1990 Cataract surgery (26192) 03/05/2011
--- NOTE | 2024-09-10 11:00 | NEURO_ITS ---
Impression: # Complains of big toe decreased sensation. Hx of stroke in the past. ? # Normal Nerve Conduction Study. # Normal Needle/EMG exam. ? # Clinical correlation recommended. Nerve Conduction Studies ?Stim Site NR Peak (ms) P-T Amp (?V) Site1 Site2 Delta-P (ms) Dist (cm) Curtis (m/s) Left Sup Fibular Anti Sensory (Ant Lat Mall) 14 cm ? 3.1 15.6 14 cm Ant Lat Mall 3.1 16.0 52 Right Sup Fibular Anti Sensory (Ant Lat Mall) 14 cm ? 3.2 5.1 14 cm Ant Lat Mall 3.2 16.0 50 Left Sural Anti Sensory (Lat Mall) Calf ? 3.2 22.3 Calf Lat Mall 3.2 16.0 50 Right Sural Anti Sensory (Lat Mall) Calf ? 3.1 12.2 Calf Lat Mall 3.1 16.0 52 ?Stim Site NR Onset (ms) O-P Amp (mV) Site1 Site2 Delta-0 (ms) Dist (cm) Curtis (m/s) Left Peroneal Motor (Vastus Med) Ankle ? 4.6 2.0 Popit Ankle 8.8 40.0 45 Popit ? 13.4 1.3 Right Peroneal Motor (Vastus Med) Ankle ? 2.5 1.0 Popit Ankle 8.4 41.0 49 Popit ? 10.9 0.7 Left Tibial Motor (Abd Maciel Brev) Ankle ? 4.0 5.6 Knee Ankle 8.3 42.0 51 Knee ? 12.3 2.9 Right Tibial Motor (Abd Maciel Brev) Ankle ? 3.2 7.5 Knee Ankle 8.2 40.0 49 Knee ? 11.4 6.2 Electromyography ?Side Muscle Nerve Root Ins Act Fibs Amp Dur Recrt Comment Right AntTibialis Dp Br Fibular L4-5 Nml Nml Nml Nml Nml Right Gastroc Tibial S1-2 Nml Nml Nml Nml Nml Right Fibularis Long Sup Br Fibular L5-S1 Nml Nml Nml Nml Nml Right Flex Dig Long Tibial L5-S2 Nml Nml Nml Nml Nml Right Ext Dig Brev Dp Br Fibular L5, S1 Nml Nml Nml Nml Nml Right QuadratusFem QuadFemoris L4-5, S1 Nml Nml Nml Nml Nml Left AntTibialis Dp Br Fibular L4-5 Nml Nml Nml Nml Nml Left Gastroc Tibial S1-2 Nml Nml Nml Nml Nml Left Fibularis Long Sup Br Fibular L5-S1 Nml Nml Nml Nml Nml Left Flex Dig Long Tibial L5-S2 Nml Nml Nml Nml Nml Left Ext Dig Brev Dp Br Fibular L5, S1 Nml Nml Nml Nml Nml Left QuadratusFem QuadFemoris L4-5, S1 Nml Nml Nml Nml Nml
[2024-09-10 11:18] LABS: Alanine Aminotransferase 21 U/L (6-35); Albumin Level 4.0 g/dL (3.5-5.1); Alkaline Phosphatase 77 U/L (38-126); Anion Gap 8 mmol/L (4-12); Aspartate Amino Transferase 29 U/L (14-36); Bilirubin,Total 0.7 mg/dL (0.2-1.3); Blood Urea Nitrogen 23 mg/dL (7-17); Calcium 9.6 mg/dL (8.4-10.2); Carbon Dioxide 22 mmol/L (22-30); Chloride 109 mmol/L (98-107); Cholesterol 174 mg/dL (0-200); Estimated Glomerular Filt Rate 54; Glucose 116 mg/dL (65-110); HDL Direct 71 mg/dL; Potassium 3.7 mmol/L (3.4-5.0); Sodium 139 mmol/L (137-145); Total Protein 7.1 g/dL (6.3-8.2); Triglycerides 92 mg/dL (<150)
[2024-09-10 12:41] LABS: Thyroid Stimulating Hormone Reflex 1.490 uIU/mL (0.465-4.68)
[2024-09-10 16:23] LABS: Hemoglobin A1C 6.5 % (<5.7)
== END 2024-09-10 09:53 | disposition home or self-care (01) ==
PROVIDERS: PCP Family Medicine; Visit Provider Family Medicine
DX: E78.5 Hyperlipidemia, unspecified (principal); R73.03 Prediabetes; I10 Essential (primary) hypertension; E55.9 Vitamin D deficiency, unspecified; R20.0 Anesthesia of skin
CPT/HCPCS: 36415; 80053; 80061; 82306; 83036; 84443; 95886; 95910; 95911

== ENCOUNTER 2024-09-18 13:29 | Outpatient (CLI) | payer MEDICARE, SELFPAY ==
--- NOTE | ~2024-09-18 | US_ITS ---
US soft tissue LE LT 09/18/2024 13:39 Indication: Localized swelling. Soft tissue mass. Procedure: High-resolution Limited ultrasound of the mid lateral thigh in the area of palpable concer n Comparison: No prior studies for comparison. Findings: In the area of palpable concern there is an oval subdermal mass with parallel orientation, circumscribed margins, horizontal internal striations, slightly hyperechoic without internal vascular ity measuring 2.3 x 2 x 0.9 cm, compatible with benign lipoma. Impression: 1: Benign-appearing mass in the area of palpable concern measuring up to 2.3 cm, with sonographic anastasia racteristics compatible with lipoma. Recommend follow-up ultrasound as clinically warranted. Reviewed, dictated and finalized at location A. Impression: 1: Benign-appearing mass in the area of palpable concern measuring up to 2.3 cm , with sonographic characteristics compatible with lipoma. Recommend follow-up ultrasound as clinically warranted.
== END 2024-09-18 13:30 | disposition home or self-care (01) ==
LOC: GOSHIMG 13:30
PROVIDERS: PCP Family Medicine; Visit Provider Family Medicine
DX: R22.42 Localized swelling, mass and lump, left lower limb (principal)
CPT/HCPCS: 76882

== ENCOUNTER 2025-01-26 10:25 | Outpatient (CLI) | payer MEDICARE, SELFPAY ==
[2025-01-26 11:00] LABS: Hematocrit 39.0 % (37.0-47.0); Hemoglobin 12.6 g/dL (12.0-15.0); Immature Granulocyte Percent A 0.2 % (0-0.5); Lymphocytes Absolute Auto 1.34 K/mm3 (0.9-3.2); Mean Corpuscular HGB Conc 32.3 g/dl (32-36); Mean Corpuscular Hemoglobin 30.8 pg (26-34); Mean Corpuscular Volume 95.4 fl (80-100); Nucleated Red Blood Cells Absolute Auto 0.000 K/mm3 (0.0-0.012); Nucleated Red Blood Cells Perc 0.0 % (0.0-0.2); Platelet Count Result 251 k/mm3 (150-375); Red Blood Count 4.09 M/mm3 (4.2-5.4); White Blood Count 5.8 K/mm3 (4.5-10.0)
[2025-01-26 11:36] LABS: Alanine Aminotransferase 17 U/L (6-35); Albumin Level 3.9 g/dL (3.5-5.1); Alkaline Phosphatase 94 U/L (38-126); Anion Gap 6 mmol/L (4-12); Aspartate Amino Transferase 27 U/L (14-36); Bilirubin,Total 0.9 mg/dL (0.2-1.3); Blood Urea Nitrogen 19 mg/dL (7-17); Calcium 9.7 mg/dL (8.4-10.2); Carbon Dioxide 27 mmol/L (22-30); Chloride 103 mmol/L (98-107); Estimated Glomerular Filt Rate 44; Glucose 114 mg/dL (65-110); Iron 101 ug/dL (37-170); Potassium 4.1 mmol/L (3.4-5.0); Sodium 136 mmol/L (137-145); Total Protein 7.1 g/dL (6.3-8.2)
[2025-01-26 11:45] LABS: Percent Iron Saturation 36 % (20-50)
[2025-01-26 12:17] LABS: Ferritin 21.90 ng/mL (11.1-264)
[2025-01-26 12:24] LABS: Vitamin B12 513.0 pg/mL (239-931)
[2025-01-26 15:19] LABS: Hemoglobin A1C 6.6 % (<5.7)
== END 2025-01-26 10:26 | disposition home or self-care (01) ==
PROVIDERS: PCP Family Medicine; Visit Provider Internal Medicine Hematology & Oncology
DX: R73.03 Prediabetes (principal); I10 Essential (primary) hypertension; D64.9 Anemia, unspecified
CPT/HCPCS: 36415; 80053; 82607; 82728; 83036; 83540; 83550; 85025

== ENCOUNTER 2025-02-04 08:29 | Emergency (ER) | payer MEDICARE, SELFPAY ==
--- NOTE | ~2025-02-04 | CT_ITS ---
EXAMINATION: CT brain wo con DATE: 02/04/2025 10:19 INDICATION: Paresthesias. TECHNIQUE: Computed tomography (CT) of the head was performed without intravenous contrast. The mA was adjusted according to patient size. Iterative reconstruction technique was employed. The dose-length product was 605.33 mGy-cm. COMPARISON: Head CT 12/11/2018 FINDINGS: There is an old infarct in the right frontal and parietal lobes. There are scattered areas of low attenuation in the cerebral white matter, which is within normal limits for the patient's age. There is no intracranial hemorrhage, acute infarction, or abnormal intracranial mass lesion. The ve ntricles are normal in size. There is mild mucosal thickening in the paranasal sinuses. There are likely changes of ocular lens replacement surgeries. The mastoid air cells are normal. IMPRESSION: 1. Old infarct in the right frontal and parietal lobes. Reviewed, dictated and finalized at location E. OVEMENT NURSE
[2025-02-04 08:45] VITALS: BP 162/83; PULSE 82; RESP 16; TEMP 36.8; O2SAT 100
--- OUTSIDE RECORDS SUMMARY | 2025-02-04 08:54 | XMS_ITS | Clinical Summary ---
Author Organization [facility] Address [address] [place] [address] Care Team Providers Care Keypunch Operators Supervisor Name Role Phone Richie Grey MD Primary Care Provider Adam Charles MD Unavailable [phone] Allergies Active Allergy Reactions Criticality Noted Date Comments Latex, Natural Rubber Rash Medium 06/27/2021 Onion Nausea And Vomiting,Fatigue Low 06/27/2021 Shellfish Containing Products Nausea only Low 07/10/2023 Shrimp Nausea & Vomiting Low 10/29/2024 Medications atorvastatin (LIPITOR) 20 mg tabletIndicatio ns:hyperlipidem ia Take 1 tablet (20 mg total) by mouth nightly 04/08/2017 Active traZODone (DESYREL) 50 mg tabletIndicatio ns:depression Take 1 tablet (50 mg total) by mouth nightly 03/28/2017 Active ALPRAZolam (XANAX) 0.5 mg tabletIndicatio ns:anxiety Take 1 tablet (0.5 mg total) by mouth nightly Active amLODIPine (NORVASC) 5 mg tabletIndicatio ns:hypertension Take 1 tablet (5 mg total) by mouth every morning Active DULoxetine DR (CYMBALTA) 30 mg capsuleIndicati ons:Anxiety with Depression Take 1 capsule (30 mg total) by mouth daily after lunch Active lisinopriL (PRINIVIL,ZESTR IL) 20 mg tabletIndicatio ns:hypertension Take 1 tablet (20 mg total) by mouth every morning 10/26/[address] (PROTONIX) 20 mg EC tabletIndicatio ns:Treatment of Non-Bleeding Gastric Disorder Take 1 tablet (20 mg total) by mouth every morning 09/22/2024 Active loratadine 10 mg capsuleIndicati ons:Allergic Rhinitis Take 10 mg by mouth every morning Active acetaminophen (TYLENOL) 500 mg tablet Take 1 tablet (500 mg total) by mouth every 6 (six) hours as needed for pain Active oxyCODONE (ROXICODONE) 5 mg immediate release tabletIndicatio ns:Pain Take 1 tablet (5 mg total) by mouth every 4 (four) hours as needed for pain 10 tablet 11/24/2024 Active Xarelto 10 mg tabletIndicatio ns:CVA Take 1 tablet (10 mg total) by mouth 11/27/2024 Active Active Problems Problem Noted Date Diagnosed Date Parotid adenoma 11/07/2024 Visit for wound check 09/04/2019 Status post placement of implantable loop record er 04/18/2017 Overview (04/25/2017): [employer] Linq Loop Recorder, Dx: Syncope. DOI 03/16/2017 in [place]. [employer] remote monitoring. Encounters Date Type Department Care Team Description 11/28/2024 10:20 AM CDT Office Visit [facility] Medicine Otolaryngology Head-Neck Division [address] [place] [phone] Wilton Glez MD Pleomorphic adenoma of parotid gland (Primary Dx) 11/28/2024 Orders Only [facility] Medicine Otolaryngology Head-Neck Division [address] [place] [phone] Wilton Glez MD 11/28/2024 Orders Only [facility] Medicine Pathology Outreach [address] [place] [address] Wilton Glez MD Pleomorphic adenoma of parotid gland 11/24/2024 10:36 AM CDT Anesthesia Event [facility] Operating Room [address] [place] [address] Laron Spence MD Dulle, Alison Renee, NP 11/24/2024 10:30 AM CDT - 11/24/2024 1:50 PM CDT Surgery [facility] Operating Room [address] [place] [address] Wilton Glez MD PAROTIDECTOMY. 11/24/2024 8:14 AM CDT - 11/24/2024 5:10 PM CDT Hospital Encounter [facility] Operating Room [address] [place] [address] Wilton Glez MD Parotid adenoma Discharge Disposition: Discharge to home or self care 11/10/2024 8:09 AM CDT - 11/10/2024 11:59 PM CDT Hospital Encounter [facility] [address] [place] [address] Discharge Disposition: Discharge to home or self care 11/07/2024 1:40 PM CDT Office Visit [facility] Medicine Otolaryngology Head-Neck Division [address] [place] [address] Floor [address] [place] [address] Wilton Glez MD Pleomorphic adenoma of parotid gland (Primary Dx) 11/07/2024 11:52 AM CDT - 11/07/2024 11:59 PM CDT Hospital Encounter [facility] Rad[facility] [address] [place] [address] Pleomorphic adenoma of parotid gland Discharge Disposition: Discharge to home or self care from Last 3 Months Surgical History Surgery Date Site/Laterality Comments TONSILLECTOMY CHOLECYSTECTOMY APPENDECTOMY HYSTERECTOMY with oophorectomy CATARACT EXTRACTION EYE SURGERY Left tumor removed from retina - benign COLONOSCOPY several PAROTIDECTOMY 11/24/2024 Neck/Right Procedure: PAROTIDECTOMY.; Surgeon: Wilton Glez MD; Location: [facility] OR POD 5; Service: Otolaryngology; Laterality: Right; Medical History Medical History Date Comments Hypertension Stroke (HCC) 2018 Pulmonary embolism 04/19/2019 HLD (hyperlipidemia) GERD (gastroesophageal reflux disease) Hiatal hernia Family History Medical History Relation Name Comments Coronary aneurysm Father Hypertension Father Dementia Mother Anesthesia problems Neg Hx Relation Name Status Comments Father (Age 56) Mother (Age 72) Social History Tobacco Use Types Packs/Day Years Used Date Smoking Tobacco: Never Smokeless Tobacco: Never Alcohol Use Standard Drinks/Week Comments Not Currently 0 (1 standard drink = 0.6 oz pur e alcohol) Rarely AUDIT-C Answer Date Recorded Q1: How often do you have a drink containing alcohol? Never 11/18/2024 Q2: How many drinks containi ng alcohol do you have on a typical day when you are drinking? Patient does not drink Q3: How often do you have si x or more drinks on one occasion? Never 11/18/2024 Personal Safety Answer Date Recorded Have you ever been in or are you currently in a harmful physical or emotional relationship or is someone making you feel afraid or unsafe? 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 Gender Identity Not on file Sexual Orientation Not on file Last Filed Vital Signs Vital Sign Reading Time Taken Comments Blood Pressure 111/76 11/24/2024 4:20 PM CDT Pulse 90 11/24/2024 4:20 PM CDT Temperature 36 C (96.8 F) 11/24/2024 1:31 PM CDT Respiratory Rate 27 11/24/2024 4:20 PM CDT Oxygen Saturation 94% 11/24/2024 4:20 PM CDT Inhaled Oxygen Concentration - - Weight 73.9 kg (163 lb) 11/28/2024 10:33 AM CDT Height 157.5 cm (5' 2) 11/18/2024 3:22 PM CDT Body Mass Index 29.81 11/18/2024 3:22 PM CDT Plan of Treatment Health Maintenance Due Date Last Done Comments Depression Screening 1940 Osteoporosis Screening-Bone Density Scan 1940 Hepatitis B Screening 09/09/1958 Well Visit 65+ 2006 DTaP/Tdap/Td Vaccine (4 - Td or Tdap) 09/13/2024 09/13/2014, 09/13/2014, 09/02/2013 Influenza Vaccine (#1) 2024 12/20/2022 Fall Risk Assessment 11/24/2025 11/24/2024 Pneumococcal vaccine 65+ Completed 019, 03/05/2010, 01/09/2007 Zoster Vaccine Completed 08/24/2022, 06/03, 03/05/2010, Additional history exists Medical Devices Explanted Type Area Washroom Attendant Device Identifier Shelf Expiration Date Model / Serial / Lot Implantable Loop Recorder- [id number] Implanted:03/16 (Quantity not on file) Implantable Loop Recorder Chest [employer] Syncope, s/p CVA REVEAL LINQ [id number] / [id number] / Procedures Procedure Name Priority Date/Time Associated Diagnosis Comments CYTOLOGY Routine 11/28/2024 4:11 PM CDT POC BLOOD GAS AND CHEMISTRIES, VENOUS Routine 11/24/2024 3:17 PM CDT SURGICAL PATHOLOGY Routine 11/24/2024 12 :48 PM CDT Parotid adenoma [place] AN PROCEDURE PLACEHOLDER Routine 11/24/2024 11:31 AM CDT [place] AN PROCEDURE PLACEHOLDER Routine 11/24/2024 10:59 AM CDT [place] AN ELECTIVE ENDOTRACHEAL AIRWAY Routine 11/24/2024 10:59 AM CDT PAROTIDECTOMY. 11/24/2024 10:38 AM CDT Parotid adenoma Case Notes 11/21@0846: Per Jonathan via phone call, case moved to third case in OR 222 from OR 219. [id number]- Christiano Townsend via case msg move to [facility] for rescheduling- [facility] Special Needs [facility] US TRANSFER OF OUTSIDE FILMS Routine 11/10/2024 8:[address] SOFT TISSUE NECK W CONTRAST Schedule Routine, Read Routine (OP Routine) 11/07/2024 12:55 PM CDT Pleomorphic adenoma of parotid gland POCT CREATININE - DEVICE Routine 11/07/2024 12:39 PM CDT from Last 3 Months Results * Cytology (11/28/2024 4:11 PM CDT) Miscellaneous 11/28/2024 4:1 1 PM CDT 11/28/2024 4:11 PM CDT Narrative 12/03/2024 4:26 PM CDT Results in EPIC best viewed via PDF link [facility] Pathology Consult [place] [address] Note to Patients: This report may contain a detailed description of human tissue sent by a health care provider to the laboratory for pathologic evaluation. The content of this report is essential for diagnosis and may provide important critical findings. This information may be unfamiliar to patients to review without a medical professional present. It is advised that the patient review this report in the presence of a health care provider who can answer questions and explain the details. CYTOPATHOLOGY REPORT * Consult Report * FINAL Patient Name: LISA GAR Address: [address] [place] [address] Gender: F : 1940 (Age: 84) Hospital #: [id number] Patient Type: [facility] Location: UNKNOWN Taken: 11/28/2024 Received: 11/28/2024 Accessioned: 12/01/2024 Reported: 12/03/2024 Physician(s): Wilton Glez M.D. [facility] Department of Pathology [address] [place], [place] [id number] P: [phone] F: [phone] Final Diagnosis Consult material received from [place], [place].(OSC: AC25-1; 03/06/2024): Parotid gland, right, fine-needle aspiration - Biphasic neoplasm consistent with pleomorphic adenoma Comments Received for review are a Pap stained direct smears and a cell block. Pap stained slides show a sparse population of epithelial cells, along with cyanophilic matrix. 12/01/2024 13:19 By this signature, I attest that the above diagnosis is based upon my personal examination of the slides(and/or other material indicated in the diagnosis). Report Electronically Reviewed and Signed Out By Carley Jessica M.D. 12/03/2024 16:26:38 Material Received Received for review are two slides labeled AC25-1, accompanied by a corresponding pathology report. The material originates from [place]. Selected slide(s) may be digitally scanned for our files, and all materials are returned to the referring institution, along with a copy of our final report. Gross Description A. Right parotid, FNA (OSC: AC25-1; 03/06/2024): 1 H&E slide and 1 smear. Clinical Diagnosis and History The patient is an 84-year-old woman with a mass in the right parotid gland. Any testing required for diagnostic purposes was performed in the Department of Pathology and Immunology at [facility], [address] [place] [address] CLIA # [id number] The performance characteristics of the testing cited in this report (if any) were determined by the [facility] Department of Pathology and Immunology [facility], as part of an ongoing rn clinical quality program and in compliance with federally mandated regulations drawn from the Clinical Laboratory Improvement Act of 1988 (CLIA '88). Some of these tests rely on the use of analyte specific reagents (ASR) and are subject to specific labeling requirements by the US Food and Drug Administration. Such diagnostic tests may only be performed in a facility that is certified by the Department of Health and Human Services as a high complexity laboratory under CLIA '88. The FDA has determined that such clearance or approval is not necessary. ASRs should not be regarded as investigational or for research. ASRs were developed and the performance characteristics determined by the [facility], [facility] Department of Pathology and Immunology. It has not been cleared or approved by the U.S. Food and Drug Administration. Any test designated as LDT was developed and its performance characteristics determined by [facility]. It has not been cleared or approved by the FDA. This test is used for clinical purposes and should not be regarded as investigational or for research. Report images and/or scanned reports, if included, only viewable in PDF version of report. us Wilton Glez MD LAB CYTOLOGY ORDERABLES F inal Result * (ABNORMAL) POC Blood Gas and Chemistries, Venous - (11/24/2024 3:17 PM CDT) pH, Nhi POC 7.27(L) 7.32 - 7.43 pCO2, nhi POC 54(H) 40 - 50 mmHg [facility] pO2, nhi POC 52 mmHg [facility] Na, POC 140 135 - 145 mmol/L [facility] K POC 3.7 3.3 - 4.9 mmol/L [facility] Comment: Interpretive Data Not all point of care methods assess for hemolysis. Confirm with instrument and retest K+ if not consistent with clinical signs and symptoms. Current Interpretive Data was last revised on 2023. Cl, POC 108 97 - 110 mmol/L [facility] Ionized Ca, POC 5.45(H) 4.50 - 5.10 mg/dL [facility] Glucose, POC 177 70 - 199 mg/dL [facility] Lactate POC 2.0 0.7 - 2.0 mmol/L [facility] O2 Sat, Nhi POC ([place]) 84 % [facility] HCO3, Nhi POC 25 20 - 30 mmol/L [facility] Hct, POC 39.0 36.3 - 45.3 % [facility] Total Hb, POC 12.9 11.9 - 15.5 g/dL [facility] Blood 11/24/2024 3:17 PM CDT 11/24/2024 3:17 PM CDT us Wilton Glez MD LAB POCT ORDERABLES - DEV ICE Final Result [facility] Department [place] [address] * Surgical pathology (11/24/2024 12:48 PM CDT) Tissue (Soft tissue biopsy) 11/24/2024 12:48 PM CDT Narrative PATHOLOGY [facility] - 11/27/2024 11:53 AM CDT EPIC results best viewed via link to PDF [facility] of [place] [address] Note to Patients: This report may contain a detailed description of human tissue sent by a health care provider to the laboratory for pathologic evaluation. The content of this report is essential for diagnosis and may provide important critical findings. This information may be unfamiliar to patients to review without a medical professional present. It is advised that the patient review this report in the presence of a health care provider who can answer questions and explain the details. SURGICAL PATHOLOGY REPORT FINAL Patient Name: LISA GAR Gender: F : 1940 (Age: 84) Address: [address] [place] [address] Hospital #: [id number] Taken:11/24/2024 Received:11/24/2024 Reported: 11/27/2024 Patient Type: [facility] Service: Surgery Location: [facility] OR POD 5 Physician(s): Karli Delgado MD Diagnosis: Parotid, left, excision: - Pleomorphic adenoma, 1.8 cm leanne/11/27/2024 11:05 By this signature, I attest that the above diagnosis is based upon my personal examination of the slides(and/or other material indicated in the diagnosis). Lavonne Terrazas MD, PhD Report Electronically Reviewed and Signed Out By Lavonne Terrazas MD, PhD 11/27/2024 11:53:20 Roselia Barnard M.D. History: The patient is an 84-year-old with biopsy-proven right pleomorphic adenoma (diagnosed in outside hospital in March of 2024). Specimen(s) Received: A: Left parotid mass Gross Description: Received in formalin labeled with the patient's identifiers and left parotid mass contains a 2.0 x 1.5 x 1.5 cm fragment of salivary gland with a white malhotra firm well-circumscribed nodule. In the same container is a unoriented fragment of salivary gland measuring 1.5 x 1.0 x 0.3 cm. The lesion measures 1.8 x 1.2 x 1.1 cm. There is no orientation. The specimen is inked black. Sectioned to show homogeneous white firm surface. With no other lesions identified. No lymph nodes are found. Labeled A1-A2-mass with adjacent gland and inked surface.A3-additional unoriented benign salivary gland. Jar 0. leanne/11/25/2024 13:32 Gross Resident:Roselia Barnard M.D. PA(s): Roselia Barnard M.D. By this signature, I attest that the above diagnosis is based upon my personal examination of the slides(and/or other material). Addenda/Procedures The performance characteristics of some immunohistochemical stains, fluorescence in-situ hybridization tests and immunophenotyping by flow cytometry cited in this report (if any) were determined by the Surgical Pathology and Flow Cytometry Departments at [facility] as part of an ongoing rn clinical quality program and in compliance with federally mandated regulations drawn from the Clinical Laboratory Improvement Act of 1988 (CLIA '88). Some of these tests rely on the use of analyte specific reagents and are subject to specific labeling requirements by the US Food and Drug Administration. Such diagnostic tests may only be performed in a facility that is certified by the Department of Health and Human Services as a high complexity laboratory under CLIA '88. The FDA has determined that such clearance or approval is not necessary. This test is used for clinical purposes. It should not be regarded as investigational or for research. Nevertheless, federal rules concerning the medical use of analyte specific reagents require that the following disclaimer be attached to the report: This test was developed and its performance characteristics determined by the Surgical Pathology and Flow Cytometry Departments of [facility]. It has not been cleared or approved by the U. S. Food and Drug Administration. IMAGES AND SCANNED DOCUMENTS, IF INCLUDED, ONLY VIEWABLE IN PDF VERSION OF REPORT Wilton Glez MD LAB PATHOLOGY ORDERABLES Final Result PATHOLOGY [facility] 3rd Floor [place], [place] [phone] * [place] AN PROCEDURE PLACEHOLDER (11/24/2024 11:31 AM CDT) Dunia Rodriguez CRNA - 11/24/2024 11:31 AM CDT Dunia Solorzano CRNA 11/24/2024 11:32 AM Peripheral IV Catheter Patient location: OR Staff: Placed by: DRILL SHARPENER OPERATOR: Dunia Solorzano CRNA Preprocedure prep: Prep solution: alcohol PPE: gloves Skin infiltrated with lidocaine 1%: yes PIV line: Laterality: left Site: hand Catheter size: 18 g Technique: anatomical landmarks, direct visualization and palpatation Procedure details: good blood return and occlusive dressing applied Number of attempts: 1 Assessment: Events: patient tolerated procedure well with no complications Additional comments: Atraumatic insertion. us Laron Spence MD ANESTHESIA ORDERABLES Final Result * [place] AN ELECTIVE ENDOTRACHEAL AIRWAY, [place] AN PROCEDURE PLACEHOLDER (11/24/2024 10:59 AM CDT) Narrative Ethan Turner CRNA - 11/24/2024 10:59 AM CDT Ethan Turner CRNA 11/24/2024 10:59 AM Airway Patient location: OR Urgency: elective Indications for airway management: anesthesia and airway protection Difficult airway: no Staff: Placed by: DRILL SHARPENER OPERATOR: Ethan Turner CRNA Emergent airway documentation: Risks and benefits discussed: yes Consent obtained: yes Consent given by: patient Airway prep: Preoxygenated: yes Patient position: sniffing Mask difficulty assessment: 1 - vent by mask Spontaneous ventilation during airway: absent Sedation level during airway: GA Final airway details: Final airway type: endotracheal airway Tube type: ETT ETT size: 7.0 mm Cuffed: yes Technique used for successful ETT placement: video laryngoscopy Devices/Methods used in placement: intubating stylet Insertion site: oral Blade type: Marco Antonio Video blade type: Fernandes Blade size: 3 Cormack-Lehane (video): grade IIa - partial view of glottis Cuff volume: 8 mL Cuff inflated with: air Placement verified by: auscultation and CO2 detection Airway secured with: silk tape Number of attempts: 1 Additional comments: Dentition as in pre-op us Laron Spence MD ANESTHESIA ORDERABLES Final Result * US Outside Reference (11/10/2024 8:09 AM CDT) Impressions RAD_PACS_[facility] - 11/10/2024 8:09 AM CDT These images are for Reference purposes only and have not been reviewed by [facility] Radiology. There will be no report generated by a [facility] Radiologist. Narrative RAD_PACS_[facility] - 11/10/2024 8:09 AM CDT EXAMINATION: Images For Reference Purposes Only us Wilton Glez MD IMG US PROCEDURES Final R esult [facility]_PACS_[facility] * CT Neck Soft Tissue W Contrast (11/07/2024 12:55 PM CDT) Anatomical Region Laterality Modality Head and Neck N/A Computed Tomogra phy 11/07/2024 3:36 PM CDT Impressions 11/07/2024 5:12 PM CDT 1. Right superficial parotid gland mass with benign features. No neck lymphadenopathy. This most likely represents a benign parotid gland neoplasm. Malignant parotid gland neoplasm cannot be completely excluded by imaging. This can be further assessed with ultrasound of the right parotid and fine-needle aspiration, if clinically indicated. 2. Limited examination of the superior thorax shows a partially visualized large hiatal hernia. Completion CT chest with contrast can be recommended, if clinically indicated for better assessment. Dictated by: Jaden Montague MD The radiology attending physician has personally reviewed this study, and had reviewed and/or edited this written report and agrees with it. Electronically signed by: Nathan Kincaid MD Narrative 11/07/2024 5:12 PM CDT EXAMINATION: CT of the neck with contrast HISTORY: Right parotid gland pleomorphic adenoma. TECHNIQUE: CT of the neck was performed according to the standard protocol with intravenous contrast. Contrast information: 67 mL Optiray-350 IV COMPARISON: None Available. FINDINGS: There is a right superficial parotid gland well-circumscribed isodense oval lesion measuring 1.8 x 1.2 cm in maximum transaxial dimension seen on image 26 of sequence 2. The right parotid gland lesion is abutting the retromandibular vessels. No evidence of invasion of the retromandibular vessels. Normal left parotid gland. Scattered subcentimeter lymph nodes are seen in the neck. None are pathologically enlarged or abnormally enhancing. The muscles of the neck are normal. Right proximal cervical internal carotid artery atherosclerosis with narrowing. Fascial planes are preserved and the deep spaces of the neck are normal. The visualized airway is widely patent. The base of the skull and the temporal bones are normal. Limited views of the brain including the cerebellum and brainstem are normal. The limited view of the [place] is unremarkable. The visualized portions of the orbits are normal. Multilevel degenerative spondylosis. Limited examination of the superior thorax shows no pulmonary infiltrate, suspicious nodules, or pleural effusions. Partially visualized enlarged hiatal hernia. Procedure Note Nathan Kincaid MD PhD - 11/07/2024 EXAMINATION: CT of the neck with contrast HISTORY: Right parotid gland pleomorphic adenoma. TECHNIQUE: CT of the neck was performed according to the standard protocol with intravenous contrast. Contrast information: 67 mL Optiray-350 IV COMPARISON: None Available. FINDINGS: There is a right superficial parotid gland well-circumscribed isodense oval lesion measuring 1.8 x 1.2 cm in maximum transaxial dimension seen on image 26 of sequence 2. The right parotid gland lesion is abutting the retromandibular vessels. No evidence of invasion of the retromandibular vessels. Normal left parotid gland. Scattered subcentimeter lymph nodes are seen in the neck. None are pathologically enlarged or abnormally enhancing. The muscles of the neck are normal. Right proximal cervical internal carotid artery atherosclerosis with narrowing. Fascial planes are preserved and the deep spaces of the neck are normal. The visualized airway is widely patent. The base of the skull and the temporal bones are normal. Limited views of the brain including the cerebellum and brainstem are normal. The limited view of the [place] is unremarkable. The visualized portions of the orbits are normal. Multilevel degenerative spondylosis. Limited examination of the superior thorax shows no pulmonary infiltrate, suspicious nodules, or pleural effusions. Partially visualized enlarged hiatal hernia. IMPRESSION: 1. Right superficial parotid gland mass with benign features. No neck lymphadenopathy. This most likely represents a benign parotid gland neoplasm. Malignant parotid gland neoplasm cannot be completely excluded by imaging. This can be further assessed with ultrasound of the right parotid and fine-needle aspiration, if clinically indicated. 2. Limited examination of the superior thorax shows a partially visualized large hiatal hernia. Completion CT chest with contrast can be recommended, if clinically indicated for better assessment. Dictated by: Jaden Montague MD The radiology attending physician has personally reviewed this study, and had reviewed and/or edited this written report and agrees with it. Electronically signed by: Nathan Kincaid MD us Wilton Glez MD IMG CT PROCEDURES Final R esult * POCT creatinine (11/07/2024 12:39 PM CDT) Creatinine POC 1.0 0.6 - 1.1 mg/dL Blood 11/07/2024 12:3 9 PM CDT 11/07/2024 12:39 PM CDT us Wilton Glez MD LAB POCT ORDERABLES - DEV ICE Final Result [facility] [place] [address] from Last 3 Months Insurance [facility] MEDICARE MEDICARE [facility] MEDICARE [employer] Advance Directives For more information, please contact: [phone] Documents on File Type Date Recorded Patient Debt Counselor Expl anation ADVANCE DIRECTIVE 11/24/2024 10:03 AM Veronica r of [employer] Supervisor-Medical ADVANCE DIRECTIVE 11/24/2024 10:02 AM Elzbieta hunt Will Care Teams Keypunch Operators Supervisor Relationship Specialty Start Date End Date Richie Grey MD PCP - General Family Practice 04/18/17 Adam Charles MD [address] [address] Referring Physician Hematology 11/10/24
--- OUTSIDE RECORDS SUMMARY | 2025-02-04 08:54 | XMS_ITS | Clinical Summary ---
Author Organization [facility] Address [address] [place] [address] Care Team Providers Care Shell Machine Operator Name Role Phone Richie Grey MD Primary [...] 5 mg by mouth daily. 04/28/2021 Active DULoxetine (CYMBALTA) 30 mg Capsule, Delayed Release(E.C.) Take 1 Capsule by mouth daily. 04/16/2024 Active Xarelto 10 mg TabletIndicatio ns:Other acute pulmonary embolism without acute cor pulmonale (CMS/HCC) TAKE 1 TABLET(10 MG) BY MOUTH DAILY WITH SUPPER 90 Tablet 3 10/15/2024 Active Active Problems Problem Noted Date Diagnosed Date Iron deficiency anemia 12/05/2017 Encounters Date Type Department Care Team Description 01/27/2025 Orders Only [facility] On[facility] H[facility]ology - [place] [address] [place] [address] Adam Charles MD 12/31/2024 External Device Data STL ABSTRACTION Provider, Abstract 12/30/2024 External Device Data STL ABSTRACTION Provider, Abstract 12/23/2024 External Device Data STL ABSTRACTION Provider, Abstract [...] Comments Blood Pressure 98/69 05/05/2024 1:18 PM EDGE BEADER Pulse 82 05/05/2024 1:18 PM EDGE BEADER Temperature 36.4 C (97.5 F) 05/05/2024 1:18 PM EDGE BEADER Respiratory Rate 15 05/05/2024 1:18 PM EDGE BEADER Oxygen Saturation 95% 05/05/2024 1:18 PM EDGE BEADER Inhaled Oxygen Concentration - - Weight 72 kg (158 lb 12.8 oz) 05/05/2024 1:18 PM EDGE BEADER Height 160 cm (5' 3) 06/27/2021 2:36 PM CDT Body Mass Index 28.13 06/27/2021 2:36 PM CDT Plan of Treatment Upcoming Encounters Date Type Department Care Team (Late st Contact Info) Description 02/05/2025 1:00 PM EDGE BEADER Office Visit [facility] Oncology and Hematology [place] [address] [place] [address] Adam Charles MD [address] [facility] [address] [place] [address] Health Maintenance Due Date Last [...] Flex Sig/CT Colonography Q 5 years Discontinued Procedures Procedure Name Priority Date/Time Associated Diagnosis Comments COMPREHENSIVE METABOLIC PANEL Routine 01/26/2025 11:02 AM EDGE BEADER from Last 3 Months Results * COMPREHENSIVE METABOLIC PANEL (01/26/2025 11:02 AM EDGE BEADER) Blood us Adam Charles MD CHEMISTRY ORDERABLES Final Resu lt from Last 3 Months Insurance MEDICARE PART A AND B [facility] [id number] MEDICARE PART A AND B [facility] [id number] Care Teams Shell Machine Operator Relationship Specialty Start Date End Date Richie Grey MD [address] [place] [address] PCP - General Family Practice 12/05/17
[2025-02-04 10:08] LABS: Hematocrit 37.1 % (37.0-47.0); Hemoglobin 12.2 g/dL (12.0-15.0); Immature Granulocyte Percent A 0.2 % (0-0.5); Lymphocytes Absolute Auto 0.94 K/mm3 (0.9-3.2); Mean Corpuscular HGB Conc 32.9 g/dl (32-36); Mean Corpuscular Hemoglobin 30.8 pg (26-34); Mean Corpuscular Volume 93.7 fl (80-100); Nucleated Red Blood Cells Absolute Auto 0.000 K/mm3 (0.0-0.012); Nucleated Red Blood Cells Perc 0.0 % (0.0-0.2); Platelet Count Result 226 k/mm3 (150-375); Red Blood Count 3.96 M/mm3 (4.2-5.4); White Blood Count 5.8 K/mm3 (4.5-10.0)
--- OUTSIDE RECORDS SUMMARY | 2025-02-04 10:16 | XMS_ITS | Data Portability ---
Author Organization [place] [facility] Address [address] [place] [id number] Care Team Providers Care Environmental Manager Name Role Phone SIMONA NEWMAN Referring Provider INGRID LINARES Neurologist Assessment No assessment recorded. [...] By Organization Details Last Modified Time 02/22/2015 [id number] Patient understands instructions and will seek medical attention if symptoms worsen as directed. [email or web address] Not available 02/22/2015 11:25:23 03/19/2017 [id number] Spoke with the patient and she stated [...] to update her ins. and information. Steven FONDANT COOKER [email or web address] Not available 03/19/2017 15:40:35 Reason for Referral None Reported. Results Created Date Observation Date Name Description Value Unit Range Abnormal Flag Note LastModifiedBy Organization Detail LastModifiedTime 02/16/20 15 02/20/2015 cultu re, aerob ic culture, aerobic and anaerobic w/gram stain SEE NOTE CULTU RE, AEROB IC BACTE LAYTON MICRO NUMBE R: [id number] TEST STATU S: FINAL SPECI MEN SOURC E: LEG, RIGHT SPECI MEN QUALI TY: ADEQU ATE RESUL T: Scant growt h of Mold isola lennox. Pleas e conta ct the labor atory withi n three days if ident ifica tion is seb ed. Not Available [facility] [address], [place], [address], 02/20/2015 13:28:56 03/15/19 18 03/15/2017 activ ated parti al throm bopla stin time, coagu latio n assay , blood therapeutic PTT 38.7 sec 50-79 low Not Available [address], [address], 03/15/2017 17:07:43 03/15/19 18 03/15/2017 activ ated parti al throm bopla stin time, coagu latio n assay , blood performing lab: [facility] [id number] [place] [address] Not Available [address], [address], 03/15/2017 17:07:43 03/15/19 18 03/15/2017 activ ated parti al throm bopla stin time, coagu latio n assay , blood therapeutic PTT > 150 sec 50-79 critical high This resul t has been confi rmed by forrest [place] TO: FPGAJ Manju AT 1115 ON 01/11 /18 BY: FLB:C ML READB ACK: YES Not Available [address], [address], 03/15/2017 11:19:12 03/15/19 18 03/15/2017 activ ated parti al throm bopla stin time, coagu latio n assay , blood performing lab: [facility] [id number] [place] [address] Not Available [address], [address], 03/15/2017 11:19:12 03/15/19 18 03/15/2017 CBC w/ auto diff WBC 8.8 K/mm3 4.0-10 .0 Not Available [address], [address], 03/15/2017 10:30:49 03/15/19 18 03/15/2017 CBC w/ auto diff RBC 4.19 M/mm3 3.50-5 .00 Not Available [address], [address], 03/15/2017 10:30:49 03/15/19 18 03/15/2017 CBC w/ auto diff HGB 11.9 gm/dL 11.0-1 5.0 Not Available [address], [address], 03/15/2017 10:30:49 03/15/19 18 03/15/2017 CBC w/ auto diff hematocrit 37.3 % 33.0-4 5.0 Not Available [address], [address], 03/15/2017 10:30:49 03/15/19 18 03/15/2017 CBC w/ auto diff mean corpuscular volume 89 fL 82-99 Not Available [address], [address], 03/15/2017 10:30:49 03/15/19 18 03/15/2017 CBC w/ auto diff mean corpuscular hemoglobin 28.4 pg 28-32 Not Available [address], [address], 03/15/2017 10:30:49 03/15/19 18 03/15/2017 CBC w/ auto diff mean corpuscular HGB conc 31.9 % 32.0-3 6.0 low Not Available [address], [address], 03/15/2017 10:30:49 03/15/19 18 03/15/2017 CBC w/ auto diff RDW 18.7 % 11.5-1 4.5 high Not Available [address], [address], 03/15/2017 10:30:49 03/15/19 18 03/15/2017 CBC w/ auto diff platelet count 298 K/mm3 150-45 0 Not Available [address], [address], 03/15/2017 10:30:49 03/15/19 18 03/15/2017 CBC w/ auto diff mean platelet volume 10.9 fL 7.4-10 .4 high Not Available [address], [address], 03/15/2017 10:30:49 03/15/19 18 03/15/2017 CBC w/ auto diff neut% 72.3 % 49.0-9 0.0 Not Available [address], [address], 03/15/2017 10:30:49 03/15/19 18 03/15/2017 CBC w/ auto diff lymph% 16.2 % 22.0-4 0.0 low Not Available [address], [address], 03/15/2017 10:30:49 03/15/19 18 03/15/2017 CBC w/ auto diff mono% 10.1 % 0.0-13 .0 Not Available [address], [address], 03/15/2017 10:30:49 03/15/19 18 03/15/2017 CBC w/ auto diff eo% 1.1 % 0.0-7. 0 Not Available [address], [address], 03/15/2017 10:30:49 03/15/19 18 03/15/2017 CBC w/ auto diff baso% 0.2 % 0.0-3. 0 Not Available [address], [address], 03/15/2017 10:30:49 03/15/19 18 03/15/2017 CBC w/ auto diff immature grans % 0.1 % 0.00-3 .00 Not Available [address], [address], 03/15/2017 10:30:49 03/15/19 18 03/15/2017 CBC w/ auto diff neut# 6.36 K/mm3 2.2-9. 9 Not Available [address], [address], 03/15/2017 10:30:49 03/15/19 18 03/15/2017 CBC w/ auto diff lymph# 1.43 K/mm3 0.9-4. 0 Not Available [address], [address], 03/15/2017 10:30:49 03/15/19 18 03/15/2017 CBC w/ auto diff mono# 0.89 K/mm3 0.0-1. 4 Not Available [address], [address], 03/15/2017 10:30:49 03/15/19 18 03/15/2017 CBC w/ auto diff eo# 0.10 K/mm3 0.0-0. 8 Not Available [address], [address], 03/15/2017 10:30:49 03/15/19 18 03/15/2017 CBC w/ auto diff baso# 0.02 K/mm3 0.0-0. 3 Not Available [address], [address], 03/15/2017 10:30:49 03/15/19 18 03/15/2017 CBC w/ auto diff immature grans # 0.01 K/mm3 0.00-0 .30 Not Available [address], [address], 03/15/2017 10:30:49 03/15/19 18 03/15/2017 CBC w/ auto diff performing lab: [facility] [address] [place] [address] Not Available [address], [address], 03/15/2017 10:30:49 01/11/03/15/2017 urina lysis , dipst ick color YELLOW yellow Not Available [address], [address], 03/15/2017 04:33:44 03/15/19 18 03/15/2017 urina lysis , dipst ick clarity urine SLIGHT LY-YONATHAN UDY clear abnormal Not Available [address], [address], 03/15/2017 04:33:44 03/15/19 18 03/15/2017 urina lysis , dipst ick specific gravity,urin e 1.015 1.001- 1.030 Not Available [address], [address], 03/15/2017 04:33:44 03/15/19 18 03/15/2017 urina lysis , dipst ick pH, urine 5.0 5.0-8. 0 Not Available [address], [address], 03/15/2017 04:33:44 03/15/19 18 03/15/2017 urina lysis , dipst ick U protein semi-qnt NEGATI VE mg/dL negati ve Not Available [address], [address], 03/15/2017 04:33:44 03/15/19 18 03/15/2017 urina lysis , dipst ick glucose semi-qnt NEGATI VE mg/dL negati ve Not Available [address], [address], 03/15/2017 04:33:44 03/15/19 18 03/15/2017 urina lysis , dipst ick ketone NEGATI VE mg/dL negati ve Not Available [address] [facility], [place], [address], 03/15/2017 04:33:44 03/15/19 18 03/15/2017 urina lysis , dipst ick bile NEGATI VE negati ve Not Available [address], [place], [address], 03/15/2017 04:33:44 03/15/19 18 03/15/2017 urina lysis , dipst ick blood NEGATI VE negati ve Not Available [address], [place], [address], 03/15/2017 04:33:44 03/15/19 18 03/15/2017 urina lysis , dipst ick urobilinogen urine 0.2 mg/dL negati ve Not Available [address], [address], 03/15/2017 04:33:44 03/15/19 18 03/15/2017 urina lysis , dipst ick nitrites NEGATI VE negati ve Not Available [address], [address], 03/15/2017 04:33:44 03/15/19 18 03/15/2017 urina lysis , dipst ick leukocyte esterase NEGATI VE negati ve Not Available [address], [address], 03/15/2017 04:33:44 03/15/19 18 03/15/2017 urina lysis , dipst ick performing lab: [facility] [id number] [place] [address] Not Available [address], [address], 03/15/2017 04:33:44 03/16/19 18 03/16/2017 activ ated parti al throm bopla stin time, coagu latio n assay , blood therapeutic PTT 65.6 sec 50-79 Not Available [address], [address], 03/16/2017 09:24:22 03/16/19 18 03/16/2017 activ ated parti al throm bopla stin time, coagu latio n assay , blood performing lab: [facility] [address] [place] [address] Not Available [address], [address], 03/16/2017 09:24:22 03/16/19 18 03/16/2017 activ ated parti al throm bopla stin time, coagu latio n assay , blood therapeutic PTT 46.1 sec 50-79 low Not Available [address], [address], 03/16/2017 01:40:00 03/16/19 18 03/16/2017 activ ated parti al throm bopla stin time, coagu latio n assay , blood performing lab: [facility] [address] [place], [place] [id number] Not Available [address], [address], 03/16/2017 01:40:00 03/19/19 18 03/19/2017 tropo palomo I, serum or plasm a poct troponin I 0.01 NG/mL 0.00-0 .08 A seria l sampl ing afsaneh col is recom tanisha d to facil itate the ident ifica tion of tempo ral dutta es in tropo palomo level s mishel cteri stic of [place]. The same metho dolog y/ins trume nt shoul d be used for lalit rison . Not Available [facility] [address] [place], [address], 03/19/2017 09:05:33 03/19/19 18 03/19/2017 tropo palomo I, serum or plasm a performing lab: [facility] [address] [place] [address] Not Available [address], [address], 03/19/2017 09:05:33 03/19/19 18 03/19/2017 PT/IN R therapeutic protime 14.5 sec 15.0-3 0.0 low Not Available [facility] [address] [place] [address], [address], 03/19/2017 09:33:43 03/19/19 18 03/19/2017 PT/IN R [...] nical prost hetic valve s Not Available [facility] [address] [place], [address], 03/19/2017 09:33:43 03/19/19 18 03/19/2017 PT/IN R performing lab: [facility] [id number] [place] [address] Not Available [address], [address], 03/19/2017 09:33:43 03/19/19 18 03/19/2017 tropo palomo [...] 2006 NAC FCC Commi ttee. Not Available [address], [address], 03/19/2017 09:24:40 03/19/19 18 03/19/2017 tropo palomo I, serum or plasm a performing lab: [facility] [id number] [place] [address] Not Available [address], [address], 03/19/2017 09:24:40 03/19/19 18 03/19/2017 CK (crea jacques kinas e), total , serum creatine phosphokinas e 89.0 units /L 26.0-1 92 normal Not Available [address], [address], 03/19/2017 09:24:40 03/19/19 18 03/19/2017 CK (lg pineda), total , serum performing lab: [facility] [id number] [place] [address] Not Available [address], [address], 03/19/2017 09:24:40 03/19/19 18 03/19/2017 CMP, serum or plasm a glucose 99 mg/dL 74-106 Not Available [address], [address], 03/19/2017 09:24:39 03/19/19 18 03/19/2017 CMP, serum or plasm a urea nitrogen 14 mg/dL 7-18 Not Available [address], [address], 03/19/2017 09:24:39 03/19/19 18 03/19/2017 CMP, serum or plasm a creatinine 1.1 mg/dL 0.55-1 .02 high Not Available [address], [address], 03/19/2017 09:24:39 03/19/19 18 03/19/2017 CMP, serum [...] inuri a is prese nt. Not Available [address], [address], 03/19/2017 09:24:39 03/19/19 18 03/19/2017 CMP, serum or plasm a sodium 140 mmol/ L 136-14 5 Not Available [address], [address], 03/19/2017 09:24:39 03/19/19 18 03/19/2017 CMP, serum or plasm a potassium 3.7 mmol/ L 3.0-4. 8 Not Available [address], [address], 03/19/2017 09:24:39 03/19/19 18 03/19/2017 CMP, serum or plasm a chloride 105 mmol/ L 98-107 Not Available [address], [address], 03/19/2017 09:24:39 03/19/19 18 03/19/2017 CMP, serum or plasm a carbon dioxide 27 mmol/ L 21-32 Not Available [address], [address], 03/19/2017 09:24:39 03/19/19 18 03/19/2017 CMP, serum or plasm a anion gap 12 mmol/ L 10-20 Not Available [address], [address], 03/19/2017 09:24:39 03/19/19 18 03/19/2017 CMP, serum or plasm a BUN/creatini ne ratio 13 9.0-25 .0 Not Available [address], [address], 03/19/2017 09:24:39 03/19/19 18 03/19/2017 CMP, serum or plasm a calcium 8.9 mg/dL 8.5-10 .1 Not Available [address], [address], 03/19/2017 09:24:39 03/19/19 18 03/19/2017 CMP, serum or plasm a albumin/glob ulin ratio 0.7 0.8-2. 0 low Not Available [address], [address], 03/19/2017 09:24:39 03/19/19 18 03/19/2017 CMP, serum or plasm a total protein 7.5 g/dL 6.4-8. 2 Not Available [address], [address], 03/19/2017 09:24:39 03/19/19 18 03/19/2017 CMP, serum or plasm a albumin 3.0 g/dL 3.4-5. 0 low Not Available [address], [address], 03/19/2017 09:24:39 03/19/19 18 03/19/2017 CMP, serum or plasm a globulin 4.5 g/dL 2.7-4. 1 high Not Available [address], [address], 03/19/2017 09:24:39 03/19/19 18 03/19/2017 CMP, serum or plasm a aspartate aminotransfe rase 24 units /L 15-37 Not Available [address], [address], 03/19/2017 09:24:39 03/19/19 18 03/19/2017 CMP, serum or plasm a alanine aminotransfe rase 27.0 units /L 12-78 Not Available [address], [address], 03/19/2017 09:24:39 03/19/19 18 03/19/2017 CMP, serum or plasm a alkaline phosphatase 74 units /L 45-117 Not Available [address] [place], [address], 03/19/2017 09:24:39 03/19/19 18 03/19/2017 CMP, serum or plasm a total bilirubin 0.41 mg/dL 0.2-1. 0 Not Available [address], [address], 03/19/2017 09:24:39 03/19/19 18 03/19/2017 CMP, serum or plasm a direct bilirubin 0.10 mg/dL 0.00-0 .20 Not Available [address], [address], 03/19/2017 09:24:39 03/19/19 18 03/19/2017 CMP, serum or plasm a performing lab: [facility] [address] [place] [address] Not Available [address], [address], 03/19/2017 09:24:39 03/19/19 18 03/19/2017 CK (crea jacques kinas e), total , serum creatine phosphokinas e 89.0 units /L 26.0-1 92 normal Not Available [address], [address], 03/19/2017 09:22:39 03/19/19 18 03/19/2017 CK (crea jacques kinas e), total , serum performing lab: [facility] [id number] [place] [address] Not Available [address], [address], 03/19/2017 09:22:39 03/19/19 18 03/19/2017 CMP, serum or plasm a glucose 99 mg/dL 74-106 Not Available [address], [address], 03/19/2017 09:22:38 03/19/19 18 03/19/2017 CMP, serum or plasm a urea nitrogen 14 mg/dL 7-18 Not Available [address], [address], 03/19/2017 09:22:38 03/19/19 18 03/19/2017 CMP, serum or plasm a creatinine 1.1 mg/dL 0.55-1 .02 high Not Available [address], [address], 03/19/2017 09:22:38 03/19/19 18 03/19/2017 CMP, serum [...] inuri a is prese nt. Not Available [address], [address], 03/19/2017 09:22:38 03/19/19 18 03/19/2017 CMP, serum or plasm a sodium 140 mmol/ L 136-14 5 Not Available [address], [address], 03/19/2017 09:22:38 03/19/19 18 03/19/2017 CMP, serum or plasm a potassium 3.7 mmol/ L 3.0-4. 8 Not Available [address], [address], 03/19/2017 09:22:38 03/19/19 18 03/19/2017 CMP, serum or plasm a chloride 105 mmol/ L 98-107 Not Available [address], [address], 03/19/2017 09:22:38 03/19/19 18 03/19/2017 CMP, serum or plasm a carbon dioxide 27 mmol/ L 21-32 Not Available [address], [address], 03/19/2017 09:22:38 03/19/19 18 03/19/2017 CMP, serum or plasm a anion gap 12 mmol/ L 10-20 Not Available [address], [address], 03/19/2017 09:22:38 03/19/19 18 03/19/2017 CMP, serum or plasm a BUN/creatini ne ratio 13 9.0-25 .0 Not Available [address], [address], 03/19/2017 09:22:38 03/19/19 18 03/19/2017 CMP, serum or plasm a calcium 8.9 mg/dL 8.5-10 .1 Not Available [address], [address], 03/19/2017 09:22:38 03/19/19 18 03/19/2017 CMP, serum or plasm a albumin/glob ulin ratio 0.7 0.8-2. 0 low Not Available [address], [address], 03/19/2017 09:22:38 03/19/19 18 03/19/2017 CMP, serum or plasm a total protein 7.5 g/dL 6.4-8. 2 Not Available [address] [place], [address], 03/19/2017 09:22:38 03/19/19 18 03/19/2017 CMP, serum or plasm a albumin 3.0 g/dL 3.4-5. 0 low Not Available [address] [place], [address], 03/19/2017 09:22:38 03/19/19 18 03/19/2017 CMP, serum or plasm a globulin 4.5 g/dL 2.7-4. 1 high Not Available [address] [place], [address], 03/19/2017 09:22:38 03/19/19 18 03/19/2017 CMP, serum or plasm a aspartate aminotransfe rase 24 units /L 15-37 Not Available [address] [place], [address], 03/19/2017 09:22:38 03/19/19 18 03/19/2017 CMP, serum or plasm a alanine aminotransfe rase 27.0 units /L 12-78 Not Available [address], [address], 03/19/2017 09:22:38 03/19/19 18 03/19/2017 CMP, serum or plasm a alkaline phosphatase 74 units /L 45-117 Not Available [address], [address], 03/19/2017 09:22:38 03/19/19 18 03/19/2017 CMP, serum or plasm a total bilirubin 0.41 mg/dL 0.2-1. 0 Not Available [address], [address], 03/19/2017 09:22:38 03/19/19 18 03/19/2017 CMP, serum or plasm a direct bilirubin 0.10 mg/dL 0.00-0 .20 Not Available [address], [address], 03/19/2017 09:22:38 03/19/19 18 03/19/2017 CMP, serum or plasm a performing lab: [facility] [address] [place] [address] Not Available [address], [address], 03/19/2017 09:22:38 03/19/19 18 03/19/2017 CBC WBC 5.9 K/mm3 4.0-10 .0 Not Available [address], [address], 03/19/2017 09:08:33 03/19/19 18 03/19/2017 CBC RBC 4.19 M/mm3 3.50-5 .00 Not Available [address], [address], 03/19/2017 09:08:33 03/19/19 18 03/19/2017 CBC HGB 12.1 gm/dL 11.0-1 5.0 Not Available [address], [address], 03/19/2017 09:08:33 03/19/19 18 03/19/2017 CBC hematocrit 38.0 % 33.0-4 5.0 Not Available [place] [id number], [place], [address], 03/19/2017 09:08:33 03/19/19 18 03/19/2017 CBC mean corpuscular volume 91 fL 82-99 Not Available [place] [id number], [place], [address], 03/19/2017 09:08:33 03/19/19 18 03/19/2017 CBC mean corpuscular hemoglobin 28.9 pg 28-32 Not Available [place] [address], [place], [address], 03/19/2017 09:08:33 03/19/19 18 03/19/2017 CBC mean corpuscular HGB conc 31.8 % 32.0-3 6.0 low Not Available [place] [address], [place], [address], 03/19/2017 09:08:33 03/19/19 18 03/19/2017 CBC RDW 18.3 % 11.5-1 4.5 high Not Available [place] [address], [place], [address], 03/19/2017 09:08:33 03/19/19 18 03/19/2017 CBC platelet count 290 K/mm3 150-45 0 Not Available [place] [address], [place], [address], 03/19/2017 09:08:33 03/19/19 18 03/19/2017 CBC mean platelet volume 10.7 fL 7.4-10 .4 high Not Available [place] [address], [place], [address], 03/19/2017 09:08:33 03/19/19 18 03/19/2017 CBC performing lab: [facility] [address] [place] [address] Not Available [address], [address], 03/19/2017 09:08:33 03/19/19 18 03/19/2017 tropo palomo I, serum or plasm a troponin I NG/mL 0.000- 0.045 Not Available [address], [place], [address], 03/19/2017 09:22:39 03/19/19 18 03/19/2017 tropo palomo I, serum or plasm a performing lab: [facility] [address] [place] [address] Not Available [address], [address], 03/19/2017 09:22:39 03/15/19 18 03/15/2017 MRI, brain , w/o contr ast [facility] Name: SUSAN KATHLEEN [address] [place] [address]. Phys: [place] [address] : 1940 Age: 76 Sex: F Acct: [id number] Loc: F.440- H 1 PHONE #: [phone] Exam Date: 2017 Status : ADM IN FAX #: Radiol ogy No: Unit No: [id number] EXAMS: REASON FOR EXAM:: [id number] MRI BRAIN W/O CONTRA ST TIA [...] the right anteri or pariet al and lawn specialist ior pariet al lobes near the cortic [...] or intrav entric ular hemorr hector. The lawn specialist ior fossa struct ures are intact and the basila r cister ns 4th ventri alberta are patent . There is normal symmet asael appear ance of both CP angles . There are normal flow voids within the visual ized intrac ranial vascul ar struct ures. PAGE 1 Signed Report (SULMA NUED) [facility] Name: KELSY HOLLIDAYLouisStephSUSAN [address] [facility]. Phys: Fadumo gill,[place] [address] : 1940 Age: 76 Sex: F Acct: [id number] Loc: F.440- H 1 PHONE #: [phone] Exam Date: 2017 Status : ADM IN FAX #: [phone] Radiol ogy No: Unit No: [id number] EXAMS: REASON FOR EXAM:: [id number] MRI BRAIN W/O CONTRA ST TIA left-s ided weakne ss IMPRES BRUCE: 1. Few small 3-4 mm ill-de fined areas of acute ischem ic infarc tions the right anteri or lawn specialist ior pariet al region s, likely emboli [...] NO: N/A PAGE 2 Signed Report INTERFACE [address], [address], 03/15/2017 09:03:11 03/15/19 18 03/15/2017 - carot id/ce rebro rudolphcu lar eval [facility] Name: SUSAN KATHLEEN [address] [place] [address]. Phys: [place] [address] : 1940 Age: 76 Sex: F Acct: [id number] Loc: F.440- H 1 PHONE #: Exam Date: 2017 Status : ADM IN FAX #: Radiol ogy No: Unit No: [id number] EXAMS: REASON FOR EXAM:: [id number] CAROTI D/CERE BROVAS CULAR E TIA [...] system : Proxim al, mid, and distal business services intern al caroti d artery peak systol ic veloci ty is 57, 89, 85 cm/sec . Modera te calcif ied plaque seen in the caroti d bulb. Peak systol ic veloci ties and ICA CCA ratios within normal limits . Left caroti d system : Proxim al, mid, distal business services intern al caroti d artery peak systol [...] 50% stenos is within the bilate ral business services intern al caroti d arteri es. Dopple [...] AL [facility] AL Name: KELSY SUSAN KELLER [address] Phys: Fadumo gill,[place] [address] : 1940 Age: 76 Sex: F Acct: [id number] Loc: F.440- H 1 PHONE #: Exam Date: 2017 Status : ADM IN FAX #: Radiol ogy No: Unit No: [id number] EXAMS: REASON FOR EXAM:: [id number] CAROTI D/CERE BROVAS CULAR E TIA [...] NO: N/A PAGE 2 Signed Report INTERFACE [address], [address], 03/15/2017 10:11:41 03/19/19 18 03/19/2017 CT, brain , w/o contr ast [facility] Name: SUSAN KATHLEEN [address] [facility]. Phys: [place] [address] : 1940 Age: 76 Sex: F Acct: [id number] Loc: F.ECC PHONE #: Exam Date: 2017 Status : REG ER FAX #: Radiol ogy No: Unit No: [id number] EXAMS: REASON FOR EXAM:: [id number] CT BRAIN NON-CO NTRAST left leg [...] PAGE 1 Signed Report (SULMA NUED) [facility] Name: KELSY SUSAN KELLER [id number] [address]. Phys: Naima Denny DO [facility] [place] [address] : 1940 Age: 76 Sex: F Acct: [id number] Loc: MORALES PHONE #: Exam Date: 2017 Status : REG ER FAX #: Radiol ogy No: Unit No: [id number] EXAMS: REASON FOR EXAM:: [id number] CT BRAIN NON-CO NTRAST left leg weakne ss CC: Dictat ed Date/T bob: 2017 (831) Techno logist : Triny Garcia , RT(R)( CT) Transc ribed Date/T bob: 2017 (831) Transc riptio nist: [email or web address] Orig Print D/T: S: 2017 (0837) BATCH NO: N/A PAGE 2 Signed Report INTERFACE [address], [place], [address], 03/19/2017 08:38:22 Result Notes Documentation Provider Name and Address Organization Details Recorded Time Mri, Brain, W/o Contrast : [facility] Name: SUSAN GAR [id number] [facility]. Phys: Germán [place] [address] : 1940 Age: 76 Sex: F Acct: [id number] Loc: F.440-H 1 PHONE #: [phone] Exam Date: 03/15/2017 Status: ADM IN FAX #: [phone] Radiology No: Unit No: [id number] EXAMS: REASON FOR EXAM:: [id number] MRI BRAIN W/O CONTRAST TIA left-sided weakness [...] vascular structures. PAGE 1 Signed Report (CONTINUED) [facility] Name: SUSAN GAR [address] [facility]. Phys: Germán [place] [address] : 1940 Age: 76 Sex: F Acct: [id number] Loc: F.440-H 1 PHONE #: [phone] Exam Date: 03/15/2017 Status: ADM IN FAX #: [phone] Radiology No: Unit No: [id number] EXAMS: REASON FOR EXAM:: [id number] MRI BRAIN W/O CONTRAST TIA left-sided weakness IMPRESSION: 1. 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 CC: Dictated Date/Time: 03/15/2017 (0849) Technologist: Shobha Harvey RT(R,M,CT,MR); ... Transcribed Date/Time: 03/15/2017 (0849) Shell Molder: CULLEN Henley Print D/T: S: 03/15/2017 (0901) BATCH NO: N/A PAGE 2 Signed Report Not Available [facility] 03/15/2017 09:03:11 Ct, Brain, W/o Contrast : [facility] Name: SUSAN GAR [address] Phys: [place] [address] : 1940 Age: 76 Sex: F Acct: [id number] Loc: [place] PHONE #: [phone] Exam Date: 03/19/2017 Status: REG ER FAX #: [phone] Radiology No: Unit No: [id number] EXAMS: REASON FOR EXAM:: [id number] CT BRAIN NON-CONTRAST left leg weakness EXAM [...] Corona M.D. PAGE 1 Signed Report (CONTINUED) [facility] Name: SUSAN GAR [address] [address] [facility]. Phys: [place] [address] : 1940 Age: 76 Sex: F Acct: [id number] Loc: [place] PHONE #: [phone] Exam Date: 03/19/2017 Status: REG ER FAX #: [phone] Radiology No: Unit No: [id number] EXAMS: REASON FOR EXAM:: [id number] CT BRAIN NON-CONTRAST left leg weakness CC: Dictated Date/Time: 03/19/2017 (0832) Technologist: Triny Garcia, RT(R)(CT) Transcribed Date/Time: 03/19/2017 (831) Shell Molder: CULLEN Orig Print D/T: S: 03/19/2017 (0837) BATCH NO: N/A PAGE 2 Signed Report Not Available Count includes the [facility] 03/19/2017 08:38:22 Problems Name Problem SNOMED Code Status Onset Date Resolution Date Notes Provider Name and Address Organization Details Recorded Time Administ ration of pneumoco ccal vaccine Completed 200612/29/2011 [facility] 5 11:18:31 Diarrhea 13069022 Completed 200712/29/2011 [facility] 5 11:18:31 Essentia l tremor Active 2007 Not Available [facility] 19:07:25 Speciali zed medical examinat ion Completed 200712/29/2011 [facility]isanta [facility] 5 11:18:31 Senile hyperker atosis 853368220 Completed 200712/29/2011 Ami [place] [facility], [facility] 5 11:18:31 Gastro-e sophagea l reflux disease with esophagi tis 981358669 Active 2007 Not Available [facility] 19:07:25 Depressi ve disorder 04045942 Active 2007 Not Available [facility] 19:07:25 Screenin g for malignan t neoplasm of rectum Active 2007 Not Available [facility] 19:07:25 Screenin g procedur e Completed 200712/29/2011 [facility] 5 11:18:31 Administ ration of viral vaccine Completed 200712/29/2011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
--- OUTSIDE RECORDS SUMMARY | 2025-02-04 10:17 | XMS_ITS | Clinical Summary ---
Author Organization [facility] Address [address] [place] [address] Care Team Providers Care Clinical Courier Name Role Phone Richie Grey MD Primary [...] Department Care Team Description 01/27/2025 Orders Only [facility] On[facility]ology - [place] [address] [facility] [address] [address] [place] [address] Adam Charles MD 12/31/2024 External [...] Comments Blood Pressure 98/69 05/05/2024 1:18 PM WELFARE INTERVIEWER Pulse 82 05/05/2024 1:18 PM WELFARE INTERVIEWER Temperature 36.4 C (97.5 F) 05/05/2024 1:18 PM WELFARE INTERVIEWER Respiratory Rate 15 05/05/2024 1:18 PM WELFARE INTERVIEWER Oxygen Saturation 95% 05/05/2024 1:18 PM WELFARE INTERVIEWER Inhaled Oxygen Concentration - - Weight 72 kg (158 lb 12.8 oz) 05/05/2024 1:18 PM WELFARE INTERVIEWER Height 160 cm (5' 3) 06/27/2021 2:36 PM CDT Body Mass Index 28.13 06/27/2021 2:36 PM CDT Plan of Treatment Upcoming Encounters Date Type Department Care Team (Late st Contact Info) Description 02/05/2025 1:00 PM WELFARE INTERVIEWER Office Visit [facility] Oncology [facility] Hematology [place] [address] [place] [address] Adam Charles MD [address] [facility] [address] [place] [address] Health Maintenance Due Date Last [...] COMPREHENSIVE METABOLIC PANEL Routine 01/26/2025 11:02 AM WELFARE INTERVIEWER from Last 3 Months Results * COMPREHENSIVE METABOLIC PANEL (01/26/2025 11:02 AM WELFARE INTERVIEWER) Blood us Adam Charles MD CHEMISTRY ORDERABLES Final Resu lt from Last 3 Months Insurance MEDICARE PART A AND B [facility] [id number] MEDICARE PART A AND B [facility] [id number] Care Teams Clinical Courier Relationship Specialty Start Date End Date Richie Grey MD [address] [place] [address] PCP - General Family Practice 12/05/17
--- OUTSIDE RECORDS SUMMARY | 2025-02-04 10:17 | XMS_ITS | Data Portability ---
Author Organization [place] - [facility] OFFICE Address [address] [place] [address] Care Team Providers Care Elocution Teacher Name Role Phone GORDY BOWERS Primary Care Provider GORDY BOWERS Referring Provider Assessment No assessment recorded. Plan of Treatment Reminders Order Date Submit Date Provider Last Modified By Organization Details Last Modified Time Details Appointments None recorded. Lab None recorded. Referral None recorded. Procedures None recorded. Surgeries None recorded. Imaging None recorded. Medication Orders Xarelto 15 mg tablet 2019 020 [id number] [address] [place], [place], [phone], 0 12:17:54 Patient TargetsNo targets recorded. Patient Instructions Encounter Date Encounter Id Patient Instructions Last Modified By Organization Details Last Modified Time 05/02/2019 [id number] Exercise advised. Low cholesterol diet advised. Low sodium diet advised. [email or web address] Not available 05/02/2019 12:02:42 Scribed by Christa [email or web address] Not available 05/02/2019 12:02:31 05/30/2019 [id number] Exercise advised Low cholesterol diet advised Low [...] Address Organization Details Recorded Time Pulmonary embolism 74713980 Active 2019 Lozoya [place], [place] - [facility] 0 11:31:31 Pneumonia 950055841 Active 2019 [place] [facility] 0 11:31:42 Gastric ulcer 873359812 Active 2019 [place] [facility] 0 11:32:37 Depressive disorder 46337273 Active 2019 [place] [facility] 0 11:32:51 Iron deficiency anemia 48194754 Active 2019 [place] [facility] 0 11:33:23 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 166025169 Active 2019 [place] [facility] 0 11:33:48 Hyperlipide betina 58856680 Active 2019 [place] [facility] 0 11:34:04 Essential hypertensio n 05123238 Active 2019 [place] [facility] 0 11:34:11 Anxiety 49460762 Active 2019 [place] [facility] 0 11:34:18 Cerebrovasc ular accident 959938821 Active 2019 [place] [facility] 0 11:34:24 Acute injury of kidney 0145092164910 4108 Active 2019 [place] [facility] 0 11:34:36 Diarrhea 80732304 [facility] 11:34:43 Chest pain 68057994 [facility] 0 11:34:59 Problem Notes None recorded. Procedures Surgical History Date Name Laterality Status Provider Name and Address Organization Details Recorded Time blepharoplasty completed [facility] 05/28/2019 16:42:15 extraction of cataract completed [facility] 05/28/2019 16:42:34 Total hysterectomy completed [facility] 05/28/2019 16:42:43 appendectomy completed [facility] 05/28/2019 16:42:53 Cholecystectomy completed [facility] 05/28/2019 16:43:20 tonsillectomy [facility] [...] (BMI) Body height Heart rate Oxygen saturation Systolic And Diastolic Provider Name and Address Organization Details Last Updated DateTime 0 43550.4 g 32.4 kg/m2 160.02 cm 84 /min 94 % 142/78 mm[Hg] MARY ALICE SHIN [facility] 0 11:40:48 Date Recorded Body height Body mass index (BMI) Body weight Heart rate Systolic And Diastolic Provider Name and Address Organization Details Last Updated DateTime 05/30/2019 160.02 cm 29.6 kg/m2 22457.93 g 73 /min 126/71 mm[Hg] MARY ALICE SHIN [facility] 05/30/2019 12:29:45 Social History Question Answer Notes LastModified by Organizat ion Details LastModified Time Tobacco Smoking Status Never Smoker Devora venron [facility] 05/28/2019 16:44:44 Which Illicit Or Recreational [...] ICD10 Code Diagnosis IMO Codes Diagnosis Note [id number] Hank Amaral MD [facility] OFF[facility] [address] [place] [phone] 05/02/2019 11:03:04 05/02/2019 13:29:05 Essential hypertension 53457316 I10 Well-contr olled. Continue current regimen. Edema of l ower extremity 258330819 R60.0 BLE swelling noted per her daughter who is her POA. reports Shortness of breath at rest. advised to elevate BLE.contin ue lasix 20 mgWill increase to 20 BID for 3 days then decrease back to 20 daily Pulmonary embolism 15923 003 I26.99 on eliquis 2.5 mgDaughter states that insurance will cover Xarelto Hyperlipidemia 63537171 E78.5 Needs to keep LDL less than 70, and HDL more than 40 Will get lipid profile results from PCP Generalized edema 094184 008 R60.1 Daughter states that she continues to have some swelling but has loss 10 pounds of water. [id number] Hank Amaral MD [facility] OFFICE [address] [place] [address] 05/30/2019 11:42:57 05/30/2019 13:30:51 Essential hypertension 27920714 I10 Well-contr olled. Continue current regimen. Edema of l ower extremity 728756257 R60.0 Improved. WIll d/c Lasix. Has hypokalemi a. Will order home health visits to monitor labs. Pulmonary embolism 94939 003 I26.99 Continue Xarelto Hyperlipidemia 18255787 E78.5 Needs to keep LDL less than 70, and HDL more than 40 Will get lipid profile results from PCP Dyspnea 913530529 R06.00 Due to pulmonary emboli.Sym ptoms improved. Health Concerns Section Related Observation LastModified by Organization Detai ls LastModified Time None Recorded Concern Status LastModified by Organization Details LastModified Time None Recorded Advance Directives Directive None Recorded Payers Insurance Date Sequence Insurance Name Policy Number Policy Maynard Covered Member ID Maynard Member ID Guarantor Name 05/06/2019 1 [place] Lisa Johnsonf [id number] Lisa James 05/27/2019 2 AARP (MEDICARE SUPPLEMENT) Lisa Worleypf [id number] Lisa James Notes Date Note Type Note Provider Name and Address Organization Details Recorded Time 05/02/2019 text/html Hospitalization Contact RecordReported by Patient 05/02/19 CC: Hospital follow up 78 year old female new to this practice. Patient has PMH of hypertension, hyperlipidemia, CVA She in the [facility] 04/19/19 for pulmonary emboli. She is doing [...] from the past: Hank Amaral MD [address] [place], [address], [facility] 05/23/2019 19:38:41 05/30/2019 text/html Hospitalization Contact RecordReported by Patient 05/30/19 Due to the [facility] nicole virus mandated precautions for at risk patients, this visit is being conducted virtually via smart phone face time mode. Patient has agreed for the physician to perform the visit in this manner. CC: dyspnea 78 year old female PMH of hypertension, hyperlipidemia, CVA, who presents for follow up. She in the [facility] 04/19/19 for pulmonary emboli and pna. She [...] HCT 31.8, PLT 363 Hank Amaral MD [address] [place], [address], [facility] 05/30/2019 13:30:49 OBGyn Episode No OBEpisode recorded.
--- OUTSIDE RECORDS SUMMARY | 2025-02-04 10:17 | XMS_ITS | Clinical Summary ---
Author Organization [facility] Address [address] [place] [address] Care Team Providers Care Hazardous Materials Analyst Name Role Phone Richie Grey MD Primary Care Provider Adam Charles MD Unavailable [phone] Allergies Active Allergy Reactions Criticality Noted [...] implantable loop record er 04/18/2017 Overview (04/25/2017): mention Linq Loop Recorder, Dx: Syncope. DOI 03/16/2017 in [place]. [employer] remote monitoring. Encounters Date Type Department Care Team Description 11/28/2024 10:20 AM CDT Office Visit [facility] Medicine Otolaryngology Head-Neck Division [address] [place] [phone] Wilton Glez MD Pleomorphic adenoma of parotid gland (Primary Dx) 11/28/2024 Orders Only [facility] Medicine Otolaryngology Head-Neck Division [address] [place] [address] Wilton Glez MD 11/28/2024 Orders Only [facility] Medicine Pathology Outreach [address] [place] [address] Wilton Glez MD Pleomorphic adenoma of parotid gland 11/24/2024 10:36 AM CDT Anesthesia Event [facility] Operating Room [address] [place] [address] Laron Spence MD Dulle, Alison Renee, NP 11/24/2024 10:30 AM CDT - 11/24/2024 1:50 PM CDT Surgery [facility] Operating Room [address] [place] [address] Wilton Glez MD PAROTIDECTOMY. 11/24/2024 8:14 AM CDT - 11/24/2024 5:10 PM CDT Hospital Encounter [facility] Operating Room [address] [place] [address] Wilton Glez MD Parotid adenoma Discharge Disposition: Discharge to home or self care 11/10/2024 8:09 AM CDT - 11/10/2024 11:59 PM CDT Hospital Encounter [facility] [address] [place] [address] Discharge Disposition: Discharge to home or self care 11/07/2024 1:40 PM CDT Office Visit [facility] Medicine Otolaryngology Head-Neck Division [address] [place] [address] Floor [address] [place] [address] Wilton Glez MD Pleomorphic adenoma of parotid gland (Primary Dx) 11/07/2024 11:52 AM CDT - 11/07/2024 11:59 PM CDT Hospital Encounter [facility] [address] [place] [address] Pleomorphic adenoma of parotid gland Discharge Disposition: Discharge to home or self care from Last 3 Months Surgical History Surgery Date Site/Laterality Comments TONSILLECTOMY CHOLECYSTECTOMY APPENDECTOMY HYSTERECTOMY with oophorectomy CATARACT EXTRACTION EYE SURGERY Left tumor removed from retina - benign COLONOSCOPY several PAROTIDECTOMY 11/24/2024 Neck/Right Procedure: PAROTIDECTOMY.; Surgeon: Wilton Glez MD; Location: [facility] OR POD 5; Service: Otolaryngology; Laterality: [...] on file Legal 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 Gender Identity Not on file Sexual Orientation [...] history exists Medical Devices Explanted Type Area Ballet Professor Device Identifier Shelf Expiration Date Model / Serial / Lot Implantable Loop Recorder- [id number] Implanted:03/16 (Quantity not on file) Implantable Loop Recorder Chest [employer] Syncope, s/p CVA REVEAL LINQ [id number] / [id number] S / Procedures Procedure Name Priority Date/Time Associated Diagnosis Comments CYTOLOGY Routine 11/28/2024 4:11 PM CDT POC BLOOD GAS AND CHEMISTRIES, VENOUS Routine 11/24/2024 3:17 PM CDT SURGICAL PATHOLOGY Routine 11/24/2024 12 :48 PM CDT Parotid adenoma [place] AN PROCEDURE PLACEHOLDER Routine 11/24/2024 11:31 AM CDT [place] AN PROCEDURE PLACEHOLDER Routine 11/24/2024 10:59 AM CDT [place] AN ELECTIVE ENDOTRACHEAL AIRWAY Routine 11/24/2024 10:59 AM CDT PAROTIDECTOMY. 11/24/2024 10:38 AM CDT Parotid adenoma Case Notes 11/21@0846: Per Jonathan via phone call, case moved to third case in OR 222 from OR 219. SR09/15@1508- Christiano Townsend via case msg move to [facility] for rescheduling- [facility] Special Needs [facility] TRANSFER OF OUTSIDE FILMS Routine 11/10/2024 [...] in EPIC best viewed via PDF link [facility] Pathology Consult [place] [address] Note to Patients: This report may contain [...] * FINAL Patient Name: LISA GAR Address: [address] [place] [address] Gender: F : 1940 (Age: 84) Hospital #: [id number] Patient Type: [facility] Location: UNKNOWN Taken: 11/28/2024 Received: 11/28/2024 Accessioned: 12/01/2024 Reported: 12/03/2024 Physician(s): Wilton Glez M.D. [facility] Department of Pathology [address] [place], [place] [address] P: [phone] F: [phone] Final Diagnosis Consult material received from [place], [place].(OSC: [id number]; 03/06/2024): Parotid gland, right, fine-needle [...] corresponding pathology report. The material originates from [place], [place]. Selected slide(s) may be digitally scanned [...] the Department of Pathology and Immunology at [facility], [address] [place] [address] CLIA # [id number] The performance characteristics of the testing cited in this report (if any) were determined by the [facility] Department of Pathology and Immunology [facility], as part of an ongoing quality measurement specialist program and in compliance with federally mandated [...] and the performance characteristics determined by the [facility], [facility] Department of Pathology and Immunology. It has not been cleared or approved by the U.S. Food and Drug Administration. Any test designated as LDT was developed and its performance characteristics determined by [facility]. It has not been cleared [...] nhi POC 54(H) 40 - 50 mmHg [facility] pO2, nhi POC 52 mmHg [facility] Na, POC 140 135 - 145 mmol/L [facility] K POC 3.7 3.3 - 4.9 mmol/L [facility] Comment: Interpretive Data Not all point of care methods assess for hemolysis. Confirm with instrument and retest K+ if not consistent with clinical signs and symptoms. Current Interpretive Data was last revised on 2023. Cl, POC 108 97 - 110 mmol/L [facility] Ionized Ca, POC 5.45(H) 4.50 - 5.10 mg/dL [facility] Glucose, POC 177 70 - 199 mg/dL [facility] Lactate POC 2.0 0.7 - 2.0 mmol/L [facility] O2 Sat, Nhi POC ([place]) 84 % [facility] HCO3, Nhi POC 25 20 - 30 mmol/L [facility] Hct, POC 39.0 36.3 - 45.3 % [facility] Total Hb, POC 12.9 11.9 - 15.5 g/dL [facility] Blood 11/24/2024 3:17 PM CDT 11/24/2024 3:17 PM CDT us Wilton Glez MD LAB POCT ORDERABLES - DEV ICE Final Result [facility] Department [place] [address] * Surgical pathology (11/24/2024 12:48 PM CDT) Tissue (Soft tissue biopsy) 11/24/2024 12:48 PM CDT Narrative PATHOLOGY [facility] - 11/27/2024 11:53 AM CDT EPIC results best viewed via link to PDF [facility] [place] [address] Note to Patients: This report may contain [...] Gender: F : 1940 (Age: 84) Address: [address] [place] [address] Hospital #: [id number] Taken:11/24/2024 Received:11/24/2024 Reported: 11/27/2024 Patient Type: [facility] Service: Surgery Location: [facility] OR POD 5 Physician(s): Karli Delgado [...] Surgical Pathology and Flow Cytometry Departments at [facility] as part of an ongoing quality measurement specialist program and in compliance with federally mandated [...] Surgical Pathology and Flow Cytometry Departments of [facility]. It has not been cleared or approved by the U. S. Food and Drug Administration. IMAGES AND SCANNED DOCUMENTS, IF INCLUDED, ONLY VIEWABLE IN PDF VERSION OF REPORT Wilton Glez MD LAB PATHOLOGY ORDERABLES Final Result PATHOLOGY [facility] 3rd Floor [place], [place] [phone] * [place] AN PROCEDURE PLACEHOLDER (11/24/2024 11:31 AM CDT) Dunia Rodriguez CRNA - 11/24/2024 11:31 AM CDT Dunia Solorzano CRNA 11/24/2024 11:32 AM Peripheral IV Catheter Patient location: OR Staff: Placed by: FAMILY MEDIATOR: Dunia Solorzano CRNA Preprocedure prep: Prep solution: [...] Spence MD ANESTHESIA ORDERABLES Final Result * [place] AN ELECTIVE ENDOTRACHEAL AIRWAY, [place] AN PROCEDURE PLACEHOLDER (11/24/2024 10:59 AM CDT) Narrative Ethan Turner CRNA - 11/24/2024 10:59 AM CDT Ethan Turner CRNA 11/24/2024 10:59 AM Airway Patient location: OR Urgency: elective Indications for airway management: anesthesia and airway protection Difficult airway: no Staff: Placed by: FAMILY MEDIATOR: Ethan Turner CRNA Emergent airway documentation: Risks [...] only and have not been reviewed by [facility] Radiology. There will be no report generated by a [facility] Radiologist. Narrative RAD_PACS_[facility] - 11/10/2024 8:09 AM CDT EXAMINATION: [...] are normal. The limited view of the [place] is unremarkable. The visualized portions [...] are normal. The limited view of the [place] is unremarkable. The visualized portions [...] ORDERABLES - DEV ICE Final Result [facility] [place] [address] from Last 3 Months Insurance [facility] MEDICARE MEDICARE [facility] MEDICARE AARP Advance Directives For more information, please contact: [phone] Documents on File Type Date Recorded Patient Group Dynamics Instructor Expl anation ADVANCE DIRECTIVE 11/24/2024 10:03 AM Veronica r of Extraction Operator-Medical ADVANCE DIRECTIVE 11/24/2024 10:02 AM Elzbieta hunt Will Care Teams Hazardous Materials Analyst Relationship Specialty Start Date End Date Richie Grey MD PCP - General Family Practice 04/18/17 Adam Charles MD [address] [address] Referring Physician Hematology 11/10/24
[2025-02-04 10:23] LABS: Add Urine Microscopic? NO; Alanine Aminotransferase 16 U/L (6-35); Albumin Level 3.7 g/dL (3.5-5.1); Alkaline Phosphatase 94 U/L (38-126); Anion Gap 4 mmol/L (4-12); Appearance Urine Clear (Clear); Aspartate Amino Transferase 30 U/L (14-36); Bilirubin,Total 0.8 mg/dL (0.2-1.3); Blood Urea Nitrogen 16 mg/dL (7-17); Calcium 9.3 mg/dL (8.4-10.2); Carbon Dioxide 28 mmol/L (22-30); Chloride 108 mmol/L (98-107); Estimated CRCL calculation 33 ml/min; Estimated Glomerular Filt Rate 46; Glucose 106 mg/dL (65-110); Glucose Urine UA Negative (Negative); Leukocyte Esterase Ur Negative LEU/UL (Negative); Nitrate Urine Negative (Negative); Potassium 3.5 mmol/L (3.4-5.0); Sodium 140 mmol/L (137-145); Specific Grav Ur 1.003 (1.001-1.035); Total Protein 6.7 g/dL (6.3-8.2)
--- NOTE | 2025-02-04 10:37 | ED.GENADULT ---
HPI - General Adult General Chief complaint: Unspecified Stated complaint: body vibrating from feet up Time Seen by Provider: 02/04/25 09:24 History of Present Illness HPI narrative: About a week ago, patient was changed from her duloxetine to her sertraline, she had also been taken off of her Xanax and trazodone briefly and restarted on it due to difficulty sleeping, and this morning had a sensation of vibration of her whole body. No focal numbness or weakness, she has had a prior stroke with residual slight numbness to her left side. Sensation of dizziness/funny feeling. Related Data Home Medications ?Medication ?Instructions ?Recorded ?Confirmed ?Last Taken ?Type alprazolam 0.5 mg tablet 0.5 mg PO QHS Anxiety 06/15/22 12/30/24 Unknown History duloxetine 30 mg capsule,delayed 30 mg PO DAILY 09/18/24 12/30/24 Unknown History release trazodone 50 mg tablet 100 mg PO QHS 09/18/24 12/30/24 Unknown History Allergies Allergy/AdvReac Type Severity Reaction Status Date / Time latex Allergy Intermediate RASH Verified 12/30/24 12:56 shrimp Allergy Intermediate Nausea Uncoded 12/30/24 12:56 ONIONS AdvReac Mild NAUSEA, Uncoded 12/30/24 12:56 SLEEPINESS Review of Systems Review of Systems: All systems reviewed & are unremarkable except as noted in HPI and below PMFSH Past Medical History Medical History CKD stage 3a, GFR 45-59 ml/min Benign positional vertigo Nonallergic rhinitis 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 [place]bert 4A benign tumor resected from right parotid gland in 11/2024 Trochanteric bursitis, left hip Right hip pain Benign head tremor Prediabetes Heart murmur Lumbar back pain Degenerative joint disease of left hip Jb ulcer 04/2019 Rotator cuff tendinitis DJD of shoulder IBS (irritable bowel syndrome) GERD (gastroesophageal reflux disease) Hearing loss Wears glasses Hiatal hernia with GERD CKD (chronic kidney disease) stage 3, GFR 30-59 ml/min Dyslipidemia Essential (primary) hypertension History of stroke (~2017) Insomnia Acute on chronic blood loss anemia 04/2019 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 Peptic ulcer disease Eczema As a teenager Depression Iron 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 Anxiety History of TIAs X2 Pulmonary emboli (~04/2019) 04/2019 CVA (cerebral vascular accident) (~03/2017) Initially affected her left side but then the symptoms resolved March 2017 Surgical History Surgical History History of parotid gland excision (~11/2024) right parotid partial resection, benign tumor History of loop recorder S/P tonsillectomy (~1956) H/O endoscopy History of loop recorder (~03/2017) Left chest, removed in 2009 H/O total hysterectomy (~1989) Hx of cholecystectomy (~1989) History of appendectomy (~1989) H/O blepharoplasty (~2007) H/O cataract extraction (~2007) Bilateral Family History Family History Father Hypertension Acute myocardial infarction Heart disease Sibling Cancer Kidney disease Abdominal malignancy Sibling High cholesterol Lung cancer Grandparent Uterine cancer Social History Social History Social History: The patient is and lives with her daughter and son-in-law. She has 2 children a son and a daughter. Petra Glez. She is a full code. No alcohol or illicit drugs. Lifelong nonsmoker. 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 Smoking status: Never smoker Second hand tobacco smoke exposure: Yes Alcohol intake: current Drinks per week: 1 Alcohol use details: 1 beer/week Substance use: never Substance use type: does not use Lack of Transportation: No Lack of Food: Never True Current Housing: I Have Housing Concerned About Future Housing: No Difficulty Paying Gas/Electric Bills: No Difficulty Paying for Meds: No Currently Unemployed: No Education: Associate Degree Difficulty w/ Childcare or Family Care: No Living arrangements: with family Occupation/Education: retired Gender identity (if verbalized by the patient): Female Spiritual care concerns: No Agree to blood products: Yes Exam Narrative: EXAMINATION OF ORGAN SYSTEMS/BODY AREAS: Constitutional: Vital signs per nursing GENERAL:[No acute distress, non-toxic appearing.] HEAD: Normal with no signs of head trauma. EYES: EOMI, conjunctiva normal ENT: Hearing grossly intact LUNGS: Nonlabored breathing. HEART: [Regular rate and rhythm] ABD: [Soft], [nontender to palpation] EXT: Normal range of motion SKIN: [No rashes or lesions.] NEURO: [Alert. Clear speech, ambulating with normal gait, normal strength upper and lower extremities, some slight diminished sensation left side, baseline for patient.] PSYCH: Normal affect Course Vital Signs Vital signs: Vital Signs Temperature 98.2 F 02/04/25 08:45 Pulse Rate 82 02/04/25 08:45 Respiratory Rate 16 02/04/25 08:45 Blood Pressure 162/83 H 02/04/25 08:45 Pulse Oximetry 100 02/04/25 08:45 Oxygen Delivery Room Air 02/04/25 08:45 Temperature 98.2 F 02/04/25 08:45 Pulse Rate 82 02/04/25 08:45 Respiratory Rate 16 02/04/25 08:45 Blood Pressure 162/83 H 02/04/25 08:45 Pulse Oximetry 100 02/04/25 08:45 Oxygen Delivery Room Air 02/04/25 08:45 MDM MDM Narrative Medical decision making narrative: Patient presents with sensation vibration in her whole body, starting around this morning, she has otherwise completely normal neurologic exam, NIH stroke scale is 0-1 for her residual left-sided diminished sensation from prior CVA. Suspect most likely the medication change causing her symptoms, since she has had multiple changes to her psychiatric medications in last week. Discussed this with family, but that we can get basic labs and a CT brain here. Unremarkable labs and CT other than her old infarcts. They will follow-up with her psychiatrist and return for any further issues. Differential Diagnosis Differential Diagnosis: Medication affects, CVA/TIA, electrolyte abnormalities Lab Data 02/04/25 09:55 02/04/25 09:55 Labs: Lab Results 02/04/25 Range/Units 09:55 WBC 5.8 (4.5-10.0) K/mm3 RBC 3.96 L (4.2-5.4) M/mm3 Hgb 12.2 (12.0-15.0) g/dL Hct 37.1 (37.0-47.0) % MCV 93.7 (80-100) fl MCH 30.8 (26-34) pg MCHC 32.9 (32-36) g/dl RDW 13.9 (11.5-14.5) % Plt Count 226 (150-375) k/mm3 MPV 10.4 (7.4-10.4) fl Immature Gran % (Auto) 0.2 (0-0.5) % Neut % (Auto) 72.4 (45.5-73.1) % Lymph % (Auto) 16.1 L (18.3-44.2) % [place] % (Auto) 9.2 H (2.6-8.5) % Eos % (Auto) 1.9 (0-4.4) % Baso % (Auto) 0.2 (0.2-1.2) % Lymph # (Auto) 0.94 (0.9-3.2) K/mm3 [place] # (Auto) 0.5 (0.1-0.6) K/mm3 Eos # (Auto) 0.1 (0-0.3) K/mm3 Baso # (Auto) 0.0 (0.0-0.1) K/mm3 Abs Immat Gran (auto) 0.01 (0.00-0.031) K/mm3 Absolute Neuts (auto) 4.2 (1.3-6.7) K/mm3 Absolute Nucleated RBC 0.000 (0.0-0.012) K/mm3 Nucleated RBC % 0.0 (0.0-0.2) % Sodium 140 (137-145) mmol/L Potassium 3.5 (3.4-5.0) mmol/L Chloride 108 H (98-107) mmol/L Carbon Dioxide 28 (22-30) mmol/L Anion Gap 4 (4-12) mmol/L BUN 16 (7-17) mg/dL Creatinine 1.12 H (0.7-1.0) mg/dL Estim Creat Clear Calc 33 ml/min Estimated GFR 46 L (59 - ) Glucose 106 (65-110) mg/dL Calcium 9.3 (8.4-10.2) mg/dL Total Bilirubin 0.8 (0.2-1.3) mg/dL AST 30 (14-36) U/L ALT 16 (6-35) U/L Alkaline Phosphatase 94 (38-126) U/L Total Protein 6.7 (6.3-8.2) g/dL Albumin 3.7 (3.5-5.1) g/dL Urine Color Pending Urine Appearance Pending Urine pH Pending Ur Specific [place] Pending Urine Protein Pending Urine Glucose (UA) Pending Urine Ketones Pending Ur Blood (Man) Pending Urine Nitrate Pending Urine Bilirubin Pending Urine Urobilinogen Pending Leukocyte Esterase Rfl Pending Imaging Data Radiologist's impression: ITS Impressions Head CT 02/04/25 10:25 IMPRESSION: 1. Old infarct in the right frontal and parietal lobes. Discharge Plan Discharge Clinical Impression: Dizziness Patient Disposition: Home Condition: Stable Instructions: Dizziness (ED) Additional Instructions: Please follow-up with your psychiatrist for further medication adjustments as needed, and come back to the ER for any further issues. Patient Language: Kisw[place]ili Prescriptions: No Action trazodone 50 mg tablet 100 mg PO QHS Rx Instructions: Take 1-2 tabs daily at bedtime duloxetine 30 mg capsule,delayed release(DR/EC) 30 mg PO DAILY Xarelto 10 mg tablet 10 mg PO DAILY Qty: 1 0RF Patient Comments: Patient stopped Xarelto on 06/27/22. alprazolam 0.5 mg tablet 0.5 mg PO QHS meclizine 25 mg tablet 25 mg PO TID PRN (Reason: dizziness) Qty: 30 1RF atorvastatin 20 mg tablet 20 mg PO QHS Qty: 90 1RF pantoprazole 20 mg tablet,delayed release (DR/EC) 20 mg PO DAILY Qty: 90 1RF lisinopril 20 mg tablet 20 mg PO DAILY Qty: 90 1RF amlodipine 5 mg tablet 5 mg PO DAILY Qty: 90 1RF Follow-up/Referrals: Mary Grey MD [Primary Care Provider, Family Practice]
[2025-02-04 11:07] VITALS: BP 131/73; PULSE 70; RESP 18; O2SAT 99
== END 2025-02-04 11:13 | disposition home or self-care (01) ==
PROVIDERS: Emergency Provider Emergency Medicine; PCP Family Medicine
DX: R42 Dizziness and giddiness (principal); I12.9 Hypertensive chronic kidney disease with stage 1 through stage 4 chronic kidney disease, or unspecified chronic kidney disease; N18.31 Chronic kidney disease, stage 3a; I69.398 Other sequelae of cerebral infarction; R20.0 Anesthesia of skin; E78.5 Hyperlipidemia, unspecified; R73.03 Prediabetes; D50.9 Iron deficiency anemia, unspecified; K58.9 Irritable bowel syndrome, unspecified; K21.9 Gastro-esophageal reflux disease without esophagitis; M19.019 Primary osteoarthritis, unspecified shoulder; F41.9 Anxiety disorder, unspecified; Z86.711 Personal history of pulmonary embolism; Z87.11 Personal history of peptic ulcer disease; Z90.710 Acquired absence of both cervix and uterus; Z90.49 Acquired absence of other specified parts of digestive tract; Z98.42 Cataract extraction status, left eye; Z98.41 Cataract extraction status, right eye; Z77.22 Contact with and (suspected) exposure to environmental tobacco smoke (acute) (chronic); Z79.899 Other long term (current) drug therapy
CPT/HCPCS: 36415; 70450; 80053; 81003; 85025; 99284